=== PATIENT | female | born 1935 | race Caucasian/White ===

== ENCOUNTER 2021-03-25 08:27 | Outpatient (CLI) | payer MEDICARE, MEDICAID, SELFPAY | END 2021-03-25 08:28 | disposition home or self-care (01) | LOC: ANHAUDIO 08:30 | PROVIDERS: Visit Provider Otolaryngology | DX: H90.3 Sensorineural hearing loss, bilateral (principal) | CPT/HCPCS: 92557; 92567 ==

== ENCOUNTER 2021-05-21 12:00 | Outpatient (RCR) | payer MEDICARE, MEDICAID, SELFPAY | END 2021-05-21 23:59 | disposition home or self-care (01) | LOC: ANHAUDIO 12:00 | DX: Z46.1 Encounter for fitting and adjustment of hearing aid (principal) | CPT/HCPCS: 99199; V5160; V5261; V5264 ==

== ENCOUNTER 2024-05-05 14:12 | Inpatient (IN) | payer MEDICARE, MEDICAID, SELFPAY ==
[2024-05-05] VITALS (9 sets, daily range): BP systolic 103–146; BP diastolic 61–89; PULSE 77–121; RESP 15–24; TEMP 36.4–37.5; O2SAT 93–99; BMI 26.0
--- NOTE | ~2024-05-05 | CT_ITS ---
History: Interval development of facial droop. PROCEDURE: CT head without contrast. COMPARISON: 05/05/2024, less than 24 hours earlier. TECHNIQUE: Axial imaging of the head performed from the skull base to the vertex without IV contrast. Sagittal a nd coronal reformations obtained. DLP: 790 mGy-cm FINDINGS: The ventricles are enlarged. The dilatation of the ventricles is proportional to the degree of sulcal prominence, not uncommon in the senescent brain. Decreased attenuation is identified within the periventricular white matter, likely secondary to micr ovascular ischemic disease, in a patient of this age. There is no mass, mass effect or midline shift. There is no abnormal extra-axial fluid collection or intracranial hemorrhage. Visualized paranasal sinuses are clear. The mastoid air cells are well aerated. No acute displaced fractures within the overlying cranium. Impression: No acute intracranial hemorrhage or suspicious mass effect. Examination is unchanged from previous study performed less than 24 hours earlier, when the clinical presentation included altered mental status only. Reviewed, dictated and finalized at location A. Impression: No acute intracranial hemorrhage or suspicious mass effect. Examination is unchanged from previous study performed less than 24 hours [facility], when the clinical presentation included altered mental status only.
--- NOTE | ~2024-05-05 | US_ITS ---
EXAMINATION: US venous doppler [facility] DATE: 05/06/2024 11:39 INDICATION: Palpable cord on examination TECHNIQUE: Grayscale ultrasound images without and with compression and Doppler ultrasound images of the bilateral lower extremity veins were obtained. COMPARISON: None. FINDINGS: The visualized portions of right common femoral vein, profunda (deep) femoral vein, femoral vein, pop liteal vein, peroneal veins, posterior tibial veins, and greater saphenous vein outflow are patent. The visualized portions of left common femoral vein, profunda femoral vein, femoral vein, popliteal v ein and greater saphenous vein outflow are patent. Unable to visualize the peroneal and posterior tib ial veins, secondary to patient tolerance. IMPRESSION: 1. No deep venous thrombosis to the level of the posterior tibial vein on the right and to the level of the popliteal vein on the left. Reviewed, dictated and finalized at location A.
--- NOTE | ~2024-05-05 | XR_ITS ---
EXAMINATION: XR chest 1V portable Exam Date/Time: 05/06/2024 15:15 CDT HISTORY: secretions, AMS, Comparison: CT abdomen pelvis, 05/05/2024. RESULT: Lines, tubes, and devices: Vertebroplasty cement at T12. Lungs and pleura: Mild diffuse reticular opacities. No focal consolidation, pleural effusion, or pne umothorax. Cardiomediastinal silhouette: 3 cm mixed density ovoid right hilar mass. Hiatal hernia. Other: No acute osseous or upper abdominal finding. IMPRESSION: 3 cm ovoid, right hilar mass, may represent lymphadenopathy, a dilated pulmonary vessel en face, othe r mass, or artifact. Consider CT of the chest for further evaluation. Mild interstitial edema/senescent change. Reviewed, dictated and finalized at [facility]. IMPRESSION: 3 cm ovoid, right hilar mass, may represent lymphadenopathy, a dilated pulmonar y vessel en face, other mass, or artifact. Consider CT of the chest for further evaluation. Mild interstitial edema/senescent change.
--- NOTE | ~2024-05-05 | US_ITS ---
EXAMINATION: US renal BI DATE: 05/06/2024 11:40 INDICATION: Hydroureteronephrosis TECHNIQUE: Multiple grayscale and Doppler ultrasound images of the kidneys were obtained. COMPARISON: CT abdomen pelvis 05/05/2024. FINDINGS: The right kidney measures 9.3 x 4.5 x 4.5 cm. The left kidney measures 8.9 x 3.5 x 3.4 cm. The kidney s demonstrate increased parenchymal echogenicity, renal sinus lipomatosis, and bilateral cortical thi nning. There is mild right and trace left pelviectasis. Suggestion of mucosal thickening in the right renal pelvis. The bladder is decompressed by a Phan catheter. IMPRESSION: Bilateral cortical atrophy and evidence of medical renal disease. Bilateral pelviectasis, greater on the right, both are improved since the prior CT. Wall thickening o f the right renal pelvis may reflect infection/inflammation. Reviewed, dictated and finalized at [facility]. IMPRESSION: Bilateral cortical atrophy and evidence of medical renal disease. Bilateral pelviectasis, greater on the right, both are improved since the prior CT. Wall thickening of the right renal pelvis may reflect infection/inflammati on.
--- NOTE | ~2024-05-05 | CT_ITS ---
CT Scan of the Chest without Contrast: Clinical Indication: Right hilar mass Technique: Contiguous sections were acquired throughout the chest without intravenous contrast. Dose reduction technique was used on this scan by utilizing automated exposure control and iterative recon struction technique. The dose-length product (DLP) was 220.99 mGy-cm. Findings: There is no evidence of any significant mediastinal, hilar or axillary lymphadenopathy. There is card iomegaly with left atrial enlargement. Extensive coronary artery calcifications are present. There ar e extensive atherosclerotic calcifications of the aorta. No pericardial effusion. Small bilateral pleural effusions are present. The lungs are clear. No pulmonary nodules or infiltrates are noted. Images through the upper abdomen reveal moderate hiatal hernia. There is extensive degenerative arvizu e of the spine. There is T12 vertebroplasty. Impression: No abnormal mass lesion identified. Small bilateral pleural effusions. Cardiomegaly. Moderate hiatal hernia. Reviewed, dictated and finalized at [facility]. Impression: No abnormal mass lesion identified. Small bilateral pleural effusions. Cardiomegaly. Moderate hiatal hernia.
--- NOTE | ~2024-05-05 | XR_ITS ---
XR chest 1V portable 05/08/2024 07:32 Indication: Shortness of breath. Altered mental status. Procedure: AP portable chest Comparison: 05/06/2024 Findings: Cardiomegaly. Hiatal hernia. No focal air space disease, pulmonary edema, pleural effusion or suspected pneumothorax. There is dextroscoliosis. There is severe thoracic spondylosis with multip le compression fractures with vertebroplasty changes in the lower thoracic spine. Osteopenia. Impression: 1: No acute cardiopulmonary disease. 2: Cardiomegaly. 3: Hiatal hernia. Reviewed, dictated and finalized at location A. Impression: 1: No acute cardiopulmonary disease. 2: Cardiomegaly. 3: Hiatal hernia.
--- NOTE | ~2024-05-05 | CT_ITS ---
History: Altered mental status with urinary tract infection PROCEDURE: CT head without contrast. COMPARISON: None TECHNIQUE: Axial imaging of the head performed from the skull base to the vertex without IV contrast. Sagittal a nd coronal reformations obtained. DLP: 681 mGy-cm FINDINGS: The ventricles are enlarged. The dilatation of the ventricles is proportional to the degree of sulcal prominence, not uncommon in the senescent brain. Decreased attenuation is identified within the periventricular white matter, likely secondary to micr ovascular ischemic disease, in a patient of this age. There is no mass, mass effect or midline shift. There is no abnormal extra-axial fluid collection or intracranial hemorrhage. Visualized paranasal sinuses are clear. The mastoid air cells are well aerated. No acute displaced fractures within the overlying cranium. Impression: No acute intracranial hemorrhage or suspicious mass effect. Reviewed, dictated and finalized at location A. Impression: No acute intracranial hemorrhage or suspicious mass effect.
--- NOTE | ~2024-05-05 | US_ITS ---
EXAMINATION: US carotid duplex BI DATE: 05/07/2024 16:05 INDICATION: Right-sided cerebrovascular accident. Carotid bruit. TECHNIQUE: Grayscale, color Doppler, and pulsed Doppler images of the cervical carotid arteries were obtained. The degree of vessel stenosis is placed in one of the following categories: normal, <50%, 5 0-69%, >=70% but less than near-occlusion, near-occlusion, or total occlusion. Note that percent sten osis relative to normal distal artery lumen diameter is indirectly measured from velocity measurement s as described by Chaitanya, et al. Radiology 2003; [id number]. COMPARISON: None. FINDINGS: RIGHT: The right common carotid artery (CCA) peak systolic velocity (PSV) is 50 cm/s. The right internal car otid artery (ICA) PSV is 39 cm/s. The right ICA end-diastolic velocity (EDV) is 7 cm/s. The right ICA /CCA PSV ratio is 0.8. Grayscale and color Doppler images yield an estimate of <50% diameter reductio n from plaque in the ICA. There is antegrade flow in the right vertebral artery. LEFT: The left CCA PSV is 47 cm/s. The left ICA PSV is 58 cm/s. The left ICA EDV is 16 cm/s. The left ICA/C CA PSV ratio is 1.2. Grayscale and color Doppler images yield an estimate of <50% diameter reduction from plaque in the ICA. There is antegrade flow in the left vertebral artery. IMPRESSION: 1. <50% stenosis in the right internal carotid artery. 2. <50% stenosis in the left internal carotid artery. Reviewed, dictated and finalized at location A.
--- NOTE | ~2024-05-05 | CT_ITS ---
CLINICAL INDICATION: Urinary tract infection, acute kidney injury. COMPARISON: None. TECHNIQUE: Multiple contiguous axial images of the abdomen and pelvis were performed without the admi nistration of intravenous contrast The dose-length product (DLP) was 571.16 mGy-cm. Automated exposure control and iterative reconstruction technique were employed. FINDINGS/OBSERVATIONS: Visualized lower thorax: The bilateral lung bases are clear. A large hiatal hernia is demonstrated The heart is of normal size, without pericardial effusion. Small hiatal hernia is present. Liver: The liver demonstrates homogeneous attenuation and is not enlarged. Gallbladder and biliary system: The gallbladder is only minimally distended, and contains layering sludge. Pancreas: Limited evaluation of the pancreas secondary to the lack of intravenous contrast. Spleen: The spleen demonstrates homogeneous attenuation and is not enlarged. Kidneys: Bilateral hydroureteronephrosis extending to the level of the bladder which is distended with markedl y thickened taylor and surrounding inflammatory change. Adrenal glands: Unremarkable. Gastrointestinal tract: Colonic diverticulosis without surrounding inflammatory change. Fecal stasis within the colon. Vasculature: Densely calcified atherosclerotic disease. Lymph nodes: Limited evaluation without intravenous contrast. Pelvic structures: As above. Body wall and musculoskeletal: Significant degenerative disease within the lower thoracic and lumbosacral spines. IMPRESSION: Significant hydroureteronephrosis with bladder distention and surrounding inflammatory change. Reviewed, dictated and finalized at location A. IMPRESSION: Significant hydroureteronephrosis with bladder distention and surrounding infla mmatory change.
--- NOTE | 2024-05-05 14:23 | ECG_ITS ---
Test Date: 2024-05-05 14:28:37 Measurements Intervals [place] Rate: 71 P: 0 GA: 0 QRS: -40 QRSD: 102 T: 64 QT: 381 QTc: 416 Interpretive Statements ATRIAL FIBRILLATION WITH ABERRANT CONDUCTION OR VENTRICULAR PREMATURE COMPLEXES LEFT AXIS DEVIATION [QRS AXIS < -30] SEPTAL MYOCARDIAL INFARCTION , PROBABLY OLD [40+ ms Q WAVE IN V1/V2] ABNORMAL ECG No previous ECG available for comparison Electronically Signed On 05-05-2024 15:44:28 CDT by Yoshi Mccarty M.D.
--- OUTSIDE RECORDS SUMMARY | 2024-05-05 14:25 | XMS_ITS | Patient Health Record ---
Author Organization [facility] Address [address] [facility] [address] [place] [address] Care Team Providers Care Senior Unix Administrator Name Role Phone VillanuevaRenatoEmanuel Unavailable [phone] REASON FOR REFERRAL No Information PROBLEMS Problem Type ICD Code Onset Dates Problem Status W/U Status Risk SNOMED Code Notes Problem Secondary hyperparathyroid ism, not elsewhere classified (E21.1) Active confirmed Secondary hyperparathyroidism (64317412) Problem Morbid (severe) obesity due to excess calories (E66.01) Active confirmed Morbid obesity (disorder) (164984204) Problem Hyperuricemia without signs of inflammatory arthritis 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) Active confirmed Hyperuricemi a without signs of inflammatory arthritis and tophaceous disease (429722583) Problem Essential (primary) hypertension (I10) Active confirmed Essential hypertension (46559225) Problem Renal osteodystrophy (N25.0) Active confirmed Renal osteodyst rophy (19744327) Problem Chronic kidney disease, stage 3b (N18.32) Active confirmed Chronic kidney disease stage 3B (disorder) (475103136) Encounters Encounter Location Date Provider Diagnosis [place] [facility] [address] [address] 06/24/2023 Emanuel Villanueva Chronic kidney disea se, stage 3b N18.32 ; Essential (primary) hypertension I10 ; Morbid (severe) obesity due to excess calories E66.01 ; Renal osteodystrophy N25.0 ; Secondary hyperparathyroidism, not elsewhere classified E21.1 and Hyperuricemia without signs of inflammatory arthritis and tophaceous disease E79.0 [place] [facility] [address] [address] 08/24/2023 Emanuel Villanueva Chronic kidney disea se, stage 3b N18.32 ; Essential (primary) hypertension I10 ; Morbid (severe) obesity due to excess calories E66.01 ; Renal osteodystrophy N25.0 ; Secondary hyperparathyroidism, not elsewhere classified E21.1 and Hyperuricemia without signs of inflammatory arthritis and tophaceous disease E79.0 ASSESSMENTS Encounter Date Diagnosis Assessment Notes Treatment Notes Treatment Clinical Notes Section Notes 06/24/2023 Chronic kidney disease, stage 3b (ICD-10 - N18.32) 08/24/2023 Chronic kidney disease, stage 3b (ICD-10 - N18.32) 08/24/2023 Essential (primary) hypertension (ICD-10 - I10) 06/24/2023 Essential (primary) hypertension (ICD-10 - I10) 06/24/2023 Morbid (severe) obesity due to excess calories (ICD-10 - E66.01) 08/24/2023 Morbid (severe) obesity due to excess calories (ICD-10 - E66.01) 08/24/2023 Renal osteodystrophy (ICD-10 - N25.0) 06/24/2023 Renal osteodystrophy (ICD-10 - N25.0) 06/24/2023 Secondary hyperparathyroidism , not elsewhere classified (ICD-10 - E21.1) 08/24/2023 Secondary hyperparathyroidism , not elsewhere classified (ICD-10 - E21.1) 08/24/2023 Hyperuricemia without signs of inflammatory arthritis and tophaceous disease (ICD-10 - E79.0) 06/24/2023 Hyperuricemia without signs of inflammatory arthritis and tophaceous disease (ICD-10 - E79.0) PLAN OF TREATMENT No Information
--- OUTSIDE RECORDS SUMMARY | 2024-05-05 14:25 | XMS_ITS | Continuity of Care Document ---
Author [place] [facility] [place] [address] [place] [address] Dr Alvarez [address] [place] [phone] Phone Care Team Providers Care Annual Greenhouse Manager Name Role Phone Amilcar Terrazas Unavailable Unavailable Procedures Procedure Date Office/outpatient Visit, Est Dilated Macular Exam Performed 10 Counseling For Antioxidant Supplements A TF Plastic Sphcyl Clayton To +/-4d .12-2d Vision Svcs Frames Purchases Frames Deluxe Scratch Resistant Coating Post-op Follow-up Visit Refraction Post-op Follow-up Visit Remove Cataract, Insert Lens PreOp Assessment Performed Post-op Follow-up Visit Echo Exam Of Eye-Professional 0 Post-op Follow-up Visit Remove Cataract, Insert Lens PreOp Assessment Performed Eye Exam & Treatment Script Printed/Phoned Pt Requ Or Pharm N ot Availab Echo Exam Of Eye Eye Exam & Treatment No Script Refraction Eye Exam & Treatment Dilated Macular Exam Performed 08 Refraction TF Plastic Sphcyl [place] To +/-4d .12-2d Tax - Medical Eye Exam & Treatment Refraction Advance Directives Directive Yes / No Effective Date File Name No Information Encounters Encounter Description Practice Location Reason(s) For Visit Diagnoses Date Provider Providers Copied on Encounter Office/outpat ient Visit, Est [facility], [address] [place] [address] [address], [place], [place], [id number], [place] tel:[phone] [facility] [place] No Information Sep- 0-201 0 Nini Fitzgerald. [address] [facility] [facility] [place] , [address], [place], [place], [facility], [place]. tel:[phone] [facility], [address], [place], [place], [id number], [place] tel:[phone] SEC [facility] No Information 2 4-201 0 [facility] . [address] [facility], [address], [place], [place], [address], [place]. tel:[phone] Referring Provider: Amilcar Pérez, [address] [place], [place] [address]ate [address], [place], [place], [facility]. tel:[phone] [facility], [address] [place] [address] [address], [place], [place], [id number], [place] tel:[phone] [facility] No Information 9-201 0 Nini Fitzgerald. [facility] [address], [address], [place], [address], [place]. tel:[phone] [facility], [address], [place], [place], [id number], [place] tel:[phone] [facility] [place] No Information b-0 5-201 0 Nini Fitzgerald. [facility] [place] , [address], [place], [address], [place]. tel:[phone] [facility], [address], [place], [place], [address], [place] tel:[phone] [facility] No Information Feb-0 4-201 0 Nini Fitzgerald. [address] , [address], [place], [address], [place]. tel:[phone] [facility], [address], [place], [place], [address], [place] tel:[phone] [facility] No Information 0 Nini Fitzgerald. [address] , [address], [place], [address], [place]. tel:[phone] Referring Provider: Amilcar Pérez, [address] [facility] [address], [place], [address]. tel:[phone] [facility], [address] [place] [address] [address], [place], [place], [address], [place] tel:[phone] [facility] No Information 0 Nini Fitzgerald. [facility] , [address], [place], [place], [facility], [place]. tel:[phone] [facility], [address], [place], [place], [address], [place] tel:[phone] [facility] No Information 0 Nini Fitzgerald. [facility] , [address], [place], [address], [place]. tel:[phone] [facility], [address] [place] [address] [address], [place], [place], [address], [place] tel:[phone] [facility] No Information 0 Nini Fitzgerald. [facility] , [address], [place], [address], [place]. tel:[phone] Referring Provider: Amilcar Pérez, [address], [place], [place], [facility]. tel:[phone] [facility], [address] [place] [address] [address], [place], [place], [address], [place] tel:[phone] [facility] No Information 9 Nini Fitzgerald. [address] [place] [address] , [address], [place], [address], . tel:[phone] [facility], [address] [place] [address] [address], [place], [place], [address], [place] tel:[phone] [facility] [place] No Information 8 Nini Fitzgerald. [address] [place] [address] , [address], [place], [address], . tel:[phone] [facility], [address] [place] [address] [address], [place], [place], [address], [place] tel:[phone] [facility] No Information 7 [facility] . [address] [place] [address], [address], [place], [place], [id number], . tel:[phone] Referring Provider: Amilcar Pérez, [address] [place] [address] [address], [place], [place], [facility]. tel:[phone] sulting Provider: Joseph Chavez, [address] [place], [place] [address]ate [facility], [place], [address]. tel:[phone] [facility], [address] [place] [address] [address], [place], [place], [id number], [place] tel:[phone] [facility] No Information 7 Nini Fitzgerald. [address] [place] [address] , [address], [place], [address], . tel:[phone] Family History Family Member Type Diagnosis Age At Onset No Information Payers Payer name Insurance type Covered green party ID Authoriza tion(s) [place] [id number] [place] [id number] Social History Type Description Quantity Date Captured Comments Sex Female Smoking Status No Information Chief Complaint And Reason For Visit No Information Reason For Referral Reason For Referral No Information History Of Present Illness Encounter Date Complaint History Of Prese nt Illness No Information Functional Status Date Functional Assessmen t No Information Instructions Date Instruction Additional Infor mation No Information Assessments Type Assessment Date No Information Patient Care Teams Name Effective Dates (start - stop) Status Members No Information
--- OUTSIDE RECORDS SUMMARY | 2024-05-05 14:25 | XMS_ITS | Clinical Summary ---
Author Organization [facility] Address [address] [place] [address] Care Team Providers Care Assistant Basketball Coach Name Role Phone Deepali Brand MD Primary Care Provider [phone] Link Cook MD Unavailable [phone] Allergies Active Allergy Reactions Criticality Noted Date Comments Precious Loya 09/30/2017 Medications levothyroxine (SYNTHROID, LEVOTHROID) 125 mcg tablet Take 125 mcg by mouth speech therapist early intervention before breakfast. Active lisinopril (PRINIVIL,ZESTRI L) 10 mg tablet Take 10 mg by mouth daily. Active metoprolol XL (TOPROL-XL) 25 mg 24 hr tablet Take 25 mg by mouth 2 (two) times a day. Active ezetimibe (ZETIA) 10 mg tablet Take 10 mg by mouth daily. Active HYDROcodone-acet aminophen (NORCO) 10-325 mg per tablet Take 1 tablet by mouth daily as needed for pain. Patient takes half a tablet at night Active solifenacin (VESIcare) 5 mg tablet Take 5 mg by mouth daily. Active acetaminophen 500 mg capsule Take 500 mg by mouth 3 (three) times a day. Active docusate sodium (DOK) 100 mg capsule Take 100 mg by mouth daily. Active ergocalciferol (VITAMIN D) 50,000 unit capsule Take 50,000 Units by mouth once a week. tuesday Active vit A/vit C/vit E/zinc/copper (PRESERVISION AREDS ORAL) Take 1 tablet by mouth 2 (two) times a day. Active cyanocobalamin (Vitamin B-12) 1,000 mcg tablet Take 1,000 mcg by mouth daily. Active calcium carbonate (CALCIUM 600 ORAL) Take 2 tablets by mouth daily. Active glucosamine-behzad droitin 500-400 mg tablet Take 1 tablet by mouth 2 (two) times a day. Active cranberry fruit concentrate (AZO CRANBERRY ORAL) Take 1 tablet by mouth 2 (two) times a day. Active gabapentin (NEURONTIN) 100 mg capsule Take 1 capsule (100 mg total) by mouth 3 (three) times a day. 180 capsule 1 8 Active traMADol (ULTRAM) 50 mg tablet Take 1 tablet (50 mg total) by mouth every 8 (eight) hours as needed for pain. 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 Per Pt, hx of AntiVEGF therapy years ago so possible prior nvAMD component but unclear if it was ever exudative Currently no evidence of active CNVM. VA limited by atrophy. She has large foci of geographic atrophy involving almost the entire macula in both eyes. I do not recommend complement inhibitor therapy given the size of geographic atrophy as well as the risks. Recommend observation Senile ectropion of left lower eyelid 04/03/2024 Assessment & Plan (04/03/2024 10:11 AM SAFE DEPOSIT CLERK): Associated surface dryness Recommend lubrication with artificial tears 3-4x daily I discussed the ectropion with her. She is mildly symptomatic at best and as such we do not recommend surgery at this time. Crohn's disease without complication 05/18/2018 Assessment & Plan (05/18/2018 2:17 PM CDT): Patient has been in remission for many years on Pentasa 1000 mg twice daily. We will continue the same. Her last colonoscopy was more than 10 years ago and patient continued to refuse to have another colonoscopy for screening. We will check stool for occult blood. Follow up in my office in 6 months. Gastroesophageal reflux disease without esophagi tis 05/18/2018 Assessment & Plan (05/18/2018 2:17 PM CDT): She is on ranitidine 300 mg daily and that seems to control her symptoms. She has no specific complaints. Will continue the same. 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 Encounters Date Type Department Care Team Description 04/03/2024 9:30 AM SAFE DEPOSIT CLERK Office Visit [facility] [address] [facility] [address]th [place] [address] Ken Prasad MD PhD Advanced atrophic nonexudative age-related macular degeneration of both eyes with subfoveal involvement (Primary Dx); Bilateral nonexudative age-related macular degeneration, unspecified stage; Senile ectropion of left lower eyelid 02/09/2024 Telephone [facility] [address] [place] [address] Ken Prasad MD PhD Scheduling Appointments from Last 3 Months Surgical History Surgery Date Site/Laterality Comments MASTECTOMY left Medical History Medical History Date Comments Arthritis in neck and join ts Crohn disease (HCC) Atrial fibrillation (HCC) Hypertension Renal disorder Family History Medical History Relation Name Comments No Known Problems Father No Known Problems Mother No Known Problems Sister Relation Name Status Comments Father Mother Sister Social History Tobacco Use Types Packs/Day Years Used Date Smoking Tobacco: Never Smokeless Tobacco: Never Alcohol Use Standard Drinks/Week Comments No 0 (1 standard drink = 0.6 oz pur e alcohol) PHQ-2 Answer Date Recorded PHQ-2 Score 0 09/29/2018 Comments No Sex and Gender Information Value Date Recorded Sex Assigned at Not on file Legal Sex Female 3:18 AM SAFE DEPOSIT CLERK Gender Identity Not on file Sexual Orientation Not on file Obstetrics History Last Filed Vital Signs Vital Sign Reading Time Taken Comments Blood Pressure 124/64 05/18/2018 9:45 AM CDT Pulse 61 05/18/2018 9:45 AM CDT Temperature 36.6 C (97.8 F) 05/18/2018 9:45 AM CDT Respiratory Rate 16 05/18/2018 9:45 AM CDT Oxygen Saturation 95% 05/18/2018 9:45 AM CDT Inhaled Oxygen Concentration - - Weight 98 kg (216 lb) 05/18/2018 9:45 AM CDT Height 160 cm (5' 3 ) 05/18/2018 9:45 AM CDT Body Mass Index 38.26 05/18/2018 9:45 AM CDT Plan of Treatment Health Maintenance Due Date Last Done Comments DTaP/Tdap/Td Vaccine (1 - Tdap) 1945 Hepatitis B Screening 1952 Pneumococcal vaccine 65+ (1 of 1 - PCV) 1984 Zoster Vaccine (1 of 2) 1984 Well Visit 65+ 10/09/1999 Depression Screening 05/19/2019 05/18/2018, 05/19/19 19 Fall Risk Assessment 05/19/2019 05/18/2018 Covid-19 Vaccine ( season) 2023, 06/26/2020 Influenza Vaccine (#1) 2023 Procedures Procedure Name Priority Date/Time Associated Diagnosis Comments OCT, RETINA - OU - BOTH EYES Routine 04/03/2024 10:12 AM SAFE DEPOSIT CLERK Bilateral nonexudative age-related macular degeneration, unspecified stage from Last 3 Months Results * OCT, Retina - OU - Both Eyes (04/03/2024 10:12 AM SAFE DEPOSIT CLERK) Anatomical Region Laterality Modality Head Optical [facility]he[facility] e Tomography Narrative 04/03/2024 10:12 AM SAFE DEPOSIT CLERK Right Eye Quality was good. Scan locations included subfoveal. Progression has no prior data. Left Eye Quality was good. Scan locations included subfoveal. Progression has no prior data. Notes OD: ERM with lamellar hole, subretinal scarring with GA, no CME OS: diffuse GA, no obvious CME (slightly hazy view) Jerry Monson MD OPHTH TOMOGRAPHY Final Result from Last 3 Months Insurance [facility] MEDICARE [address] Advance Directives For more information, please contact: [phone] * Full Code (Latest Code Status on File) Date Activated Date Inactivated Comments 10/01/2017 4:59 PM 10/02/2017 7:21 PM Care Teams Assistant Basketball Coach Relationship Specialty Start Date End Date Deepali Brand MD [facility] [place] [address] PCP - General 09/30/17 Link Cook MD [facility] [place] [address] Consulting Physician Cardiology 10/02/17
--- OUTSIDE RECORDS SUMMARY | 2024-05-05 14:25 | XMS_ITS | Referral Summary ---
Author Organization [facility] Address [address] [place] [address] Care Team Providers Care Outreach Coordinator Name Role Phone Deepali Brand MD Primary Care Provider [phone] Link Cook MD Unavailable [phone] Encounters Date Type Department Care Team Description 04/03/2024 9:30 AM 4TH GRADE MATH TEACHER Office Visit [facility] [address] [facility] 6th [place] [address] Ken Prasad MD PhD Advanced atrophic nonexudative age-related macular degeneration of both eyes with subfoveal involvement (Primary Dx); Bilateral nonexudative age-related macular degeneration, unspecified stage; Senile ectropion of left lower eyelid 02/09/2024 Telephone [facility] [address] [place] [address] Ken Prasad MD PhD Scheduling Appointments from Last 3 Months Allergies Active Allergy Reactions Criticality Noted Date Comments Precious Mattson Medium 09/30/2017 Medications levothyroxine (SYNTHROID, LEVOTHROID) 125 mcg tablet Take 125 mcg by mouth flaring machine operator before breakfast. Active lisinopril (PRINIVIL,ZESTRI L) 10 [...] 04/03/2024 Assessment & Plan (04/03/2024 10:11 AM [facility]): Referred for AMD michelle Has extensive GA [...] 04/03/2024 Assessment & Plan (04/03/2024 10:11 AM 4TH GRADE MATH TEACHER): Associated surface dryness Recommend lubrication with artificial [...] all her life with her current weight. Social History Tobacco Use Types Packs/Day Years Used Date Smoking Tobacco: Never Smokeless Tobacco: Never Alcohol Use Standard Drinks/Week Comments No 0 (1 standard drink = 0.6 oz pur e alcohol) PHQ-2 Answer Date Recorded PHQ-2 Score 0 09/29/2018 Comments No Sex and Gender Information Value Date Recorded Sex Assigned at Not on file Legal Sex Female 3:18 AM 4TH GRADE MATH TEACHER Gender Identity Not on file Sexual Orientation Not on file Last Filed Vital Signs Vital Sign Reading [...] 05/18/2018 9:45 AM CDT Plan of Treatment Not on file Procedures Procedure Name Priority Date/Time Associated Diagnosis Comments OCT, RETINA - OU - BOTH EYES Routine 04/03/2024 10:12 AM 4TH GRADE MATH TEACHER Bilateral nonexudative age-related macular degeneration, unspecified stage from Last 3 Months Results * OCT, Retina - OU - Both Eyes (04/03/2024 10:12 AM 4TH GRADE MATH TEACHER) Anatomical Region Laterality Modality Head Optical Coherenc e Tomography Narrative 04/03/2024 10:12 AM 4TH GRADE MATH TEACHER Right Eye Quality was good. Scan locations included subfoveal. Progression has no prior data. Left Eye Quality was good. Scan locations included subfoveal. Progression has no prior data. Notes OD: ERM with lamellar hole, subretinal scarring with GA, no CME OS: diffuse GA, no obvious CME (slightly hazy view) Jerry Monson MD OPHTH TOMOGRAPHY Final Result from Last 3 Months Insurance [place] [address] [facility] MEDICARE RAILROAD [facility] Advance Directives For more information, please contact: [phone] * Full Code (Latest Code Status on File) Date Activated Date Inactivated Comments 10/01/2017 4:59 PM 10/02/2017 7:21 PM Care Teams Outreach Coordinator Relationship Specialty Start Date End Date Deepali Brand MD [address] [place] [address] [place] [address] PCP - General 09/30/17 Link Cook MD [address] [place] [address] [place] [address] Consulting Physician Cardiology 10/02/17
--- OUTSIDE RECORDS SUMMARY | 2024-05-05 14:25 | XMS_ITS ---
Author Organization [facility] Address [address] [place] [address] Care Team Providers Care Hat Cutter Name Role Phone Rich Emanuel Unavailable [phone] Encounters Encounter Location Date Provider Diagnosis [facility] [address] [facility] [address] [place] [address] 03/04/2023 Emanuel Villanueva Chronic kidney disea se, stage 3b N18.32 ; Essential (primary) hypertension I10 ; Morbid (severe) obesity due to excess calories E66.01 ; Renal osteodystrophy N25.0 ; Secondary hyperparathyroidism, not elsewhere classified E21.1 and Hyperuricemia without signs of inflammatory arthritis and tophaceous disease E79.0 ASSESSMENTS Encounter Date Diagnosis Assessment Notes Treatment Notes Treatment Clinical Notes Section Notes 03/04/2023 Chronic kidney disease, stage 3b (ICD-10 - N18.32) 03/04/2023 Essential (primary) hypertension (ICD-10 - I10) 03/04/2023 Morbid (severe) obesity due to excess calories (ICD-10 - E66.01) 03/04/2023 Renal osteodystrophy (ICD-10 - N25.0) 03/04/2023 Secondary hyperparathyroidism , not elsewhere classified (ICD-10 - E21.1) 03/04/2023 Hyperuricemia without signs of inflammatory arthritis and tophaceous disease (ICD-10 - E79.0) PLAN OF TREATMENT No Information Progress Notes * ARCELIA NOVOAADOB:1935 (88 yo M)Acc No.[id number]:03/04/2023 Progress Notes Patient: CORBY NOVOA Provider: MD GURDEEP, F.A.C.P, F.A.S.N. :1935 Age:87 Y Sex:Male Date:03/04/2023 Address:[facility] [place] [address] Subjective: * Chief Complaints: * * Medical History: Objective: Assessment: * Assessment: 1. Chronic kidney disease, stage 3b - N18.32 2. Essential (primary) hypertension - I10 3. Morbid (severe) obesity due to excess calories - E66.01 4. Renal osteodystrophy - N25.0 5. Secondary hyperparathyroidism, not elsewhere classified - E21.1 6. Hyperuricemia without signs of inflammatory arthritis and tophaceous disease - E79.0 Plan: * Treatment: * Billing Information: * Visit Code: [id number] Office Visit, Est Pt., Level 4. * Procedure Codes: * Sign off status: Pending * Provider: MD GURDEEP, F.Jere, F.A.S.N. Date: 03/04/2023
--- OUTSIDE RECORDS SUMMARY | 2024-05-05 14:26 | XMS_ITS | CONTINUITY OF CARE DOCUMENT ---
Author Name brad salinas Address Unknown Organization [facility] Address [address] [address] [facility] [address] [place] [address] Phone [phone] Care Team Providers Care Manager Front Name Role Phone Joyce DESOUZA, Link Unavailable CAMERON DESOUZA, MIGDALIA Unavailable CAMERON DESOUZA, MIGDALIA Unavailable PROBLEMS Condition Status Date Provider Notes AFIB; CHRON, NML TSH,, INR P ER [facility] active Link Cook MD HIATAL HERNIA; active Link Cook MD OBESITY; active Link Cook MD HTN; has 100% right renal 09 active Link Cook MD Hyperlipidemia, unspecified active Lalita Naranjo nDorejarad RENAL FAILURE CHRONIC; NEG U S, LABS PER PRIMARY, 100 renal stenos right active Link Cook MD DVT;NEG US completed - Link Cook MD HYPOKALEMIA,4.3 2010 LABS PE R PRIMARY active - Link Cook MD DIASTOLIC CHF active Link Cook MD LEG PAIN-04/15 TIMO DUP NEG LEFT, NO FLOW RIGHT active - Link Cook MD LEG PAIN- 04/15 HARJIT DOP NEG completed - Link Cook MD ISCHEMIA;ABNL 09 AND NML 12,NML 14, NEVER WANTED CATH completed - Link Cook MD RENAL ARTERY STENOSIS;100% RIGHT RENAL 04/15 active Link Cook MD AORTIC REGURGITATION MILD;NM L EF 2008 & 2009 completed - Likn Cook MD CROHN'S DISEASE and diverticulosis active Link Cook MD LOW HDL;LOW LDL 2009, INTOL TO NIASPAN completed - Link Cook MD ANEMIA; completed - Link Cook MD AORTIC REGURGITATION, MILD;1 3 WITH NML EF completed - Link Cook MD CAROTID ARTERY DISEASE;NEG 11 completed 11/14/07 - Link Cook MD OSTEOARTHRITIS active Link Cook MD VITAMIN D DEFICIENCY; active Link Cook MD HYPOTHYROIDISM;ON RX PER PRIMARY active Link Cook MD DEHYDRATION active Link Cook MD LEFT ATRIAL ENLARGEMENT completed - Link Cook MD MITRAL REGURGITATION, MILD completed 08/24 - Link Cook MD AORTIC VALVE SCLEROSIS completed - Link Cook MD TRICUSPID REGURGITATION, MIL D, PAP 29 2012 completed - Link Cook MD AORTIC ATHEROSCLEROSIS active Link Cook MD Valvular heart disease active Link Cook MD Sleep apnea active Link Cook MD Screening active Link Cook MD Chest pain-type to be determined completed - Link Cook MD Anemia, iron deficiency active Link case MD now of cd Fall risk completed - Link Cook MD Microalbuminuria active Link Cook MD ENCOUNTERS Date Type Provider Location Encounter Diag nosis - In-person encounter Office Visit Linda Villanueva MD [place] [facility] - In-person encounter Office Visit Link Cook MD [facility] OBESITY;HTN; has 100% right renal 09RENAL FAILURE CHRONIC; NEG US, LABS PER PRIMARY, 100 renal stenos rightValvular heart diseaseAnemia, iron deficiencyFall riskMicroalbuminuria - In-person encounter Office Visit Link Cook MD [place] [facility] Screening - In-person encounter Office Visit Link Cook MD [facility] DVT;NEG USISCHEMIA;ABNL 09 AND NML 12,NML 14, NEVER WANTED CATHLOW HDL;LOW LDL 2009, INTOL TO NIASPANCAROTID ARTERY DISEASE;NEG 11Chest pain-type to be determined - In-person encounter Office Visit Link Cook MD [facility] ANEMIA;Valvular heart diseaseAnemia, iron deficiency - In-person encounter Office Visit Link Cook MD [place] [facility] RENAL FAILURE CHRONIC; NEG US, LABS PER PRIMARY, 100 renal stenos rightVITAMIN D DEFICIENCY;Screening - In-person encounter Office Visit Link Cook MD [place] [facility] - In-person encounter Office Visit Link Cook MD [facility] Hyperlipidemia, unspecified - In-person encounter Office Visit Link Cook MD [facility] - In-person encounter Office Visit Link Cook MD [facility] - In-person encounter Office Visit Link Cook MD [facility] - In-person encounter Office Visit Link Cook MD [facility] DIASTOLIC CHFAORTIC REGURGITATION, MILD;13 WITH NML EFLEFT ATRIAL ENLARGEMENTAORTIC VALVE SCLEROSISTRICUSPID REGURGITATION, MILD, PAP 29 2013Valvular heart diseaseSleep apnea - In-person encounter Office Visit Link Cook MD [place] HIATAL HERNIA;Hyperlipidemia, unspecifiedRENAL FAILURE CHRONIC; NEG US, LABS PER PRIMARY, 100 renal stenos rightCROHN'S DISEASE and diverticulosisANEMIA; - In-person encounter Office Visit Link Cook MD [facility] - In-person encounter Office Visit Link Cook MD [facility] OBESITY;HTN; has 100% right renal 09RENAL FAILURE CHRONIC; NEG US, LABS PER PRIMARY, 100 renal stenos rightHYPOKALEMIA,4.3 2011 LABS PER PRIMARY - In-person encounter Office Visit Link Cook MD [facility] - In-person encounter Office Visit Link Cook MD [facility] OBESITY;HTN; has 100% right renal 09Hyperlipidemia, unspecifiedDIASTOLIC CHFANEMIA;MITRAL REGURGITATION, MILD - In-person encounter Office Visit Link Cook MD [facility] - In-person encounter Office Visit Link Cook MD [facility] AFIB; CHRON, NML TSH,, INR PER SLHVRENAL FAILURE CHRONIC; NEG US, LABS PER PRIMARY, 100 renal stenos rightANEMIA;AORTIC REGURGITATION, MILD;13 WITH NML EFVITAMIN D DEFICIENCY;TRICUSPID REGURGITATION, MILD, PAP 29 2013AORTIC ATHEROSCLEROSIS - In-person encounter Office Visit Link Cook MD [facility] AFIB; CHRON, NML TSH,, INR PER SLHVHyperlipidemia, unspecifiedRENAL FAILURE CHRONIC; NEG US, LABS PER PRIMARY, 100 renal stenos rightDIASTOLIC CHFISCHEMIA;ABNL 09 AND NML 12,NML 14, NEVER WANTED CATHAORTIC REGURGITATION MILD;NML EF 2009 & 2010AORTIC REGURGITATION, MILD;13 WITH NML EFHYPOTHYROIDISM;ON RX PER PRIMARYDEHYDRATION - In-person encounter Office Visit Link Cook MD [facility] - In-person encounter Office Visit Link Cook MD [facility] - In-person encounter Office Visit Link Cook MD [facility] - In-person encounter Office Visit Link Cook MD [facility] - In-person encounter Office Visit Link Cook MD [facility] - In-person encounter Office Visit Link Cook MD [facility] AFIB; CHRON, NML TSH,, INR PER SLHVRENAL FAILURE CHRONIC; NEG US, LABS PER PRIMARY, 100 renal stenos rightDIASTOLIC CHFANEMIA;VITAMIN D DEFICIENCY; - In-person encounter Office Visit Link Cook MD [facility] AFIB; CHRON, NML TSH,, INR PER SLHVHIATAL HERNIA;OBESITY;HTN; has 100% right renal 09ISCHEMIA;ABNL 09 AND NML 12,NML 14, NEVER WANTED CATHANEMIA;OSTEOARTHRITISVI TAMIN D DEFICIENCY; - In-person encounter Office Visit Link Cook MD [facility] Hyperlipidemia, unspecifiedRENAL FAILURE CHRONIC; NEG US, LABS PER PRIMARY, 100 renal stenos rightDVT;NEG USHYPOKALEMIA,4.3 2010 LABS PER PRIMARYDIASTOLIC CHFLEG PAIN- 04/15 HARJIT DOP NEGISCHEMIA;ABNL 09 AND NML 12,NML 14, NEVER WANTED CATHCROHN'S DISEASE and diverticulosisAORTIC REGURGITATION, MILD;13 WITH NML EFCAROTID ARTERY DISEASE;NEG 11 - In-person encounter Office Visit Link Cook MD [facility] HIATAL HERNIA;Hyperlipidemia, unspecifiedRENAL FAILURE CHRONIC; NEG US, LABS PER PRIMARY, 100 renal stenos rightISCHEMIA;ABNL 09 AND NML 12,NML 14, NEVER WANTED CATHCROHN'S DISEASE and diverticulosisANEMIA; - In-person encounter Office Visit Link Cook MD [facility] AFIB; CHRON, NML TSH,, INR PER SLHVRENAL FAILURE CHRONIC; NEG US, LABS PER PRIMARY, 100 renal stenos rightISCHEMIA;ABNL 09 AND NML 12,NML 14, NEVER WANTED CATH - In-person encounter Office Visit Link Cook MD [facility] AFIB; CHRON, NML TSH,, INR PER SLHVHTN; has 100% right renal 09DVT;NEG USLEG PAIN-3 TIMO DUP NEG LEFT, NO FLOW RIGHTISCHEMIA;ABNL 09 AND NML 12,NML 14, NEVER WANTED CATHRENAL ARTERY STENOSIS;100% RIGHT RENAL 04/15AORTIC REGURGITATION MILD;NML EF 2008 & 2009 - In-person encounter Office Visit Link Cook MD [facility] HYPOKALEMIA,4.3 2011 LABS PER PRIMARYDIASTOLIC CHF - In-person encounter Office Visit Link Cook MD [facility] AFIB; CHRON, NML TSH,, INR PER SLHVHIATAL HERNIA;OBESITY;HTN; has 100% right renal 09Hyperlipidemia, unspecifiedRENAL FAILURE CHRONIC; NEG US, LABS PER PRIMARY, 100 renal stenos rightDVT;NEG US VITAL SIGNS Date Observation Value Provider Body Mass Index (Ratio) 38.22 kg/m2 Je Cook MD blood pressure, cuff size regular Cy james Garces blood pressure, diastolic 70 mm[Hg] Cy james Garces blood pressure, systolic 132 mm[Hg] Staci carolinamanpreet Garces oxygen saturation, oximetry 92 % Rose Garces respiratory rate E&M 16 /min Rose Garces pulse rate 85 /min Rose Richard l height E&M 62 [in_i] Rose Ariebel l weight E&M 209 [lb_av] Rose Ariebel l Body Mass Index (Ratio) 38.95 kg/m2 Je Cook MD blood pressure, diastolic 70 mm[Hg] Ki prabhakar Cárdenas blood pressure, systolic 130 mm[Hg] Leydi manzanares [place] oxygen saturation, oximetry 98 % [place] respiratory rate E&M 16 /min [place] C[place]denas pulse rate 75 /min [place] C[place]den[place] weight E&M 213 [lb_av] [place] height E&M 62 [in_i] [place] Cárdenas Body Mass Index (Ratio) 41.33 kg/m2 Je Cook MD blood pressure, cuff size regular Ke rri Rhianna blood pressure, diastolic 74 mm[Hg] Hunter rri Rhianna blood pressure, systolic 147 mm[Hg] Sorin Moctezuma oxygen saturation, oximetry 94 % Julee Moctezuma respiratory rate E&M 20 /min Julee doradobelinda pulse rate 119 /min Julee Coleman [facility] weight E&M 226 [lb_av] Julee Coleman [facility] height E&M 62 [in_i] Julee Coleman [facility] Body Mass Index (Ratio) 41.66 kg/m2 Marianne ica N Dashawn blood pressure, cuff size regular Je ssica N [place]awn blood pressure, diastolic 60 mm[Hg] Je ssica N [place] blood pressure, systolic 120 mm[Hg] Teagan fauzia N [place] oxygen saturation, oximetry 99 % Pao N Dashawn respiratory rate E&M 18 /min Pao N Dashawn pulse rate 68 /min Pao N Wilso n weight E&M 227.8 [lb_av] Pao N [place] on Body Mass Index (Ratio) 41.51 kg/m2 Marianne ica N Dashawn blood pressure, cuff size regular Je ssica N Dashawn blood pressure, diastolic 60 mm[Hg] Je ssica N Dashawn blood pressure, systolic 120 mm[Hg] Teagan fauzia N [place] oxygen saturation, oximetry 98 % Pao N Dashawn respiratory rate E&M 18 /min Pao N Dashawn pulse rate 73 /min Pao N Wilso n weight E&M 227 [lb_av] Pao N Wilso n Body Mass Index (Ratio) 41.40 kg/m2 Je Cook MD blood pressure, resting Yes Yary Boone blood pressure, diastolic 76 mm[Hg] Kelly Boone blood pressure, systolic 128 mm[Hg] Trini Boone oxygen saturation, oximetry 93 % Navjot Boone respiratory rate E&M 18 /min Jordana Boone pulse rate 63 /min Navjot jacobo weight E&M 226.4 [lb_av] Navjot veloz height E&M 62 [in_i] Navjot Salinas nson Body Mass Index (Ratio) 41.33 kg/m2 Je Cook MD blood pressure, cuff size large Ke rri Rhianna blood pressure, diastolic 80 mm[Hg] Ke rri Rhianna blood pressure, systolic 142 mm[Hg] Sorin Moctezuma oxygen saturation, oximetry 98 % Julee Moctezuma respiratory rate E&M 18 /min Julee mike pulse rate 61 /min Julee Coleman lder weight E&M 226 [lb_av] Julee Virginia lder height E&M 62 [in_i] Julee Virginia lder Body Mass Index (Ratio) 39.87 kg/m2 Casimiro paola Altamirano SPEEDOMETER MECHANIC blood pressure, diastolic 74 mm[Hg] Sh erry [place] [employer]EDOMETER MECHANIC blood pressure, systolic 128 mm[Hg] She rry [place] [employer]EDOMETER MECHANIC weight E&M 218 [lb_av] Alida Altamirano SPEEDOMETER MECHANIC blood pressure, diastolic 90 mm[Hg] Ke rri Rhianna blood pressure, systolic 130 mm[Hg] Sorin Moctezuma pulse rate 68 /min Julee Virginia lder oxygen saturation, oximetry 97 % Julee Rhianna respiratory rate E&M 18 /min Julee Benavides rashid Body Mass Index (Ratio) 42.61 kg/m2 Kenny carmichael Rhianna weight E&M 233 [lb_av] Julee Castromaryse donovaner Body Mass Index (Ratio) 41.51 kg/m2 Casimiro [place]all SPEEDOMETER MECHANIC weight E&M 227 [lb_av] Alida [place] SPEEDOMETER MECHANIC Body Mass Index (Ratio) 40.60 kg/m2 Casimiro ry [place] SPEEDOMETER MECHANIC weight E&M 222 [lb_av] Alida [place] SPEEDOMETER MECHANIC Body Mass Index (Ratio) 41.15 kg/m2 Casimiro ry [place] SPEEDOMETER MECHANIC weight E&M 225 [lb_av] Alida [place] SPEEDOMETER MECHANIC Body Mass Index (Ratio) 40.60 kg/m2 Anea wili [facility] blood pressure, diastolic 60 mm[Hg] An eatris [facility] blood pressure, systolic 114 mm[Hg] Ane atris [facility] pulse rate 72 /min Aneatris [facility] oxygen saturation, oximetry 93 % Aneatris Brown respiratory rate E&M 17 /min Aneatri s [facility] weight E&M 222 [lb_av] Aneatris Brown Body Mass Index (Ratio) 40.97 kg/m2 Anea wili [facility] blood pressure, diastolic 70 mm[Hg] An eatris [facility] blood pressure, systolic 110 mm[Hg] Ane atris Brown pulse rate 74 /min Aneatris Brown oxygen saturation, oximetry 97 % Aneatris Brown respiratory rate E&M 18 /min Aneatri s Brown weight E&M 224 [lb_av] Aneatris Brown Body Mass Index (Ratio) 43.56 kg/m2 Casimiro Whiteheaddall SPEEDOMETER MECHANIC weight E&M 238.2 [lb_av] Alida Evelia SPEEDOMETER MECHANIC Body Mass Index (Ratio) 44.06 kg/m2 Shea blue Shannan blood pressure, diastolic 81 mm[Hg] Anusha hernandez [place] blood pressure, systolic 128 mm[Hg] Lela chang [place] pulse rate 82 /min Balbir Shannan oxygen saturation, oximetry 97 % Balbir Shannan respiratory rate E&M 16 /min Balbir Shannan weight E&M 240 [lb_av] Balbir Chandney blood pressure, diastolic 88 mm[Hg] Ashli [place] SPEEDOMETER MECHANIC blood pressure, systolic 136 mm[Hg] Blank [place] SPEEDOMETER MECHANIC Body Mass Index (Ratio) 45.19 kg/m2 Casimiro paola Altamirano NP weight E&M 246.2 [lb_av] Alidapaola Altamirano NP blood pressure, diastolic 98 mm[Hg] Ronnie Rizo RN blood pressure, systolic 150 mm[Hg] Rainer Darrius [place] pulse rate 84 /min Rainer Rizo RN oxygen saturation, oximetry 94 % Rainer Rizo RN respiratory rate E&M 18 /min Rainer fischer RN Body Mass Index (Ratio) 44.97 kg/m2 Rainer Rizo RN weight E&M 245 [lb_av] Rainer Rizo RN Body Mass Index (Ratio) 42.22 kg/m2 Casimiro paola Altamirano SPEEDOMETER MECHANIC weight E&M 230 [lb_av] Alida Evelia SPEEDOMETER MECHANIC weight E&M 236 [lb_av] Link Serotmanpreet Vargas respiratory rate E&M 16 /min Link Cook MD pulse rate 77 /min Link Serota Yesika Vargas blood pressure, diastolic 69 mm[Hg] Maninder Cook MD blood pressure, systolic 116 mm[Hg] Fidel Cook MD blood pressure, diastolic, supine 69 mm[H g] Link Cook MD blood pressure, systolic, supine E&M 116 mm[Hg] Link Cook MD blood pressure, diastolic 96 mm[Hg] Ronnie abraham Darrius RN blood pressure, systolic 142 mm[Hg] Rainer Lebrons RN pulse rate 66 /min Rainer Rizo RN oxygen saturation, oximetry 95 % Rainer Lebrons RN respiratory rate E&M 18 /min Rainer Chang amado RN weight E&M 235 [lb_av] Rainer Lebrons RN Body Mass Index (Ratio) 43.14 kg/m2 Lacr etia Pereira SPEEDOMETER MECHANIC weight E&M 235 [lb_av] Lacretia Jesus s SPEEDOMETER MECHANIC height E&M 62 [in_i] Lacretia Jesus s SPEEDOMETER MECHANIC Body Mass Index (Ratio) 43.14 kg/m2 Lacr etia Pereira SPEEDOMETER MECHANIC blood pressure, cuff size large La cretia Pereira SPEEDOMETER MECHANIC blood pressure, diastolic 62 mm[Hg] La cretia Pereira SPEEDOMETER MECHANIC blood pressure, systolic 100 mm[Hg] Lac retia Pereira SPEEDOMETER MECHANIC pulse rate 62 /min Lacretia Jesus s SPEEDOMETER MECHANIC weight E&M 235 [lb_av] Lacretia Jesus s SPEEDOMETER MECHANIC height E&M 62 [in_i] Lacretia Jesus s SPEEDOMETER MECHANIC Body Mass Index (Ratio) 43.14 kg/m2 Lacr etia Pereira SPEEDOMETER MECHANIC weight E&M 235 [lb_av] Lacretia Jesus s SPEEDOMETER MECHANIC height E&M 62 [in_i] Lacretia Jesus s SPEEDOMETER MECHANIC pulse rate 60 /min CRYSTAL ANUSHASENIC K SPEEDOMETER MECHANIC JNC systolic blood pressure goal 140 m m/[Hg] CRYSTAL JESENICK SPEEDOMETER MECHANIC blood pressure, diastolic 70 mm[Hg] CR YSTAL JESENICK SPEEDOMETER MECHANIC blood pressure, systolic 122 mm[Hg] CRY STAL JESENICK SPEEDOMETER MECHANIC pulse rate 60 /min CRYSTAL ANUSHASENIC K SPEEDOMETER MECHANIC respiratory rate E&M 20 /min CRYSTAL ANUSHASENICK SPEEDOMETER MECHANIC blood pressure, diastolic 78 mm[Hg] CR YSTAL ANUSHASENICK SPEEDOMETER MECHANIC blood pressure, systolic 118 mm[Hg] CRY STAJosé Antonio TAVARESSENICK SPEEDOMETER MECHANIC weight E&M 234 [lb_av] CRYSTAL ANUSHASENIC K SPEEDOMETER MECHANIC height E&M 62 [in_i] CRYSTAL JESENIC K SPEEDOMETER MECHANIC blood pressure, diastolic, left arm 74 mm [Hg] Rainer Rizo RN blood pressure, systolic, left arm 153 mm [Hg] Rainer Rizo RN blood pressure, diastolic, right arm 87 m m[Hg] Rainer Rizo RN blood pressure, systolic, right arm 144 m m[Hg] Rainer Rizo RN blood pressure, diastolic 74 mm[Hg] Ronnie Rizo RN blood pressure, systolic 153 mm[Hg] Rainer Rizo RN pulse rate 61 /min Rainer Rizo RN oxygen saturation, oximetry 99 % Rainer Rizo RN respiratory rate E&M 18 /min Rainer fischer RN weight E&M 242 [lb_av] Rainer Rizo RN blood pressure, diastolic, supine 78 mm[H g] Sudha Tamez blood pressure, systolic, supine E&M 122 mm[Hg] Sudha Tamez oxygen saturation, oximetry 100 % Sudha Tamez respiratory rate E&M 61 /min Sudha cheng weight E&M 229 [lb_av] Sudha Tamez blood pressure, diastolic, left arm 71 mm [Hg] Rainer Rizo RN blood pressure, systolic, left arm 138 mm [Hg] Rainer Rizo RN blood pressure, diastolic, right arm 72 m m[Hg] Rainer Rizo RN blood pressure, systolic, right arm 119 m m[Hg] Rainer Rizo RN blood pressure, diastolic 71 mm[Hg] Ronnie Rizo RN blood pressure, systolic 138 mm[Hg] Rainer Rizo RN pulse rate 56 /min Rainer Rizo RN oxygen saturation, oximetry 100 % Rainer Rizo RN respiratory rate E&M 18 /min Rainer fischer RN weight E&M 238 [lb_av] Rainer Lebrons RN blood pressure, diastolic 74 mm[Hg] Sudha caraballo [place] blood pressure, systolic 126 mm[Hg] Binh brambila [place] pulse rate 102 /min Kristofer [place] oxygen saturation, oximetry 94 % Kristofer [place] respiratory rate E&M 20 /min Kristofer [place] weight E&M 269 [lb_av] Kristofer [place] blood pressure, diastolic 68 mm[Hg] Ronnie Rizo RN blood pressure, systolic 144 mm[Hg] Rainer Rizo RN pulse rate 68 /min Rainer Rizo RN oxygen saturation, oximetry 96 % Rainer Rizo RN respiratory rate E&M 16 /min Rainer sosas RN weight E&M 275 [lb_av] Rainer Rizo RN blood pressure, diastolic 73 mm[Hg] Ronnie Rizo RN blood pressure, systolic 139 mm[Hg] Rainer Rizo RN pulse rate 58 /min Rainer Rizo RN oxygen saturation, oximetry 98 % Rainer Rizo RN respiratory rate E&M 16 /min Rainer sosas RN weight E&M 250 [lb_av] Rainer Rizo RN blood pressure, diastolic 80 mm[Hg] Ca gerardo Ball blood pressure, systolic 150 mm[Hg] Car siva Ball pulse rate 67 /min Samantha Ball oxygen saturation, oximetry 98 % Samantha Ball respiratory rate E&M 20 /min Samantha tadeo weight E&M 280 [lb_av] Samantha Ball blood pressure, diastolic 97 mm[Hg] Ch melani Lillian [place] blood pressure, systolic 187 mm[Hg] Chr mario alberto Lillian [place] pulse rate 78 /min Jannette Snyder RN oxygen saturation, oximetry 96 % Jannette Snyder RN respiratory rate E&M 18 /min Jannette Snyder RN weight E&M 289 [lb_av] Jannette Snyder RN ALLERGIES Allergy Name Onset Date Reaction Criticality Status BETA BLOCKERS andres Low Criticality active NIASPAN (NIACIN (ANTIHYPERLIPIDEMIC) TBCR) Low Criticality active RESULTS Date Observation Value Provider Reference Range Interpretation Location 10/12 coagulation managed by Rainer Rizo RN 10/12 international normalized ratio (INR) 2.6 Rose Garces Normal 10/12 prothrombin time (patient) 30.9 s Rose Garces 09/28 coagulation managed by Rainer Rizo RN 09/28 international normalized ratio (INR) 2.2 Rose Garces Normal 09/28 prothrombin time (patient) 26.3 s Rose Garces 09/14 coagulation managed by Pao Tamez WASTEWATER PROCESS ENGINEER Pao Tamez 09/14 international normalized ratio (INR) 2.2 [place] Cárdenas Normal 09/14 prothrombin time (patient) 26.0 s [place] Cárdenas 08/31 coagulation managed by Rainer Rizo RN 08/31 international normalized ratio (INR) 2.9 Rose Garces Normal 08/31 prothrombin time (patient) 34.5 s Rose Garces 08/17 coagulation managed by Rainer Rizo RN 08/17 international normalized ratio (INR) 2.6 Rose Garces Normal 08/17 prothrombin time (patient) 30.6 s Rose Garces 08/03 coagulation managed by Rainer Rizo RN 08/03 international normalized ratio (INR) 2.4 Rose Garces Normal 2019/0 6/27 prothrombin time (patient) 28.2 s Rose Garces 07/13 coagulation managed by Rainer Rizo RN 07/13 international normalized ratio (INR) 2.4 Rose Garces Normal 07/13 prothrombin time (patient) 28.7 s Rose Garces 07/05 coagulation managed by Rainer Rizo RN 07/05 international normalized ratio (INR) 1.7 Viviana Cárdenas Normal 07/05 prothrombin time (patient) 20.8 s Viviana Cárdenas 06/29 coagulation managed by Rainer Rizo RN 06/29 international normalized ratio (INR) 1.8 Rainer Rizo RN Normal 06/15 pro brain natriuretic peptide 3456 pg/mL [facility] 0-738 High 06/15 ferritin, serum 321 ng/mL [facility] 15-150 High 06/15 iron saturation percent, serum 17 % [facility] 15-55 06/15 iron, serum 35 ug/dL [facility] 27-139 06/15 iron binding capacity, unsaturated 175 ug/dL [facility] 362-588 0711/0 5/09 iron binding capacity, total 210 ug/dL [facility] 250-450 Low 06/15 lipoprotein, beta, serum, point, quantitative, calculated 91 mg/dL [facility] 0-99 06/15 very low density lipoproteins 20 mg/dL [facility] 5-40 06/15 HDL cholesterol, serum 40 mg/dL [facility] >39 06/15 triglyceride, serum, random 102 mg/dL [facility] 0-149 06/15 cholesterol, serum 151 mg/dL [facility] [phone]/0 5/09 calcium, serum 9.6 mg/dL [facility] 8.7-10.3 06/15 carbon dioxide, venous blood 23 mmol/L [facility] 20-29 06/15 chloride, serum 106 mmol/L [facility] 96-106 06/15 potassium, serum 4.6 mmol/L [facility] 3.5-5.2 06/15 sodium, serum 143 mmol/L [facility] [phone]/0 5/09 urea nitrogen/creatinin e ratio, serum 17 [facility] 12-28 06/15 eGFR if 31 mL/min/{1.73 _m2} [facility] >59 Low 06/15 eGFR if not 27 mL/min/{1.73 _m2} [facility] >59 Low 06/15 creatinine, serum 1.75 mg/dL [facility] 0.57-1.00 High 06/15 urea nitrogen, blood 30 mg/dL [facility] 8-27 High 06/15 blood glucose, random 99 mg/dL [facility] 65-99 06/15 basophil count, absolute 0.0 x10E3/uL [facility] 0.0-0.2 06/15 Eosinophil Absolute Count 0.2 X10E3/UL [facility] 0.0-0.4 06/15 monocyte count, blood, automated 0.4 X10E3/UL [facility] 0.1-0.9 06/15 lymphocyte count, blood, automated 1.1 X10E3/UL [facility] 0.7-3.1 06/15 Absolute Neutrophils 2.1 X10E3/UL [facility] 1.4-7.0 06/15 basophils as percent of blood leukocytes 1 % [facility] Not Estab. 06/15 eosinophils as percent of blood leukocytes 5 % [facility] Not Estab. 06/15 monocytes as percent of blood leukocytes 11 % [facility] Not Estab. 06/15 lymphocytes as percent of blood leukocytes 29 % [facility] Not Estab. 06/15 neutrophils as percent of blood leukocytes 54 % [facility] Not Estab. 06/15 platelet count 228 X10E3/UL [facility] 191-077 5145/0 5/09 red blood cell distribution width 15.2 % [facility] 12.3-15.4 06/15 mean corpuscular hemoglobin concentration, RBC 31.7 G/DL [facility] 31.5-35.7 06/15 mean corpuscular hemoglobin, RBC 29.3 pg [facility] 26.6-33.0 06/15 mean corpuscular volume, RBC 93 fL [facility] 79-97 06/15 hematocrit, blood 27.8 % [facility] 34.0-46.6 Low 06/15 hemoglobin, blood 8.8 g/dL [facility] 11.1-15.9 Low 06/15 erythrocyte (RBC) count 3.00 X10E6/UL [facility] 3.77-5.28 Low 06/15 leukocyte count, blood 3.9 X10E3/UL [facility] 3.4-10.8 06/14 coagulation managed by Rainer Rizo RN Rainer Lebrons RN 06/14 international normalized ratio (INR) 3.1 Rainer Lebrons RN Normal 05/30 coagulation managed by Rainer Rizo RN Rainer Lebrons RN 05/30 international normalized ratio (INR) 2.5 Rainer Lebrons RN Normal 05/30 prothrombin time (patient) 30.1 s Rainer Rizo RN 05/26 coagulation managed by Rainer Rizo RN Rainer Lebrons RN 05/26 international normalized ratio (INR) 1.7 Rainer Lebrons RN Normal 05/19 coagulation managed by Jennifer Huang 05/19 international normalized ratio (INR) 1.4 Darianaar Huang Normal 05/15 coagulation managed by Rainer Lebrons RN Rainer Lebrons RN 05/15 international normalized ratio (INR) 1.9 Rainer Lebronlaron [place] Normal 05/02 coagulation managed by Rainer Lebronlaron [place] Rainer Lebrons RN 05/02 international normalized ratio (INR) 2.3 Rosetwyla Garces Normal 05/02 prothrombin time (patient) 27.4 s Rose Garces 03/24 coagulation managed by Rainer Lebronlaron [place] Rainer Lebrons RN 03/24 international normalized ratio (INR) 2.1 Rose Garces Normal 03/24 prothrombin time (patient) 25.6 s Rose Garces 03/10 coagulation managed by Pao Tamez WASTEWATER PROCESS ENGINEER Pao Tamez 03/10 international normalized ratio (INR) 3.48 Pao Tamez Normal 02/20 coagulation managed by Rainer Rizo RN Rainer Darrius ZUÑIGA 02/20 international normalized ratio (INR) 3.4 Rose Garces Normal 02/20 prothrombin time (patient) 21.1 s Rose Garces 02/13 coagulation managed by Rainer Rizo RN 02/13 international normalized ratio (INR) 3.0 Marita Teresa Normal 02/13 prothrombin time (patient) 36.3 s Marita Teresa coagulation managed by Rainer Rizo RN international normalized ratio (INR) 4.1 Julee Gruenenfelder Normal prothrombin time (patient) 49.8 s Julee Gruenenfelder 10/27 coagulation managed by Magalys Kolb RN 10/27 international normalized ratio (INR) 2.4 Julee Gruenenfelder Normal 10/27 prothrombin time (patient) 28.7 s Julee Gruenenfelder 10/19 coagulation managed by Sherri Delgado 10/19 international normalized ratio (INR) 2.7 Marita Teresa Normal 10/19 prothrombin time (patient) 32.0 s Marita Teresa 10/14 coagulation managed by Rainer Rizo RN 10/14 international normalized ratio (INR) 4.0 Rose Garces Normal 10/14 prothrombin time (patient) 47.6 s Rose Garces 10/06 coagulation managed by Rainer Rizo RN 10/06 international normalized ratio (INR) 1.5 Rainer Rizo RN Normal 10/06 prothrombin time (patient) 18.1 s Rainer Rizo RN 10/03 coagulation managed by Pao Tamez LPN Pao Tamez 10/03 prothrombin time (patient) 45 s Pao Tamez 10/03 international normalized ratio (INR) 3.8 Pao Tamez Normal 09/02 coagulation managed by Rainer Rizo RN 09/02 international normalized ratio (INR) 1.9 Marita Teresa Normal 09/02 prothrombin time (patient) 22.8 s Marita Teresa 08/03 coagulation managed by Rainer Rizo RN 08/03 international normalized ratio (INR) 2.0 Marita Teresa Normal 08/03 prothrombin time (patient) 23.8 s Marita Teresa 07/06 coagulation managed by Sherri Delgado 07/06 international normalized ratio (INR) 2.1 Maria Teresa O'Oseas Normal 07/06 prothrombin time (patient) 25.7 s Maria Teresa O'Oseas 06/29 coagulation managed by Rainer Rizo RN 06/29 international normalized ratio (INR) 2.4 Navjot Boone Normal 06/29 prothrombin time (patient) 28.6 s Navjot Boone 06/01 coagulation managed by Rainer Rizo RN 06/01 international normalized ratio (INR) 1.9 Navjot Boone Normal 06/01 prothrombin time (patient) 22.6 s Navjot Boone 05/04 coagulation managed by Rainer Rizo RN 05/04 international normalized ratio (INR) 2.1 Navjot Boone Normal 05/04 prothrombin time (patient) 25.5 s Navjot Boone 04/06 coagulation managed by Rainer Rizo RN 04/06 international normalized ratio (INR) 2.0 Rainer Rizo RN Normal 04/06 prothrombin time (patient) 24.4 s Rainer Rizo RN 03/09 coagulation managed by Rainer Rizo RN 03/09 international normalized ratio (INR) 2.3 Julee Gruenenfelder Normal 03/09 prothrombin time (patient) 28.1 s Julee Gruenenfelder 02/22 international normalized ratio (INR) 2.9 Julee Gruenenfelder Normal 02/22 prothrombin time (patient) 34.9 s Julee Gruenenfelder 02/09 coagulation managed by Rainer Rizo RN 02/09 international normalized ratio (INR) 3.3 Rainer Rizo RN Normal 02/09 prothrombin time (patient) 40.1 s Rainer Rizo RN 03/22 coagulation managed by Rainer Rizo RN Rainer Lebrons RN 03/22 international normalized ratio (INR) 1.7 Rainer Rizo RN Normal 03/22 prothrombin time (patient) 20.4 s Rainer Rizo RN 02/21 international normalized ratio (INR) 2.0 Rainer Lebrons RN Normal 02/21 prothrombin time (patient) 23.5 s Rainer Lebrons RN 02/21 coagulation managed by Rainer Lebrons RN Rainer Lebrons RN 02/07 coagulation managed by Rainer Lebrons RN Rainer Lebrons RN 02/07 international normalized ratio (INR) 1.8 Rainer Lebrons YOGESH Normal 02/07 prothrombin time (patient) 22.2 s Rainer Lebrons RN coagulation managed by Rainer Lebrons RN Rainer Lebrons RN international normalized ratio (INR) 1.5 Julee Gatonedebbie Normal prothrombin time (patient) 18.0 s Julee Awildatitoer coagulation managed by Rainer Lebrons RN international normalized ratio (INR) 1.5 Julee Gabrieluenedebbie Normal prothrombin time (patient) 18.3 s Julee Vieraer 10/20 international normalized ratio (INR) 2.9 Link Cook MD Normal 10/20 prothrombin time (patient) 34.5 s Navjot Boone 10/06 coagulation managed by Rainer Lebrons RN 10/06 international normalized ratio (INR) 1.5 Rainer Rizo RN Normal 10/06 prothrombin time (patient) 15.2 s Rainer Rizo RN 09/30 folate, serum 7.9 NG/MLM [facility] 5.6 - 45.8 09/30 vitamin b12, serum 1452.0 pg/mL [facility] 211.0 - 946.0 High 09/30 free thyroxine index 11.1 ??g/dL [facility] 4.4 - 11.4 09/30 triiodothyronine uptake 0.9 TBI [facility] 0.8 - 1.3 09/30 thyroxine, serum, total 10.0 ??G/DL [facility] 4.5 - 11.7 09/30 thyroid stimulating hormone, serum 0.392 ??IU/ML [facility] 0.270 - 4.200 09/30 pro brain natriuretic peptide 2652.0 pg/mL [facility] 0.0 - 450.0 High 09/30 very low density lipoproteins 27.2 mg/dL [facility] 5.0 - 40.0 09/30 LDL/HDL (low-density lipoprotein/high-d ensity lipoprotein) ratio 2.3 RATIO [facility] - 09/30 lipoprotein, beta, serum, point, quantitative, calculated 101.8 (?) [facility] 0.0 - 100.0 High 09/30 HDL cholesterol, serum 45.0 mg/dL [facility] 45.0 - 65.0 09/30 cholesterol, serum 174.0 mg/dL [facility] 0.0 - 200.0 09/30 triglyceride, serum, fasting 136.0 mg/dL [facility] 0.0 - 150.0 09/30 ferritin, serum 102.9 ng/mL [facility] 13.0 - 150.0 09/30 anion gap, serum 11.8 [facility] - 09/30 albumin/globulin ratio, serum 1.5 g/dL [facility] 1.1 - 2.5 09/30 globulin, serum 2.8 [facility] 2.3 - 3.8 09/30 urea nitrogen/creatinin e ratio, serum 20.0 [facility] - 09/30 Estimated Glomerular Filtration Rate (calc) 30.7 (?) [facility] 59.0 - Low 09/30 chloride, serum 100.2 mmol/L [facility] 98.0 - 107.0 09/30 potassium, serum 4.2 mmol/L [facility] 3.5 - 5.1 09/30 sodium, serum 140.0 mmol/L [facility] 136.0 - 145.0 09/30 creatinine, [facility].7 [facility]0 High 09/30 carbon dioxide, venous blood 28.0 mmol/L [facility] 23.0 - 31.0 09/30 albumin, serum 4.2 g/dL [facility] 3.5 - 5.2 09/30 calcium, serum 10.0 mg/dL [facility] 8.6 - 10.2 09/30 aspartate aminotransferase (SGOT), serum 17.0 1/L [facility] 0.0 - 32.0 09/30 alkaline phosphatase, serum 76.0 1/L [facility] 40.0 - 130.0 09/30 alanine aminotransferase (SGPT), serum 8.0 1/L [facility] 0.0 - 33.0 09/30 protein, total, serum 7.0 g[facility] 6.[facility] - 8.7 09/30 bilirubin, serum, total 0.2 mg/[facility] 0[facility] - 1.2 09/30 urea nitrogen, blood 34.0 mg/dL [facility] 8.0 - 23.0 High 09/30 blood glucose, random 95.0 mg/dL [facility] 74.0 - 99.0 09/30 red blood cell distribution width, size density 58.3 fL [facility] 09/30 immature granulocytes, percentage of total cells, blood 0.2 % [facility] 09/30 nucleated red blood cells as percent of blood leukocytes 0.6 % [facility] 09/30 red blood cell (erythrocyte) count, per high power field 0.0 10*3/UL [facility] 09/30 eosinophils as percent of blood leukocytes 5.7 % [facility] 09/30 neutrophils as percent of blood leukocytes 58.8 % [facility] 09/30 Absolute Neutrophils 2.9 CELLS/UL [facility] 1.5 - 7.8 09/30 basophils as percent of blood leukocytes 0.6 % [facility] - 09/30 Absolute Basophils 0.0 CELLS/UL [facility] 0.0 - 0.2 09/30 monocytes as percent of blood leukocytes 10.7 % [facility] - 09/30 Absolute Monocytes 0.5 CELLS/UL [facility] 0.2 - 1.0 09/30 lymphocytes as percent of blood leukocytes 24.0 % [facility] - 09/30 Absolute Lymphocytes 1.2 CELLS/UL [facility] 0.9 - 3.9 09/30 mean platelet volume 11.9 (?) [facility] - 09/30 platelet count 295.0 THOUSAND/UL [facility] 100.0 - 400.0 09/30 mean corpuscular hemoglobin concentration, RBC 30.8 G/DL [facility] 31.0 - 38.0 Low 09/30 mean corpuscular hemoglobin, RBC 30.3 pg [facility] 25.0 - 35.0 09/30 mean corpuscular volume, RBC 98.3 fL [facility] 75.0 - 100.0 09/30 hematocrit, blood 34.4 % [facility] 35.0 - 55.0 Low 09/30 hemoglobin, blood 10.6 g/dL [facility] 11.5 - 16.5 Low 09/30 erythrocyte count, whole blood 3.5 MILLION/UL [facility] 3.5 - 5.5 09/30 iron, serum 44.0 ug/dL [facility] 25.0 - 156.0 09/30 iron saturation percent, serum 13.8 % [facility] 20.0 - 50.0 Low 09/30 iron binding capacity, total 317.8 ug/dL [facility] 250.0 - 450.0 09/30 activated partial thromboplastin time 30.7 SECONDS [facility] 23.0 - 33.0 09/30 prothrombin time (patient) 15.2 s [facility] 9.0 - 11.5 High 09/30 international normalized ratio (INR) 1.5 [facility] 0.9 - 1.1 High 09/30 hemoglobin A1C, blood, as % of total hemoglobin 5.5 % [facility] 4.0 - 5.6 09/06 coagulation managed by Rainer Rizo RN 09/06 international normalized ratio (INR) 2.2 Rainer Rizo RN Normal 09/06 prothrombin time (patient) 26.6 s Rainer Rizo RN 08/20 coagulation managed by Rainer Rizo RN 08/20 international normalized ratio (INR) 2.4 Marita Teresa Normal 08/20 prothrombin time (patient) 28.3 s Marita Teresa 08/13 coagulation managed by Rainer Rizo RN 08/13 international normalized ratio (INR) 3.8 Marita Teresa Normal 08/13 prothrombin time (patient) 45.4 s Marita Teresa 07/30 coagulation managed by Rainer Rizo RN 07/30 international normalized ratio (INR) 2.4 Marita Teresa Normal 07/30 prothrombin time (patient) 28.2 s Marita Teresa 07/23 coagulation managed by Rainer Rizo RN 07/23 international normalized ratio (INR) 1.8 Navjot Boone Normal 07/23 prothrombin time (patient) 21.5 s Navjot Boone 06/25 coagulation managed by Rainer Rizo RN 06/25 international normalized ratio (INR) 2.0 Navjot Boone Normal 06/25 prothrombin time (patient) 24.2 s Navjot Boone 05/28 coagulation managed by Rainer Rizo RN 05/28 international normalized ratio (INR) 2.3 Rainer Rizo RN Normal 05/28 prothrombin time (patient) 27.5 s Rainer Rizo RN 05/14 coagulation managed by Rainer Rizo RN 05/14 international normalized ratio (INR) 1.7 Marita Teresa Normal 05/14 prothrombin time (patient) 20.6 s Marita Teresa 04/07 coagulation managed by Rainer Rizo RN 04/07 international normalized ratio (INR) 2.2 Navjot Boone Normal 04/07 prothrombin time (patient) 25.8 s Navjot Boone 03/24 coagulation managed by Rainer Rizo RN 03/24 international normalized ratio (INR) 1.7 Rainer Rizo RN Normal 03/24 prothrombin time (patient) 19.9 s Rainer Lebrons RN 03/17 coagulation managed by Rainer Darruis ZUÑIGA Rainer Lebrons RN 03/17 international normalized ratio (INR) 1.9 Navjot Boone Normal 03/17 prothrombin time (patient) 22.6 s Navjot Suarezenson 03/03 coagulation managed by Rainer Rizo RN Rainer Lebrons RN 03/03 international normalized ratio (INR) 2.4 Rainer Rizo RN Normal 03/03 prothrombin time (patient) 28.7 s Rainer Rizo RN 02/26 coagulation managed by Rainer Rizo RN 02/26 international normalized ratio (INR) 5.3 Marita Teresa Normal 02/26 prothrombin time (patient) 63.9 s Marita Teresa 04/06 coagulation managed by Rainer Spear Rizo RN 04/06 international normalized ratio (INR) 2.8 Rainer Lebronlaron ZUÑIGA Normal 04/06 prothrombin time (patient) 34.1 s Rainer Rizo RN 03/23 coagulation managed by Rainer Rizo RN 03/23 international normalized ratio (INR) 3.4 Marita Teresa Normal 03/23 prothrombin time (patient) 40.3 s Marita Teresa 02/22 coagulation managed by Rainer Rizo RN 02/22 international normalized ratio (INR) 1.9 Marita Teresa Normal 02/22 prothrombin time (patient) 23.4 s Marita Teresa 02/22 triglyceride, target level 150 mg/dL Alida [place] SPEEDOMETER MECHANIC 02/22 HDL cholesterol, serum, target level 40 mg/dL Alida Evelia SPEEDOMETER MECHANIC 02/22 LDL target level 100 mg/dL Alida Evelia SPEEDOMETER MECHANIC 02/22 cholesterol, target level 200 mg/dL Alida [place] SPEEDOMETER MECHANIC 02/10 coagulation managed by Rainer Rizo RN 02/10 international normalized ratio (INR) 2.1 Julee Vieraer Normal 02/10 prothrombin time (patient) 25.1 s Julee Vieraer coagulation managed by Rainer Rizo RN international normalized ratio (INR) 1.8 Rainer Lebronlaron ZUÑIGA Normal prothrombin time (patient) 21.2 s Rainer Rizo RN coagulation managed by Rainer Rizo RN international normalized ratio (INR) 1.8 Rainer Rizo RN Normal prothrombin time (patient) 21.7 s Rainer Rizo RN 11/02 coagulation managed by Rainer Rizo RN 11/02 international normalized ratio (INR) 3.3 Rainer Lebrons YOGESH Normal 11/02 prothrombin time (patient) 39.4 s Rainer Rizo RN 10/07 coagulation managed by Rainer Rizo RN 10/07 international normalized ratio (INR) 3.1 Julee Vieraer Normal 10/07 prothrombin time (patient) 37.0 s Julee Vieraer 09/23 coagulation managed by Rainer Rizo RN 09/23 international normalized ratio (INR) 3.5 Liyah Mckeon Normal 09/23 prothrombin time (patient) 42.0 s Liyah Mckeon 08/26 coagulation managed by Rainer Rizo RN 08/26 international normalized ratio (INR) 2.3 NavjotJeimy Suarezenson Normal 08/26 prothrombin time (patient) 27.6 s Navjot Boone 08/12 coagulation managed by Rainer Rizo RN 08/12 international normalized ratio (INR) 2.5 Navjot Boone Normal 08/12 prothrombin time (patient) 29.8 s Navjot Boone 07/29 coagulation managed by Rainer Rizo RN 07/29 international normalized ratio (INR) 1.7 Rainer Rizo RN Normal 07/29 prothrombin time (patient) 20.4 s Rainer Rizo RN 07/22 coagulation managed by Jeaneth Shea RN 07/22 international normalized ratio (INR) 1.7 Jeaneth Shea RN Normal 07/22 prothrombin time (patient) 20.5 s Jeaneth Shea RN 07/01 coagulation managed by Rainer Rizo RN 07/01 international normalized ratio (INR) 2.0 Rainer Rizo RN Normal 07/01 prothrombin time (patient) 23.6 s Rainer Rizo RN 06/17 cholesterol/HDL ratio, serum 2.8 Alida Evelia SPEEDOMETER MECHANIC 06/17 triglyceride, serum, fasting 67 mg/dL Alida Evelia SPEEDOMETER MECHANIC 06/17 HDL cholesterol, serum 51 mg/dL Alida Evelia SPEEDOMETER MECHANIC 06/17 LDL cholesterol, serum 79 mg/dL Alida Evelia SPEEDOMETER MECHANIC 06/17 cholesterol, serum 143 mg/dL Alida [place] SPEEDOMETER MECHANIC 06/17 triglyceride, target level 150 mg/dL Alida [place] SPEEDOMETER MECHANIC 06/17 HDL cholesterol, serum, target level 40 mg/dL Alida [place] SPEEDOMETER MECHANIC 06/17 LDL target level 100 mg/dL Alida [place] SPEEDOMETER MECHANIC 06/17 cholesterol, target level 200 mg/dL Alida [place] SPEEDOMETER MECHANIC 06/17 coagulation managed by Rainer Rizo RN 06/17 international normalized ratio (INR) 1.8 Rainer Rizo RN Normal 06/17 prothrombin time (patient) 21.8 s Rainer Rizo RN 05/25 coagulation managed by Rainer Rizo RN 05/25 international normalized ratio (INR) 2.8 Julee Moctezuma Normal 05/25 prothrombin time (patient) 33.5 s Julee Moctezuma 05/12 coagulation managed by Rainer Rizo RN 05/12 international normalized ratio (INR) 2.6 Rainer Rizo RN Normal 05/12 prothrombin time (patient) 31.0 s Rainer Rizo RN 05/05 coagulation managed by Rainer Rizo RN 05/05 international normalized ratio (INR) 3.5 Rainer Rizo RN Normal 05/05 prothrombin time (patient) 42.2 s Rainer Rizo RN 04/21 coagulation managed by Rainer Rizo RN 04/21 international normalized ratio (INR) 1.6 Julee Gruenenfelder Normal 04/21 prothrombin time (patient) 19.8 s Julee Gruenenfelder 04/14 coagulation managed by Rainer Rizo RN 04/14 international normalized ratio (INR) 1.4 Julee Gruenenfelder Normal 04/14 prothrombin time (patient) 16.8 s Julee Gruenenfelder 04/08 coagulation managed by Rainer Rizo RN 04/08 international normalized ratio (INR) 1.2 Julee Gruenenfelder Normal 04/08 prothrombin time (patient) 14.8 s Julee Gruenenfelder 03/18 coagulation managed by Rainer Rizo RN 03/18 international normalized ratio (INR) 3.1 Julee Gruenenfelder Normal 03/18 prothrombin time (patient) 36.9 s Julee Gruenenfelder 03/10 coagulation managed by Rainer Rizo RN 03/10 international normalized ratio (INR) 3.1 Rainer Rizo RN Normal 03/10 prothrombin time (patient) 36.8 s Rainer Rizo RN 04/01 coagulation managed by Rainer Rizo RN 04/01 international normalized ratio (INR) 2.0 Rainer Rizo RN Normal 04/01 prothrombin time (patient) 24.2 s Rainer Rizo RN 03/18 coagulation managed by Rainer Rizo RN 03/18 international normalized ratio (INR) 2.2 Julee Gruenenfelder Normal 03/18 prothrombin time (patient) 26.4 s Julee Gruenenfelder 03/03 coagulation managed by Rainer Rizo RN 03/03 international normalized ratio (INR) 1.6 Navjot Boone Normal 03/03 prothrombin time (patient) 19.0 s Navjot Boone 02/17 cholesterol/HDL ratio, serum 4.5 Alida Evelia SPEEDOMETER MECHANIC 02/17 triglyceride, serum, fasting 108 mg/dL Alida Evelia SPEEDOMETER MECHANIC 02/17 HDL cholesterol, serum 32 mg/dL Alida [place] SPEEDOMETER MECHANIC 02/17 LDL cholesterol, serum 89 mg/dL Alida Evelia SPEEDOMETER MECHANIC 02/17 cholesterol, serum 142 mg/dL Alida Evelia SPEEDOMETER MECHANIC 02/17 triglyceride, target level 150 mg/dL Alida [place] SPEEDOMETER MECHANIC 02/17 HDL cholesterol, serum, target level 40 mg/dL Alida Evelia SPEEDOMETER MECHANIC 02/17 LDL target level 100 mg/dL Alida [place] SPEEDOMETER MECHANIC 02/17 cholesterol, target level 200 mg/dL Alida Evelia SPEEDOMETER MECHANIC coagulation managed by Rainer Rizo RN international normalized ratio (INR) 2.4 Rainer Rizo RN Normal prothrombin time (patient) 29.0 s Rainer Rizo RN coagulation managed by Rainer Rizo RN international normalized ratio (INR) 2.2 Julee Gruenenfelder Normal prothrombin time (patient) 26.5 s Julee Gruenenfelder coagulation managed by Rainer Rizo RN international normalized ratio (INR) 4.6 Julee Gruenenfelder Normal prothrombin time (patient) 55.0 s Julee Gruenenfelder coagulation managed by Rainer Rizo RN international normalized ratio (INR) 6.0 Julee Gruenenfelder Normal prothrombin time (patient) 72.5 s Julee Gruenenfelder 10/16 coagulation managed by Rainer Rizo RN 10/16 international normalized ratio (INR) 2.3 Rainer Rizo RN Normal 10/16 prothrombin time (patient) 27.7 s Rainer Rizo RN 09/18 coagulation managed by Rainer Rizo RN 09/18 international normalized ratio (INR) 1.8 Aneatris Brown Normal 09/18 prothrombin time (patient) 21.1 s Aneatris Brown 09/18 triglyceride, target level 150 mg/dL Alida Evelia SPEEDOMETER MECHANIC 09/18 HDL cholesterol, serum, target level 40 mg/dL Alida Evelia SPEEDOMETER MECHANIC 09/18 LDL target level 100 mg/dL Alida [place] [employer]EDOMETER MECHANIC 09/18 cholesterol, target level 200 mg/dL Alida Evelia SPEEDOMETER MECHANIC 09/18 triglyceride, serum, fasting 275 mg/dL Alida Evelia SPEEDOMETER MECHANIC 09/18 HDL cholesterol, serum 40 mg/dL Alida Evelia SPEEDOMETER MECHANIC 09/18 LDL cholesterol, serum 32 mg/dL Alida [place] SPEEDOMETER MECHANIC 09/18 cholesterol, serum 126 mg/dL Alida Evelia SPEEDOMETER MECHANIC 08/22 coagulation managed by Rainer Rizo RN 08/22 international normalized ratio (INR) 2.9 Rainer Rizo RN Normal 08/22 prothrombin time (patient) 34.8 s Rainer Darrius RN 08/22 international normalized ratio (INR) 2.9 Aneatris Brown Normal 08/22 prothrombin time (patient) 34.8 s Aneatris Brown 07/25 coagulation managed by Rainer Rizo RN 07/25 international normalized ratio (INR) 2.9 Rainer Rizo RN Normal 07/25 prothrombin time (patient) 34.9 s Rainer Rizo RN 07/25 international normalized ratio (INR) 2.9 Aneatris Brown Normal 07/25 prothrombin time (patient) 34.9 s Aneatris Brown 06/25 coagulation managed by Rainer Rizo RN 06/25 international normalized ratio (INR) 2.3 Rainer Rizo RN Normal 06/25 prothrombin time (patient) 27.9 s Rainer Rizo RN 05/28 coagulation managed by Rainer Rizo RN 05/28 international normalized ratio (INR) 2.5 Liyah Mckeon Normal 05/28 prothrombin time (patient) 30.0 s Liyah Mckeon 05/14 coagulation managed by Rainer Rizo RN 05/14 international normalized ratio (INR) 1.9 Rainer Rizo RN Normal 05/14 prothrombin time (patient) 19.0 s Rainer Rizo RN 05/01 coagulation managed by Rainer Rizo RN 05/01 international normalized ratio (INR) 1.5 Rainer Rizo RN Normal 04/17 coagulation managed by Rainer Rizo RN 04/17 international normalized ratio (INR) 1.5 Aneatris Brown Normal 03/20 coagulation managed by Rainer Rizo RN 03/20 international normalized ratio (INR) 2.2 Rainer Rizo RN Normal 03/06 triglyceride, target level 150 mg/dL Alida [place] SPEEDOMETER MECHANIC 03/06 HDL cholesterol, serum, target level 40 mg/dL Alida Evelia SPEEDOMETER MECHANIC 03/06 LDL target level 100 mg/dL Alida [place] SPEEDOMETER MECHANIC 03/06 cholesterol, target level 200 mg/dL Alida Evelia SPEEDOMETER MECHANIC 03/06 cholesterol/HDL ratio, serum 4.2 Alida [place] SPEEDOMETER MECHANIC 03/06 triglyceride, serum, fasting 82 mg/dL Alida Evelia SPEEDOMETER MECHANIC 03/06 HDL cholesterol, serum 91 mg/dL Alida [place] SPEEDOMETER MECHANIC 03/06 LDL cholesterol, serum 91 mg/dL Alida [place] SPEEDOMETER MECHANIC 03/06 cholesterol, serum 141 mg/dL Alida Evelia SPEEDOMETER MECHANIC 03/06 coagulation managed by Rainer Rizo RN 03/06 international normalized ratio (INR) 2.8 Rainer Rizo RN Normal 03/06 prothrombin time (patient) 33.7 s Rainer Rizo RN international normalized ratio (INR) 3.3 Liyah Mckeon Normal prothrombin time (patient) 39.1 s Liyah Mckeon 03/03 international normalized ratio (INR) 2.4 Rainer Rizo RN Normal 03/03 prothrombin time (patient) 25.6 s Rainer Rizo RN 02/19 coagulation managed by Rainer Rizo RN Rainer Rizo RN 02/19 international normalized ratio (INR) 2.6 Rainer Rizo RN Normal 02/19 prothrombin time (patient) 28.7 s Rainer Rizo RN coagulation managed by Rainer Rizo RN Rainer Rizo RN international normalized ratio (INR) 2.5 Rainer Rizo RN Normal prothrombin time (patient) 2.2 s Rainer Rizo RN 10/15 coagulation managed by Rainer Rizo RN Rainer Rizo RN 10/15 international normalized ratio (INR) 3.1 Rainer Rizo RN Normal 10/15 prothrombin time (patient) 30.5 s Rainer Rizo RN 09/17 coagulation managed by Rainer Rizo RN Rainer Rizo RN 09/17 international normalized ratio (INR) 1.7 Rainer Rizo RN Normal 09/17 prothrombin time (patient) 17.3 s Rainer Rizo RN 08/20 coagulation managed by Rainer Rizo RN Rainer Rizo RN 08/20 international normalized ratio (INR) 2.1 Rainer Rizo RN Normal 08/20 prothrombin time (patient) 21.4 s Rainer Rizo RN 08/06 coagulation managed by Rainer Rizo RN Rainer Rizo RN 08/06 international normalized ratio (INR) 3.4 Rainer Rizo RN Normal 08/06 prothrombin time (patient) 34.3 s Rainer Rizo RN 07/05 coagulation managed by Rainer Rizo RN Rainer Rizo RN 07/05 prothrombin time (patient) 18.3 s Rainer Rizo RN 07/05 international normalized ratio (INR) 1.8 Rainer Rizo RN Normal 06/21 coagulation managed by Rainer Rizo RN Rainer Rizo RN 06/21 prothrombin time (patient) 18.1 s Julee Moctezuma 06/21 international normalized ratio (INR) 1.8 Julee Moctezuma Normal 06/07 coagulation managed by Rainer Rizo RN Rainer Rizo RN 06/07 prothrombin time (patient) 21.2 s Rainer Lebrons RN 06/07 international normalized ratio (INR) 2.1 Rainer Lebrons RN Normal 05/24 coagulation managed by Rainer Lebrons RN Rainer Lebrons RN 05/24 prothrombin time (patient) 28.9 s Rainer Lebrons RN 05/24 international normalized ratio (INR) 2.9 Rainer Lebrons RN Normal 04/26 coagulation managed by Rainer Lebrons RN Rainre Lebrons RN 04/26 prothrombin time (patient) 26.7 s Rainer Lebrons RN 04/26 international normalized ratio (INR) 2.7 Rainer Lebrons RN Normal 03/22 coagulation managed by Rainer Lebrons YOGESH Rainer Lebrons RN 03/22 prothrombin time (patient) 30.1 s Rainer Lebrons RN 03/22 international normalized ratio (INR) 3.0 Rainer Lebrons RN Normal 03/22 triglyceride, serum, fasting 58 mg/dL Rainer Lebrons RN 03/22 HDL cholesterol, serum 54 mg/dL Rainer Lebrons RN 03/22 LDL cholesterol, serum 76 mg/dL Rainer Lebrons RN 03/22 cholesterol, serum 141 mg/dL Rainer Rizo RN 02/19 coagulation managed by Rainer Lebrons YOGESH Rainer Lebrons RN 02/19 prothrombin time (patient) 25.7 s Rainer Lebrons RN 02/19 international normalized ratio (INR) 2.6 Rainer Lebrons YOGESH Normal 03/20 coagulation managed by Rainer Lebrons YOGESH Spear Rizo RN 03/20 prothrombin time (patient) 19.9 s Tati Stueber 03/20 international normalized ratio (INR) 2.0 Tati Stueber Normal 02/21 coagulation managed by Rainer Lebrons YOGESH Rainer Lebrons RN 02/21 prothrombin time (patient) 26.4 s Sudha Tamez 02/21 international normalized ratio (INR) 2.6 Sudha Tamez Normal coagulation managed by Rainer Lebrons YOGESH Rizo RN prothrombin time (patient) 18.3 s Rainer Rizo RN international normalized ratio (INR) 1.8 Rainer Lebrons YOGESH Normal 10/27 coagulation managed by Rainer Rizo RN Rainer Lebrons RN 10/27 prothrombin time (patient) 19.3 s Rainer Lebrons RN 10/27 international normalized ratio (INR) 1.9 Rainer Lebrons RN Normal 10/13 coagulation managed by Rainer Rizo RN Rainer Lebrons RN 10/13 prothrombin time (patient) 13.3 s Sudha Dashawn 10/13 international normalized ratio (INR) 1.3 Sudha Tamez Low 09/29 coagulation managed by Rainer Lebrons RN Rainer Lebrons RN 09/29 prothrombin time (patient) 30.1 s Sudha Dashawn 09/29 international normalized ratio (INR) 3.0 Sudha Dashawn Normal 09/15 coagulation managed by Rainer Lebrons RN Rainer Rizo RN 09/15 prothrombin time (patient) 31.2 s Julee Rhianna 09/15 international normalized ratio (INR) 3.1 Julee Rhianna Normal 08/17 coagulation managed by Rainer Rizo RN Rainer Lebrons RN 08/17 prothrombin time (patient) 22.8 s Rainer Lebrons RN 08/17 international normalized ratio (INR) 2.3 Rainer Lebrons RN Normal 06/22 coagulation managed by Rainer Rizo RN Rainer Rizo RN 06/22 prothrombin time (patient) 22.3 s Rainer Rizo RN 06/22 international normalized ratio (INR) 2.2 Rainer Rizo RN Normal 05/26 coagulation managed by Rainer Rizo RN Rainer Lebrons RN 05/26 prothrombin time (patient) 21.5 s Rainer Rizo RN 05/26 international normalized ratio (INR) 2.2 Rainer Rizo RN Normal 04/28 coagulation managed by Rainer Rizo RN Rainer Rizo RN 04/28 prothrombin time (patient) 21.2 s Rainer Rizo RN 04/28 international normalized ratio (INR) 2.1 Rainer Rizo RN Normal 04/05 coagulation managed by Rainer Rizo RN Rainer Rizo RN 04/05 prothrombin time (patient) 28.7 s Rainer Rizo RN 04/05 international normalized ratio (INR) 2.9 Rainer Rizo RN Normal 03/22 coagulation managed by Rainer Rizo RN Rainer Darrius RN 03/22 prothrombin time (patient) 16.7 s Rainer Rizo RN 03/22 international normalized ratio (INR) 1.7 Rainer Rizo RN Normal 02/20 coagulation managed by Rainer Darrius ZUÑIGA Rainer Rizo RN 02/20 prothrombin time (patient) 18.7 s Rainer Rizo RN 02/20 international normalized ratio (INR) 1.9 Rainer Rizo RN Normal 03/26 coagulation managed by Rainer Rizo RN Rainer Rizo RN 03/26 prothrombin time (patient) 27.1 s Rainer Rizo RN 03/26 international normalized ratio (INR) 2.7 Rainer Rizo RN Normal 03/04 coagulation managed by Rainer Rizo RN 03/04 prothrombin time (patient) 21.3 s Rainer Lebronlaron ZUÑIGA 03/04 international normalized ratio (INR) 2.1 Rainer Rizo RN Normal prothrombin time (patient) 26.1 s Rainer Lebrons RN international normalized ratio (INR) 2.6 Rainer Rizo RN Normal 11/04 coagulation managed by Yary Stock RN 11/04 prothrombin time (patient) 21.1 s Sudha Tamez 11/04 international normalized ratio (INR) 2.1 Sudha Tamez Normal 10/06 coagulation managed by Rainer Rizo RN 10/06 international normalized ratio (INR) 1.9 Rainer Rizo RN 10/06 prothrombin time (patient) 18.8 s Rainer Rizo RN 09/01 platelet count 230 10*3/uL Reggie Ervin 09/01 hematocrit, blood 34.7 % Reggie Ervin 09/08 coagulation managed by Rainer Rizo RN 09/08 international normalized ratio (INR) 2.2 Rainer Rizo RN 09/08 prothrombin time (patient) 22.0 s Rainer Rizo RN 08/11 coagulation managed by Rainer Rizo RN 08/11 international normalized ratio (INR) 2.7 Rainer Rizo RN 08/11 prothrombin time (patient) 27.0 s Rainer Rizo RN 07/13 coagulation managed by Rainer Rizo RN 07/13 international normalized ratio (INR) 1.9 Rainer Rizo RN 07/13 prothrombin time (patient) 19.1 s Rainer Rizo RN 06/15 coagulation managed by Rainer Rizo RN 06/15 international normalized ratio (INR) 2.0 Rainer Rizo RN 06/15 prothrombin time (patient) 19.9 s Rainer Rizo RN 05/03 creatinine, serum 1.78 mg/dL [facility] 05/03 potassium, serum 4.0 mmol/L [facility] 05/03 sodium, serum 138 mmol/L [facility] 05/31 coagulation managed by Rainer Rizo RN 05/31 international normalized ratio (INR) 1.8 Kristofer Manacop 05/31 prothrombin time (patient) 18.0 s Kristofer Manacop 05/31 TOTAL NON-HDL-C (LDL VLDL) 77 Lacretia Pereira [employer] 05/31 alanine aminotransferase (SGPT), serum 14 1/L Lacretia Pereira [employer]CH[employer] 05/31 aspartate aminotransferase (SGOT), serum 18 1/L Lacretia Pereira [employer] MECH[employer]IC 05/31 cholesterol/HDL ratio, serum 2.9 Lacretia Pereira [employer] MECH[employer]IC 05/31 triglyceride, serum, fasting 69 mg/dL Lacretia Pereira [employer] MECH[employer]IC 05/31 HDL cholesterol, serum 41 mg/dL Lacretia Pereira [employer] MECH[employer]IC 05/31 LDL cholesterol, serum 63 mg/dL Lacretia Pereira [employer]OM[employer]ER MECH[employer]IC 05/31 cholesterol, serum 118 mg/dL Lacretia Pereira [employer]OM[employer] MECH[employer]IC 05/19 coagulation managed by Rainer Rizo RN 05/19 international normalized ratio (INR) 2.9 Rainer Rizo RN 05/19 prothrombin time (patient) 29.2 s Rainer Rizo RN 05/05 coagulation managed by Rainer Rizo RN 05/05 international normalized ratio (INR) 3.0 Rainer Rizo RN 05/05 prothrombin time (patient) 29.9 s Rainer Rizo RN 04/21 coagulation managed by Rainer Rizo RN Rainer Rizo RN 04/21 international normalized ratio (INR) 1.9 Rainer Rizo RN 04/21 prothrombin time (patient) 19.0 s Rainer Rizo RN 04/07 coagulation managed by Rainer Rizo RN Rainer Rizo RN 04/07 international normalized ratio (INR) 1.5 Rainer Rizo RN 04/07 prothrombin time (patient) 15.0 s Rainer Rizo RN 03/11 coagulation managed by Rainer Rizo RN Rainer Rizo RN 03/11 international normalized ratio (INR) 2.7 Rainer Rizo RN 03/11 prothrombin time (patient) 27.3 s Rainer Rizo RN 02/25 coagulation managed by Rainer Rizo RN Rainer Rizo RN 02/25 international normalized ratio (INR) 1.7 Rainer Rizo RN 02/25 prothrombin time (patient) 13.7 s Rainer Rizo RN 02/11 coagulation managed by Rainer Rizo RN Rainer Rizo RN 02/11 international normalized ratio (INR) 1.7 Rainer Rizo RN 02/11 prothrombin time (patient) 17.1 s Rainer Rizo RN coagulation managed by Rainer Rizo RN Rainer Rizo RN international normalized ratio (INR) 3.6 Rainer Rizo RN prothrombin time (patient) 36.0 s Rainer Rizo RN 03/31 coagulation managed by Rainer Rizo RN Rainer Rizo RN 03/31 international normalized ratio (INR) 3.3 Rainer Rizo RN 03/31 prothrombin time (patient) 32.8 s Rainer Rizo RN 03/17 coagulation managed by Rainer Rizo RN Rainer Rizo RN 03/17 international normalized ratio (INR) 1.5 Rainer Rizo RN 03/17 prothrombin time (patient) 15.2 s Rainer Rizo RN 02/16 coagulation managed by Rainer Rizo RN Rainer Rizo RN 02/16 international normalized ratio (INR) 1.9 Rainer Rizo RN 2011/1 1/10 prothrombin time (patient) 18.6 s Rainer Rizo RN coagulation managed by venkata Tamez international normalized ratio (INR) 1.7 Sudha Tamez prothrombin time (patient) 16.7 s Sudha Tamez 0 TOTAL NON-HDL-C (LDL VLDL) 100 Lacretia Randall [employer] MECH[employer]IC 0 alanine aminotransferase (SGPT), serum 14 1/L Lacretia Randall [employer]ER MECH[employer]IC aspartate aminotransferase (SGOT), serum 22 1/L Lacretia Randall [employer]OM[employer]ER MECH[employer]IC cholesterol/HDL ratio, serum 3.3 Lacretia Randall [employer] MECH[employer]IC triglyceride, serum, fasting 89 mg/dL Lacretia Randall [employer]OM[employer]ER MECH[employer]IC HDL cholesterol, serum 44 mg/dL Lacretia Randall [employer]ER MECH[employer]IC LDL cholesterol, serum 82 mg/dL Lacretia Randall [employer]ER MECH[employer]IC cholesterol, serum 145 mg/dL Lacretia Pereira [employer]OMETER MECHANIC triglyceride, target level 150 mg/dL Lacretia Pereira [employer]OMETER MECH[employer]IC HDL cholesterol, serum, target level 40 mg/dL Lacretia Pereira [employer]ER MECH[employer]IC LDL target level 100 mg/dL Lacretia Pereira [employer]OM[employer] MECH[employer]IC cholesterol, target level 200 mg/dL Lacretia Pereira [employer] MECH[employer]IC 11/03 coagulation managed by Rainer Rizo RN 11/03 international normalized ratio (INR) 2.2 Rainer Rizo RN 11/03 prothrombin time (patient) 22.2 s Rainer Rizo RN 10/06 coagulation managed by Rainer Rizo RN 10/06 international normalized ratio (INR) 2.1 Kristofer Anderson 10/06 prothrombin time (patient) 20.8 s Kristofer Shepherdacomilena 09/22 coagulation managed by Rainer Rizo RN 09/22 international normalized ratio (INR) 2.9 Rainer Rizo RN 09/22 prothrombin time (patient) 29.0 s Rainer Rizo RN 08/24 coagulation managed by Rainer Rizo RN 08/24 international normalized ratio (INR) 1.7 Rainer Rizo RN 08/24 prothrombin time (patient) 17.2 s Rainer Rizo RN 06/29 estimated glomerular filtration rate 27 mL/min [facility] 06/29 albumin/globulin ratio, serum 1.0 06/29 protein, total, serum 6.3 [facility] albumin, serum 3.2 g/dL [facility] 06/29 bilirubin, serum, total 0.42 mg/dL [facility] 06/29 alkaline phosphatase, serum 104 1/L [facility] 06/29 alanine aminotransferase (SGPT), serum 21 1/L 06/29 aspartate aminotransferase (SGOT), serum 15 1/L 06/29 calcium, serum 9.2 mg/dL [facility] 06/29 blood glucose, fasting 86 mg/dL [facility] 06/29 creatinine, serum 1.94 mg/dL [facility] 06/29 urea nitrogen, blood 34.1 mg/dL [facility] 06/29 carbon dioxide, serum, total 28 mmol/L [facility] 06/29 chloride, serum 101 mmol/L 06/29 potassium, serum 4.3 mmol/L 06/29 sodium, serum 136 mmol/L [facility] 06/29 ferritin, serum 162 ng/mL [facility] 06/29 iron saturation percent, serum 28 % [facility] 06/29 iron binding capacity, total 225 ug/dL [facility] 06/29 iron, serum 62 ug/dL [facility] 06/29 platelet count 222 10*3/uL [facility] 06/29 red blood cell distribution width 14.9 % [facility] 06/29 mean corpuscular hemoglobin concentration, RBC 32.9 g/dL [facility] 06/29 mean corpuscular hemoglobin, RBC 29.7 pg [facility] 06/29 mean corpuscular volume, RBC 90.2 fL Denetreb Arcadio 06/29 hematocrit, blood 33.1 % etrist Arcadio 06/29 hemoglobin, blood 10.9 g/dL etrist Arcadio 06/29 erythrocyte (RBC) count 3.67 10*6/mm3 [facility] Ar[facility]io 06/29 leukocyte count, blood 4.4 10*3/mm3 [facility] Arcadio 08/13 international normalized ratio (INR) 2.1 Angelito Guerrero 08/13 prothrombin time (patient) 21.2 s Angelito Germainsampson 07/27 coagulation managed by Rainer Lebrons RN 07/27 international normalized ratio (INR) 1.6 Rainer Lebrons YOGESH 07/27 prothrombin time (patient) 16.4 s Rainer Lebrons RN 07/13 coagulation managed by Rainer Lebrons YOGESH 07/13 international normalized ratio (INR) 1.8 Rainer Lebrons YOGESH 07/13 prothrombin time (patient) 17.7 s Rainer Lebrons RN 06/29 coagulation managed by Rainer Rizo YOGESH Lebrons RN 06/29 international normalized ratio (INR) 1.7 Rainer Lebrons YOGESH 06/29 prothrombin time (patient) 16.9 s Rainer Lebrons RN 05/28 coagulation managed by Rainer Rizo YOGESH Lebrons RN 05/28 international normalized ratio (INR) 2.4 Rainer Lebrons RN 05/28 prothrombin time (patient) 24.9 s Rainer Lebrons RN 04/30 coagulation managed by Rainer Rizo YOGESH Lebrons RN 04/30 international normalized ratio (INR) 2.4 Rainer Rizo RN 04/30 prothrombin time (patient) 24.3 s Rainer Lebrons RN 04/02 coagulation managed by Rainer Rizo YOGESH Lebrons YOGESH 04/02 international normalized ratio (INR) 2.5 Rainer Rizo RN 04/02 prothrombin time (patient) 25.4 s Rainer Lebrons YOGESH 03/05 coagulation managed by Rainer Rizo RN 03/05 international normalized ratio (INR) 2.6 Kalpesh Santillan 03/05 prothrombin time (patient) 26.1 s Sincerearias Santillan international normalized ratio (INR) 3.1 Sudha Dashawn prothrombin time (patient) 31.3 s Sudha Tamez 03/19 coagulation managed by Rainer Rizo RN 03/19 international normalized ratio (INR) 3.3 Rainer Rizo RN 03/19 prothrombin time (patient) 34.4 s Rainer Rizo RN 02/16 coagulation managed by Rainer Rizo RN 02/16 international normalized ratio (INR) 2.1 Rainer Rizo RN 02/16 prothrombin time (patient) 21.4 s Rainer Rizo RN coagulation managed by Rainer Rizo RN international normalized ratio (INR) 2.6 Rainer Rizo RN prothrombin time (patient) 25.5 s Rainer Rizo RN 10/07 vitamin D 25-hydroxy, serum 18.3 ng/mL Reggie Ervin 10/22 coagulation managed by Rainer Rizolaron Rizo RN 10/22 international normalized ratio (INR) 1.9 Rainer Rizo RN 10/22 prothrombin time (patient) 18.6 s Rainer Rizo RN 10/08 coagulation managed by Rainer Lebronlaron Rizo RN 10/08 international normalized ratio (INR) 2.7 Rainer Rizo RN 10/08 prothrombin time (patient) 27 s Rainer Rizo RN 09/24 coagulation managed by Rainer Rizo RN 09/24 international normalized ratio (INR) 1.7 Rainer Rizo RN 09/24 prothrombin time (patient) 16.7 s Rainer Rizo RN 09/10 international normalized ratio (INR) 1.7 Josefa Matute 09/10 prothrombin time (patient) 16.8 s Josefa Matute 08/14 coagulation managed by Rainer Rizo RN 08/14 international normalized ratio (INR) 1.9 Rainer Rizo RN 08/14 prothrombin time (patient) 19.2 s Rainer Rizo RN 07/24 coagulation managed by Rainer Rizo RN 07/24 international normalized ratio (INR) 2.8 Rainer Rizo RN 07/24 prothrombin time (patient) 27.6 s Rainer Rizo RN 07/10 coagulation managed by Rainer Rizo RN 07/10 international normalized ratio (INR) 2.7 Josefa Matute 07/10 prothrombin time (patient) 26.9 s Josefa Matute 06/26 international normalized ratio (INR) 1.3 Josefa Matute 06/26 prothrombin time (patient) 12.9 s Josefa Matute 06/12 international normalized ratio (INR) 2.7 Josefa Matute 06/12 prothrombin time (patient) 27.2 s Josefa Matute 06/05 coagulation managed by Yary Stock RN 06/05 international normalized ratio (INR) 2.3 Sudha Tamez 06/05 prothrombin time (patient) 22.5 s Sudha Tamez 05/29 coagulation managed by Yary Stock RN 05/29 international normalized ratio (INR) 3.9 Samantha Lizzy 05/29 prothrombin time (patient) 39.3 s Samantha Lizzy 05/26 coagulation managed by Rainer Rizo RN 05/26 international normalized ratio (INR) 6.6 Samantha Lizzy 05/26 prothrombin time (patient) 65.6 s Samantha Lizzy 05/09 international normalized ratio (INR) 2.4 Sudha Tamez 05/09 prothrombin time (patient) 23.8 s Sudha Tamez 04/25 coagulation managed by Rainer Rizo RN 04/25 international normalized ratio (INR) 3.2 Kristofer Manacop 04/25 prothrombin time (patient) 32.3 s Kristofer Manacop 03/28 coagulation managed by Rainer Rizo RN 03/28 international normalized ratio (INR) 2.1 Helena Bulmaro 03/28 prothrombin time (patient) 21.4 s Helena Bulmaro 02/26 coagulation managed by Rainer Rizo RN 02/26 international normalized ratio (INR) 2.0 Rainer Lebrons RN 02/26 prothrombin time (patient) 20.3 s Rainer Lebrons RN 03/30 coagulation managed by Rainer Lebrons RN Rainer Lebrons RN 03/30 international normalized ratio (INR) 2.5 Rainer Lebrons RN 03/30 prothrombin time (patient) 25.3 s Rainer Lebrons RN 03/01 coagulation managed by Rainer Lebrons RN Rainer Lebrons RN 03/01 international normalized ratio (INR) 2.6 Rainer Lebrons RN 03/01 prothrombin time (patient) 26.3 s Rainer Lebrons RN 02/15 coagulation managed by Rainer Lebrons YOGESH Lebrons RN 02/15 international normalized ratio (INR) 3.2 Rainer Rizo RN 02/15 prothrombin time (patient) 31.7 s Rainer Lebrons RN coagulation managed by Rainer Lebrons YOGESH Spear Rizo RN international normalized ratio (INR) 2.5 Rainer Lebrons RN prothrombin time (patient) 25.2 s Rainer Lberons RN 10/15 coagulation managed by Rainer Rizo YOGESH Rainer Lebrons RN 10/15 international normalized ratio (INR) 2.1 Kristofer Manacop 10/15 prothrombin time (patient) 21.0 s Kristofer Manacop 09/13 coagulation managed by Rainer Lebrons YOGESH Rainer Lebrons RN 09/13 international normalized ratio (INR) 2.6 Rainer Lebrons RN 09/13 prothrombin time (patient) 20.6 s Rainer Rizo RN 08/15 coagulation managed by Rainer Rizo YOGESH Rainer Lebrons RN 08/15 international normalized ratio (INR) 2.1 Rainer Rizo RN 08/15 prothrombin time (patient) 20.6 s Rainer Rizo RN 08/15 international normalized ratio (INR) 2.1 Kristofer Manacop 08/15 prothrombin time (patient) 20.6 s Kristofer Manacop 07/16 coagulation managed by Rainer Lebrons YOGESH Lebrons RN 07/16 international normalized ratio (INR) 2.3 Kristofer Manacop 07/16 [facility]thrombin [facility]) [facility] by Rainer Rizo RN 07/02 international normalized ratio (INR) 2.8 [facility]thrombin [facility] (patient) 28.0 s [facility] coagulation managed by Rainer Rizo RN 06/25 international normalized ratio (INR) 3.5 [facility]thrombin time (patient) 34.6 s [facility] 06/13 international normalized ratio (INR) 3.9 Sudha Dashawn 06/13 prothrombin time (patient) 38.5 s Sudha Tamez 05/30 coagulation managed by Rainer Rizo RN 05/30 international normalized ratio (INR) 1.4 Rainer Rizo RN 05/30 prothrombin time (patient) 13.5 s Rainer Rizo RN 05/16 alanine aminotransferase (SGPT), serum 9 1/L [facility] 6-40 Normal 05/16 aspartate aminotransferase (SGOT), serum 14 1/L [facility] 10-35 Normal 05/16 alkaline phosphatase, serum 88 1/L [facility] 33-130 Normal 05/16 bilirubin, serum, total 0.7 mg/dL [facility] 0.2-1.2 Normal 05/16 albumin/globulin ratio, serum 1.3 (calc) [facility] 1.0-2.1 Normal 05/16 globulins, serum, total 2.8 G/DL (CALC) [facility] 2.2-3.9 Normal 05/16 albumin, serum 3.5 g/dL [facility] 3.6-5.1 Low 05/16 protein, total, serum 6.3 g/dL [facility] 6.2-8.3 Normal 05/16 calcium, serum 9.2 mg/dL [facility] 8.6-10.2 Normal 05/16 carbon dioxide, venous blood 27 mmol/L [facility] 21-33 Normal 05/16 chloride, serum 103 mmol/L [facility] 98-110 Normal 05/16 potassium, serum 4.0 mmol/L [facility] 3.5-5.3 Normal 05/16 sodium, serum 138 mmol/L [facility] 135-146 Normal 05/16 urea nitrogen/creatinin e ratio, serum 20 (calc) [facility] 6-22 Normal 05/16 Estimated Glomerular Filtration Rate (calc) 48 mL/min/{1.73 _m2} [facility] > OR = 60 Low 05/16 creatinine, serum 1.32 mg/dL [facility] 0.63-1.22 High 05/16 urea nitrogen, blood 27 mg/dL [facility] 7-25 High 05/16 blood glucose, random 91 mg/dL [facility] 65-99 Normal 05/16 cholesterol/HDL ratio, serum, percent 3.2 (calc) [facility] < OR = 5.0 Normal 05/16 LDL cholesterol, serum 68 MG/DL (CALC) [facility] <130 Normal 05/16 HDL cholesterol, serum 39 mg/dL [facility] > OR = 46 Low 05/16 cholesterol, serum 123 mg/dL [facility] 125-200 Low 05/16 triglyceride, serum, fasting 78 mg/dL [facility] <150 Normal 05/06 coagulation managed by Rainer Rizo RN 05/06 international normalized ratio (INR) 1.4 Rainer Rizo RN 05/06 prothrombin time (patient) 13.7 s Rainer Rzio RN 04/18 coagulation managed by Rainer Rizo RN 04/18 international normalized ratio (INR) 3.4 Rainer Rizo RN 04/18 prothrombin time (patient) 33.6 s Rainer Lebrons YOGESH 04/10 coagulation managed by Rainer Rizo RN 04/10 international normalized ratio (INR) 3.9 [facility]thrombin time (patient) 39.2 s Kristofer Manaco 04/01 coagulation managed by Rainer Darrius Rizo RN 04/01 international normalized ratio (INR) 1.3 Rainer Rizo RN 04/01 prothrombin time (patient) 13.4 s Rainer Rizo RN alanine aminotransferase (SGPT), serum 24 1/L [facility] aspartate aminotransferase (SGOT), serum 16 1/L [facility] blood glucose, fasting 95 mg/dL [facility] creatinine, serum 1.50 mg/dL [facility] urea nitrogen, blood 24 mg/dL [facility] potassium, serum 3.9 mmol/L [facility] sodium, serum 137 mmol/L [facility] alanine aminotransferase (SGPT), serum 24 1/L [facility] aspartate aminotransferase (SGOT), serum 16 1/L [facility] blood glucose, fasting 95 mg/dL [facility] creatinine, serum 1.50 mg/dL [facility] urea nitrogen, blood 24 mg/dL [facility] potassium, serum 3.9 mmol/L [facility] sodium, serum 137 mmol/L [facility] triglyceride, serum, fasting 86 mg/dL [facility] HDL cholesterol, serum 43 mg/dL [facility] LDL cholesterol, serum 67 mg/dL [facility] cholesterol, serum 127 mg/dL [facility] HISTORY OF MEDICATION USE Medication Status Instructions Dates Provider Indications Com ments WARFARIN SODIUM 2 MG TABS active ONE TAB DAILY EXCEPT TUESDAY TAKE 1&1/2 TABS (3MG) Dariana Huang LIPITOR 40 MG ORAL TABLET active ONE TAB. DAILY Link Cook MD LASIX 40 MG ORAL TABLET completed one a day - Rose Garces LIPITOR 40 MG ORAL TABLET completed ONE TAB. DAILY instead of pravastin - Rose Garces VIT A/VIT C/VIT E/ZINC/COPPER (PRESERVISION AREDS ORAL) completed Take 1 tablet by mouth 2 (two) times a day. - Rose Garces Imported from [facility] (14-Jun-19 at 06:32:50 PM) TRAMADOL (ULTRAM) 50 MG TABLET completed Take 1 tablet (50 mg total) by mouth every 8 (eight) hours as needed for pain. - Rose Garces Imported from [facility] (14-Jun-19 at 06:32:50 PM) SOLIFENACIN (VESICARE) 5 MG TABLET completed Take 5 mg by mouth daily. - Rose Garces Imported from [facility] (14-Jun-19 at 06:32:50 PM) RANITIDINE (ZANTAC) 300 MG TABLET completed Take 1 tablet (300 mg total) by mouth daily - Rose Garces Imported from [facility] (14-Jun-19 at 06:32:50 PM) ranitidine (ZANTAC) 150 mg capsule completed Take 150 mg by mouth 2 (two) times a day. - Rose Garces Imported from [facility] (14-Jun-19 at 06:32:50 PM) METOPROLOL XL (TOPROL-XL) 25 MG 24 HR TABLET completed Take 25 mg by mouth 2 (two) times a day. - Rose Garces Imported from [facility] (14-Jun-19 at 06:32:50 PM) MESALAMINE (PENTASA) 500 MG CR CAPSULE completed Take two capsules by mouth twice daily - Rose Garces Imported from [facility] (14-Jun-19 at 06:32:50 PM) mesalamine (PENTASA) 500 mg CR capsule completed Take two capsules by mouth twice daily - Rose Garces Imported from [facility] (14-Jun-19 at 06:32:50 PM) mesalamine (PENTASA) 500 mg CR capsule completed Take 1,000 mg by mouth 2 (two) times a day. - Rose Garces Imported from [facility] (14-Jun-19 at 06:32:50 PM) LISINOPRIL (PRINIVIL,ZESTRIL ) 10 MG TABLET completed Take 10 mg by mouth daily. - Rose Garces Imported from [facility] (14-Jun-19 at 06:32:50 PM) LEVOTHYROXINE (SYNTHROID, LEVOTHROID) 125 MCG TABLET completed Take 125 mcg by mouth parts puller before breakfast. - Rose Garces Imported from [facility] (14-Jun-19 at 06:32:50 PM) HYDROcodone-aceta minophen (NORCO) 10-325 mg per tablet active Take 1 tablet by mouth daily as needed for pain. Patient takes half a tablet at night Rose Garces Imported from [facility] (14-Jun-19 at 06:32:50 PM) glucosamine-chond roitin 500-400 mg tablet active Take 1 tablet by mouth 2 (two) times a day. Rose Dez Imported from [facility] (14-Jun-19 at 06:32:50 PM) gabapentin (NEURONTIN) 100 mg capsule completed Take 1 capsule (100 mg total) by mouth 3 (three) times a day. - Rose Garces Imported from [facility] (14-Jun-19 at 06:32:50 PM) ezetimibe (ZETIA) 10 mg tablet active Take 10 mg by mouth daily. Rose Dez Imported from [facility] (14-Jun-19 at 06:32:50 PM) ergocalciferol (VITAMIN D) 50,000 unit capsule active Take 50,000 Units by mouth once a week. tuesday Rose Dez Imported from [facility] (14-Jun-19 at 06:32:50 PM) docusate sodium (DOK) 100 mg capsule active Take 100 mg by mouth daily. Rose Dez Imported from [facility] (14-Jun-19 at 06:32:50 PM) cyanocobalamin (Vitamin B-12) 1,000 mcg tablet active Take 1,000 mcg by mouth daily. oRse Garces Imported from [facility]: [facility] (14-Jun-19 at 06:32:50 PM) cranberry fruit concentrate (AZO CRANBERRY ORAL) active Take 1 tablet by mouth 2 (two) times a day. Rose Garces Imported from [facility]: [facility] (14-Jun-19 at 06:32:50 PM) calcium carbonate (CALCIUM 600 ORAL) active Take 2 tablets by mouth daily. Rose Garces Imported from [facility] (14-Jun-19 at 06:32:50 PM) acetaminophen 500 mg capsule active Take 500 mg by mouth 3 (three) times a day. Rose Garces Imported from [facility] (14-Jun-19 at 06:32:50 PM) COUMADIN 5 MG ORAL TABLET completed one tab daily EXCEPT on Sun take 1/2 tab - Rainer Rizo RN ZETIA 10 MG ORAL TABLET completed ONE TAB. DAILY - Rose Garces COUMADIN 2 MG ORAL TABLET active one tab daily except on Mon take 1 /2 tab Rainer Rizo RN COUMADIN 3 MG ORAL TABLET active hold Rainer Rizo RN COUMADIN 3 MG ORAL TABLET completed one tab on - and Sat ONLY - Link Cook MD FERROUS SULFATE 325 (65 FE) MG ORAL TABLET completed ONE PER DAY - Link Cook MD AZO CRANBERRY TABLET active take one pill twice a day Julee Moctezuma ACETAMINOPHEN 500 MG ORAL TABLET active take one pill three times a day Julee Moctezuma VESICARE 5 MG ORAL TABLET active take one pill a day Julee Moctezuma MACROBID 100 MG ORAL CAPSULE active one a day Link Cook MD GLUCOSAMINE CHONDR COMPLEX CAPSULE active take one pill a day Julee Moctezuma CALCIUM CITRATE +D TABLET completed take one pill twice a day - Julee Moctezuma CALCIUM CAPSULE active take one pill twice a day Julee Moctezuma [employer] STOOL SOFTENER CAPSULE active take one pill a day Julee Rhianna VITAMIN D (ERGOCALCIFEROL) 67200 UNIT ORAL CAPSULE completed take one pill a week - Rose Garces DDAVP 0.1 MG ORAL TABLET completed take one pill a day - Julee Riosalaina CALCITRIOL 0.25 MCG ORAL CAPSULE completed take one pill a day - Julee Rhianna TIZANIDINE HCL 4 MG ORAL CAPSULE completed take one pill three times a day - Julee Riosalaina B-12 1000 MCG ORAL CAPSULE active take one pill a day Julee Moctezuma COUMADIN 2 MG ORAL TABLET completed 1 1/2 tab daily - Pao Taemz COUMADIN 2.5 MG ORAL TABLET completed one tab on [id number] Sat ONLY - Rainer Rizo RN HYDROCODONE-ACETA MINOPHEN 10-325 MG ORAL TABLET completed take one pill a day - Rose Garces VESICARE 5 MG ORAL TABLET completed 1 tab daily - Julee Moctezuma COUMADIN 2 MG ORAL TABLET completed one tab Sat and Sun Only - Rainer Rzio RN COUMADIN 2 MG ORAL TABLET completed 1/2 tab M-W-F - Rainer Rizo RN COUMADIN 2.5 MG ORAL TABLET completed DAILY 2 tabs on Mon only - Rainer Rizo RN TRAMADOL HCL TABLET completed TAKE 50MG ONCE DAILY - Noe Sutherland METOPROLOL SUCCINATE ER 25 MG ORAL TABLET EXTENDED RELEASE 24 HOUR active daily Link Cook MD ACID CONTROL 150 MG ORAL TABLET active take one pill twice a day Julee Moctezuma LASIX 20 MG ORAL TABLET completed ONE A DAY - Je'nee Shannan LOMOTIL 2.5-0.025 MG ORAL TABLET completed as needed - Aneatris Koko LISINOPRIL 10 MG ORAL TABLET active ONE TAB. DAILY Julee Riossdleyda COUMADIN 5 MG ORAL TABLET completed 1/2 tab Mon through Thurs 1 tab Fri, Sat and Sun - Balbir Shannan CALCIUM-VITAMIN D3 TABS completed twice a day - Balbir Chandney VICODIN 5-500 MG TABS completed one tab am and pm - Anecitlaly Sutherland CALCIUM-VITAMIN D completed 2 times daily - Rainer Rizo RN GLUCOSAMINE-CHOND ROITIN TABLET completed 2 times daily - Rainer Rizo RN COUMADIN 4 MG ORAL TABLET completed one tab Mon through and 1/2 tab on Tue- Sat and Sun - Rainer Rizo RN COUMADIN 3 MG ORAL TABLET completed on Sat and Sun - Rainer Rizo RN COUMADIN 4 MG ORAL TABLET completed one tab daily - Rainer Rizo RN INDAPAMIDE 2.5 MG ORAL TABLET completed ONE TAB. DAILY - Malu Pereira NP COUMADIN 4 MG ORAL TABLET completed daily -[id number]- Tue-Tue - Rainer Rizo RN VOLTAREN GEL completed 1% 4 daily - Rainer Rizo RN PENTASA 500 MG CR-CAPS (MESALAMINE) active 6 tablets daily Aneatrricardo Sutherland IRON 325 (65 Fe) MG ORAL TABLET completed 2 daily - Rainer Rizo RN COUMADIN 5 MG ORAL TABLET completed one tab daily on Tuesday- Tuesday - Sudha JIMENEZ TABS (PROPOXYPHENE N-APAP TABS) completed 1 at bedtime - Link Cook MD COUMADIN 5 MG ORAL TABLET completed on and Sat ONLY - Rainer Rizo RN COUMADIN 3 MG ORAL TABLET completed Sun - Rainer Rizo RN COUMADIN 4 MG ORAL TABLET completed dilay - Rainer Rizo RN COUMADIN 4 MG ORAL TABLET completed ALTERNATE 3MG WITH 4MG TABLETS DAILY DIRECTED - Rainer Rizo RN CHOLESTYRAMINE PACKET completed once daily for 5 days - Sudha Tamez COUMADIN TABLET completed 3mg alt with 4mg daily - Kristofer Anderson ZESTRIL 5 MG ORAL TABLET completed Take 1 tablet by mouth once a day - Link Cook MD KLOR-CON M10 10 MEQ ORAL TABLET EXTENDED RELEASE completed one TAB. DAILY - Link Cook MD MIRAPEX 0.125 MG ORAL TABLET completed one a day - Rainer Rizo RN PRAVACHOL 40 MG ORAL TABLET completed one tablet daily - Link Cook MD CALCIUM CARBONATE TABLET completed one tab. daily - Anusha'bernardo Shannan GLUCOSAMINE SULFATE TABS completed 2-3 daily - Balbir Cintroney PRESERVISION AREDS ORAL CAPSULE active take 2 pills a day Julee Moctezuma COUMADIN TABLET completed 3mg tablets to alternate with 4mg daily as of 05/09 - Rainer Rizo RN PREVACID 30 MG ORAL CAPSULE DELAYED RELEASE completed ONE TAB. DAILY - Samantha Ball ULTRAM ER 100 MG ORAL TABLET EXTENDED RELEASE 24 HOUR completed 1 daily - Samantha Ball SYNTHROID 125 MCG ORAL TABLET completed 1 tab daily - Rose Garces per med list INDAPAMIDE 2.5 MG ORAL TABLET completed ONE TAB. DAILY - Sudha Tamez CELEBREX 200 MG ORAL CAPSULE completed 1 daily - Link Cook MD BYSTOLIC 2.5 MG ORAL TABLET completed one tab per day - Malu Pereira NP SOCIAL HISTORY Date Observation Value Provider social history reviewed E&M revi ewed - no changes required Varun Horner social history E&M Marital Statu s: L marylu with family/friends E thnicity: C hildren: 3 children Smoking History: P atbrie has never smoked. Link Cook MD social history reviewed E&M revi ewed - no changes required Link Cook MD physical exercise, f requency, days per week no Rose Garces alcohol use, average drinks per day none Rose Garces alcohol use no Rose Richard mobley caffeine use, averag e drinks per day no Rosemanpreet Garces drug use no Rose Richard mobley passive cigarette sm juan exposure no Rosemanpreet Garces smoking status Never smoker Rose Mallorie ham number of grandchildren Link Cook MD [facility] physical exercise, f requency, days per week no [facility], average drinks per day none [facility] alcohol use no [facility] caffeine use, averag e drinks per day no [facility] passive cigarette sm juan exposure no [facility] status Never smoker [facility] E&M Marital Statu s: L marylu with family/friends E thnicity: C michelldren: 3 children Smoking History: P atbrie has never smoked. Link Cook MD social history reviewed E&M revi ewed - no changes required Link Cook MD physical exercise, f requency, days per week no Juleelitzy Moctezuma alcohol use, average drinks per day none Julee Rhianna alcohol use no Julee Virginia chopra caffeine use, averag e drinks per day no Julee Rhianna drug use no Julee Virginia dnoovaner passive cigarette sm juan exposure no Julee Rhianna smoking status Never smoker Julee sykes social history E&M Marital Statu s: L marylu with family/friends E thnicity: C hildren: 3 children Smoking History: P paris has never smoked. Link Cook MD social history reviewed E&M revi ewed - no changes required Link Cook MD physical exercise, f requency, days per week no Navjot [place]one alcohol use, average drinks per day none Navjot [place] alcohol use no Navjot [place] michaelon caffeine use, averag e drinks per day no Navjot [place] drug use no Navjot [place] nson passive cigarette sm juan exposure no Navjot [place] smoking status Never smoker Navjot Alvarez riley social history E&M Marital Statu s: L marylu with family/friends E thnicity: C hildren: 3 children Smoking History: P paris has never smoked. Link Cook MD social history reviewed E&M revi ewed - no changes required Link Cook MD physical exercise, f requency, days per week no Julee Moctezuma alcohol use, average drinks per day none Julee Moctezuma alcohol use no Julee chopra caffeine use, averag e drinks per day no Julee Moctezuma drug use no Julee chopra passive cigarette sm juan exposure no Julee Moctezuma smoking status Never smoker Julee Elana sykes smoking status Never smoker Alida Tico mobley NP physical exercise, f requency, days per week no Link Cook MD alcohol use, average drinks per day none Link Cook MD caffeine use, averag e drinks per day no Link Cook MD drug use no Link Vargas passive cigarette sm juan exposure no Link Cook MD smoking status Never smoker Link Cook MD social history E&M Marital Statu s: L marylu with family/friends E thnicity: C rosaen: 3 children Smoking History: P paris has never smoked. Link Cook MD social history reviewed E&M revi ewed - no changes required Link Cook MD alcohol use no Julee Hoskinsgrace lder smoking status Never smoker Alida Tindal l SPEEDOMETER MECHANIC physical exercise, f requency, days per week no Alida [place] SPEEDOMETER MECHANIC alcohol use, average drinks per day none Alida Evelia SPEEDOMETER MECHANIC alcohol use no Alida [place] SPEEDOMETER MECHANIC caffeine use, averag e drinks per day no Alida Evelia SPEEDOMETER MECHANIC drug use no Alida Evelia SPEEDOMETER MECHANIC passive cigarette sm juan exposure no Alida Evelia SPEEDOMETER MECHANIC smoking status Never smoker Alida Tindal l SPEEDOMETER MECHANIC physical exercise, f requency, days per week no Alida Evelia SPEEDOMETER MECHANIC alcohol use, average drinks per day none Alida Evelia SPEEDOMETER MECHANIC caffeine use, averag e drinks per day no Alida Evelia SPEEDOMETER MECHANIC drug use no Alida [place] SPEEDOMETER MECHANIC passive cigarette sm juan exposure no Alida [place] SPEEDOMETER MECHANIC smoking status Never smoker Alida Tindal l SPEEDOMETER MECHANIC social history reviewed E&M revi ewed - no changes required Link Cook MD smoking status Never smoker Noe abraham social history reviewed E&M revi ewed - no changes required Link Cook MD smoking status Never smoker Noe abraham social history reviewed E&M reviewed Link Cook MD social history reviewed E&M reviewed Rainer Rizo RN drug use no Link Vargas passive cigarette sm juan exposure no iLnk Cook MD social history reviewed E&M reviewed Link Cook MD smoking status never smoker Link Cook MD social history reviewed E&M reviewed Rainer iRzo RN social history reviewed E&M reviewed Lacretia Pereira SPEEDOMETER MECHANIC social history reviewed E&M reviewed Lacretia Pereira SPEEDOMETER MECHANIC social history reviewed E&M reviewed Lacretia Pereira SPEEDOMETER MECHANIC social history reviewed E&M reviewed CRYSTAL JESENICK SPEEDOMETER MECHANIC smoking status never CRYSTAL JESEN ICK SPEEDOMETER MECHANIC social history reviewed E&M reviewed CRYSTAL JESENICK SPEEDOMETER MECHANIC social history reviewed E&M reviewed Rainer Rizo RN social history reviewed E&M reviewed Link Cook MD social history reviewed E&M reviewed Rainer Rizo RN social history reviewed E&M reviewed Rainer Rizo RN social history reviewed E&M reviewed Rainer Rizo RN social history reviewed E&M reviewed Rainer Rizo RN social history reviewed E&M reviewed Link Cook MD number of children 3 children Link miranda MD social history E&M Marital Statu s: L marylu with family/friends E thnicity: C hildren: 3 children Link Cook MD social history reviewed E&M reviewed Link Cook MD physical exercise, f requency, days per week no [employer] caffeine use, averag e drinks per day no [employer] alcohol use, average drinks per day none [employer] smoking status Non-smoker [facility] MENTAL STATUS Date Observation Value Provider assessment of judgme nt and insight E&M Alert and oriented to time, place and person. Mood and affect are normal. Link Cook MD assessment of judgme nt and insight E&M Alert and oriented to time, place and person. Mood and affect are normal. Alida Altamirano NP assessment of judgme nt and insight E&M Alert and oriented to time, place and person. Mood and affect are normal. Rainer Rizo RN assessment of judgme nt and insight E&M Alert and oriented to time, place and person. Mood and affect are normal. Link Cook MD assessment of judgme nt and insight E&M Alert and oriented to time, place and person. Mood and affect are normal. Rainer Rizo RN assessment of judgme nt and insight E&M Alert and oriented to time, place and person. Mood and affect are normal. Malu Pereira NP assessment of judgme nt and insight E&M Alert and oriented to time, place and person. Mood and affect are normal. EDI DIEZ NP assessment of judgme nt and insight E&M Alert and oriented to time, place and person. Mood and affect are normal. EDI DIEZ NP assessment of judgme nt and insight E&M Alert and oriented to time, place and person. Mood and affect are normal. Rainer Rizo RN assessment of judgme nt and insight E&M Alert and oriented to time, place and person. Mood and affect are normal. Link Cook MD assessment of judgme nt and insight E&M Alert and oriented to time, place and person. Mood and affect are normal. Rainer Rizo RN assessment of judgme nt and insight E&M Alert and oriented to time, place and person. Mood and affect are normal. Rainer Rizo RN assessment of judgme nt and insight E&M Alert and oriented to time, place and person. Mood and affect are normal. Rainer Rizo RN assessment of judgme nt and insight E&M Alert and oriented to time, place and person. Mood and affect are normal. Rainre Rizo RN assessment of judgme nt and insight E&M Alert and oriented to time, place and person. Mood and affect are normal. Link Cook MD assessment of judgme nt and insight E&M Alert and oriented to time, place and person. Mood and affect are normal. Link Cook MD FAMILY HISTORY Family Member Condition Daughter Family History Unkno wn INSURANCE PROVIDERS Payer name Policy type / Coverage type Soy red democrat [facility] Medicaid 3 [id number] [employer] MEDICARE Medicare [id number] ADVANCE DIRECTIVES Name Date DISCUSSED - NO DECISION MADE TREATMENT PLAN Date Name Performer Cardiology follow up :does not w ant diet pills Link Cook MD Cardiology follow up Link jackson MD Cardiology follow up Link jackson MD Cardiology follow up : T he following medications were removed from the medication list: Synthroid 125 Mcg Oral Tablet (Levothyroxine sodium) ..... 1 tab daily Levothyroxine (synthroid, Levothroid) 125 Mcg Tablet (Levothyroxine (synthroid, levothroid) 125 mcg tablet) ..... Take 125 mcg by mouth parts puller before breakfast. Link Cook MD Cardiology follow up Link jackson MD Cardiology follow up : h as dentures, does not want sleep study Link Cook MD Cardiology follow up Link jacksno MD Cardiology follow up Link jackson MD Cardiology follow up : g ot infusion, iorn corrected d ue to chronhsn? , b12 ok on rx ok and folate ok Link Cook MD Cardiology follow up :mild ai, m r and tr, nml pap Link Cook MD Cardiology follow up : T he following medications were removed from the medication list: Lipitor 40 Mg Oral Tablet (Atorvastatin calcium) ..... One tab. daily instead of pravastin Zetia 10 Mg Oral Tablet (Ezetimibe) ..... One tab. daily Her updated medication list for this problem includes: Lipitor 40 Mg Oral Tablet (Atorvastatin calcium) ..... One tab. daily Ezetimibe (zetia) 10 Mg Tablet (Ezetimibe (zetia) 10 mg tablet) ..... Take 10 mg by mouth daily. C HOL: 151 (06/15/2018) HDL: 40 (06/15/2018) CHOL (goal): 200 (12/24/2015) LDL (goal): 100 (12/24/2015) HDL (goal): 40 (12/24/2015) TG (goal): 150 (12/24/2015) Link Cook MD Cardiology follow up : g ot infusion, iorn corrected d ue to chronhsn? , b12 ok on rx ok and folate ok Link Cook MD Cardiology follow up :[id number] Doe Cook MD Cardiology follow up :ave 64, lo w 35, pk 96 Link Cook MD Cardiology-seen with MD and SPEEDOMETER MECHANIC :monitor safety while on coumadin. [facility] do echo and [facility] Cardiology-seen with MD and SPEEDOMETER MECHANIC :lifestyle modification [facility] Cardiology-seen with MD and SPEEDOMETER MECHANIC :cont present regimen H er updated medication list for this problem includes: Ezetimibe (zetia) 10 Mg Tablet (Ezetimibe (zetia) 10 mg tablet) ..... Take 10 mg by mouth daily. Zetia 10 Mg Oral Tablet (Ezetimibe) ..... One tab. daily Pravachol 40 Mg Oral Tablet (Pravastatin sodium) ..... One tablet daily Fang Senjconchita [facility] Cardiology-seen with MD and SPEEDOMETER MECHANIC :controlled. renal US has been ordered by her perinatal breastfeeding assistant [facility] Cardiology-seen with MD and SPEEDOMETER MECHANIC :Has trace edema. Will repeat echo to eval H er updated medication list for this problem includes: Metoprolol Xl (toprol-xl) 25 Mg 24 Hr Tablet (Metoprolol xl (toprol-xl) 25 mg 24 hr tablet) ..... Take 25 mg by mouth 2 (two) times a day. Lisinopril (prinivil,zestril) 10 Mg Tablet (Lisinopril (prinivil,zestril) 10 mg tablet) ..... Take 10 mg by mouth daily. Coumadin 2 Mg Oral Tablet (Warfarin sodium) ..... One tab daily Coumadin 3 Mg Oral Tablet (Warfarin sodium) ..... Hold Lisinopril 10 Mg Oral Tablet (Lisinopril) ..... One tab. daily Metoprolol Succinate Er 25 Mg Oral Tablet Extended Release 24 Hour (Metoprolol succinate) ..... Take one tab twice daily Fang Saldivar [facility] Cardiology-seen with MD and SPEEDOMETER MECHANIC :chronic. Will have OP tele given recent fall. cont AC with coumadin last INR at home 3.1 H er updated medication list for this problem includes: Metoprolol Xl (toprol-xl) 25 Mg 24 Hr Tablet (Metoprolol xl (toprol-xl) 25 mg 24 hr tablet) ..... Take 25 mg by mouth 2 (two) times a day. Coumadin 2 Mg Oral Tablet (Warfarin sodium) ..... One tab daily Coumadin 3 Mg Oral Tablet (Warfarin sodium) ..... Hold Metoprolol Succinate Er 25 Mg Oral Tablet Extended Release 24 Hour (Metoprolol succinate) ..... Take one tab twice daily Fang Yariel [facility] Cardiology Follow up :ne nuc 17, neg carotid and dvt vd p os dd with neg ct Link Cook MD Cardiology Follow up Link jackson MD Cardiology Follow up Link jackson MD Cardiology Follow up :got infusion, iorn corrected d ue to chronhsn? , b12 ok on rx ok and folate ok Link Cook MD Cardiology Follow up :CHOL: 174.0 (09/30/2016) HDL: 45.0 (09/30/2016) T.0 (09/30/2016) C HOL (goal): 200 (12/24/2015) LDL (goal): 100 (12/24/2015) HDL (goal): 40 (12/24/2015) TG (goal): 150 (12/24/2015) Her updated medication list for this problem includes: Zetia 10 Mg Oral Tablet (Ezetimibe) ..... One tab. daily Pravachol 40 Mg Oral Tablet (Pravastatin sodium) ..... One tablet daily w ill add zeita Link Cook MD Cardiologystress pen ding: norma riley nuc Link Coko MD Cardiologystress pending:since 2 010 Link Cook MD Cardiologystress pending:mild to mod with Link Cook MD Cardiologystress pen ding:due to chronhsn? no time for infusion, b12 on rx ok and folate ok Link Cook MD Cardiologystress pen ding: H er updated medication list for this problem includes: Pravachol 40 Mg Oral Tabs (Pravastatin sodium) ..... One tablet daily C HOL: 174.0 (09/30/2016) HDL: 45.0 (09/30/2016) T.0 (09/30/2016) C HOL (goal): 200 (12/24/2015) LDL (goal): 100 (12/24/2015) HDL (goal): 40 (12/24/2015) TG (goal): 150 (12/24/2015) Link Cook MD Cardiologystress pen ding: L abs Reviewed: T SH: 0.392 ??IU/ML (09/30/2016) Total T4: 10.0 ??G/DL (09/30/2016) H gBA1c: 5.5 (09/30/2016) C hol: 174.0 (09/30/2016) HDL: 45.0 (09/30/2016) T.0 (09/30/2016) Her updated medication list for this problem includes: Synthroid 125 Mcg Oral Tabs (Levothyroxine sodium) ..... 1 tab daily Link Cook MD Cardiologystress pending Link Cook MD Cardiologystress pending Link Cook MD [facility] Follow up Maninder Cook MD [facility] Follow up Maninder Cook MD [facility] Follow up Dickens abram Cook MD [facility] Follow up :p os dd with neg ct Link Cook MD [facility] Hospital Follow up :ef 55, mid to mod mr, and tr, mild ai Link Cook MD Cardiology-BP/Lipid: No medication changes are made. BP within acceptable range H er updated medication list for this problem includes: Lisinopril 5 Mg Tabs (Lisinopril) ..... One tab. daily Metoprolol Succinate Er 25 Mg [id number] (Metoprolol succinate) ..... Take one tab twice daily Alida Mattanickolas TEIXEIRA Cardiology-BP/Lipid: Lipids at goal. Repeat lipids in 6 months. Continue current meds. H er updated medication list for this problem includes: Pravachol 40 Mg Oral Tabs (Pravastatin sodium) ..... One tablet daily Alida Evelia TEIXEIRA Cardiology Follow u p;echo peing colleen Cook MD Cardiology Follow u p;echo peing colleen Cook MD Cardiology Follow u p;echo peinging: H er updated medication list for this problem includes: Coumadin 3 Mg Tabs (Warfarin sodium) ..... One tab daily Coumadin 2 Mg Tabs (Warfarin sodium) ..... 1/2 tab m-w-f Lisinopril 5 Mg Tabs (Lisinopril) ..... One tab. daily Metoprolol Succinate Er 25 Mg [id number] (Metoprolol succinate) ..... Take one tab twice daily Link Cook MD Cardiology Follow u p;echo peinging:better at home H er updated medication list for this problem includes: Lisinopril 5 Mg Tabs (Lisinopril) ..... One tab. daily Metoprolol Succinate Er 25 Mg [id number] (Metoprolol succinate) ..... Take one tab twice daily BP today: 130/90 P rior BP: 114/60 (08/22/2014) Prior 10 Yr Risk Heart Disease: 4 % (06/18/2015) Labs Reviewed: C reat: 1.78 (05/04/2011) C hol: 143 (06/18/2015) HDL: 51 (06/18/2015) LDL: 79 (06/18/2015) T (06/18/2015) Link Cook MD Cardiology Follow u p;echo peinging:has dentures, does not want sleep study Link Cook MD Cardiology Follow u p;echo peinging:does not want novel ac H er updated medication list for this problem includes: Coumadin 3 Mg Tabs (Warfarin sodium) ..... One tab daily Coumadin 2 Mg Tabs (Warfarin sodium) ..... 1/2 tab m-w-f Metoprolol Succinate Er 25 Mg [id number] (Metoprolol succinate) ..... Take one tab twice daily Link Cook MD Cardiology Follow u p;echo peinging:did not want liptior due to pts fear of diabetes H er updated medication list for this problem includes: Pravachol 40 Mg Oral Tabs (Pravastatin sodium) ..... One tablet daily C HOL: 143 (06/18/2015) LDL: 79 (06/18/2015) HDL: 51 (06/18/2015) T (06/18/2015) C HOL (goal): 200 (06/18/2015) LDL (goal): 100 (06/18/2015) HDL (goal): 40 (06/18/2015) TG (goal): 150 (06/18/2015) Link Cook MD Cardiology- lipid vi sit :Lipids at goal. No changes recommended. H er updated medication list for this problem includes: Pravachol 40 Mg Oral Tabs (Pravastatin sodium) ..... One tablet daily Alida Altamirano NP Cardiology - lipid m anagement:Lipids in acceptable range. No medication changes recommended. Recommend weight loss. Return to lipid clinic in 6 months. H er updated medication list for this problem includes: Pravachol 40 Mg Oral Tabs (Pravastatin sodium) ..... One tablet daily Alida Altamirano NP Cardiology-lipid cli sarahy:Patient has elevated triglycerides. She does not wish to add or increase medications at this time. She would like to try dietary management at this time. Discussed decreasing sweets, starches, carbs etc in her diet. She will return to lipid clinic in 3 months. H er updated medication list for this problem includes: Lipitor 20 Mg Tabs (Atorvastatin calcium) ..... One tab. daily Alida Altamirano NP follow up:chronic back pain on n arcocaotics Link Cook MD follow up Link Cook MD follow up Link Cook MD follow up:suggested titration st udy Link Cook MD follow up:bnp [id number] Link miranda MD follow up:nml ef, la e, shazia,mild mr, aortic valve scrloris, mild ai Link Cook MD Cholesterol manageme nt:Lipid values at goal. No changes recommended. H er updated medication list for this problem includes: Lipitor 20 Mg Tabs (Atorvastatin calcium) ..... One tab. daily Alida Altamirano NP FOLLOW UP Link Cook MD FOLLOW UP: H er updated medication list for this problem includes: Lipitor 20 Mg Tabs (Atorvastatin calcium) ..... One tab. daily Link Cook MD FOLLOW UP: H er updated medication list for this problem includes: Synthroid 100 Mcg Tabs (Levothyroxine sodium) ..... One tab. daily Link Cook MD FOLLOW UP: H er updated medication list for this problem includes: Lipitor 20 Mg Tabs (Atorvastatin calcium) ..... One tab. daily Link Cook MD FOLLOW UP: T he following medications were removed from the medication list: Lasix 20 Mg Tabs (Furosemide) ..... One a day Her updated medication list for this problem includes: Lisinopril 5 Mg Tabs (Lisinopril) ..... One tab. daily Metoprolol Succinate Er 25 Mg [id number] (Metoprolol succinate) ..... Take one tab twice daily Orders: H olter Monitor 24 Hr (CPT-23245) Link Cook MD FOLLOW UP: O rders: H olter Monitor 24 Hr (CPT-75126) Link Cook MD FOLLOW UP: T he following medications were removed from the medication list: Coumadin 5 Mg Tabs (Warfarin sodium) ..... 1/2 tab mon through th 1 tab fri, sat and sun Lasix 20 Mg Tabs (Furosemide) ..... One a day Her updated medication list for this problem includes: Coumadin 2.5 Mg Tabs (Warfarin sodium) ..... Daily Metoprolol Succinate Er 25 Mg [id number] (Metoprolol succinate) ..... Take one tab twice daily Orders: H olter Monitor 24 Hr (CPT-38461) Link Cook MD FOLLOW UP: T he following medications were removed from the medication list: Lasix 20 Mg Tabs (Furosemide) ..... One a day Her updated medication list for this problem includes: Lisinopril 5 Mg Tabs (Lisinopril) ..... One tab. daily Metoprolol Succinate Er 25 Mg [id number] (Metoprolol succinate) ..... Take one tab twice daily Link Cook MD FOLLOW UP Link Cook MD FOLLOW UP Link Cook MD FOLLOW UP Link Cook MD :Patient presents fo r HTN clinic. She states she has been doing well. Her BPs at home range in the 130's80's H er updated medication list for this problem includes: Lisinopril 5 Mg Tabs (Lisinopril) ..... One tab. daily Lasix 20 Mg Tabs (Furosemide) ..... One a day Alida Altamirano NP routine Link Serota routine Link Serota routine Link Serota routine Link Serota routine Link Serota routine Link Serota routine Link Serota routine Link Serota routine Link Serota routine Link Serota routine Link Serota routine Link Serota routine Link Serota routine Link Serota routine Link Serota routine Link Serota routine Link Serota routine Link Cook MD routine Link Cook MD routine: O rders: H olter Monitor 24 Hr (CPT-79249) Link Cook MD Cholesterol manageme nt: H er updated medication list for this problem includes: Simvastatin 40 Mg Tabs (Simvastatin) ..... One tablet daily Patient presents for lipiid clinic. She was unable to tolerate Atorvastatin and was switched to Simvastatin. Values are at goal. Patient is tolerating Simvastatin without difficulty thus far. Will continue same and return to lipic clinic in 3 months. Alida Altamirano NP : H er updated medication list for this problem includes: Zestril 5 Mg Tab (Lisinopril) ..... Take 1 tablet by mouth once a day Link Cook MD Link Cook MD : H er updated medication list for this problem includes: Lipitor 20 Mg Tabs (Atorvastatin calcium) ..... One tab. daily Link Cook MD : H er updated medication list for this problem includes: Zestril 5 Mg Tab (Lisinopril) ..... Take 1 tablet by mouth once a day Coumadin 4 Mg Tabs (Warfarin sodium) ..... One tab mon through and 1/2 tab on fri- sat and sun Orders: C omplete Echo (CPT-79689) H olter Monitor 24 Hr (CPT-36819) e Prescribe - Check this box if eRx is used (CPT-G8553) Link Cook MD : H er updated medication list for this problem includes: Zestril 5 Mg Tab (Lisinopril) ..... Take 1 tablet by mouth once a day Orders: C omplete Echo (CPT-53857) H olter Monitor 24 Hr (CPT-69668) e Prescribe - Check this box if eRx is used (CPT-G8553) Link Cook MD : H er updated medication list for this problem includes: Coumadin 4 Mg Tabs (Warfarin sodium) ..... One tab mon through thurs and 1/2 tab on fri- sat and sun Link Cook MD : H er updated medication list for this problem includes: Coumadin 4 Mg Tabs (Warfarin sodium) ..... One tab tue through and 1/2 tab on tue and tue Orders: C omplete Echo (CPT-39700) H olter Monitor 24 Hr (CPT-53261) e Prescribe - Check this box if eRx is used (CPT-G8553) Link Cook MD : O rders: C omplete Echo (CPT-25520) H olter Monitor 24 Hr (CPT-53027) e Prescribe - Check this box if eRx is used (CPT-G8553) Link Cook MD : H er updated medication list for this problem includes: Zestril 5 Mg Tab (Lisinopril) ..... Take 1 tablet by mouth once a day Orders: C omplete Echo (CPT-31143) H olter Monitor 24 Hr (CPT-18787) e Prescribe - Check this box if eRx is used (CPT-G8553) Link Cook MD : H er updated medication list for this problem includes: Zestril 5 Mg Tab (Lisinopril) ..... Take 1 tablet by mouth once a day Orders: C omplete Echo (CPT-75536) H olter Monitor 24 Hr (CPT-60943) Link Cook MD Link Cook MD Link Serotmanpreet DESOUZA routine Link Serota routine Link Serota routine Link Serota routine Link Serota routine Link Serota routine Link Serota routine Link Serota routine Link Serota routine Link Serota routine Link Serota routine Link Serota routine: O rders: C omplete Echo (CPT-54474) e Prescribe - Check this box if eRx is used (CPT-G8553) Link Cook MD routine: O rders: C omplete Echo (CPT-75966) e Prescribe - Check this box if eRx is used (CPT-G8553) Link Cook MD routine Link Cook MD routine Link Cook MD routine: O rders: C omplete Echo (CPT-51050) e Prescribe - Check this box if eRx is used (CPT-G8553) H olter Monitor 24 Hr (CPT-85132) Link Cook MD routine: O rders: C omplete Echo (CPT-64987) e Prescribe - Check this box if eRx is used (CPT-G8553) H olter Monitor 24 Hr (CPT-58516) Link Cook MD routine Link Cook MD routine Link Cook MD CHOL MGT: H er updated medication list for this problem includes: Lipitor 20 Mg Tabs (Atorvastatin calcium) ..... One tab. daily C holesterol is good today. HDL is <50. Encourged to increase activity. We can consider adding niaspan at next visit if her HDL does not improve. She will follow up in 6 months. Malu Pereira [employer] HTN Mgmt: H er updated medication list for this problem includes: Bystolic 2.5 Mg Tabs (Nebivolol hcl) ..... One tab per day Zestril 5 Mg Tab (Lisinopril) ..... Take 1 tablet by mouth once a day Indapamide 2.5 Mg Tabs (Indapamide) ..... One tab. daily B /P well controlled w/ current tx. Will continue with tx and have pt f/u in 6 months. EDI DIEZ [employer] Cont. Care Clinic: H er updated medication list for this problem includes: Bystolic 2.5 Mg Tabs (Nebivolol hcl) ..... One tab per day Zestril 5 Mg Tab (Lisinopril) ..... Take 1 tablet by mouth once a day Indapamide 2.5 Mg Tabs (Indapamide) ..... One tab. daily B /P much improved from last OV. Continue w/ current tx. EDI DIEZ NP Cont. Care Clinic: H er updated medication list for this problem includes: Coumadin 4 Mg Tabs (Warfarin sodium) ..... Take on tuesday, , tuesday and tuesday Coumadin 5 Mg Tabs (Warfarin sodium) ..... Take on tuesday, wednesdays, tuesday Bystolic 2.5 Mg Tabs (Nebivolol hcl) ..... One tab per day Zestril 5 Mg Tab (Lisinopril) ..... Take 1 tablet by mouth once a day Indapamide 2.5 Mg Tabs (Indapamide) ..... One tab. daily P t doing well on current tx. Has done well w/ addition of Inadapamide. Will continue w/ current tx and have pt f/u in 6 months. EDI DIEZ NP palpitations : H er updated medication list for this problem includes: Lipitor 20 Mg Tabs (Atorvastatin calcium) ..... One tab. daily BP today: / Prior BP: 122/78 (08/13/2010) C HOL: 127 (11/20/2008) LDL: 67 (11/20/2008) HDL: 43 (11/20/2008) T (11/20/2008) Link Cook MD palpitations Link Cook MD palpitations : H er updated medication list for this problem includes: Bystolic 2.5 Mg Tabs (Nebivolol hcl) ..... One tab per day Zestril 5 Mg Tab (Lisinopril) ..... Take 1 tablet by mouth once a day Indapamide 2.5 Mg Tabs (Indapamide) ..... One tab. daily Prior BP: 122/78 (08/13/2010) Labs Reviewed: C reat: 1.94 (06/29/2010) C hol: 127 (11/20/2008) HDL: 43 (11/20/2008) LDL: 67 (11/20/2008) T (11/20/2008) Link Cook MD palpitations : H er updated medication list for this problem includes: Lipitor 20 Mg Tabs (Atorvastatin calcium) ..... One tab. daily BP today: / Prior BP: 122/78 (08/13/2010) C HOL: 127 (11/20/2008) LDL: 67 (11/20/2008) HDL: 43 (11/20/2008) T (11/20/2008) Link Cook MD palpitations Link Cook MD palpitations : H er updated medication list for this problem includes: Coumadin 4 Mg Tabs (Warfarin sodium) ..... Take on tuesday, , tuesday and tuesday Coumadin 5 Mg Tabs (Warfarin sodium) ..... Take on tuesday, wednesdays, tuesday Bystolic 2.5 Mg Tabs (Nebivolol hcl) ..... One tab per day Zestril 5 Mg Tab (Lisinopril) ..... Take 1 tablet by mouth once a day Indapamide 2.5 Mg Tabs (Indapamide) ..... One tab. daily BP today: / Prior BP: 122/78 (08/13/2010) N uclear Stress Findings: 1. Adenosine mediated myocardial perfusion study 2 . Normal left ventricular systolic function with a calculated ejection fraction of 67%. 3 . Myocardial scintigraphy demonstrates shows a small partially reversible inferoapical wall defect consistent with ischemia. [facility] (04/10/2008) C arotid Doppler/Duplex: Mild intimal thickening of the internal carotid arteries bilaterally. V ertebral flow is antegrade bilaterally. GC (08/15/2008) CHOL: 127 (11/20/2008) LDL: 67 (11/20/2008) HDL: 43 (11/20/2008) T (11/20/2008) H gb: 10.9 (06/29/2010) HCT: 33.1 (06/29/2010) RBC: 3.67 (06/29/2010) WBC: 4.4 (06/29/2010) B UN: 34.1 (06/29/2010) Creat: 1.94 (06/29/2010) Glucose: 86 (06/29/2010) N a+: 136 (06/29/2010) K+: 4.3 (06/29/2010) Cl: 101 (06/29/2010) PT: 17.2 (08/24/2010) INR: 1.7 (08/24/2010) Link Cook MD palpitations : H er updated medication list for this problem includes: Bystolic 2.5 Mg Tabs (Nebivolol hcl) ..... One tab per day Zestril 5 Mg Tab (Lisinopril) ..... Take 1 tablet by mouth once a day Indapamide 2.5 Mg Tabs (Indapamide) ..... One tab. daily BP today: / Prior BP: 122/78 (08/13/2010) H gb: 10.9 (06/29/2010) HCT: 33.1 (06/29/2010) RBC: 3.67 (06/29/2010) WBC: 4.4 (06/29/2010) B UN: 34.1 (06/29/2010) Creat: 1.94 (06/29/2010) Glucose: 86 (06/29/2010) N a+: 136 (06/29/2010) K+: 4.3 (06/29/2010) Cl: 101 (06/29/2010) CHOL: 127 (11/20/2008) LDL: 67 (11/20/2008) HDL: 43 (11/20/2008) T (11/20/2008) E chocardiogram: Normal left ventricular systolic function. Normal left ventricular size. Normal left ventricular wall thickness. Normal E/E` 7.0. Left ventricular ejection fraction is estimated at 55%. Atrial Fibrillation. T here is trace physiologic mitral valve regurgitation. There is calcification of the mitral valve leaflets. Both MV leaflets are thickened (sclerotic). Mild aortic valve regurgitation. There is aortic valve sclerosis and thickening with mild calcification. GC (05/15/2009) N uclear Stress Findings: 1. Adenosine mediated myocardial perfusion study 2 . Normal left ventricular systolic function with a calculated ejection fraction of 67%. 3 . Myocardial scintigraphy demonstrates shows a small partially reversible inferoapical wall defect consistent with ischemia. [facility] (04/10/2008) Orders: H olter Monitor 24 Hr (CPT-36556) X -Ray, Chest, PA & Lateral (CPT-02634) Link Cook MD palpitations : O rders: H olter Monitor 24 Hr (CPT-07856) X -Ray, Chest, PA & Lateral (CPT-66416) e Prescribe - Check this box if eRx is used (CPT-G8553) Link Cook MD palpitations : O rders: X -Ray, Chest, PA & Lateral (CPT-41563) e Prescribe - Check this box if eRx is used (CPT-G8553) Link Cook MD palpitations : H er updated medication list for this problem includes: Bystolic 2.5 Mg Tabs (Nebivolol hcl) ..... One tab per day Zestril 5 Mg Tab (Lisinopril) ..... Take 1 tablet by mouth once a day Indapamide 2.5 Mg Tabs (Indapamide) ..... One tab. daily BP today: / Prior BP: 122/78 (08/13/2010) H gb: 10.9 (06/29/2010) HCT: 33.1 (06/29/2010) RBC: 3.67 (06/29/2010) WBC: 4.4 (06/29/2010) B UN: 34.1 (06/29/2010) Creat: 1.94 (06/29/2010) Glucose: 86 (06/29/2010) N a+: 136 (06/29/2010) K+: 4.3 (06/29/2010) Cl: 101 (06/29/2010) CHOL: 127 (11/20/2008) LDL: 67 (11/20/2008) HDL: 43 (11/20/2008) T (11/20/2008) E chocardiogram: Normal left ventricular systolic function. Normal left ventricular size. Normal left ventricular wall thickness. Normal E/E` 7.0. Left ventricular ejection fraction is estimated at 55%. Atrial Fibrillation. T here is trace physiologic mitral valve regurgitation. There is calcification of the mitral valve leaflets. Both MV leaflets are thickened (sclerotic). Mild aortic valve regurgitation. There is aortic valve sclerosis and thickening with mild calcification. GC (05/15/2009) N uclear Stress Findings: 1. Adenosine mediated myocardial perfusion study 2 . Normal left ventricular systolic function with a calculated ejection fraction of 67%. 3 . Myocardial scintigraphy demonstrates shows a small partially reversible inferoapical wall defect consistent with ischemia. [facility] (04/10/2008) Orders: E KG (CPT-89260) H olter Monitor 24 Hr (CPT-46057) X -Ray, Chest, PA & Lateral (CPT-57560) e Prescribe - Check this box if eRx is used (CPT-G8553) Link Cook MD palpitations : H er updated medication list for this problem includes: Coumadin 4 Mg Tabs (Warfarin sodium) ..... Take on tuesday, , tuesday and tuesday Coumadin 5 Mg Tabs (Warfarin sodium) ..... Take on tuesday, wednesdays, tuesday Carotid Duplex Scan: M ild intimal thickening of the internal carotid arteries bilaterally. V ertebral flow is antegrade bilaterally. (08/15/2008) Echocardiogram: N ormal left ventricular systolic function. Normal left ventricular size. Normal left ventricular wall thickness. Normal E/E` 7.0. Left ventricular ejection fraction is estimated at 55%. Atrial Fibrillation. T here is trace physiologic mitral valve regurgitation. There is calcification of the mitral valve leaflets. Both MV leaflets are thickened (sclerotic). Mild aortic valve regurgitation. There is aortic valve sclerosis and thickening with mild calcification. (05/15/2009) Orders: H olter Monitor 24 Hr (CPT-81441) X -Ray, Chest, PA & Lateral (CPT-58476) e Prescribe - Check this box if eRx is used (CPT-G8553) Link Cook MD palpitations : H er updated medication list for this problem includes: Coumadin 4 Mg Tabs (Warfarin sodium) ..... Take on tuesday, , tuesday and tuesday Coumadin 5 Mg Tabs (Warfarin sodium) ..... Take on tuesday, wednesdays, tuesday Bystolic 2.5 Mg Tabs (Nebivolol hcl) ..... One tab per day Indapamide 2.5 Mg Tabs (Indapamide) ..... One tab. daily Orders: H olter Monitor 24 Hr (CPT-44526) X -Ray, Chest, PA & Lateral (CPT-36260) e Prescribe - Check this box if eRx is used (CPT-G8553) Link Cook MD changed to pradaxa: T he following medications were removed from the medication list: Indapamide 2.5 Mg Tabs (Indapamide) ..... One tab. daily Coumadin 5 Mg Tabs (Warfarin sodium) ..... One tab daily on tuesday- tuesday Her updated medication list for this problem includes: Bystolic 10 Mg Tabs (Nebivolol hcl) ..... One tab. daily Zestril 5 Mg Tab (Lisinopril) ..... Take 1 tablet by mouth once a day Orders: S tress Test - Adenosine (97688) Link Cook MD changed to pradaxa: O rders: H olter Monitor 24 Hr (CPT-18295) S tress Test - Adenosine (05906) C arotid Duplex Bilateral (CPT-86205) The following medications were removed from the medication list: Indapamide 2.5 Mg Tabs (Indapamide) ..... One tab. daily Her updated medication list for this problem includes: Bystolic 10 Mg Tabs (Nebivolol hcl) ..... One tab. daily Zestril 5 Mg Tab (Lisinopril) ..... Take 1 tablet by mouth once a day Link Cook MD changed to pradaxa: O rders: H olter Monitor 24 Hr (CPT-56166) E KG (CPT-20692) C omplete Echo (CPT-13322) e Prescribe - Check this box if eRx is used (CPT-G8553) S tress Test - Adenosine (41079) C arotid Duplex Bilateral (CPT-55791) Link Cook MD changed to pradaxa: O rders: H olter Monitor 24 Hr (CPT-03262) E KG (CPT-72281) C omplete Echo (CPT-08805) e Prescribe - Check this box if eRx is used (CPT-G8553) S tress Test - Adenosine (56797) C arotid Duplex Bilateral (CPT-97866) Link Cook MD changed to pradaxa: O rders: H olter Monitor 24 Hr (CPT-04332) E KG (CPT-19012) C omplete Echo (CPT-55700) e Prescribe - Check this box if eRx is used (CPT-G8553) S tress Test - Adenosine (70543) C arotid Duplex Bilateral (CPT-93024) Link Cook MD changed to pradaxa: T he following medications were removed from the medication list: Indapamide 2.5 Mg Tabs (Indapamide) ..... One tab. daily Her updated medication list for this problem includes: Bystolic 10 Mg Tabs (Nebivolol hcl) ..... One tab. daily Zestril 5 Mg Tab (Lisinopril) ..... Take 1 tablet by mouth once a day Orders: H olter Monitor 24 Hr (CPT-43733) E KG (CPT-93862) C omplete Echo (CPT-27482) e Prescribe - Check this box if eRx is used (CPT-G8553) S tress Test - Adenosine (63195) C arotid Duplex Bilateral (CPT-46727) Link Cook MD changed to pradaxa: T he following medications were removed from the medication list: Coumadin 5 Mg Tabs (Warfarin sodium) ..... One tab daily on tuesday- tuesday Orders: H olter Monitor 24 Hr (CPT-34720) E KG (CPT-42169) C omplete Echo (CPT-52398) e Prescribe - Check this box if eRx is used (CPT-G8553) S tress Test - Adenosine (69176) C arotid Duplex Bilateral (CPT-38332) Link Cook MD changed to pradaxa: T he following medications were removed from the medication list: Indapamide 2.5 Mg Tabs (Indapamide) ..... One tab. daily Coumadin 5 Mg Tabs (Warfarin sodium) ..... One tab daily on tuesday- tuesday Her updated medication list for this problem includes: Bystolic 10 Mg Tabs (Nebivolol hcl) ..... One tab. daily Orders: H olter Monitor 24 Hr (CPT-76764) E KG (CPT-52322) C omplete Echo (CPT-58101) e Prescribe - Check this box if eRx is used (CPT-G8553) S tress Test - Adenosine (35426) C arotid Duplex Bilateral (CPT-96918) Link Cook MD changed to pradaxa: O rders: H olter Monitor 24 Hr (CPT-29107) E KG (CPT-31158) C omplete Echo (CPT-99460) e Prescribe - Check this box if eRx is used (CPT-G8553) S tress Test - Adenosine (14744) C arotid Duplex Bilateral (CPT-31563) Link Cook MD changed to pradaxa Link Cook MD changed to pradaxa Link Cook MD changed to pradaxa Link Cook MD f/u: H er updated medication list for this problem includes: Lipitor 20 Mg Tabs (Atorvastatin calcium) ..... One tab. daily Cholestyramine Pack (Cholestyramine pack) ..... Once daily for 5 days BP today: 138/71 Prior BP: 126/74 (08/15/2008) C HOL: 127 (11/20/2008) LDL: 67 (11/20/2008) HDL: 43 (11/20/2008) T (11/20/2008) Link Cook MD f/u: H er updated medication list for this problem includes: Bystolic 10 Mg Tabs (Nebivolol hcl) ..... One tab. daily Indapamide 2.5 Mg Tabs (Indapamide) ..... One tab. daily Zestril 5 Mg Tab (Lisinopril) ..... Take 1 tablet by mouth once a day BP today: 138/71 P rior BP: 126/74 (08/15/2008) Labs Reviewed: C reat: 1.32 (05/16/2008) C hol: 127 (11/20/2008) HDL: 43 (11/20/2008) LDL: 67 (11/20/2008) T (11/20/2008) Link Cook MD f/u: H er updated medication list for this problem includes: Lipitor 20 Mg Tabs (Atorvastatin calcium) ..... One tab. daily Cholestyramine Pack (Cholestyramine pack) ..... Once daily for 5 days BP today: 138/71 Prior BP: 126/74 (08/15/2008) C HOL: 127 (11/20/2008) LDL: 67 (11/20/2008) HDL: 43 (11/20/2008) T (11/20/2008) Link Cook MD f/u: L abs Reviewed: B UN: 27 (05/16/2008) Cr: 1.32 (05/16/2008) C a++: 9.2 (05/16/2008) T P: 6.3 (05/16/2008) Alb: 3.5 (05/16/2008) Link Cook MD f/u Link Cook MD f/u Link Cook MD f/u: H er updated medication list for this problem includes: Bystolic 10 Mg Tabs (Nebivolol hcl) ..... One tab. daily Indapamide 2.5 Mg Tabs (Indapamide) ..... One tab. daily Zestril 5 Mg Tab (Lisinopril) ..... Take 1 tablet by mouth once a day BP today: 138/71 Prior BP: 126/74 (08/15/2008) N uclear Stress Findings: 1. Adenosine mediated myocardial perfusion study 2. Normal left ventricular systolic function with a calculated ejection fraction of 67%. 3 . Myocardial scintigraphy demonstrates shows a small partially reversible inferoapical wall defect consistent with ischemia. [facility] (04/10/2008) C arotid Doppler/Duplex: Mild intimal thickening of the internal carotid arteries bilaterally. V ertebral flow is antegrade bilaterally. GC (08/15/2008) C HOL: 127 (11/20/2008) LDL: 67 (11/20/2008) HDL: 43 (11/20/2008) T (11/20/2008) B UN: 27 (05/16/2008) Creat: 1.32 (05/16/2008) Glucose: 91 (05/16/2008) N a+: 138 (05/16/2008) K+: 4.0 (05/16/2008) Cl: 103 (05/16/2008) PT: 27.6 (07/24/2009) INR: 2.8 (07/24/2009) Link Cook MD f/u: H er updated medication list for this problem includes: Bystolic 10 Mg Tabs (Nebivolol hcl) ..... One tab. daily Indapamide 2.5 Mg Tabs (Indapamide) ..... One tab. daily Zestril 5 Mg Tab (Lisinopril) ..... Take 1 tablet by mouth once a day Coumadin 3 Mg Tabs (Warfarin sodium) ..... Mon thru fri Coumadin 4 Mg Tabs (Warfarin sodium) ..... Sat and sun Link Cook MD f/u: H er updated medication list for this problem includes: Bystolic 10 Mg Tabs (Nebivolol hcl) ..... One tab. daily Indapamide 2.5 Mg Tabs (Indapamide) ..... One tab. daily Zestril 5 Mg Tab (Lisinopril) ..... Take 1 tablet by mouth once a day BP today: 138/71 Prior BP: 126/74 (08/15/2008) B UN: 27 (05/16/2008) Creat: 1.32 (05/16/2008) Glucose: 91 (05/16/2008) N a+: 138 (05/16/2008) K+: 4.0 (05/16/2008) Cl: 103 (05/16/2008) CHOL: 127 (11/20/2008) LDL: 67 (11/20/2008) HDL: 43 (11/20/2008) T (11/20/2008) E chocardiogram: Normal left ventricular systolic function. Normal left ventricular size. Normal left ventricular wall thickness. Normal E/E` 7.0. Left ventricular ejection fraction is estimated at 55%. Atrial Fibrillation. T here is trace physiologic mitral valve regurgitation. There is calcification of the mitral valve leaflets. Both MV leaflets are thickened (sclerotic). Mild aortic valve regurgitation. There is aortic valve sclerosis and thickening with mild calcification. GC (05/15/2009) N uclear Stress Findings: 1. Adenosine mediated myocardial perfusion study 2 . Normal left ventricular systolic function with a calculated ejection fraction of 67%. 3 . Myocardial scintigraphy demonstrates shows a small partially reversible inferoapical wall defect consistent with ischemia. SL (04/10/2008) Link Cook MD f/u: H er updated medication list for this problem includes: Bystolic 10 Mg Tabs (Nebivolol hcl) ..... One tab. daily Indapamide 2.5 Mg Tabs (Indapamide) ..... One tab. daily Coumadin 3 Mg Tabs (Warfarin sodium) ..... Mon thru fri Coumadin 4 Mg Tabs (Warfarin sodium) ..... Sat and sun Link Cook MD f/u Link Cook MD f/u Link Cook MD afib and cad, clear for cataract s surg Link Cook MD afib and cad, clear for cataracts surg: H er updated medication list for this problem includes: Bystolic 10 Mg Tabs (Nebivolol hcl) ..... One tab. daily Indapamide 2.5 Mg Tabs (Indapamide) ..... One tab. daily Zestril 5 Mg Tab (Lisinopril) ..... Take 1 tablet by mouth once a day (new) BP today: 126/74 P rior BP: 144/68 (05/16/2008) Labs Reviewed: C reat: 1.32 (05/16/2008) C hol: 127 (11/20/2008) HDL: 43 (11/20/2008) LDL: 67 (11/20/2008) T (11/20/2008) Link Cook MD afib and cad, clear for cataracts surg: H er updated medication list for this problem includes: Lipitor 20 Mg Tabs (Atorvastatin calcium) ..... One tab. daily Cholestyramine Pack (Cholestyramine pack) ..... Once daily for 5 days BP today: 126/74 Prior BP: 144/68 (05/16/2008) C HOL: 127 (11/20/2008) LDL: 67 (11/20/2008) HDL: 43 (11/20/2008) T (11/20/2008) Link Cook MD afib and cad, clear for cataracts surg: L abs Reviewed: B UN: 27 (05/16/2008) Cr: 1.32 (05/16/2008) C a++: 9.2 (05/16/2008) T P: 6.3 (05/16/2008) Alb: 3.5 (05/16/2008) Link Cook MD afib and cad, clear for cataract s surg Link Cook MD afib and cad, clear for cataracts surg: T he following medications were removed from the medication list: Coumadin Tabs (Warfarin sodium tabs) ..... 3mg alt with 4mg daily Her updated medication list for this problem includes: Bystolic 10 Mg Tabs (Nebivolol hcl) ..... One tab. daily Indapamide 2.5 Mg Tabs (Indapamide) ..... One tab. daily Coumadin Tabs (Warfarin sodium tabs) ..... 3mg tablets to alternate with 4mg daily Zestril 5 Mg Tab (Lisinopril) ..... Take 1 tablet by mouth once a day (new) BP today: 126/74 Prior BP: 144/68 (05/16/2008) N uclear Stress Findings: 1. Adenosine mediated myocardial perfusion study 2 . Normal left ventricular systolic function with a calculated ejection fraction of 67%. 3 . Myocardial scintigraphy demonstrates shows a small partially reversible inferoapical wall defect consistent with ischemia. [facility] (04/10/2008) C HOL: 127 (11/20/2008) LDL: 67 (11/20/2008) HDL: 43 (11/20/2008) T (11/20/2008) B UN: 27 (05/16/2008) Creat: 1.32 (05/16/2008) Glucose: 91 (05/16/2008) N a+: 138 (05/16/2008) K+: 4.0 (05/16/2008) Cl: 103 (05/16/2008) PT: 20.6 (08/15/2008) INR: 2.1 (08/15/2008) Link Cook MD afib and cad, clear for cataract s surg Link Cook MD afib and cad, clear for cataracts surg: O rders: C arotid Duplex Bilateral (CPT-12292) Link Cook MD afib and cad, clear for cataracts surg: H er updated medication list for this problem includes: Bystolic 10 Mg Tabs (Nebivolol hcl) ..... One tab. daily Indapamide 2.5 Mg Tabs (Indapamide) ..... One tab. daily Zestril 5 Mg Tab (Lisinopril) ..... Take 1 tablet by mouth once a day (new) BP today: 126/74 Prior BP: 144/68 (05/16/2008) B UN: 27 (05/16/2008) Creat: 1.32 (05/16/2008) Glucose: 91 (05/16/2008) N a+: 138 (05/16/2008) K+: 4.0 (05/16/2008) Cl: 103 (05/16/2008) CHOL: 127 (11/20/2008) LDL: 67 (11/20/2008) HDL: 43 (11/20/2008) T (11/20/2008) E chocardiogram: Normal left ventricular wall thickness. The left ventricle is mildly enlarged. Normal left ventricular function. LV EF is estimated at 55%. Mild LAE.The MVL appear (sclerotic) thickened. The AV appears mildly thickened (sclerotic). Right heart pressure could not be adequatelyevaluated. Minimal MR. (1+) Mild AR. Minimal TR. [facility] (04/10/2008) N uclear Stress Findings: 1. Adenosine mediated myocardial perfusion study 2 . Normal left ventricular systolic function with a calculated ejection fraction of 67%. 3 . Myocardial scintigraphy demonstrates shows a small partially reversible inferoapical wall defect consistent with ischemia. [facility] (04/10/2008) Orders: C omplete Echo (CPT-77467) Link Cook MD afib and cad, clear for cataracts surg: T he following medications were removed from the medication list: Coumadin Tabs (Warfarin sodium tabs) ..... 3mg alt with 4mg daily Her updated medication list for this problem includes: Bystolic 10 Mg Tabs (Nebivolol hcl) ..... One tab. daily Indapamide 2.5 Mg Tabs (Indapamide) ..... One tab. daily Coumadin Tabs (Warfarin sodium tabs) ..... 3mg tablets to alternate with 4mg daily Link Cook MD WILL DO CATH POST GI W/U Link Cook MD WILL DO CATH POST GI W/U: H er updated medication list for this problem includes: Bystolic 10 Mg Tabs (Nebivolol hcl) ..... One tab. daily Indapamide 2.5 Mg Tabs (Indapamide) ..... One tab. daily Zestril 5 Mg Tab (Lisinopril) ..... Take 1 tablet by mouth once a day (new) BP today: 144/68 P rior BP: 139/73 (04/18/2008) Labs Reviewed: C reat: 1.50 (11/21/2007) C hol: 127 (11/20/2008) HDL: 43 (11/20/2008) LDL: 67 (11/20/2008) T (11/20/2008) Link Cook MD WILL DO CATH POST GI W/U: H er updated medication list for this problem includes: Lipitor 20 Mg Tabs (Atorvastatin calcium) ..... One tab. daily BP today: 144/68 Prior BP: 139/73 (04/18/2008) C HOL: 127 (11/20/2008) LDL: 67 (11/20/2008) HDL: 43 (11/20/2008) T (11/20/2008) Link Cook MD WILL DO CATH POST GI W/U Link Cook MD WILL DO CATH POST GI W/U: H er updated medication list for this problem includes: Bystolic 10 Mg Tabs (Nebivolol hcl) ..... One tab. daily Indapamide 2.5 Mg Tabs (Indapamide) ..... One tab. daily Coumadin Tabs (Warfarin sodium tabs) ..... 3mg daily Zestril 5 Mg Tab (Lisinopril) ..... Take 1 tablet by mouth once a day (new) BP today: 144/68 Prior BP: 139/73 (04/18/2008) N uclear Stress Findings: 1. Adenosine mediated myocardial perfusion study 2 . Normal left ventricular systolic function with a calculated ejection fraction of 67%. 3 . Myocardial scintigraphy demonstrates shows a small partially reversible inferoapical wall defect consistent with ischemia. [facility] (04/10/2008) C HOL: 127 (11/20/2008) LDL: 67 (11/20/2008) HDL: 43 (11/20/2008) T (11/20/2008) B UN: 24 (11/21/2007) Creat: 1.50 (11/21/2007) Glucose: 95 (11/21/2007) N a+: 137 (11/21/2007) K+: 3.9 (11/21/2007) PT: 13.7 (05/06/2008) INR: 1.4 (05/06/2008) Link Cook MD WILL DO CATH POST GI W/U Link Cook MD WILL DO CATH POST GI W/U Link Cook MD WILL DO CATH POST GI W/U: H er updated medication list for this problem includes: Bystolic 10 Mg Tabs (Nebivolol hcl) ..... One tab. daily Indapamide 2.5 Mg Tabs (Indapamide) ..... One tab. daily Zestril 5 Mg Tab (Lisinopril) ..... Take 1 tablet by mouth once a day (new) BP today: 144/68 Prior BP: 139/73 (04/18/2008) B UN: 24 (11/21/2007) Creat: 1.50 (11/21/2007) Glucose: 95 (11/21/2007) N a+: 137 (11/21/2007) K+: 3.9 (11/21/2007) CHOL: 127 (11/20/2008) LDL: 67 (11/20/2008) HDL: 43 (11/20/2008) T (11/20/2008) E chocardiogram: Normal left ventricular wall thickness. The left ventricle is mildly enlarged. Normal left ventricular function. LV EF is estimated at 55%. Mild LAE.The MVL appear (sclerotic) thickened. The AV appears mildly thickened (sclerotic). Right heart pressure could not be adequatelyevaluated. Minimal MR. (1+) Mild AR. Minimal TR. [facility] (04/10/2008) N uclear Stress Findings: 1. Adenosine mediated myocardial perfusion study 2 . Normal left ventricular systolic function with a calculated ejection fraction of 67%. 3 . Myocardial scintigraphy demonstrates shows a small partially reversible inferoapical wall defect consistent with ischemia. [facility] (04/10/2008) Link Cook MD WILL DO CATH POST GI W/U: H er updated medication list for this problem includes: Bystolic 10 Mg Tabs (Nebivolol hcl) ..... One tab. daily Indapamide 2.5 Mg Tabs (Indapamide) ..... One tab. daily Coumadin Tabs (Warfarin sodium tabs) ..... 3mg daily Link Cook MD abnorm nuc, needs ca th. please find renal us: H er updated medication list for this problem includes: Bystolic 10 Mg Tabs (Nebivolol hcl) ..... One tab. daily Indapamide 2.5 Mg Tabs (Indapamide) ..... One tab. daily Coumadin Tabs (Warfarin sodium tabs) ..... 3mg daily Link Cook MD abnorm nuc, needs ca th. please find renal us: H er updated medication list for this problem includes: Prevacid 30 Mg Cpdr (Lansoprazole) ..... One tab. daily BP today: 139/73 Prior BP: 150/80 (04/05/2008) D iscussed lifestyle modifications, diet, antacids/medications, and preventive measures. Handout provided. Link Cook MD abnorm nuc, needs ca th. please find renal us: H er updated medication list for this problem includes: Bystolic 10 Mg Tabs (Nebivolol hcl) ..... One tab. daily Indapamide 2.5 Mg Tabs (Indapamide) ..... One tab. daily Zestril 5 Mg Tab (Lisinopril) ..... Take 1 tablet by mouth once a day (new) BP today: 139/73 P rior BP: 150/80 (04/05/2008) Labs Reviewed: C reat: 1.50 (11/21/2007) C hol: 127 (11/20/2008) HDL: 43 (11/20/2008) LDL: 67 (11/20/2008) T (11/20/2008) Link Cook MD abnorm nuc, needs ca th. please find renal us: H er updated medication list for this problem includes: Lipitor 20 Mg Tabs (Atorvastatin calcium) ..... One tab. daily BP today: 139/73 Prior BP: 150/80 (04/05/2008) C HOL: 127 (11/20/2008) LDL: 67 (11/20/2008) HDL: 43 (11/20/2008) T (11/20/2008) Link Cook MD abnorm nuc, needs ca th. please find renal us: L abs Reviewed: B UN: 24 (11/21/2007) Cr: 1.50 (11/21/2007) Link Cook MD abnorm nuc, needs ca th. please find renal us: H er updated medication list for this problem includes: Bystolic 10 Mg Tabs (Nebivolol hcl) ..... One tab. daily Indapamide 2.5 Mg Tabs (Indapamide) ..... One tab. daily Coumadin Tabs (Warfarin sodium tabs) ..... 3mg daily Zestril 5 Mg Tab (Lisinopril) ..... Take 1 tablet by mouth once a day (new) BP today: 139/73 Prior BP: 150/80 (04/05/2008) N uclear Stress Findings: 1. Adenosine mediated myocardial perfusion study 2 . Normal left ventricular systolic function with a calculated ejection fraction of 67%. 3 . Myocardial scintigraphy demonstrates shows a small partially reversible inferoapical wall defect consistent with ischemia. [facility] (04/10/2008) C HOL: 127 (11/20/2008) LDL: 67 (11/20/2008) HDL: 43 (11/20/2008) T (11/20/2008) B UN: 24 (11/21/2007) Creat: 1.50 (11/21/2007) Glucose: 95 (11/21/2007) N a+: 137 (11/21/2007) K+: 3.9 (11/21/2007) PT: 39.2 (04/10/2008) INR: 3.9 (04/10/2008) Link Cook MD abnorm nuc, needs cath. please f ind renal us Link Cook MD abnorm nuc, needs cath. please f ind renal us Link Cook MD abnorm nuc, needs cath. please f ind renal us Link Cook MD elevated bnp, will a dd vasotiec, finish w/u: H er updated medication list for this problem includes: Bystolic 10 Mg Tabs (Nebivolol hcl) ..... One tab. daily Indapamide 2.5 Mg Tabs (Indapamide) ..... One tab. daily Coumadin 5 Mg Tabs (Warfarin sodium) Link Cook MD elevated bnp, will a dd vasotiec, finish w/u: H er updated medication list for this problem includes: Prevacid 30 Mg Cpdr (Lansoprazole) ..... One tab. daily BP today: 150/80 Prior BP: 187/97 (03/26/2008) D iscussed lifestyle modifications, diet, antacids/medications, and preventive measures. Handout provided. Link Cook MD elevated bnp, will a dd vasotiec, finish w/u: H er updated medication list for this problem includes: Bystolic 10 Mg Tabs (Nebivolol hcl) ..... One tab. daily Indapamide 2.5 Mg Tabs (Indapamide) ..... One tab. daily Zestril 5 Mg Tab (Lisinopril) ..... Take 1 tablet by mouth once a day (new) BP today: 150/80 P rior BP: 187/97 (03/26/2008) Labs Reviewed: C reat: 1.50 (11/21/2007) C hol: 127 (11/20/2008) HDL: 43 (11/20/2008) LDL: 67 (11/20/2008) T (11/20/2008) Link Cook MD elevated bnp, will a dd vasotiec, finish w/u: H er updated medication list for this problem includes: Lipitor 20 Mg Tabs (Atorvastatin calcium) ..... One tab. daily BP today: 150/80 Prior BP: 187/97 (03/26/2008) C HOL: 127 (11/20/2008) LDL: 67 (11/20/2008) HDL: 43 (11/20/2008) T (11/20/2008) Link Cook MD elevated bnp, will a dd vasotiec, finish w/u: L abs Reviewed: B UN: 24 (11/21/2007) Cr: 1.50 (11/21/2007) Link Cook MD elevated bnp, will add vasotiec, finish w/u Link Cook MD elevated bnp, will a dd vasotiec, finish w/u: H er updated medication list for this problem includes: Bystolic 10 Mg Tabs (Nebivolol hcl) ..... One tab. daily Indapamide 2.5 Mg Tabs (Indapamide) ..... One tab. daily Coumadin 5 Mg Tabs (Warfarin sodium) Zestril 5 Mg Tab (Lisinopril) ..... Take 1 tablet by mouth once a day (new) BP today: 150/80 Prior BP: 187/97 (03/26/2008) C HOL: 127 (11/20/2008) LDL: 67 (11/20/2008) HDL: 43 (11/20/2008) T (11/20/2008) B UN: 24 (11/21/2007) Creat: 1.50 (11/21/2007) Glucose: 95 (11/21/2007) N a+: 137 (11/21/2007) K+: 3.9 (11/21/2007) PT: 13.4 (04/01/2008) INR: 1.3 (04/01/2008) Link Cook MD elevated bnp, will add vasotiec, finish w/u Link Cook MD Follow-up for cleara nce for endoscopy: O rders: C omplete Echo (CPT-00276) S tress Test - Adenosine (42920) R enal Artery Duplex (CPT-31465) K idney Ultrasound (CPT-10253) V enous Doppler Bilateral LE (73997) B TYPE NATRIURETIC PEPTIDE (BNP) (73755) H olter Monitor 24 Hr (CPT-33399) Link Cook MD Follow-up for cleara nce for endoscopy: O rders: C omplete Echo (CPT-55780) S tress Test - Adenosine (78452) R enal Artery Duplex (CPT-26128) K idney Ultrasound (CPT-93985) V enous Doppler Bilateral LE (29271) B TYPE NATRIURETIC PEPTIDE (BNP) (73451) H olter Monitor 24 Hr (CPT-18687) Link Cook MD Follow-up for cleara nce for endoscopy: H er updated medication list for this problem includes: Lipitor 20 Mg Tabs (Atorvastatin calcium) ..... One tab. daily Orders: C omplete Echo (CPT-06658) S tress Test - Adenosine (05113) R enal Artery Duplex (CPT-53895) K idney Ultrasound (CPT-24739) V enous Doppler Bilateral LE (44405) B TYPE NATRIURETIC PEPTIDE (BNP) (34605) H olter Monitor 24 Hr (CPT-98471) BP today: 187/97 Prior BP: / () Link Cook MD Follow-up for cleara nce for endoscopy: O rders: C omplete Echo (CPT-44842) S tress Test - Adenosine (63650) R enal Artery Duplex (CPT-06330) K idney Ultrasound (CPT-91351) V enous Doppler Bilateral LE (40790) B TYPE NATRIURETIC PEPTIDE (BNP) (36721) H olter Monitor 24 Hr (CPT-98262) Link Cook MD Follow-up for cleara nce for endoscopy: H er updated medication list for this problem includes: Prevacid 30 Mg Cpdr (Lansoprazole) ..... One tab. daily Orders: C omplete Echo (CPT-45289) S tress Test - Adenosine (53826) R enal Artery Duplex (CPT-06262) K idney Ultrasound (CPT-84230) V enous Doppler Bilateral LE (77882) B TYPE NATRIURETIC PEPTIDE (BNP) (15376) Holter Monitor 24 Hr (CPT-99868) BP today: 187/97 Prior BP: / () D iscussed lifestyle modifications, diet, antacids/medications, and preventive measures. Handout provided. Link Cook MD Follow-up for cleara nce for endoscopy: H er updated medication list for this problem includes: Bystolic 10 Mg Tabs (Nebivolol hcl) ..... One tab. daily Indapamide 2.5 Mg Tabs (Indapamide) ..... One tab. daily Coumadin 4 Mg Tabs (Warfarin sodium) ..... One tab a day instead of asa Orders: C omplete Echo (CPT-74066) S tress Test - Adenosine (60674) R enal Artery Duplex (CPT-41758) K idney Ultrasound (CPT-09300) V enous Doppler Bilateral LE (12630) B TYPE NATRIURETIC PEPTIDE (BNP) (04049) H olter Monitor 24 Hr (CPT-17045) BP today: 187/97 Prior BP: / () Link Cook MD Date Name URINALYSIS, COMPLETE W/REFLEX TO CULTURE Vitamin D, 25-Hydrox y URINALYSIS, COMPLETE W/REFLEX TO CULTURE Vitamin D, 25-Hydrox y CT, Coronary Calcium Score Renal Artery Duplex Complete Echo Holter Monitor 24 Hr PROBNP, N TERMINAL BASIC METABOLIC PANE L W/EGFR CT, Coronary Calcium Score Complete Echo IRON AND TOTAL IRON BINDING CAPACITY FERRITIN CBC (INCLUDES DIFF/P LT) LIPID PANEL Mobile Cardiac Tele INR Strip INR Strip INR Strip CT, Coronary Calcium Score Complete Echo Holter Monitor 24 Hr Holter Monitor 24 Hr INR Strip Partial Thromboplast in Time, Activated PROTHROMBIN TIME WIT H INR FOLATE, SERUM Complete Echo CT, Coronary Calcium Score STR - Adenosine LIPID PANEL COMPREHENSIVE METABO LIC PANEL, W/EGFR CBC (INCLUDES DIFF/P LT) FERRITIN IRON AND TOTAL IRON BINDING CAPACITY VITAMIN B12 PROBNP, N TERMINAL THYROID PANEL WITH T SH, 3RD GENERATION HEMOGLOBIN A1c VITAMIN D, 25-HYDROX Y, LC/MS/MS Holter Monitor 24 Hr HEMOGLOBIN A1c VITAMIN D, 25-HYDROX Y, LC/MS/MS THYROID PANEL WITH T SH, 3RD GENERATION COMPREHENSIVE METABO LIC PANEL W/EGFR PROBNP, N TERMINAL VITAMIN B12 RETICULOCYTE COUNT IRON AND TOTAL IRON BINDING CAPACITY FOLATE, SERUM FERRITIN CBC (INCLUDES DIFF/P LT) Holter Monitor 24 Hr Complete Echo Sleep Study Titratio n Sleep Study Home PROBNP, N TERMINAL Complete Echo Holter Monitor 24 Hr Holter Monitor 24 Hr Holter Monitor 24 Hr Holter Monitor 24 Hr Complete Echo Holter Monitor 24 Hr Complete Echo X-Ray, Chest, PA & L ateral Holter Monitor 24 Hr Carotid Duplex Bilat eral Stress Test - Adenos ine Complete Echo Holter Monitor 24 Hr Carotid Duplex Bilat eral Complete Echo LIPID PANEL COMPREHENSIVE METABO LIC PANEL W/EGFR PROTHROMBIN TIME WIT H INR CBC (INCLUDES DIFF/P LT) COMPREHENSIVE METABO LIC PANEL W/EGFR LIPID PANEL Cardiac Cath - PCL Holter Monitor 24 Hr B TYPE NATRIURETIC P EPTIDE (BNP) Venous Doppler Bilat eral LE Kidney Ultrasound Renal Artery Duplex Stress Test - [place]enos [place]e Complete Echo 42307 Brief Protime HISTORY OF PROCEDURES Procedure Date Procedure Name Provider Procedure Notes S tatus Jerrod Cook MD complete d Jerrod Mars MD complet ed Jerrod Cook MD complete d Jerrod Mars MD complet ed Jerrod Mars MD complet ed Jerrod Mars MD complet ed Jerrod Cook MD complete d Jerrod Mars MD complet ed EKG Link Cook MD complete d Jerrod Bowers MD complete d Jerrod Villanueva MD completed Protime Eb larry MD completed Protime Linda Villanueva MD completed Protime Cyrus Lemus MD completed Protime Cyrus Lemus MD completed Protime Link Cook MD complete d Protrad Cook MD complete d Protime Eb larry MD completed Protime Link Cook MD complete d Protime Eb larry MD completed Protime Link Cook MD complete d Protime Link Cook MD complete d Protime Link Cook MD complete d Protrad Cook MD complete d Protrad Cook MD complete d SNOMED-CT: 973891717053531 Current Medications Documented Link Cook MD completed Protrad Cook MD complete d Protrad Cook MD complete d Injectafer 750mg Link Cook MD co mpleted Therapeutic IV Infus ion up to 1 hour Link Cook MD completed Protrad Cook MD complete d Injectafer 750mg Link Cook MD co mpleted Therapeutic IV Infus ion up to 1 hour Link Cook MD completed Jerrod Cook MD complete d Jerrod Cook MD complete d Jerrod Cook MD complete d Stress EKG Cyrus Lemus MD completed Regadenoson, 4 units Link Cook MD completed Cardiolite, 2 units Link Cook MD completed SPECT Images Deon Mars MD compl eted JING Cook MD complete d SNOMED-CT: 586822721112187 Current Medications Documented Link Cook MD completed SNOMED-CT: 601657324303112 Current Medications Documented Link Cook MD completed Jerrod Cook MD complete d Protime Link Serota complete d Protime Link Serota complete d INR Strip Link Serota complete d INR Strip Link Serota complete d Protrad Maza Serota complete d Protime Link Serota complete d INR Strip Link Serota complete d Protime Link Serota complete d INR Strip Link Serota complete d Protime Link Serota complete d Protime Link Serota complete d Protime Link Serota complete d Protime Link Serota complete d Lipid Strip Alida Altamirano SPEEDOMETER MECHANIC comple дмитрий Gabrielle, 24 or 48 Link Serota co mpleted INR Strip Link Serota complete d Jerrod Maza Serota complete d Aldenime Link Serota complete d Protime Link Serota complete d Jerrod Maza Serotmanpreet DESOUZA complete d Jerrod Maza Serotmanpreet DESOUZA complete d Jerrod Maza Serotmanpreet DESOUZA complete d JING Maza [place] complete d SNOMED-CT: 133639178201125 Current Medications Documented Link Serota completed Protime Link Serota complete d Protime Link Serota complete d Protime Link Serota complete d INR Strip Link Serota complete d Protrad Maza [place] complete d Lipid Strip Alida Altamirano SPEEDOMETER MECHANIC comple дмитрий Jerrod Maza Ser[place] complete d Protime Link Serota complete d Jerrod M[place] complete d Aldenime Link Serota complete d Protime Link Serotmanpreet DESOUZA complete d Protime Link Serota complete d Protime Link Serotmanpreet DESOUZA complete d Protime Link Serotmanpreet DESOUZA complete d Protime Link Cook MD complete d Protime Link Serota complete d Protime Link Serota complete d Protime Navjot Boone compl eted Protime Link Serota complete d Holter, 24 or 48 Link Serota co mpleted Protime JAMES VALLE MD completed Protime Link Cook MD complete d EKKennedy Cook MD complete d EKKennedy Cook MD complete d EKG Link Cook MD complete d ePrescribe - Check t his box if eRx is used Link Cook MD completed ePrescribe - Check t his box if eRx is used Link Cook MD completed EKG Link Cook MD complete d ePrescribe - Check t his box if eRx is used Malu Pereira NP completed ePrescribe - Check t his box if eRx is used Link Cook MD completed EKG Link Cook MD complete d ePrescribe - Check t his box if eRx is used Link Cook MD completed EKG Link Cook MD complete d
--- OUTSIDE RECORDS SUMMARY | 2024-05-05 14:26 | XMS_ITS ---
Author Organization [facility] Address [address] [place] [address] Care Team Providers Care Supply Chain Logistics Manager Name Role Phone Rich Emanuel Unavailable [phone] Encounters Encounter Location Date Provider Diagnosis [facility] [address] [facility] [address] [place] [address] 08/24/2023 Emanuel Villanueva Chronic kidney disea se, stage 3b N18.32 ; Essential (primary) hypertension I10 ; Morbid (severe) obesity due to excess calories E66.01 ; Renal osteodystrophy N25.0 ; Secondary hyperparathyroidism, not elsewhere classified E21.1 and Hyperuricemia without signs of inflammatory arthritis and tophaceous disease E79.0 ASSESSMENTS Encounter Date Diagnosis Assessment Notes Treatment Notes Treatment Clinical Notes Section Notes 08/24/2023 Chronic kidney disease, stage 3b (ICD-10 - N18.32) 08/24/2023 Essential (primary) hypertension (ICD-10 - I10) 08/24/2023 Morbid (severe) obesity due to excess calories (ICD-10 - E66.01) 08/24/2023 Renal osteodystrophy (ICD-10 - N25.0) 08/24/2023 Secondary hyperparathyroidism , not elsewhere classified (ICD-10 - E21.1) 08/24/2023 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 :1935 Age:87 Y Sex:Male Date:08/24/2023 Address:[facility] [place] [address] Subjective: * Chief Complaints: * * Medical History: Objective: Assessment: * Assessment: 1. Chronic kidney disease, stage 3b - N18.32 (Primary) 2. Essential (primary) hypertension - I10 3. Morbid (severe) obesity due to excess calories - E66.01 4. Renal osteodystrophy - N25.0 5. Secondary hyperparathyroidism, not elsewhere classified - E21.1 6. Hyperuricemia without signs of inflammatory arthritis and tophaceous disease - E79.0 Plan: * Treatment: * Billing Information: * Visit Code: [id number] Office Visit, Est Pt., Level 5. * Procedure Codes: * Sign off status: Pending * Provider: MD GURDEEP, F.Jere, F.A.S.N. Date: 08/24/2023
--- OUTSIDE RECORDS SUMMARY | 2024-05-05 14:26 | XMS_ITS ---
Author Organization [facility] Address [address] [place] [address] Care Team Providers Care Senior Research Scientist Name Role Phone Rich Emanuel Unavailable [phone] Encounters Encounter Location Date Provider Diagnosis [place] [facility] [address] [facility] [address] [place] [address] 06/24/2023 Emanuel Villanueva Chronic kidney disea se, [...] kidney disease, stage 3b (ICD-10 - N18.32) 06/24/2023 Essential (primary) hypertension (ICD-10 - I10) 06/24/2023 Morbid (severe) obesity due to excess calories (ICD-10 - E66.01) 06/24/2023 Renal osteodystrophy (ICD-10 - N25.0) 06/24/2023 Secondary hyperparathyroidism , not elsewhere classified (ICD-10 - E21.1) 06/24/2023 Hyperuricemia without signs of inflammatory arthritis and tophaceous disease (ICD-10 - E79.0) PLAN OF TREATMENT No Information Progress Notes * ARCELIA NOVOAADOB:1935 (88 yo M)Acc No.[id number]:06/24/2023 Progress Notes Patient: CORBY NOVOA Provider: MD GURDEEP, F.A.C.P, F.A.S.N. :1935 Age:87 Y Sex:Male Date:06/24/2023 Address:[facility] [place] [address] Subjective: * Chief Complaints: * * Medical [...] Treatment: * Billing Information: * Visit Code: [id number] Office Visit, Est Pt., Level 4. * Procedure Codes: * Sign off status: Pending * Provider: MD GURDEEP, F.Jere, F.A.S.N. Date: 06/24/2023
--- OUTSIDE RECORDS SUMMARY | 2024-05-05 14:26 | XMS_ITS | Data Portability ---
Author Organization [facility] [employer] [facility], Main Office Address [address] [place] [address] Care Team Providers Care Environmental Health Officer Name Role Phone MIGDALIA SUMMERS Primary Care Provider MIGDALIA SUMMERS Referring Provider Assessment Encounter Date Assessment Date Assessment LastModified by Organization Details LastModified Time 08/25/2023 08/25/2023 This note is dictated and transcribed by [employer]. Audiology Technician variances may occur. Despite proofreading, typographical errors may occur. Occasional wrong-word or '[id number]-o-[id number]' substitutions may have occurred due to the inherent limitations of voice recording. Read the chart carefully and recognize, using context, where substitutions have occurred. Not available 08/25/2023 14:23:47 11/24/2023 11/24/2023 This note is dictated and transcribed by [employer]. Audiology Technician variances may occur. Despite proofreading, typographical errors may occur. Occasional wrong-word or '[id number]-[id number]' substitutions may have occurred due to the inherent limitations of voice recording. Read the chart carefully and recognize, using context, where substitutions have occurred. Not available 11/24/2023 15:09:23 02/23/2024 02/23/2024 This note is dictated and transcribed by [employer]. Audiology Technician variances may occur. Despite proofreading, typographical errors may occur. Occasional wrong-word or '[id number]-[id number]' substitutions may have occurred due to the inherent limitations of voice recording. Read the chart carefully and recognize, using context, where substitutions have occurred. Not available 02/23/2024 15:20:52 Plan of Treatment Reminders Order Date Submit Date Provider Last Modified By Organization Details Last Modified Time Details Appointments Establish ed Patient 15 2024 02:00P Yesika Charles DPM Not available Not available Not available Lab None recorded. Referral None recorded. Procedures None recorded. Surgeries None recorded. Imaging None recorded. Medication Orders None recorded. Patient TargetsNo targets recorded. Patient InstructionsNo instructions recorded. Reason for Referral None Reported. Results Created Date Observation Date Name Description Value Unit Range Abnormal Flag Note LastModifiedBy Organization Detail LastModifiedTime 10/29/19 23 10/28/2022 CT, head, w/o contr ast No observ ation record ed. [email or web address] [facility] [address] [place], [address], 10/29/2022 09:49:25 Result Notes None recorded. Problems Name Problem SNOMED Code Status Onset Date Resolution Date Notes Provider Name and Address Organization Details Recorded Time Fracture of thoracic spine 250449390 Active Not Available [facility] 3 08:09:22 Postprocedura l state finding 009788746 Active Not Available [facility] 3 08:09:22 Chronic back pain 335862717 Active Not Available [facility] 3 08:09:22 Nocturia 500363052 Active Not Available [facility] 3 08:09:22 Dizziness present 655560904 Active Not Available [facility] 3 08:09:22 Urinary incontinence 161290446 Active Not Available [facility] 3 08:09:22 Postoperative pain 662481632 Active Not Available [facility] 3 08:09:22 Sciatica 53280083 Active Not Available [facility] 3 08:09:22 Gastroesophag eal reflux disease 368370508 Active Not Available [facility] 3 08:09:22 Osteoarthriti s of knee 344150242 Active Not Available [facility] 3 08:09:22 Urinary symptoms 248199304 Active Not Available [facility] 3 08:09:22 Malignant tumor of breast 040141771 Active Not Available [facility] 3 08:09:22 Muscle weakness 58936298 Active Not Available [facility] 3 08:09:22 Transient cerebral ischemia 212049792 Active Not Available [facility] 3 08:09:23 Anemia 190872839 Active Not Available [facility] 3 08:09:23 Low back pain 145496244 Active Not Available [facility] 3 08:09:23 Pain in pelvis 30071196 Active Not Available [facility] 3 08:09:23 Knee pain Active Not Available [facility] 3 08:09:23 Dizzy spells 372350745 Active Not Available [facility] 3 08:09:23 Crohn's disease 48308116 Active Not Available [facility] 3 08:09:23 Arthritis 1962849 Active Not Available [facility] 3 08:09:23 Hypertensive disorder 80476108 Active Not Available [facility] 3 08:09:23 Memory impairment 346701664 Active Not Available [facility] 3 08:09:23 Osteoarthriti s 635394987 Active Not Available [facility] 3 08:09:23 Tinea cruris 905846575 Active Not Available [facility] 3 08:09:23 Lymphedema of lower extremity 517391277 Active 2018 Not Available [facility] 3 08:09:23 Hypothyroidis m 96423622 Active Not Available [facility] 3 08:09:23 Renal failure syndrome 37860151 Active Not Available [facility] 3 08:09:24 Disorder of urinary bladder 84307059 Active 2016 Not Available [facility] 3 08:09:24 Chronic atrial fibrillation 272289712 Active Not Available [facility] 3 08:09:24 Viral syndrome 530785697 Active Not Available [facility] 3 08:09:24 Shoulder pain 58145402 Active Not Available [facility] 3 08:09:24 Atrial fibrillation 68330842 Active Not Available [facility] 3 08:09:24 Carpal tunnel syndrome 62231797 Active Not Available [facility] 3 08:09:24 Allergic rhinitis 77531213 Active Not Available [facility] 3 08:09:24 Osteoporosis 45385029 Active Not Available [facility] 3 08:09:24 Urinary tract infectious disease 18968046 Active Not Available [facility] 3 08:09:24 Dystrophia unguium 55666972 Active 2017 Not Available [facility] 3 08:09:24 Chronic renal failure 12170570 Active Not Available [facility] 3 08:09:25 Kidney disease 28689207 Active 2016 Not Available [facility] 3 08:09:25 Chronic diarrhea 209618214 Active 2023 Sintia denny [facility] 4 12:30:10 Overactive urinary bladder 684888630 Active 2023 Sintia denny, [facility] 4 12:30:28 Vitamin D deficiency 89327442 Active 2023 Sintia denny, [facility] 4 12:30:36 Gout 07084276 Active 2023 Sintia denny, [facility] 4 12:30:45 Insomnia 574172821 Active 2023 Sintia denny, [facility] 4 12:30:54 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 2023 Sintia denny [facility] 4 12:31:02 History of recurrent urinary tract infection 849357837 Active 2023 Sintia denny, [facility] 4 12:31:31 Moderate cognitive impairment 999649794 Active 2023 Sintia denny, [facility] 4 12:31:40 Constipation 35451184 Active 2023 Sintia denny [facility] 4 12:31:50 Essential hypertension 18770449 Active 2023 Sintia Bhumi denny, [facility] [employer] 12:31:58 Notes:Some problems listed i n Document: #[id number] could not be added to this patient's chart. Please review this document and add these problems to the patient's chart manually as needed. Problem Notes None recorded. Procedures Surgical History Date Name Laterality Status Provider Name and Address Organization Details Recorded Time 02/22/19 25 Nail Debridement completed Laith Charles DPM [address], [place], [address], [employer] 02/23/2024 15:20:36 11/24/19 24 Nail Debridement completed Laith Charles DPM [address] [facility] [address], [place], [address], [employer] 11/24/2023 15:04:47 08/25/19 24 Nail Debridement completed Laith Charles DPM [address] [facility] [address], [place], [address], [employer] 08/25/2023 14:22:12 Masectomy completed Not Available [facility] 0 04/07/2022 08:06:25 abdominal wall hernia procedure completed Not Available [facility] 04/07/2022 08:06:25 Imaging Results Imaging Date Name Status LastModified by Organiz ation Details LastModified Time 10/28/2022 CT, head, w/o contrast completed [address], [place], [address], 10/29/2022 09:49:25 Procedure Notes None recorded. Medical Equipment None Reported. Allergies Allergen ID Allergen Name Allergen Category Reaction Reaction Severity Criticality Documentation Date Start Date Code Code System Note Provider Name and Address Organization Details Recorded Time niacin medicatio n Not available Not available Not available 04/07/2022 7393 RxNorm Not Available [facility] 08:13:21 Medications Name Sig Start Date Stop Date Status Note LastModified by Organization Details LastModified Time cyclobenzap rine 10 mg tablet 1 po tid prn active Not Available Not Available No t Available amoxicillin 500 mg capsule active Not Available Not Available Not Available furosemide 40 mg tablet 10/30 completed Not Available Not Available Not Available atorvastati n 40 mg tablet 08/24 completed Not Available Not Available Not Available methocarbam ol 500 mg tablet Take 1 tablet 3 times a day by oral route. 06/27 completed Not Available Not Available Not Available metformin 500 mg tablet 08/24 completed Not Available Not Available Not Available lidocaine HCl 10 mg/mL (1 %) injection solution 08/24 completed Not Available Not Available Not Available prednisone 10 mg tablet active Not Available Not Available Not Available nitrofurant oin macrocrysta l 50 mg capsule active Not Available Not Available Not Available cefuroxime axetil 250 mg tablet 10/30 completed Not Available Not Available Not Available atorvastati n 20 mg tablet active Not Available Not Available Not Available donepezil 5 mg tablet active Not Available Not Available No t Available ketoconazol e 2 % shampoo active Not Available Not Available Not Available Stool Softener 100 mg capsule Take 1 capsule every day by oral route. 02/10 completed Not Available Not Available Not Available azithromyci n 250 mg tablet Take 2 TABLET EVERY DAY by oral route for 1 day. Than 1 tablet for 4 days 08/27 completed Not Available Not Available Not Available pravastatin 40 mg tablet 03/21 completed Not Available Not Available Not Available tizanidine 4 mg tablet TAKE ONE TABLET BY MOUTH FOUR TIMES DAILY NEEDED 08/24 completed Not Available Not Available Not Available fluconazole 150 mg tablet Take 1 tablet every day by oral route. active Not Available Not Available No t Available ampicillin 500 mg capsule TAKE ONE CAPSULE BY MOUTH THREE TIMES DAILY FOR 7 DAYS FOR UTI. 10/05 completed Not Available Not Available Not Available citalopram 10 mg tablet 08/24 completed Not Available Not Available Not Available ranitidine 300 mg tablet TK 1 T PO QD 10/05 completed Not Available Not Available Not Available cephalexin 250 mg capsule 08/24 completed Not Available Not Available Not Available hydrocodone 5 mg-acetamin ophen 325 mg tablet 1-2 tabs po Q4-6 hours as needed 08/27 completed Not Available Not Available Not Available Claritin 10 mg tablet Take 1 tablet every day by oral route. active Not Available Not Available No t Available Remeron 15 mg tablet Take 0.5 tablets every day by oral route. active Not Available Not Available No t Available desmopressi n 0.2 mg tablet Take 0.5 tablets every day by oral route. 2015 active Not Available Not Available Not Avai lable warfarin 2.5 mg tablet M-W-F-Sat and Tuesday active Not Available Not Available No t Available Nexium 40 mg capsule,del ayed release active Not Available Not Available Not Available ciprofloxac in 250 mg tablet Take 1 tablet every 12 hours by oral route. 08/24 completed Not Available Not Available Not Available trimethopri m 100 mg tablet Take 1 tablet every day by oral route. active Not Available Not Available No t Available allopurinol 100 mg tablet active Not Available Not Available Not Available ciprofloxac in 500 mg tablet Take 1 tablet every 12 hours by oral route for 7 days. 08/27 completed Not Available Not Available Not Available sulfamethox azole 800 mg-trimetho prim 160 mg tablet Take 1 tablet every 12 hours by oral route for 7 days. 10/05 completed Not Available Not Available Not Available hydrocodone 10 mg-acetamin ophen 325 mg tablet Take 1-2 tablet(s) EVERY 4 HOURS by oral route prn 03/21 completed Not Available Not Available Not Available tramadol 50 mg tablet Take 1-2 TABLET EVERY 6 HOURS by oral route as needed 08/24 completed Not Available Not Available Not Available simvastatin 40 mg tablet active Not Available Not Available Not Available levothyroxi ne 25 mcg tablet 1 po daily active Not Available Not Available No t Available warfarin 4 mg tablet active Not Available Not Available No t Available warfarin 3 mg tablet 4 days a week and 4mg other days active Not Available Not Available No t Available levothyroxi ne 100 mcg tablet 1 po daily active Not Available Not Available No t Available oxycodone-a cetaminophe n 5 mg-325 mg tablet Take 1 tablet every 6 hours by oral route. active Not Available Not Available No t Available propranolol 10 mg tablet Take 1 tablet every day by oral route. 08/24 completed Not Available Not Available Not Available ceftriaxone 1 gram solution for injection 08/24 completed Not Available Not Available Not Available hydrocodone 10 mg-acetamin ophen 500 mg tablet active Not Available Not Available No t Available amoxicillin 875 mg tablet 08/24 completed Not Available Not Available Not Available famotidine 20 mg tablet active Not Available Not Available Not Available meclizine 25 mg tablet active Not Available Not Available Not Available cephalexin 500 mg capsule 05/15 completed Not Available Not Available Not Available levothyroxi ne 125 mcg tablet TK 1 T PO QD active Not Available Not Available No t Available triamcinolo ne acetonide 0.1 % topical ointment 08/24 completed Not Available Not Available Not Available ranitidine 150 mg tablet 1 po BID 10/30 completed Not Available Not Available Not Available clotrimazol e-betametha sone 1 %-0.05 % topical cream APPLY TO THE AFFECTED AND SURROUNDI NG AREAS OF SKIN BY TOPICAL ROUTE 2 TIMES PER DAY IN THE MORNING AND EVENING FOR 2 WEEKS active Not Available Not Available No t Available lisinopril 10 mg tablet TK 1 T PO QD active Not Available Not Available No t Available warfarin 2 mg tablet active Not Available Not Available No t Available warfarin 5 mg tablet tuesdays and active Not Available Not Available No t Available hydrocortis one 2.5 % topical cream 08/24 completed Not Available Not Available Not Available montelukast 10 mg tablet 1 po daily active Not Available Not Available No t Available hydrocodone 5 mg-acetamin ophen 500 mg tablet TAKE ONE TABLET BY MOUTH THREE TIMES DAILY NEEDED active Not Available Not Available No t Available lisinopril 5 mg tablet 04/27 completed Not Available Not Available Not Available furosemide 20 mg tablet active Not Available Not Available Not Available gabapentin 100 mg capsule Take 1 capsule 4 times a day by oral route. 08/24 completed Not Available Not Available Not Available metoprolol succinate ER 25 mg tablet,exte nded release 24 hr TK 1 T PO QD active Not Available Not Available No t Available ergocalcife rol (vitamin D2) 1,250 mcg (50,000 unit) capsule Take 1 capsule every week by oral route. active Not Available Not Available No t Available warfarin 1 mg tablet Take 1 tablet every day by oral route. 2015 active Not Available Not Available Not Avai lable cefuroxime axetil 500 mg tablet 10/30 completed Not Available Not Available Not Available levofloxaci n 750 mg tablet active Not Available Not Available Not Available methylpredn isolone 4 mg tablets in a dose pack Take by oral routeas directed 06/27 completed Not Available Not Available Not Available Lomotil 2.5 mg-0.025 mg tablet Take 2 tablets 4 times a day by oral route. 2013 active Not Available Not Available Not Avai lable cefdinir 300 mg capsule Take 1 capsule every 12 hours by oral route for 10 days. active Not Available Not Available No t Available fluticasone propionate 50 mcg/actuati on nasal spray,suspe nsion [place] 2 sprays every day by intranasa l route. active Not Available Not Available No t Available Augmentin 500 mg-125 mg tablet Take 1 tablet every 24 hours by oral route in the morning. 07/28 completed Not Available Not Available Not Available calcitriol 0.25 mcg capsule active Not Available Not Available Not Available naproxen 500 mg tablet active Not Available Not Available Not Available amoxicillin 875 mg-potassiu m clavulanate 125 mg tablet 07/28 completed Not Available Not Available Not Available Estrace 0.01% (0.1 mg/gram) vaginal cream active Not Available Not Available Not Available ezetimibe 10 mg tablet 08/27 completed Not Available Not Available Not Available cyclobenzap rine 5 mg tablet 1 po tid prn active Not Available Not Available No t Available moxifloxaci n 0.5 % eye drops active Not Available Not Available Not Available metoprolol tartrate 25 mg tablet active Not Available Not Available No t Available mirtazapine 7.5 mg tablet active Not Available Not Available Not Available nitrofurant oin monohydrate /macrocryst als 100 mg capsule take one po BID x 10 days. 10/30 completed Not Available Not Available Not Available Pentasa 500 mg capsule,con trolled release TK 2 CS PO BID active Not Available Not Available No t Available solifenacin 5 mg tablet Take 1 tablet every day by oral route. active Not Available Not Available No t Available tizanidine 4 mg capsule 1 po TID 02/10 completed Not Available Not Available Not Available Nyamyc 100,000 unit/gram topical powder APPLY TO THE AFFECTED AREA(S) BY TOPICAL ROUTE 2 TIMES PER DAY 06/27 completed Not Available Not Available Not Available fentanyl 12 mcg/hr transdermal patch Apply 1 patch every 72 hours by transderm al route. active Not Available Not Available No t Available acetaminoph en 500mg 2017 active Not Available Not Available Not Avai lable Lipitor 2013 active Not Available Not Available Not Avai lable calcitriol 02/10 completed Not Available Not Available Not Available Ocuvite 06/27 completed Not Available Not Available Not Available Aricept 5MG PO Q D active Not Available Not Available No t Available Ferrex 150 03/21 completed Not Available Not Available Not Available Calcium 500 08/24 completed Not Available Not Available Not Available Glucosamine 1500 Complex 2013 active Not Available Not Available Not Avai lable PreserVisio n AREDS active Not Available Not Available Not Available Nexium Packet 40 mg granules delayed release for susp active Not Available Not Available Not Available cholecalcif david (vitamin D3) 1,250 mcg (50,000 unit) capsule active Not Available Not Available Not Available insulin glargine (U-100) 100 unit/mL (3 mL) subcutaneou s pen 08/24 completed Not Available Not Available Not Available diclofenac 1 % topical gel 08/24 completed Not Available Not Available Not Available melatonin 5 mg tablet Take 2 tablets by oral route at bedtime. active Not Available Not Available No t Available Toviaz 4 mg tablet,exte nded release Take 1 tablet every day by oral route. active Not Available Not Available No t Available Zyrtec 10 mg capsule Take by oral route. 02/10 completed Not Available Not Available Not Available Nucynta ER 100 mg tablet,exte nded release Take 1 tablet every 12 hours by oral route. active Not Available Not Available No t Available lactulose 10 gram/15 mL (15 mL) oral solution Take 15 mL every day by oral route. 10/30 completed Not Available Not Available Not Available Myrbetriq 25 mg tablet,exte nded release active Not Available Not Available Not Available Myrbetriq 50 mg tablet,exte nded release TK 1 T PO QHS active Not Available Not Available No t Available nitrofurant oin 100 mg tablet Take by oral route. 02/10 completed Not Available Not Available Not Available Hysingla ER 40 mg tablet, crush resistant, extended release Take 1 tablet every 24 hours by oral route. active Not Available Not Available No t Available Azo Cranberry 2017 active Not Available Not Available Not Avai lable vitamin B12 1,000 mcg-folic acid [address] by sublingua l route. 08/24 completed Not Available Not Available Not Available Easy Touch Safety Pen Needle 30 gauge x 06/22 completed Not Available Not Available Not Available Vitals Date Recorded Body height Oxygen saturation Oxygen saturation in Arterial blood by Pulse oximetry Heart rate Body temperature Systolic blood pressure Diastolic blood pressure Provider Name and Address Organization Details Last Updated DateTime 2 157.48 cm 98 % 98 % 73 /min 97.6 [degF] 144 mm[Hg] 68 mm[Hg] Not Available [facility] 3 08:08:46 Date Recorded Body height Oxygen saturation Oxygen saturation in Arterial blood by Pulse oximetry Heart rate Body temperature Systolic blood pressure Diastolic blood pressure Provider Name and Address Organization Details Last Updated DateTime 2 157.48 cm 97 % 97 % 63 /min 97.7 [degF] 138 mm[Hg] 82 mm[Hg] Not Available [facility] 3 08:08:46 Date Recorded Body height Body mass index (BMI) Body weight Heart rate Respiratory rate Body temperature Provider Name and Address Organization Details Last Updated DateTime 4 157.48 cm 30 kg/m2 78071.1 5 g 66 /min 16 /min 98.6 [degF] Nani Shirley MA [facility] [employer] 4 12:36:03 Date Recorded Body height Body mass index (BMI) Body weight Heart rate Respiratory rate Oxygen saturation Oxygen saturation in Arterial blood by Pulse oximetry Systolic blood pressure Diastolic blood pressure Provider Name and Address Organization Details Last Updated DateTime 4 157.48 cm 30 kg/m2 70457.1 5 g 57 /min 14 /min 97 % 97 % 108 mm[Hg] 71 mm[Hg] Tata Zamorano [place] [employer] [facility] [employer] 4 14:29:55 Date Recorded Body height Body mass index (BMI) Body weight Heart rate Respiratory rate Oxygen saturation Oxygen saturation in Arterial blood by Pulse oximetry Provider Name and Address Organization Details Last Updated DateTime 5 157.48 cm 30 kg/m2 50524.1 5 g 62 /min 14 /min 97 % 97 % Tata TAM [facility] [employer] [facility] 14:57:40 Social History Question Answer Notes LastModified by Organizat ion Details LastModified Time Tobacco Smoking Status Never Smoker Not Available [facility] 04/07/2022 08:06:21 What Is Your Level Of Alcohol Consumption? None [id number] Information not available 04/07/2022 What Is Your Level Of Caffeine Consumption? None [employer] Information not available 08/25/2023 In The 14 Days Before Symptom Onset, Have You Had Close Contact With A Laboratory-confirm ed COVID-19 While That Case Was Ill? No [id number] Information not available 04/07/2022 In The 14 Days Before Symptom Onset, Have You Had Close Contact With A Person Who Is Under Investigation For COVID-19 While That Person Was Ill? No [id number] Information not available 04/07/2022 Are You Currently Employed? No [employer] Information not available 08/25/2023 Sex: Unknown Functional Status None recorded. Mental Status None recorded. Family History Relationship Description Onset Age of this Age Resolved Age Notes LastModified by Organization Details LastModified Time Father Family history of stroke [id number] Not available 04/07/2022 08:06:26 Father Heart disease [id number] Not available 04/07/2022 08:06:27 Mother Family history of stroke [id number] Not available 04/07/2022 08:06:27 Medical History No medical history recorded. Gynecological HistoryNo gynecological history recorded. Obstetrics History GPAL:G 0 P 0 0 0 0 Past Encounters Encounter ID Performer Location Encounter Start Date Encounter Closed Date Diagnosis/Indication Diagnosis SNOMED-CT Code Diagnosis ICD10 Code Diagnosis Note [id number] [facility] [place] [address] 08/27/2020 00:00:00 08/28/2020 06:01:58 [id number] [facility] [place] [address] 11/27/2020 00:00:00 11/28/2020 06:05:35 [id number] [facility] Edwardsvi llangela [address] [place] [address] [place] [address] 04/06/2021 00:00:00 04/06/2021 18:58:13 [id number] [facility] Pramodvi llangela [address] [facility] [place] [address] 10/05/2021 00:00:00 10/05/2021 20:56:50 [id number] Laith Charles DPM [address] [address] 08/25/2023 12:24:15 08/25/2023 14:57:27 Dystrophia unguium 43102317 L60.3 Nails 1 through 10 were debrided with sharp mechanical debridemen t without incident. Nails were debrided and greater than 50% length and thickness where needed. Unable to cut own toenails [id number] Z74.1 [id number] Laith Charles DPM [address] [address] 11/24/2023 14:26:04 11/25/2023 11:55:41 Dystrophia unguium [id number] L60.3 Nails 1 through 10 were debrided with sharp mechanical debridemen t without incident. Nails were debrided and greater than 50% length and thickness where needed. Unable to cut own toenails [id number] Z74.1 [id number] Laith Charles DPM [address] [address] 02/23/2024 14:53:47 03/05/2024 11:30:25 Dystrophia unguium [id number] L60.3 Nails 1 through 10 were debrided with sharp mechanical debridemen t without incident. Nails were debrided and greater than 50% length and thickness where needed. Unable to cut own toenails [id number] Z74.1 Health Concerns Section Related Observation LastModified by Organization Detai ls LastModified Time None Recorded Concern Status LastModified by Organization Details LastModified Time None Recorded Advance Directives Directive None Recorded Payers Encounter Date Sequence Insurance Name Policy Number Policy Oconnell Covered Member ID Oconnell Member ID Guarantor Name 08/25/2023 1 [facility] Deanna M Darío [id number] Deanna M Darío 08/25/2023 2 [facility] (MEDICAID HMO) [id number] Deanna M Darío [id number] Deanna M Darío 11/24/2023 1 [facility] Deanna M Darío [id number] Deanna M Darío 11/24/2023 2 [facility] (MEDICAID HMO) [id number] Deanna M Darío [id number] Deanna M Darío 02/23/2024 1 [facility] B[facility] [place] [facility] Deanna M Darío [id number] Deanna M Darío 02/23/2024 2 [facility] (MEDICAID HMO) [id number] 0003 Deanna M Darío [id number] Deanna M Darío Notes Date Note Type Note Provider Name and Address Organization Details Recorded Time 08/25/2023 text/html . Patient is a 87-year-old female who presents the office from a longterm facility routine foot care. Patient denies any new pedal complaints. Patient states that she is doing well and her nails are long and she needs have them cut. Patient denies any other complaints. Laith Charles DPM [address] [place] [address], [facility] [address], [place], [address], [facility] 08/25/2023 14:27:26 11/24/2023 text/html . Patient is a 88-year-old female who returns for foot care she states overall she is doing well denies any changes denies any intermittent claudication, wounds, foot pain with walking. Presents from longterm and in wheel chair. Laith Charles DPM [address], [place], [address], [employer] [facility] 11/24/2023 15:09:38 02/23/2024 text/html . Patient is a 88-year-old female she returns the office for routine foot care. patient presents in wheelchair she has difficulty walking. Patient denies any recent injuries. Patient denies any other complaints and would like her nails cut as she is unable to cut them. Laith Charles DPM [address], [facility] [address], [place], [address], [employer] 02/23/2024 15:21:12 OBGyn Episode No OBEpisode recorded.
[2024-05-05 14:38] LABS: Basophils Percent Auto 0.3 % (0.2-1.2); Eosinophils Percent Auto 0.1 % (0-4.4); Hematocrit 25.6 % (37.0-47.0); Hemoglobin 7.9 g/dL (12.0-15.0); Immature Granulocyte Absolute 0.03 K/mm3 (0.00-0.031); Immature Granulocyte Percent A 0.4 % (0-0.5); Lymphocytes Absolute Auto 0.83 K/mm3 (0.9-3.2); Lymphocytes Percent Auto 11.2 % (18.3-44.2); Mean Corpuscular HGB Conc 30.9 g/dl (32-36); Mean Corpuscular Hemoglobin 30.3 pg (26-34); Mean Corpuscular Volume 98.1 fl (80-100); Mean Platelet Volume 10.1 fl (7.4-10.4); Monocytes Absolute Auto 0.5 K/mm3 (0.1-0.6); Monocytes Percent Auto 7.2 % (2.6-8.5); Neutrophils Percent Auto 80.8 % (45.5-73.1); Platelet Count Result 285 k/mm3 (150-375); Red Blood Count 2.61 M/mm3 (4.2-5.4); Red Cell Distribution Width 16.3 % (11.5-14.5); White Blood Count 7.4 K/mm3 (4.5-10.0)
[2024-05-05 14:49] LABS: Alanine Aminotransferase 11 U/L (6-35); Albumin Level 3.3 g/dL (3.5-5.1); Alkaline Phosphatase 101 U/L (38-126); Anion Gap 9 mmol/L (4-12); Aspartate Amino Transferase 24 U/L (14-36); Bilirubin,Total 0.3 mg/dL (0.2-1.3); Blood Urea Nitrogen 44 mg/dL (7-17); Calcium 10.5 mg/dL (8.4-10.2); Carbon Dioxide 19 mmol/L (22-30); Chloride 113 mmol/L (98-107); Estimated CRCL calculation 14 ml/min; Estimated Glomerular Filt Rate 19; Glucose 121 mg/dL (65-110); Potassium 4.3 mmol/L (3.4-5.0); Sodium 141 mmol/L (137-145)
[2024-05-05 14:50] LABS: Add Urine Microscopic? YES; Appearance Urine Turbid (Clear); Bacteria Urine None Seen /hpf; Bilirubin Urine Negative (Negative); Blood Urine 2+ (Negative); Color Urine Yellow (Yellow); Glucose Urine UA Negative (Negative); Ketones Urine Negative (Negative); Leukocyte Esterase Ur 3+ LEU/UL (Negative); Nitrate Urine Negative (Negative); Non Pathogenic Casts 0-2; Protein Urine 2+ mg/dL (Negative); Specific Grav Ur 1.011 (1.001-1.035); Squamous Epithelial Cell Urine Few /hpf (Few); Urobilinogen Urine 0.2 mg/dL (<2.0); WBC Urine >100 /hpf (0-3); pH Urine 5.5 (5.0-9.0)
[2024-05-05 14:54] LABS: INR 1.2; Prothrombin Time 15.3 Seconds (11.1-14.7)
[2024-05-05 14:55] LABS: Partial Thromboplastin Time 28.5 Seconds (22.3-36.8)
--- NOTE | 2024-05-05 15:01 | ED.AMS ---
HPI - Altered Mental Status General Chief Complaint: Altered Mental Status <Bessie Huizar PA-C - Last Filed: 05/05/24 17:43> Stated Complaint: not getting better from UTI <CALLIE Walters Last Filed: 05/05/24 17:43> Time Seen by Provider: 05/05/24 14:16 <CALLIE Walters Last Filed: 05/05/24 17:43> Source: family, EMS and old records reviewed <Bessie Huizar PA-C - Last Filed: 05/05/24 17:43> Mode of arrival: EMS <CALLIE Walters Last Filed: 05/05/24 17:43> Limitations: dementia <CALLIE Walters Last Filed: 05/05/24 17:43> History of Present Illness HPI narrative: Patient is an 88 y/o female, with PMH of CKD, HTN, dementia, hypothyroidism, afib on Metoprolol, who presents to the ED via EMS with report of AMS. Patient is a resident of [facility]. Per EMS report, patient was taken to [facility] this morning and diagnosed with a urinary tract infection. Discharge home on Macrobid. Family visited patient today and felt she was altered, decreased responsiveness/talkativeness. Sent here for further evaluation. Patient unable to provide any information. <Bessie Huizar PA-C - Last Filed: 05/05/24 17:43> Related Data Home Medications: Home Medications ?Medication ?Instructions ?Recorded ?Confirmed ?Last Taken ?Type diclofenac sodium 1 % topical gel 2 g topical QID 01/28/21 Unknown History (Arthritis Pain (diclofenac)) diphenhydramine HCl 25 mg capsule 25 mg PO Q6H PRN 01/28/21 Unknown History (Allergy (diphenhydramine)) famotidine 20 mg tablet (Pepcid) 20 mg PO DAILY 01/28/21 Unknown History levothyroxine 125 mcg tablet 125 mcg PO DAILY 01/28/21 Unknown History (Synthroid) lisinopril 10 mg tablet 10 mg PO DAILY 01/28/21 Unknown History loperamide 2 mg capsule 2 mg PO Q6H PRN 01/28/21 Unknown History (Anti-Diarrheal (loperamide)) melatonin 5 mg capsule mg PO DAILY 01/28/21 Unknown History mesalamine 500 mg capsule,extended 500 mg PO BID 01/28/21 Unknown History release (Pentasa) metoprolol succinate 25 mg 25 mg PO DAILY 01/28/21 Unknown History tablet,extended release 24 hr mirabegron 50 mg tablet,extended 50 mg PO DAILY 01/28/21 Unknown History release 24 hr (Myrbetriq) mirtazapine 15 mg tablet (Remeron) 15 mg PO DAILY 01/28/21 Unknown History solifenacin 5 mg tablet (Vesicare) 5 mg PO DAILY 01/28/21 Unknown History <Bessie Huizar PA-C - Last Filed: 05/05/24 17:43> Allergies/Adverse Reactions: Allergies Allergy/AdvReac Type Severity Reaction Status Date / Time niacin Allergy Unknown RASH Verified 05/05/24 14:41 SWELLING <Bessie Huizar PA-C - Last Filed: 05/05/24 17:43> Review of Systems Review of Systems: ROS unobtainable: Yes unobtainable due to mental status <Bessie Huizar PA-C - Last Filed: 05/05/24 17:43> [facility] Social History Social History: Social History Smoking status: Never smoker Alcohol intake: never Substance use: never <Bessie Huizar PA-C - Last Filed: 05/05/24 17:43> Exam Narrative: GENERAL: Elderly, chronically ill-appearing, non-toxic, in no acute distress. HEAD: Normocephalic, atraumatic. ENT: MMs and tongue very dry. RESPIRATORY: Airway patent, respirations nonlabored. Clear to auscultation bilaterally, no rales, rhonchi, wheezing. No focal lung sounds. CARDIOVASCULAR: Regular rate and rhythm without murmurs, rubs, or gallops. ABDOMINAL: Soft, nondistended. No appreciable tenderness. Normoactive BS. MUSCULOSKELETAL: No gross deformities. SKIN: Warm, dry, normal color. NEURO: Alert, attempts to answer questions but speech is somewhat unintelligible. No ataxic movements. Responds to pain. Able to move all extremities but difficulty following some commands. PSYCHIATRIC: Appropriate mood and affect. Normal interaction. <Bessie Huizar PA-C - Last Filed: 05/05/24 17:43> Course [employer]/PA Physician Supervision This visit was performed by both a physician and an APC. I performed all aspects of the MDM as documented. <Ousmane Fountain MD - Last Filed: 05/05/24 17:56> Vital Signs Vital signs: Vital Signs Temperature 98.5 F 05/05/24 14:12 Pulse Rate 79 05/05/24 14:12 Respiratory Rate 20 05/05/24 14:12 Blood Pressure 114/75 05/05/24 14:12 Pulse Oximetry 97 05/05/24 14:12 Oxygen Delivery Room Air 05/05/24 14:12 Temperature 98.3 F 05/05/24 15:15 Pulse Rate 77 05/05/24 16:58 Respiratory Rate 15 05/05/24 16:58 Blood Pressure 113/61 05/05/24 16:58 Pulse Oximetry 99 05/05/24 16:58 Oxygen Delivery Room Air 05/05/24 14:24 <Bessie Huizar PA-C - Last Filed: 05/05/24 17:43> Vital Signs Temperature 98.5 F 05/05/24 14:12 Pulse Rate 79 05/05/24 14:12 Respiratory Rate 20 05/05/24 14:12 Blood Pressure 114/75 05/05/24 14:12 Pulse Oximetry 97 05/05/24 14:12 Oxygen Delivery Room Air 05/05/24 14:12 Temperature 98.3 F 05/05/24 15:15 Pulse Rate 77 05/05/24 16:58 Respiratory Rate 15 05/05/24 16:58 Blood Pressure 113/61 05/05/24 16:58 Pulse Oximetry 99 05/05/24 16:58 Oxygen Delivery Room Air 05/05/24 14:24 <Ousmane Fountain MD - Last Filed: 05/05/24 17:56> MDM - Altered Mental Status MDM Narrative Medical decision making narrative: Patient presented [facility] ED from local [facility] facility with report of altered mental status, UTI. Patient was reportedly seen at outside hospital today and diagnosed with a urinary tract infection. Started on Macrobid. Staff reported that patient has had decreased responsiveness today. Patient does have history of dementia. She is alert, attempting to talk, follows some commands, but unable to provide any useful information. Mucous members appear very dry. Fluids were initiated. Cbc without leukocytosis. Hemoglobin is low at 7.9. No records to compare to. Normocytic. No report of recent bleeding from correction. CMP with bicarb of 19. Creatinine is elevated to 2.42. Again no records to compare to. Fluids are ongoing. Lactic acid within normal range at 1.1. Normal LFTs. UA is consistent with infection. Sent for culture. Blood cultures obtained. Rocephin started in the ED. EKG without ischemic changes. CT brain was without acute changes as well. CT of the abdomen/pelvis was obtained to rule out obstructive process given UTI with likely TAYLOR. CT showing bladder distension with significant bilateral hydroureteronephrosis. Patient was bladder scanned and found to have around 200 mL of urine in bladder. Phan catheter was placed. Patient will be admitted for further evaluation. Discussed case with [facility] hospitalist, accepted patient for admission. <Bessie Huizar PA-C - Last Filed: 05/05/24 17:43> Medical Records Attestation: I reviewed the patient's medical records. <Bessie Huizar PA-C - Last Filed: 05/05/24 17:43> Lab Data Attestation: I reviewed the patient's lab results. <Bessie Huizar PA-C - Last Filed: 05/05/24 17:43> Result diagrams: 05/05/24 14:34 05/05/24 14:34 <Bessie Huizar PA-C - Last Filed: 05/05/24 17:43> Labs: Lab Results 05/05/24 05/05/24 05/05/24 Range/Units 14:34 14:39 14:58 WBC 7.4 (4.5-10.0) K/mm3 RBC 2.61 L (4.2-5.4) M/mm3 Hgb 7.9 L (12.0-15.0) g/dL Hct 25.6 L (37.0-47.0) % MCV 98.1 (80-100) fl MCH 30.3 (26-34) pg MCHC 30.9 L (32-36) g/dl RDW 16.3 H (11.5-14.5) % Plt Count 285 (150-375) k/mm3 MPV 10.1 (7.4-10.4) fl Immature Gran % (Auto) 0.4 (0-0.5) % Neut % (Auto) 80.8 H (45.5-73.1) % Lymph % (Auto) 11.2 L (18.3-44.2) % Ford % (Auto) 7.2 (2.6-8.5) % Eos % (Auto) 0.1 (0-4.4) % Baso % (Auto) 0.3 (0.2-1.2) % Lymph # (Auto) 0.83 L (0.9-3.2) K/mm3 Ford # (Auto) 0.5 (0.1-0.6) K/mm3 Eos # (Auto) 0.0 (0-0.3) K/mm3 Baso # (Auto) 0.0 (0.0-0.1) K/mm3 Abs Immat Gran (auto) 0.03 (0.00-0.031) K/mm3 Absolute Neuts (auto) 6.0 (1.3-6.7) K/mm3 Absolute Nucleated RBC 0.000 (0.0-0.012) K/mm3 Nucleated RBC % 0.0 (0.0-0.2) % PT 15.3 H (11.1-14.7) Seconds INR 1.2 APTT 28.5 (22.3-36.8) Seconds Sodium 141 (137-145) mmol/L Potassium 4.3 (3.4-5.0) mmol/L Chloride 113 H (98-107) mmol/L Carbon Dioxide 19 L (22-30) mmol/L Anion Gap 9 (4-12) mmol/L BUN 44 H (7-17) mg/dL Creatinine 2.42 H (0.7-1.0) mg/dL Estim Creat Clear Calc 14 ml/min Estimated GFR 19 L (59 - ) Glucose 121 H (65-110) mg/dL Lactic Acid 1.1 (0.7-2.0) mmol/L Calcium 10.5 H (8.4-10.2) mg/dL Total Bilirubin 0.3 (0.2-1.3) mg/dL AST 24 (14-36) U/L ALT 11 (6-35) U/L Alkaline Phosphatase 101 (38-126) U/L Total Protein 7.0 (6.3-8.2) g/dL Albumin 3.3 L (3.5-5.1) g/dL Urine Color Yellow (Yellow) Urine Appearance Turbid H (Clear) Urine pH 5.5 (5.0-9.0) Ur Specific Stanley 1.011 (1.001-1.035) Urine Protein 2+ H (Negative) mg/dL Urine Glucose (UA) Negative (Negative) mg/dL Urine Ketones Negative (Negative) mg/dL Ur Blood (Man) 2+ H (Negative) Urine Nitrate Negative (Negative) Urine Bilirubin Negative (Negative) Urine Urobilinogen 0.2 (<2.0) mg/dL Leukocyte Esterase Rfl 3+ H (Negative) UMBERTO/UL Urine RBC 6-10 H (0-2) /hpf Urine WBC >100 H (0-3) /hpf Ur Squamous Epith Cells Few (Few) /hpf Urine Bacteria None seen /hpf Urine Casts 0-2 <Bessie Huizar PA-C - Last Filed: 05/05/24 17:43> Lab Results 05/05/24 05/05/24 05/05/24 Range/Units 14:34 14:39 14:58 WBC 7.4 (4.5-10.0) K/mm3 RBC 2.61 L (4.2-5.4) M/mm3 Hgb 7.9 L (12.0-15.0) g/dL Hct 25.6 L (37.0-47.0) % MCV 98.1 (80-100) fl MCH 30.3 (26-34) pg MCHC 30.9 L (32-36) g/dl RDW 16.3 H (11.5-14.5) % Plt Count 285 (150-375) k/mm3 MPV 10.1 (7.4-10.4) fl Immature Gran % (Auto) 0.4 (0-0.5) % Neut % (Auto) 80.8 H (45.5-73.1) % Lymph % (Auto) 11.2 L (18.3-44.2) % Ford % (Auto) 7.2 (2.6-8.5) % Eos % (Auto) 0.1 (0-4.4) % Baso % (Auto) 0.3 (0.2-1.2) % Lymph # (Auto) 0.83 L (0.9-3.2) K/mm3 Ford # (Auto) 0.5 (0.1-0.6) K/mm3 Eos # (Auto) 0.0 (0-0.3) K/mm3 Baso # (Auto) 0.0 (0.0-0.1) K/mm3 Abs Immat Gran (auto) 0.03 (0.00-0.031) K/mm3 Absolute Neuts (auto) 6.0 (1.3-6.7) K/mm3 Absolute Nucleated RBC 0.000 (0.0-0.012) K/mm3 Nucleated RBC % 0.0 (0.0-0.2) % PT 15.3 H (11.1-14.7) Seconds INR 1.2 APTT 28.5 (22.3-36.8) Seconds Sodium 141 (137-145) mmol/L Potassium 4.3 (3.4-5.0) mmol/L Chloride 113 H (98-107) mmol/L Carbon Dioxide 19 L (22-30) mmol/L Anion Gap 9 (4-12) mmol/L BUN 44 H (7-17) mg/dL Creatinine 2.42 H (0.7-1.0) mg/dL Estim Creat Clear Calc 14 ml/min Estimated GFR 19 L (59 - ) Glucose 121 H (65-110) mg/dL Lactic Acid 1.1 (0.7-2.0) mmol/L Calcium 10.5 H (8.4-10.2) mg/dL Total Bilirubin 0.3 (0.2-1.3) mg/dL AST 24 (14-36) U/L ALT 11 (6-35) U/L Alkaline Phosphatase 101 (38-126) U/L Total Protein 7.0 (6.3-8.2) g/dL Albumin 3.3 L (3.5-5.1) g/dL Urine Color Yellow (Yellow) Urine Appearance Turbid H (Clear) Urine pH 5.5 (5.0-9.0) Ur Specific Stanley 1.011 (1.001-1.035) Urine Protein 2+ H (Negative) mg/dL Urine Glucose (UA) Negative (Negative) mg/dL Urine Ketones Negative (Negative) mg/dL Ur Blood (Man) 2+ H (Negative) Urine Nitrate Negative (Negative) Urine Bilirubin Negative (Negative) Urine Urobilinogen 0.2 (<2.0) mg/dL Leukocyte Esterase Rfl 3+ H (Negative) UMBERTO/UL Urine RBC 6-10 H (0-2) /hpf Urine WBC >100 H (0-3) /hpf Ur Squamous Epith Cells Few (Few) /hpf Urine Bacteria None seen /hpf Urine Casts 0-2 <Ousmane Fountain MD - Last Filed: 05/05/24 17:56> Imaging Data Attestation: I personally reviewed and interpreted this imaging study as follows: <Bessie Huizar PA-C - Last Filed: 05/05/24 17:43> Radiologist's impression: ITS Impressions Head CT 05/05/24 15:31 Impression: No acute intracranial hemorrhage or suspicious mass effect. Abdomen/Pelvis CT 05/05/24 16:46 IMPRESSION: Significant hydroureteronephrosis with bladder distention and surrounding inflammatory change. <Bessie Huizar PA-C - Last Filed: 05/05/24 17:43> ECG Data EKG #1: Attestation: I personally reviewed and interpreted this ECG as follows: <Bessie Huizar PA-C - Last Filed: 05/05/24 17:43> ECG completion date: 05/05/24 <CALLIE Walters Last Filed: 05/05/24 17:43> ECG completion time: 14:28 <Bessie Huizar PA-C - Last Filed: 05/05/24 17:43> EKG Interpretation: normal rate (71), sinus rhythm, PVCs and non-specific ST changes <Bessie Huizar PA-C - Last Filed: 05/05/24 17:43> Discharge Plan Discharge Clinical Impression: TAYLOR (acute kidney injury), Hydroureteronephrosis, Urinary retention UTI (urinary tract infection) Qualifiers: Urinary tract infection type: acute cystitis Hematuria presence: with hematuria Qualified Code(s): N30.01 - Acute cystitis with hematuria AMS (altered mental status) Qualifiers: Altered mental status type: unspecified Qualified Code(s): R41.82 - Altered mental status, unspecified <Bessie Huizar PA-C - Last Filed: 05/05/24 17:43> Patient Disposition: Still a Patient <Bessie Huizar PA-C - Last Filed: 05/05/24 17:43> Condition: Stable <Bessie Huizar PA-C - Last Filed: 05/05/24 17:43> Patient Language: Uzbek <Bessie Huizar PA-C - Last Filed: 05/05/24 17:43> Prescriptions: No Action lisinopril 10 mg tablet 10 mg PO DAILY famotidine [Pepcid] 20 mg tablet 20 mg PO DAILY metoprolol succinate 25 mg tablet extended release 24 hr 25 mg PO DAILY melatonin 5 mg capsule PO DAILY Myrbetriq 50 mg tablet extended release 24 hr 50 mg PO DAILY solifenacin [Vesicare] 5 mg tablet 5 mg PO DAILY mirtazapine [Remeron] 15 mg tablet 15 mg PO DAILY Pentasa 500 mg capsule, extended release 500 mg PO BID levothyroxine [Synthroid] 125 mcg tablet 125 mcg PO DAILY diphenhydramine HCl [Allergy (diphenhydramine)] 25 mg capsule 25 mg PO Q6H PRN loperamide [Anti-Diarrheal (loperamide)] 2 mg capsule 2 mg PO Q6H PRN diclofenac sodium [Arthritis Pain (diclofenac)] 1 % gel 2 g topical QID Rx Instructions: apply to single elbow, wrist or hand; for hand includes palm/fingers/back of hand <Bessie Huizar PA-C - Last Filed: 05/05/24 17:43> Follow-up/Referrals: Miladys,MD Benny [Primary Care Provider] - <CALLIE Walters Last Filed: 05/05/24 17:43>
[2024-05-05] MEDS: SODIUM CHLORIDE 0.9% IV 1,000 ML 999 ML IV CONT ×2 (15:09→18:24)
[2024-05-05 15:14] LABS: Lactic Acid Reflex 1.1 mmol/L (0.7-2.0)
--- NOTE | 2024-05-05 18:00 | P.HP_ITS ---
H&P: HPI History of Present Illness Date/Time: 05/05/24 18:00 Chief Complaint: Altered mental status. Narrative: This is an 88-year-old female with history of dementia, atrial fibrillation, hypertension, hyperlipidemia, gastroesophageal reflux disease, Crohn's disease, chronic kidney disease, overactive bladder, gout, hypothyroidism, macular degeneration, and depression who presented to the emergency department via EMS from [facility] for evaluation of altered mental status. She is not able to provide any meaningful history and has never been seen at this facility before. As such majority the following is obtained via a review of her electronic medical records. According to triage notes, the patient was sent to the ED at [facility] earlier this morning for evaluation of altered mental status. She was diagnosed with urinary tract infection and was discharged back to her nursing facility with a prescription for nitrofurantoin. The facility in turn sent her to [facility] as she was still altered; at baseline she is reportedly alert and talking and was neither on presentation. No other information was provided by the transferring facility. At the time my evaluation the patient is alert and is able to say her name. She does not follow many commands and only mumbles a few words here and there. She did not voice any acute concerns but did tell me that she did not want any of the water I offered to her. In the ED: Vital signs on arrival include a temperature of 90.3?, blood pressure 103/75, pulse 94, respiratory 24, SpO2 97% on room air. Labs are significant for WBC count of 7.4, hemoglobin 7.9, BUN 44, creatinine 2.42, lactic acid 1.1, calcium 10.5. Urinalysis was positive for 2+ protein, 2+ blood, 3+ leukocyte esterase, 6 to 10 RBC, and greater than 100 WBC. No acute findings noted on head CT. CT of the abdomen and pelvis showed significant hydroureteronephrosis with bladder distention and surrounding inflammatory change. Phan catheter was inserted as she was reportedly retaining urine however the amount of urine output upon insertion has not yet been recorded. She received 2 L normal saline bolus and was started on ceftriaxone. She is being admitted in this setting for further treatment of urinary tract infection and workup of altered mental status. Review of Systems Review of Systems: Unable to obtain accurately given confusion as detailed above. [facility] Past Medical History Medical History (Updated 03/29/25 @ 22:37 by Ana Maria España PA-C) Depression Macular degeneration Hypothyroidism Vitamin D deficiency Gout Arthritis Overactive bladder Chronic kidney disease Gastroesophageal reflux disease Crohn's disease Hyperlipidemia Hypertension Atrial fibrillation Dementia Surgical History Surgical History (Updated 05/05/24 @ 22:29 by Ana Maria España PA-C) History of knee replacement Family History Family History (Updated 05/05/24 @ 22:30 by Ana Maria España PA-C) Other Family history unknown Social History Social History (Updated 05/05/24 @ 22:31 by Ana Maria España PA-C) Social History: Surrogate medical decision maker: Dao Chanel, dave ([phone]). Code status: Full code. Smoking status: Unknown if ever smoked Alcohol intake: unknown Substance use: unknown Additional living arrangements comments: [facility]. Spiritual care concerns: No Meds Home Medications and Allergies Home Medications ?Medication ?Instructions ?Recorded ?Confirmed ?Type diclofenac sodium 1 % topical gel 2 g topical QID 01/28/21 05/05/24 History (Arthritis Pain (diclofenac)) levothyroxine 125 mcg tablet 125 mcg PO DAILY 01/28/21 05/05/24 History (Synthroid) lisinopril 10 mg tablet 10 mg PO DAILY 01/28/21 05/05/24 History loperamide 2 mg capsule 2 mg PO Q6H PRN loose stool 01/28/21 05/05/24 History (Anti-Diarrheal (loperamide)) melatonin 5 mg capsule 10 mg PO HS 01/28/21 05/05/24 History mesalamine 500 mg capsule,extended 1,000 mg PO BID 01/28/21 05/05/24 History release (Pentasa) metoprolol succinate 25 mg 25 mg PO DAILY 01/28/21 05/05/24 History tablet,extended release 24 hr mirtazapine 15 mg tablet (Remeron) 15 mg PO HS 01/28/21 05/05/24 History solifenacin 5 mg tablet (Vesicare) 5 mg PO HS 01/28/21 05/05/24 History allopurinol 100 mg tablet 200 mg PO DAILY 05/05/24 05/05/24 History atorvastatin 20 mg tablet 20 mg PO DAILY 05/05/24 05/05/24 History calcitriol 0.25 mcg capsule 0.25 mcg PO DAILY 05/05/24 05/05/24 History carboxymethylcellulose sodium 0.5 2 drp EACH EYE TID 05/05/24 05/05/24 History % eye drops in a dropperette (Refresh Plus) donepezil 5 mg tablet 5 mg PO HS 05/05/24 05/05/24 History loratadine 10 mg tablet (Claritin) 10 mg PO DAILY 05/05/24 05/05/24 History nitrofurantoin 100 mg PO Q12H 05/05/24 05/05/24 History monohydrate/macrocrystals 100 mg capsule (Macrobid) vitamins A,C,D-hdsw-fqscel 2,148 1 tablet PO ONCE 05/05/24 05/05/24 History mcg-113 mg-45 mg-17.4 mg tablet (PreserVision AREDS) Allergies Allergy/AdvReac Type Severity Reaction Status Date / Time niacin Allergy Unknown RASH Verified 05/05/24 14:41 SWELLING Vital Signs Vital Signs - 24 hr 05/05/24 14:12 05/05/24 14:24 05/05/24 14:42 Temperature 98.5 F Pulse Rate 79 94 Respiratory Rate 20 24 H Blood Pressure 114/75 103/75 Pulse Oximetry 97 93 97 Oxygen Delivery Room Air Room Air 05/05/24 15:15 05/05/24 16:58 Temperature 98.3 F Pulse Rate 77 Respiratory Rate 15 Blood Pressure 113/61 Pulse Oximetry 99 Oxygen Delivery Exam Narrative: General: Ill-appearing elderly female in the semi-Falcon position in bed. She is in no acute distress. Weight: 66.7 kg. BMI: 26.0. HEENT: Normocephalic, atraumatic. PERRL, EOMI. Sclera anicteric. Tacky mucous membranes. Neck: Supple. No midline vertebral tenderness. No obvious carotid bruits or thyromegaly. Respiratory: Respirations are nonlabored and lungs sounds are clear to auscultation although diminished due to poor effort. Cardiovascular: Irregularly irregular rate and rhythm. Systolic murmurs heard at the apex and right upper sternal border. Gastrointestinal: Abdomen is soft, nontender, and nondistended with positive bowel sounds. Genitourinary: Pahn catheter draining cloudy, dark yellow and slightly kiran colored urine. Skin: Warm and dry. Extremities: No cyanosis, clubbing, or significant edema. Peripheral pulses palpable. Cords palpable in the right lower extremity. Neurological: Alert and able to tell me her name. She does not answer any other orientation questions. Cranial nerves 2-12 are grossly intact. No obvious facial asymmetry though she is edentulous making exam a bit difficult. Hand geothermal system installer were weak due to poor effort bilaterally but were equal. She did not participate further in the neurologic examination. She was noted to move upper extremities without obvious limitation. Psychiatric: Confused, mostly cooperative. H&P: Results Labs Labs: Short CBC 05/05/24 Range/Units 14:34 WBC 7.4 (4.5-10.0) K/mm3 Hgb 7.9 L (12.0-15.0) g/dL Hct 25.6 L (37.0-47.0) % Plt Count 285 (150-375) k/mm3 BMP 05/05/24 14:34 Sodium 141 Potassium 4.3 Chloride 113 H Carbon Dioxide 19 L BUN 44 H Creatinine 2.42 H Glucose 121 H Calcium 10.5 H Liver Function 05/05/24 Range/Units 14:34 Total Bilirubin 0.3 (0.2-1.3) mg/dL AST 24 (14-36) U/L ALT 11 (6-35) U/L Alkaline Phosphatase 101 (38-126) U/L Albumin 3.3 L (3.5-5.1) g/dL Urine 05/05/24 Range/Units 14:39 Urine Color Yellow (Yellow) Urine Appearance Turbid H (Clear) Urine pH 5.5 (5.0-9.0) Ur Specific [place] 1.011 (1.001-1.035) Urine Protein 2+ H (Negative) mg/dL Urine Glucose (UA) Negative (Negative) mg/dL Imaging Head CT 05/05/24 15:31 Impression: No acute intracranial hemorrhage or suspicious mass effect. Abdomen/Pelvis CT 05/05/24 16:46 IMPRESSION: Significant hydroureteronephrosis with bladder distention and surrounding inflammatory change. Assessment and Plan Assessment and plan (1) Acute on chronic kidney failure: Code(s): N17.9 - Acute kidney failure, unspecified; N18.9 - Chronic kidney disease, unspecified Status: Acute (2) Hydroureteronephrosis: Code(s): N13.30 - Unspecified hydronephrosis Status: Acute (3) Urinary retention: Code(s): R33.9 - Retention of urine, unspecified Status: Acute (4) Urinary tract infection: Code(s): N39.0 - Urinary tract infection, site not specified Status: Acute (5) Metabolic encephalopathy: Code(s): G93.41 - Metabolic encephalopathy Status: Acute (6) Normocytic anemia: Code(s): D64.9 - Anemia, unspecified Status: Acute (7) Atrial fibrillation: Code(s): I48.91 - Unspecified atrial fibrillation Status: Acute (8) Hypertension: Code(s): I10 - Essential (primary) hypertension Status: Acute (9) Hypothyroidism: Code(s): E03.9 - Hypothyroidism, unspecified Status: Acute (10) Crohn's disease: Code(s): K50.90 - Crohn's disease, unspecified, without complications Status: Acute (11) Dementia: Code(s): F03.90 - Unspecified dementia, unspecified severity, without behavioral disturbance, psychotic disturbance, mood disturbance, and anxiety Status: Acute Plan The patient presented to the emergency department for evaluation of altered mental status as detailed in HPI. Labs, imaging, EKG, and all reports were personally reviewed. She presumably has an acute on chronic kidney injury which may very well be related to urinary retention and severe hydroureteronephrosis. Phan catheter has been inserted for bladder decompression and hopefully her numbers will improve by tomorrow. Records have been requested to help establish her baseline. Renal ultrasound ordered for a.m. to ensure resolution of the hydroureteronephrosis. In the interim we will avoid nephrotoxic agents and renally dose all medications. She does look a bit dry on exam and will be hydrated overnight. Continue empiric ceftriaxone for possible urinary tract infection, pending culture. Most likely she has metabolic encephalopathy related to her worsening kidney function in addition to urinary retention and possible UTI as well. Brain CT did not show any acute findings and she does not appear to have any focal deficits on examination. If no improvement in the next day or so, a brain MRI may be appropriate. Check iron studies as well as B12 and folate for evaluation of normocytic anemia. She is in atrial fibrillation and is rate controlled. I do not see that she is on anticoagulation which may be due to her age and/or fall risk. Continue levothyroxine and check TSH. No active Crohn's disease noted on CT today. Lower extremity venous Doppler ultrasounds ordered as she has palpable cords on examination. Her medications will be reviewed and resumed as appropriate. The patient's medical management will be taken over by the hospitalist team in a.m. Quality VTE Prophylaxis VTE prophylaxis: mechanical ordered and pharmacologic ordered The patient has been admitted under observation status. Hospitalist MIPS Advance Care Plan I have confirmed that the patient's Advanced Care Plan is present, code status is documented, or surrogate decision maker is listed in patient medical record.: Yes Medication Reconciliation I have utilized all available resources to obtain, update and review the patients current medications (includes all prescriptions, OTC, herbals, cannabis, and nutritional supplements).: Yes
[2024-05-05] MEDS: SODIUM CHLORIDE 0.9% IV 1,000 ML 75 ML IV CONT (18:57)
--- NOTE | 2024-05-05 19:56 | ADMGEN ---
This patient, Deanna Chanel, was admitted to 2 Medical Room 256-. Patient/family oriented to hospital policies and general routines including ID bracelet, bed and alarms, visiting hours, pain management, procedures, bathroom and other care routines, personal items, smoking policy, room service/diet, and visiting hours. Information on how to activate the Rapid Response Team has been discussed. Patient/Family are encouraged to report perceived risks to care and to ask questions if they do not understand what they are told or what they should do.
[2024-05-06 04:20] VITALS: BP 115/52; PULSE 79; RESP 18; TEMP 36.8; O2SAT 98
[2024-05-06 05:57] LABS: Hemoglobin 7.8 g/dL (12.0-15.0); Mean Platelet Volume 10.3 fl (7.4-10.4); Platelet Count Result 288 k/mm3 (150-375); Red Cell Distribution Width 16.5 % (11.5-14.5); White Blood Count 9.3 K/mm3 (4.5-10.0)
[2024-05-06 06:03] LABS: Iron 27 ug/dL (37-170)
[2024-05-06 06:04] LABS: Anion Gap 12 mmol/L (4-12); Blood Urea Nitrogen 38 mg/dL (7-17); Calcium 9.8 mg/dL (8.4-10.2); Carbon Dioxide 13 mmol/L (22-30); Chloride 118 mmol/L (98-107); Estimated CRCL calculation 15 ml/min; Estimated Glomerular Filt Rate 26; Glucose 115 mg/dL (65-110); Magnesium 1.6 mg/dL (1.6-2.3); Potassium 3.8 mmol/L (3.4-5.0); Sodium 143 mmol/L (137-145)
[2024-05-06 06:14] LABS: Percent Iron Saturation 13 % (20-50)
[2024-05-06 06:42] LABS: Thyroid Stimulating Hormone Reflex 0.236 uIU/mL (0.465-4.68)
[2024-05-06 07:13] LABS: Folic Acid > 20.0 ng/mL (2.76->20)
[2024-05-06 07:40] LABS: Free T4 Free Thyroxine Reflex 1.84 ng/dL (0.78-2.19)
[2024-05-06] MEDS: SODIUM CHLORIDE 0.9% IV 1,000 ML 75 ML IV CONT (08:25)
[2024-05-06 08:30] VITALS: O2SAT 100
--- NOTE | 2024-05-06 08:30 | PC.NURSE ---
primary nurse called telegraphic typewriter operator to room to assist with assessment. patient oriented X0, unable to follow commands well. patient potentially has left side facial droop but could also be from loose skin and positioning. Jessica Robbins (hospitalist) called to bedside. orders given for stat head CT. attempted to call both contacts listed in patient's chart to complete MRI screen, as hospitalist would like to obtain if possible. left name and call back number
[2024-05-06 08:41] VITALS: BP 98/54; PULSE 71; RESP 16; TEMP 37; O2SAT 100
[2024-05-06 09:16] LABS: Total Triiodothyronine (T3) 0.56 NG/ML (0.97-1.69)
--- NOTE | 2024-05-06 09:16 | PM.IMPN ---
Progress Note: A&P Assessment and Plan (1) Acute on chronic kidney failure: Code(s): N17.9 - Acute kidney failure, unspecified; N18.9 - Chronic kidney disease, unspecified Status: Acute Assessment and Plan: Creatinine improving from 2.42>1.85. NS @ 75 ml/hr. Monitor labs. (2) AMS (altered mental status): Qualifiers: Altered mental status type: unspecified Qualified Code(s): R41.82 - Altered mental status, unspecified Code(s): R41.82 - Altered mental status, unspecified Status: Acute Assessment and Plan: Head CT negative x 2. MRI brain ordered, trying to reach family to complete questionnaire. Chest X-ray showed: IMPRESSION: 3 cm ovoid, right hilar mass, may represent lymphadenopathy, a dilated pulmonary vessel en face, other mass, or artifact. Consider CT of the chest for further evaluation. Mild interstitial edema/senescent change. CT chest ordered. Pulmononogy consult placed. (3) Hydroureteronephrosis: Code(s): N13.30 - Unspecified hydronephrosis Status: Acute Assessment and Plan: Phan catheter has been inserted for bladder decompression. CT Abdomen/Pelvis: IMPRESSION: Significant hydroureteronephrosis with bladder distention and surrounding inflammatory change. Renal ultrasound: FINDINGS: The right kidney measures 9.3 x 4.5 x 4.5 cm. The left kidney measures 8.9 x 3.5 x 3.4 cm. The kidneys demonstrate increased parenchymal echogenicity, renal sinus lipomatosis, and bilateral cortical thinning. There is mild right and trace left pelviectasis. Suggestion of mucosal thickening in the right renal pelvis. The bladder is decompressed by a Phan catheter. IMPRESSION: Bilateral cortical atrophy and evidence of medical renal disease. Bilateral pelviectasis, greater on the right, both are improved since the prior CT. Wall thickening of the right renal pelvis may reflect infection/inflammation. (4) Urinary retention: Code(s): R33.9 - Retention of urine, unspecified Status: Acute Assessment and Plan: Phan catheter has been inserted for bladder decompression Phan catheter in place. Urine culture pending. (5) Urinary tract infection: Code(s): N39.0 - Urinary tract infection, site not specified Status: Acute Assessment and Plan: Urinalysis was positive for 2+ protein, 2+ blood, 3+ leukocyte esterase, 6 to 10 RBC, and greater than 100 WBC. Urine culture pending. Ceftriaxone 1 gram IVPB daily. (6) Metabolic encephalopathy: Code(s): G93.41 - Metabolic encephalopathy Status: Acute Assessment and Plan: Most likely she has metabolic encephalopathy related to her worsening kidney function in addition to urinary retention and possible UTI as well. Brain CT did not show any acute findings and she does not appear to have any focal deficits on examination. (7) Normocytic anemia: Code(s): D64.9 - Anemia, unspecified Status: Acute Assessment and Plan: H&H 7.8/26.0, Iron 27, TIBC 213, % saturation 13, B12 742, Folate >20.0 (8) Atrial fibrillation: Code(s): I48.91 - Unspecified atrial fibrillation Status: Acute Assessment and Plan: stable (9) Hypertension: Code(s): I10 - Essential (primary) hypertension Status: Acute Assessment and Plan: Blood pressure ranging from 98/54-149/77. (10) Hypothyroidism: Code(s): E03.9 - Hypothyroidism, unspecified Status: Acute Assessment and Plan: TSH 0.236, Free T4 1.84, Total T3 0.56. (11) Crohn's disease: Code(s): K50.90 - Crohn's disease, unspecified, without complications Status: Acute Assessment and Plan: No active Crohn's disease noted on CT today. (12) Dementia: Code(s): F03.90 - Unspecified dementia, unspecified severity, without behavioral disturbance, psychotic disturbance, mood disturbance, and anxiety Status: Acute Plan Subjective Date/time seen: 05/06/24 09:16 Interval history: Patient opens eyes and occasionally moans when touched. Nurse called concerned about facial droop. Patient with slight left facial droop and left arm flaccid. Head CT repeated was negative. Patient unable to participate in a swallow study. Unable to reach family. Review of Systems Review of Systems: All systems reviewed & are unremarkable except as noted in HPI and below Exam Const: Other: Ill-appearing elderly female in the semi-Falcon position in bed. HENMT: Other: Left side of mouth with slight droop. White secretions in mouth, patient needing suctioned. Eyes: Sclera: sclerae normal Other: Patient has macular degeneration Resp: Effort & Inspection: normal respiratory effort Auscultation: diminished lung sounds Cardio: Rhythm: abnormal rhythm irregularly irregular GI: GI Palp: Yes Soft to palpation Auscultation: normal bowel sounds Urinary Catheter: Urinary Catheter: patent and draining (Turbid darker yellow urine) Extrem: General: no pedal edema Other: Left arm flaccid. Psych: Other: Garbled speech occasionally. Objective Data Vital Signs Vital Signs: Vital Signs - 24 hr 05/05/24 14:12 05/05/24 14:24 05/05/24 14:42 Temperature 98.5 F Pulse Rate 79 94 Respiratory Rate 20 24 H Blood Pressure 114/75 103/75 Pulse Oximetry 97 93 97 Oxygen Delivery Room Air Room Air 05/05/24 15:15 05/05/24 16:58 05/05/24 18:25 Temperature 98.3 F 99.5 F Pulse Rate 77 100 Respiratory Rate 15 20 Blood Pressure 113/61 146/89 H Pulse Oximetry 99 95 Oxygen Delivery 05/05/24 18:27 05/05/24 18:55 05/05/24 20:00 Temperature Pulse Rate 107 H 78 Respiratory Rate 20 Blood Pressure 109/86 Pulse Oximetry 97 Oxygen Delivery Room Air 05/05/24 21:28 05/06/24 04:20 05/06/24 08:41 Temperature 97.6 F 98.2 F 98.6 F Pulse Rate 121 H 79 71 Respiratory Rate 18 18 16 Blood Pressure 134/82 115/52 L 98/54 L Pulse Oximetry 95 98 100 Oxygen Delivery Intake/Output Intake/Output: Intake & Output 05/03/24 05/04/24 05/05/24 05/06/24 23:59 23:59 23:59 23:59 Intake Total 2049 Output Total 75 50 Balance 1974 - Meds/Results Medications: Active Medications Generic Name Dose Route Start Last Admin Trade Name Freq PRN Reason Stop Dose Admin Acetaminophen 650 mg 05/05/24 17:38 Acetaminophen 325 Mg Tablet PO Q4H PRN Mild Pain (1-3) or Fever Allopurinol 200 mg 05/06/24 09:00 Allopurinol 100 Mg Tablet PO DAILY [facility] Artificial Tears 2 drop 05/06/24 09:00 Artificial Tears Ophth Soln 15 Ml Bottle EACH EYE TID [facility] Atorvastatin Calcium 20 mg 05/06/24 09:00 Atorvastatin 20 Mg Tablet PO DAILY [facility] Calcitriol 0.25 mcg 05/06/24 09:00 Calcitriol 0.25 Mcg Capsule PO DAILY [facility] Dextrose 12.5 gm 05/05/24 17:38 Dextrose 50% 25 Gm/50 Ml Syringe IV PUSH PRN PRN Hypoglycemia Protocol Diclofenac Sodium 1 applic 05/06/24 09:00 Diclofenac Sodium 1% 100 Gm Gel (*Bkc) TOPICAL QID [facility] Donepezil HCl 5 mg 05/06/24 21:00 Donepezil Hcl 5 Mg Tablet PO HS [facility] Glucagon 1 mg 05/05/24 17:38 Glucagon For Inj 1 Mg Vial IM PRN PRN Hypoglycemia Protocol Glucose 15 gm 05/05/24 17:38 Glucose Oral Gel 15 Gm Of Glucse In 37.5 Gm Tube PO PRN PRN Hypoglycemia Protocol Heparin Sodium (Porcine) 5,000 units 05/06/24 09:00 Heparin Sodium 5,000 Units/Ml Vial SUB-Q Q12HR ED Dextrose 1,000 mls @ 100 mls/hr 05/05/24 17:38 Dextrose 5% 1,000 Ml IVPB PRN PRN Hypoglycemia Protocol Ceftriaxone Sodium 1 gm in 50 mls @ 100 mls/hr 05/06/24 15:00 Rocephin 1 Gm/Ns 50 Ml IVPB Q24H ED Sodium Chloride 1,000 mls @ 75 mls/hr 05/05/24 22:45 05/06/24 08:25 Normal Saline Iv IV CONT 05/06/24 12:03 75 mls/hr .[id number] ONE Administration Magnesium Sulfate 2 gm in 50 mls @ 25 mls/hr 05/06/24 09:14 Magnesium Sulf 2 Gm/Water 50ml IVPB 05/06/24 11:13 ONCE ONE Levothyroxine Sodium 125 mcg 05/06/24 06:30 05/06/24 06:18 Levothyroxine Sodium 125 Mcg Tablet PO Not Given DAILY@0630 [facility] Loratadine 10 mg 05/06/24 09:00 Loratadine 10 Mg Tablet PO DAILY [facility] Melatonin 10 mg 05/06/24 21:00 Melatonin 5 Mg Tablet PO HS [facility] Mesalamine 1,000 mg 05/06/24 09:00 Mesalamine 250 Mg Cap Cr PO Q12HR [facility] Metoprolol Succinate 25 mg 05/06/24 09:00 Metoprolol Succinate Ext Rel 25 Mg Tabcr PO DAILY [facility] Mirtazapine 15 mg 05/06/24 21:00 Mirtazapine 15 Mg Tablet PO HS [facility] Multivitamins/Minerals 1 tablet 05/06/24 12:00 Opti-Gen Tab PO DAILY@1200 [facility] Ondansetron HCl 4 mg 05/05/24 17:38 Ondansetron Inj 4 Mg/2 Ml Vial IV PUSH Q4H PRN Nausea Solifenacin 5 mg 05/06/24 21:00 Solifenacin 5 Mg Tablet PO [facility] Radiology Results: ITS Impressions Head CT 05/05/24 15:31 Impression: No acute intracranial hemorrhage or suspicious mass effect. Abdomen/Pelvis CT 05/05/24 16:46 IMPRESSION: Significant hydroureteronephrosis with bladder distention and surrounding inflammatory change. Labs Labs: Laboratory Results - last 24 hr 05/05/24 05/05/24 05/05/24 14:34 14:39 14:58 WBC 7.4 RBC 2.61 L Hgb 7.9 L Hct 25.6 L MCV 98.1 MCH 30.3 MCHC 30.9 L RDW 16.3 H Plt Count 285 MPV 10.1 Immature Gran % (Auto) 0.4 Neut % (Auto) 80.8 H Lymph % (Auto) 11.2 L [place] % (Auto) 7.2 Eos % (Auto) 0.1 Baso % (Auto) 0.3 Lymph # (Auto) 0.83 L [place] # (Auto) 0.5 Eos # (Auto) 0.0 Baso # (Auto) 0.0 Abs Immat Gran (auto) 0.03 Absolute Neuts (auto) 6.0 Absolute Nucleated RBC 0.000 Nucleated RBC % 0.0 PT 15.3 H INR 1.2 APTT 28.5 Sodium 141 Potassium 4.3 Chloride 113 H Carbon Dioxide 19 L Anion Gap 9 BUN 44 H Creatinine 2.42 H Estim Creat Clear Calc 14 Estimated GFR 19 L Glucose 121 H Lactic Acid 1.1 Calcium 10.5 H Magnesium Iron TIBC % Saturation Ferritin Total Bilirubin 0.3 AST 24 ALT 11 Alkaline Phosphatase 101 Total Protein 7.0 Albumin 3.3 L Vitamin B12 Folate TSH (Reflex) Free T4 Total T3 Urine Color Yellow Urine Appearance Turbid H Urine pH 5.5 Ur Specific Scott 1.011 Urine Protein 2+ H Urine Glucose (UA) Negative Urine Ketones Negative Ur Blood (Man) 2+ H Urine Nitrate Negative Urine Bilirubin Negative Urine Urobilinogen 0.2 Leukocyte Esterase Rfl 3+ H Urine RBC 6-10 H Urine WBC >100 H Ur Squamous Epith Cells Few Urine Bacteria None seen Urine Casts 0-2 05/06/24 05:47 WBC 9.3 RBC 2.60 L Hgb 7.8 L Hct 26.0 L MCV 100.0 MCH 30.0 MCHC 30.0 L RDW 16.5 H Plt Count 288 MPV 10.3 Immature Gran % (Auto) Neut % (Auto) Lymph % (Auto) [place] % (Auto) Eos % (Auto) Baso % (Auto) Lymph # (Auto) [place] # (Auto) Eos # (Auto) Baso # (Auto) Abs Immat Gran (auto) Absolute Neuts (auto) Absolute Nucleated RBC Nucleated RBC % PT INR APTT Sodium 143 Potassium 3.8 Chloride 118 H Carbon Dioxide 13 L Anion Gap 12 BUN 38 H Creatinine 1.85 H Estim Creat Clear Calc 15 Estimated GFR 26 L Glucose 115 H Lactic Acid Calcium 9.8 Magnesium 1.6 Iron 27 L TIBC 213 L % Saturation 13 L Ferritin 152.00 Total Bilirubin AST ALT Alkaline Phosphatase Total Protein Albumin Vitamin B12 742.0 Folate > 20.0 H TSH (Reflex) 0.236 L Free T4 1.84 Total T3 0.56 L Urine Color Urine Appearance Urine pH Ur Specific Scott Urine Protein Urine Glucose (UA) Urine Ketones Ur Blood (Man) Urine Nitrate Urine Bilirubin Urine Urobilinogen Leukocyte Esterase Rfl Urine RBC Urine WBC Ur Squamous Epith Cells Urine Bacteria Urine Casts Quality VTE Prophylaxis VTE prophylaxis: mechanical ordered and pharmacologic ordered
[2024-05-06] MEDS: MAGNESIUM SULF 2 GM/WATER 50ML 2 GM/50 ML BAG IVPB (11:18)
[2024-05-06] MEDS: HEPARIN SODIUM 5,000 UNITS/ML VIAL 5000 UNITS SUB-Q ×2 (11:21→21:30)
[2024-05-06] MEDS: ARTIFICIAL TEARS OPHTH SOLN 15 ML BOTTLE 2 DROP EACH EYE ×3 (11:24→16:05)
[2024-05-06] MEDS: DICLOFENAC SODIUM 1% 100 GM GEL (*BKC) 1 APPLIC TOPICAL ×4 (11:24→21:30)
--- NOTE | 2024-05-06 11:35 | PCSTNOTE ---
BSE attempted on this date but patient was not alert enough to participate safely, as evidenced by inability to answer questions, limited movement when ice chips brought to lips/tongue w/ open-mouth posture.
[2024-05-06 14:00] VITALS: BP 149/77; PULSE 85; RESP 18; TEMP 37; O2SAT 98
[2024-05-06 20:57] VITALS: BP 130/66; PULSE 85; RESP 12; TEMP 36.6; O2SAT 100
[2024-05-07] MEDS: SODIUM CHLORIDE 0.9% IV 1,000 ML 75 ML IV CONT (02:15)
[2024-05-07 05:28] VITALS: BP 148/76; PULSE 82; RESP 12; TEMP 36.4; O2SAT 99
[2024-05-07 05:38] LABS: Basophils Percent Auto 0.2 % (0.2-1.2); Eosinophils Percent Auto 0.1 % (0-4.4); Hematocrit 26.1 % (37.0-47.0); Hemoglobin 8.2 g/dL (12.0-15.0); Immature Granulocyte Absolute 0.08 K/mm3 (0.00-0.031); Immature Granulocyte Percent A 0.6 % (0-0.5); Lymphocytes Absolute Auto 0.82 K/mm3 (0.9-3.2); Lymphocytes Percent Auto 6.6 % (18.3-44.2); Mean Corpuscular HGB Conc 31.4 g/dl (32-36); Mean Corpuscular Hemoglobin 30.9 pg (26-34); Mean Corpuscular Volume 98.5 fl (80-100); Mean Platelet Volume 10.6 fl (7.4-10.4); Monocytes Absolute Auto 0.9 K/mm3 (0.1-0.6); Monocytes Percent Auto 7.2 % (2.6-8.5); Neutrophils Absolute Auto 10.5 K/mm3 (1.3-6.7); Neutrophils Percent Auto 85.3 % (45.5-73.1); Platelet Count Result 266 k/mm3 (150-375); Red Blood Count 2.65 M/mm3 (4.2-5.4); Red Cell Distribution Width 16.7 % (11.5-14.5); White Blood Count 12.4 K/mm3 (4.5-10.0)
[2024-05-07 05:59] LABS: Alanine Aminotransferase 12 U/L (6-35); Albumin Level 3.1 g/dL (3.5-5.1); Alkaline Phosphatase 102 U/L (38-126); Anion Gap 11 mmol/L (4-12); Aspartate Amino Transferase 28 U/L (14-36); Bilirubin,Total 0.3 mg/dL (0.2-1.3); Blood Urea Nitrogen 36 mg/dL (7-17); Calcium 9.8 mg/dL (8.4-10.2); Carbon Dioxide 16 mmol/L (22-30); Chloride 120 mmol/L (98-107); Estimated CRCL calculation 16 ml/min; Estimated Glomerular Filt Rate 27; Glucose 104 mg/dL (65-110); Magnesium 2.2 mg/dL (1.6-2.3); Potassium 3.8 mmol/L (3.4-5.0); Sodium 147 mmol/L (137-145)
[2024-05-07] MEDS: LACTATED RINGERS 1,000 ML 75 ML IV CONT ×2 (07:55→21:06)
[2024-05-07 08:58] VITALS: BP 124/59; PULSE 89; RESP 18; TEMP 37.1; O2SAT 100
[2024-05-07] MEDS: ARTIFICIAL TEARS OPHTH SOLN 15 ML BOTTLE 2 DROP EACH EYE ×3 (09:02→16:29)
[2024-05-07] MEDS: HEPARIN SODIUM 5,000 UNITS/ML VIAL 5000 UNITS SUB-Q ×2 (09:03→21:03)
[2024-05-07 09:07] VITALS: PULSE 89; O2SAT 100
[2024-05-07] MEDS: DICLOFENAC SODIUM 1% 100 GM GEL (*BKC) 1 APPLIC TOPICAL ×4 (09:07→21:03)
--- NOTE | 2024-05-07 09:54 | PM.IMHP ---
H&P: HPI History of Present Illness Date/Time: 05/07/24 09:54 Review of Systems Review of Systems: All systems reviewed & are unremarkable except as noted in HPI and below [facility] Past Medical History Medical History (Updated 05/05/24 @ 22:37 by Ana Maria España PA-C) Depression Macular degeneration Hypothyroidism Vitamin D deficiency Gout Arthritis Overactive bladder Chronic kidney disease Gastroesophageal reflux disease Crohn's disease Hyperlipidemia Hypertension Atrial fibrillation Dementia Surgical History Surgical History (Updated 05/05/24 @ 22:29 by Ana Maria España PA-C) History of knee replacement Family History Family History (Updated 05/05/24 @ 22:30 by Ana Maria España PA-C) Other Family history unknown Social History Social History (Updated 05/05/24 @ 22:31 by Ana Maria España PA-C) Social History: Surrogate medical decision maker: Dao Chanel, dave ([phone]). Code status: Full code. Smoking status: Unknown if ever smoked Alcohol intake: unknown Substance use: unknown Additional living arrangements comments: [facility]. Spiritual care concerns: No Meds Home Medications and Allergies Home Medications ?Medication ?Instructions ?Recorded ?Confirmed ?Type diclofenac sodium 1 % topical gel 2 g topical QID 01/28/21 05/05/24 History (Arthritis Pain (diclofenac)) levothyroxine 125 mcg tablet 125 mcg PO DAILY 01/28/21 05/05/24 History (Synthroid) lisinopril 10 mg tablet 10 mg PO DAILY 01/28/21 05/05/24 History loperamide 2 mg capsule 2 mg PO Q6H PRN loose stool 01/28/21 05/05/24 History (Anti-Diarrheal (loperamide)) melatonin 5 mg capsule 10 mg PO HS 01/28/21 05/05/24 History mesalamine 500 mg capsule,extended 1,000 mg PO BID 01/28/21 05/05/24 History release (Pentasa) metoprolol succinate 25 mg 25 mg PO DAILY 01/28/21 05/05/24 History tablet,extended release 24 hr mirtazapine 15 mg tablet (Remeron) 15 mg PO HS 01/28/21 05/05/24 History solifenacin 5 mg tablet (Vesicare) 5 mg PO HS 01/28/21 05/05/24 History allopurinol 100 mg tablet 200 mg PO DAILY 05/05/24 05/05/24 History atorvastatin 20 mg tablet 20 mg PO DAILY 05/05/24 05/05/24 History calcitriol 0.25 mcg capsule 0.25 mcg PO DAILY 05/05/24 05/05/24 History carboxymethylcellulose sodium 0.5 2 drp EACH EYE TID 05/05/24 05/05/24 History % eye drops in a dropperette (Refresh Plus) donepezil 5 mg tablet 5 mg PO HS 05/05/24 05/05/24 History loratadine 10 mg tablet (Claritin) 10 mg PO DAILY 05/05/24 05/05/24 History nitrofurantoin 100 mg PO Q12H 05/05/24 05/05/24 History monohydrate/macrocrystals 100 mg capsule (Macrobid) vitamins A,C,[id number]-emga-wtkcwn 2,148 1 tablet PO ONCE 05/05/24 05/05/24 History mcg-113 mg-45 mg-17.4 mg tablet (PreserVision AREDS) Allergies Allergy/AdvReac Type Severity Reaction Status Date / Time niacin Allergy Unknown RASH Verified 05/05/24 14:41 SWELLING Vital Signs Vital Signs - 24 hr 05/06/24 14:00 05/06/24 20:00 05/06/24 20:57 Temperature 98.6 F 97.9 F Pulse Rate 85 85 Respiratory Rate 18 12 Blood Pressure 149/77 H 130/66 Pulse Oximetry 98 100 Oxygen Delivery Room Air 05/07/24 05:28 05/07/24 08:58 05/07/24 09:07 Temperature 97.5 F L 98.7 F Pulse Rate 82 89 89 Respiratory Rate 12 18 Blood Pressure 148/76 H 124/59 L Pulse Oximetry 99 100 Oxygen Delivery H&P: Results Labs Labs: Short CBC 05/07/24 Range/Units 05:10 WBC 12.4 H (4.5-10.0) K/mm3 Hgb 8.2 L (12.0-15.0) g/dL Hct 26.1 L (37.0-47.0) % Plt Count 266 (150-375) k/mm3 BMP 05/07/24 05:10 Sodium 147 H Potassium 3.8 Chloride 120 H Carbon Dioxide 16 L BUN 36 H Creatinine 1.76 H Glucose 104 Calcium 9.8 Liver Function 05/07/24 Range/Units 05:10 Total Bilirubin 0.3 (0.2-1.3) mg/dL AST 28 (14-36) U/L ALT 12 (6-35) U/L Alkaline Phosphatase 102 (38-126) U/L Albumin 3.1 L (3.5-5.1) g/dL
--- NOTE | 2024-05-07 11:17 | WPDNEURCNPN ---
Assessment and Plan Assessment and plan (1) Right-sided cerebrovascular accident (CVA): Code(s): I63.9 - Cerebral infarction, unspecified Status: Acute Assessment and Plan: the patient appears to have weakness in the left upper limb which is essentially flaccid at this time. I am do not see any significant difference the left versus right leg but she does not cooperate for manual motor testing. No significant facial asymmetry. I will suggest an MRI of the brain. CT scan of brain shows significant superficial and central atrophy and prominent ventricles. A carotid Doppler study , echocardiogram and EEG will also be recommended . She is on atorvastatin 20 mg a day. There is history of atrial fibrillation but she is not on any anticoagulation. I will go ahead and add aspirin and Plavix And increase the dose of atorvastatin to 40 mg a day to keep it in the high intensity range for now. (2) AMS (altered mental status): Qualifiers: Altered mental status type: unspecified Qualified Code(s): R41.82 - Altered mental status, unspecified Code(s): R41.82 - Altered mental status, unspecified Status: Acute (3) Dementia: Code(s): F03.90 - Unspecified dementia, unspecified severity, without behavioral disturbance, psychotic disturbance, mood disturbance, and anxiety Status: Acute (4) Metabolic encephalopathy: Code(s): G93.41 - Metabolic encephalopathy Status: Acute (5) Hypertension: Code(s): I10 - Essential (primary) hypertension Status: Acute (6) Atrial fibrillation: Code(s): I48.91 - Unspecified atrial fibrillation Status: Acute (7) Hyperlipidemia: Code(s): E78.5 - Hyperlipidemia, unspecified Status: Acute (8) Hypothyroidism: Code(s): E03.9 - Hypothyroidism, unspecified Status: Acute (9) Hearing loss: Qualifiers: Hearing loss type: unspecified Laterality: bilateral Qualified Code(s): H91.93 - Unspecified hearing loss, bilateral Code(s): H91.90 - Unspecified hearing loss, unspecified ear Status: Acute (10) Crohn's disease: Code(s): K50.90 - Crohn's disease, unspecified, without complications Status: Acute (11) Chronic kidney disease: Code(s): N18.9 - Chronic kidney disease, unspecified Status: Acute (12) Urinary retention: Code(s): R33.9 - Retention of urine, unspecified Status: Acute (13) Normocytic anemia: Code(s): D64.9 - Anemia, unspecified Status: Acute Plan the patient is being treated with IV fluids and antibiotics in view of the urinary tract infection with which I agree. I would suggest an MRI of the brain, carotid Doppler study and a echocardiogram , EEG And lipid profile From the point of view of cerebrovascular disease concurrent problem. I noted her serum B12 and folic acid level and TSH have been checked and these are within normal range. Consult date: 05/07/24 HPI: Deanna Chanel is a 88 year old female with history of dementia, atrial fibrillation, hypertension Crohn's disease kidney disease degeneration 0 presented to this hospital emergency room EMS from nursing facility in [place]. Patient unable to provide me any history which is obtained from review of her records. This is her 1st admission to this facility she was diagnosed to urinary tract infection and was given nitrofurantoin at previous emergency room. The facility sent here for further. The patient unable to tell me her name but he did respond to her 1st name open eyes and looking. She made brief eye contact but does communicate at all this morning. She is awake at CT scan of the abdomen pelvis has shown a significant hydrouronephrosis with bladder distension and surrounding inflammatory changes. A urinary catheter was placed to decompress over distended bladder. Review of Systems Review of Systems: ROS unobtainable: Yes unobtainable due to mental status PMFSH Past Medical History Medical History (Updated 05/07/24 @ 11:28 by Enzo Richards MD) Right-sided cerebrovascular accident (CVA) Depression Macular degeneration Hypothyroidism Vitamin D deficiency Gout Arthritis Overactive bladder Chronic kidney disease Gastroesophageal reflux disease Crohn's disease Hyperlipidemia Hypertension Atrial fibrillation Dementia Surgical History Surgical History History of knee replacement Family History Family History Other Family history unknown Social History Social History Social History: Surrogate medical decision maker: Dao Chanel, son ([phone]). Code status: Full code. Smoking status: Unknown if ever smoked Alcohol intake: unknown Substance use: unknown Additional living arrangements comments: [facility]. Spiritual care concerns: No Meds Home Medications and Allergies Home Medications ?Medication ?Instructions ?Recorded ?Confirmed ?Type diclofenac sodium 1 % topical gel 2 g topical QID 01/28/21 05/05/24 History (Arthritis Pain (diclofenac)) levothyroxine 125 mcg tablet 125 mcg PO DAILY 01/28/21 05/05/24 History (Synthroid) lisinopril 10 mg tablet 10 mg PO DAILY 01/28/21 05/05/24 History loperamide 2 mg capsule 2 mg PO Q6H PRN loose stool 01/28/21 05/05/24 History (Anti-Diarrheal (loperamide)) melatonin 5 mg capsule 10 mg PO HS 01/28/21 05/05/24 History mesalamine 500 mg capsule,extended 1,000 mg PO BID 01/28/21 05/05/24 History release (Pentasa) metoprolol succinate 25 mg 25 mg PO DAILY 01/28/21 05/05/24 History tablet,extended release 24 hr mirtazapine 15 mg tablet (Remeron) 15 mg PO HS 01/28/21 05/05/24 History solifenacin 5 mg tablet (Vesicare) 5 mg PO HS 01/28/21 05/05/24 History allopurinol 100 mg tablet 200 mg PO DAILY 05/05/24 05/05/24 History atorvastatin 20 mg tablet 20 mg PO DAILY 05/05/24 05/05/24 History calcitriol 0.25 mcg capsule 0.25 mcg PO DAILY 05/05/24 05/05/24 History carboxymethylcellulose sodium 0.5 2 drp EACH EYE TID 05/05/24 05/05/24 History % eye drops in a dropperette (Refresh Plus) donepezil 5 mg tablet 5 mg PO HS 05/05/24 05/05/24 History loratadine 10 mg tablet (Claritin) 10 mg PO DAILY 05/05/24 05/05/24 History nitrofurantoin 100 mg PO Q12H 05/05/24 05/05/24 History monohydrate/macrocrystals 100 mg capsule (Macrobid) vitamins A,C,H-hjvu-vldkvh 2,148 1 tablet PO ONCE 05/05/24 05/05/24 History mcg-113 mg-45 mg-17.4 mg tablet (PreserVision AREDS) Allergies Allergy/AdvReac Type Severity Reaction Status Date / Time niacin Allergy Unknown RASH Verified 05/05/24 14:41 SWELLING Vital Signs Vital Signs - 24 hr 05/06/24 14:00 05/06/24 20:00 05/06/24 20:57 Temperature 98.6 F 97.9 F Pulse Rate 85 85 Respiratory Rate 18 12 Blood Pressure 149/77 H 130/66 Pulse Oximetry 98 100 Oxygen Delivery Room Air 05/07/24 05:28 05/07/24 08:58 05/07/24 09:07 Temperature 97.5 F L 98.7 F Pulse Rate 82 89 89 Respiratory Rate 12 18 Blood Pressure 148/76 H 124/59 L Pulse Oximetry 99 100 Oxygen Delivery Exam Narrative: The patient does not communicate verbally but made brief eye contact and responded to her name does not follow any commands. No apparent facial asymmetry. Extraocular movements intact. Pupils were equal reacting to light. Tongue appears midline. No nuchal rigidity. A loud systolic murmur noted over precordium which seems to radiate to both carotid arteries. She has flaccid left arm but seems to moving her right arm frequently with a mild tremor but no cogwheeling. Does not cooperate for lower limb examination however the tone in the left lower limb did not seem to be spastic or flaccid at this time. No other significant abnormalities. Results Labs 05/07/24 05:10 05/07/24 05:10 Labs: Short CBC 05/07/24 Range/Units 05:10 WBC 12.4 H (4.5-10.0) K/mm3 Hgb 8.2 L (12.0-15.0) g/dL Hct 26.1 L (37.0-47.0) % Plt Count 266 (150-375) k/mm3 BMP 05/07/24 05:10 Sodium 147 H Potassium 3.8 Chloride 120 H Carbon Dioxide 16 L BUN 36 H Creatinine 1.76 H Glucose 104 Calcium 9.8 Liver Function 05/07/24 Range/Units 05:10 Total Bilirubin 0.3 (0.2-1.3) mg/dL AST 28 (14-36) U/L ALT 12 (6-35) U/L Alkaline Phosphatase 102 (38-126) U/L Albumin 3.1 L (3.5-5.1) g/dL Imaging My impression: CT scan of brain which shows significant atrophy at both superficial and central level with prominent ventricles. Radiologist's impression: Similar
[2024-05-07 12:13] LABS: Cholesterol 104 mg/dL (0-200); HDL Direct 36 mg/dL; Triglycerides 63 mg/dL (<150)
[2024-05-07 12:24] LABS: LDL Cholesterol Direct 43 mg/dL
--- NOTE | 2024-05-07 12:44 | PM.IMPN ---
Subjective Date/time seen: 05/07/24 12:44 Review of Systems Review of Systems: All systems reviewed & are unremarkable except as noted in HPI and below Objective Data Vital Signs Vital Signs: Vital Signs - 24 hr 05/06/24 14:00 05/06/24 20:00 05/06/24 20:57 Temperature 98.6 F 97.9 F Pulse Rate 85 85 Respiratory Rate 18 12 Blood Pressure 149/77 H 130/66 Pulse Oximetry 98 100 Oxygen Delivery Room Air 05/07/24 05:28 05/07/24 08:58 05/07/24 09:07 Temperature 97.5 F L 98.7 F Pulse Rate 82 89 89 Respiratory Rate 12 18 Blood Pressure 148/76 H 124/59 L Pulse Oximetry 99 100 Oxygen Delivery Intake/Output Intake/Output: Intake & Output 05/04/24 05/05/24 05/06/24 05/07/24 23:59 23:59 23:59 23:59 Intake Total 2050 0 Output Total 75 246 700 Balance 19741 Meds/Results Medications: Active Medications Generic Name Dose Route Start Last Admin Trade Name Freq PRN Reason Stop Dose Admin Acetaminophen 650 mg 05/05/24 17:38 Acetaminophen 325 Mg Tablet PO Q4H PRN Mild Pain (1-3) or Fever Allopurinol 200 mg 05/06/24 09:00 05/07/24 09:06 Allopurinol 100 Mg Tablet PO Not Given DAILY [facility] Artificial Tears 2 drop 05/06/24 09:00 05/07/24 09:02 Artificial Tears Ophth Soln 15 Ml Bottle EACH EYE 2 drop TID [facility] Administration Aspirin 81 mg 05/08/24 09:00 Aspirin 81 Mg Enteric Tablet PO QAM [facility] Atorvastatin Calcium 40 mg 05/08/24 09:00 Atorvastatin 40 Mg Tablet PO DAILY [facility] Calcitriol 0.25 mcg 05/06/24 09:00 05/07/24 09:06 Calcitriol 0.25 Mcg Capsule PO Not Given DAILY [facility] Clopidogrel Bisulfate 75 mg 05/08/24 09:00 Clopidogrel Bisulfate 75 Mg Tablet PO QAM [facility] Dextrose 12.5 gm 05/05/24 17:38 Dextrose 50% 25 Gm/50 Ml Syringe IV PUSH PRN PRN Hypoglycemia Protocol Diclofenac Sodium 1 applic 05/06/24 09:00 05/07/24 09:07 Diclofenac Sodium 1% 100 Gm Gel (*Bkc) TOPICAL 1 applic QID ED Administration Donepezil HCl 5 mg 05/06/24 21:00 05/06/24 21:31 Donepezil Hcl 5 Mg Tablet PO Not Given HS ED Glucagon 1 mg 05/05/24 17:38 Glucagon For Inj 1 Mg Vial IM PRN PRN Hypoglycemia Protocol Glucose 15 gm 05/05/24 17:38 Glucose Oral Gel 15 Gm Of Glucse In 37.5 Gm Tube PO PRN PRN Hypoglycemia Protocol Heparin Sodium (Porcine) 5,000 units 05/06/24 09:00 05/07/24 09:03 Heparin Sodium 5,000 Units/Ml Vial SUB-Q 5,000 units Q12HR ED Administration Hydralazine HCl 10 mg 05/07/24 07:41 Hydralazine Hcl 20 Mg/Ml Vial IV PUSH Q8H PRN Blood Pressure - High Dextrose 1,000 mls @ 100 mls/hr 05/05/24 17:38 Dextrose 5% 1,000 Ml IVPB PRN PRN Hypoglycemia Protocol Ceftriaxone Sodium 1 gm in 50 mls @ 100 mls/hr 05/06/24 15:00 05/06/24 14:06 Rocephin 1 Gm/Ns 50 Ml IVPB 100 mls/hr Q24H ED Administration Lactated Ringer's 1,000 mls @ 75 mls/hr 05/07/24 07:40 05/07/24 07:55 Lr - Lactated Ringers Iv IV CONT 75 mls/hr .[id number] ED Administration Levothyroxine Sodium 125 mcg 05/06/24 06:30 05/07/24 05:42 Levothyroxine Sodium 125 Mcg Tablet PO Not Given DAILY@0630 ED Loratadine 10 mg 05/06/24 09:00 05/07/24 09:07 Loratadine 10 Mg Tablet PO Not Given DAILY ED Melatonin 10 mg 05/06/24 21:00 05/06/24 21:31 Melatonin 5 Mg Tablet PO Not Given HS ED Mesalamine 1,000 mg 05/06/24 09:00 05/07/24 09:07 Mesalamine 250 Mg Cap Cr PO Not Given Q12HR ED Metoprolol Succinate 25 mg 05/06/24 09:00 05/07/24 09:07 Metoprolol Succinate Ext Rel 25 Mg Tabcr PO Not Given DAILY ED Mirtazapine 15 mg 05/06/24 21:00 05/06/24 21:31 Mirtazapine 15 Mg Tablet PO Not Given HS [facility] Multivitamins/Minerals 1 tablet 05/06/24 12:00 05/07/24 11:50 Opti-Gen Tab PO Not Given DAILY@1200 [facility] Ondansetron HCl 4 mg 05/05/24 17:38 Ondansetron Inj 4 Mg/2 Ml Vial IV PUSH Q4H PRN Nausea Solifenacin 5 mg 05/06/24 21:00 05/06/24 21:32 Solifenacin 5 Mg Tablet PO Not Given HS [facility] Radiology Results: ITS Impressions Abdomen/Pelvis CT 05/05/24 16:46 IMPRESSION: Significant hydroureteronephrosis with bladder distention and surrounding inflammatory change. Head CT 05/06/24 10:38 Impression: No acute intracranial hemorrhage or suspicious mass effect. Examination is unchanged from previous study performed less than 24 hours earlier, when the clinical presentation included altered mental status only. Venous Doppler Study 05/06/24 13:33 IMPRESSION: 1. No deep venous thrombosis to the level of the posterior tibial vein on the right and to the level of the popliteal vein on the left. Renal Ultrasound 05/06/24 14:25 IMPRESSION: Bilateral cortical atrophy and evidence of medical renal disease. Bilateral pelviectasis, greater on the right, both are improved since the prior CT. Wall thickening of the right renal pelvis may reflect infection/inflammation. Chest X-Ray 05/06/24 16:12 IMPRESSION: 3 cm ovoid, right hilar mass, may represent lymphadenopathy, a dilated pulmonary vessel en face, other mass, or artifact. Consider CT of the chest for further evaluation. Mild interstitial edema/senescent change. Chest CT 05/07/24 05:58 Impression: No abnormal mass lesion identified. Small bilateral pleural effusions. Cardiomegaly. Moderate hiatal hernia. Labs Labs: Laboratory Results - last 24 hr 05/07/24 05/07/24 05:07 05:10 WBC 12.4 H RBC 2.65 L Hgb 8.2 L Hct 26.1 L MCV 98.5 MCH 30.9 MCHC 31.4 L RDW 16.7 H Plt Count 266 MPV 10.6 H Immature Gran % (Auto) 0.6 H Neut % (Auto) 85.3 H Lymph % (Auto) 6.6 L [place] % (Auto) 7.2 Eos % (Auto) 0.1 Baso % (Auto) 0.2 Lymph # (Auto) 0.82 L [place] # (Auto) 0.9 H Eos # (Auto) 0.0 Baso # (Auto) 0.0 Abs Immat Gran (auto) 0.08 H Absolute Neuts (auto) 10.5 H Absolute Nucleated RBC 0.000 Nucleated RBC % 0.0 Sodium 147 H Potassium 3.8 Chloride 120 H Carbon Dioxide 16 L Anion Gap 11 BUN 36 H Creatinine 1.76 H Estim Creat Clear Calc 16 Estimated GFR 27 L Glucose 104 Calcium 9.8 Magnesium 2.2 Total Bilirubin 0.3 AST 28 ALT 12 Alkaline Phosphatase 102 Total Protein 6.0 L Albumin 3.1 L Triglycerides 63 Cholesterol 104 LDL Cholesterol Direct 43 HDL Direct 36
[2024-05-07 12:59] VITALS: BMI 26.3
--- NOTE | 2024-05-07 13:01 | P.PNIM_ITS ---
Progress Note: A&P Assessment and Plan (1) Acute on chronic kidney failure: Code(s): N17.9 - Acute kidney failure, unspecified; N18.9 - Chronic kidney disease, unspecified Status: Acute Assessment and Plan: * Creatinine improving from 2.42>1.85>1.76. * LR @ 75 ml/hr. * Monitor labs. (2) AMS (altered mental status): Qualifiers: Altered mental status type: unspecified Qualified Code(s): R41.82 - Altered mental status, unspecified Code(s): R41.82 - Altered mental status, unspecified Status: Acute Assessment and Plan: * Head CT negative x 2. * MRI brain ordered, trying to reach family to complete questionnaire. * Chest X-ray showed: IMPRESSION: 3 cm ovoid, right hilar mass, may represent lymphadenopathy, a dilated pulmonary vessel en face, other mass, or artifact. Consider CT of the chest for further evaluation. Mild interstitial edema/senescent change. * CT chest showed: Findings: There is no evidence of any significant mediastinal, hilar or axillary lymphadenopathy. There is cardiomegaly with left atrial enlargement. Extensive coronary artery calcifications are present. There are extensive atherosclerotic calcifications of the aorta. No pericardial effusion. Small bilateral pleural effusions are present. The lungs are clear. No pulmonary nodules or infiltrates are noted. Images through the upper abdomen reveal moderate hiatal hernia. There is extensive degenerative change of the spine. There is T12 vertebroplasty. Impression: No abnormal mass lesion identified. Small bilateral pleural effusions. Cardiomegaly. Moderate hiatal hernia. * Neurology consulted, appreciate recommendations. Added Carotid doppler, Echocardiogram, EEG, and lipid profile. * Blood cultures no growth to date. * Speech therapy attempted a bedside swallow yesterday and was unable to perform. Patient NPO for now. Accuchecks q 6. LR@75 ml/hr. (3) Hydroureteronephrosis: Code(s): N13.30 - Unspecified hydronephrosis Status: Acute Assessment and Plan: * Phan catheter has been inserted for bladder decompression. * CT Abdomen/Pelvis: IMPRESSION: Significant hydroureteronephrosis with bladder distention and surrounding inflammatory change. * Renal ultrasound: FINDINGS: The right kidney measures 9.3 x 4.5 x 4.5 cm. The left kidney measures 8.9 x 3.5 x 3.4 cm. The kidneys demonstrate increased parenchymal echogenicity, renal sinus lipomatosis, and bilateral cortical thinning. There is mild right and trace left pelviectasis. Suggestion of mucosal thickening in the right renal pelvis. The bladder is decompressed by a Phan catheter. IMPRESSION: Bilateral cortical atrophy and evidence of medical renal disease. Bilateral pelviectasis, greater on the right, both are improved since the prior CT. Wall thickening of the right renal pelvis may reflect infecti on/inflammation. (4) Urinary retention: Code(s): R33.9 - Retention of urine, unspecified Status: Acute Assessment and Plan: * Phan catheter has been inserted for bladder decompression * Phan catheter in place. (5) Urinary tract infection: Code(s): N39.0 - Urinary tract infection, site not specified Status: Acute Assessment and Plan: * Urinalysis was positive for 2+ protein, 2+ blood, 3+ leukocyte esterase, 6 to 10 RBC, and greater than 100 WBC. * Urine culture negative. * Ceftriaxone 1 gram IVPB daily. (6) Metabolic encephalopathy: Code(s): G93.41 - Metabolic encephalopathy Status: Acute Assessment and Plan: * Most likely she has metabolic encephalopathy related to her worsening kidney function in addition to urinary retention and possible UTI as well. Brain CT did not show any acute findings and she does not appear to have any focal deficits on examination. * MRI brain ordered, trying to reach family to complete questionnaire. (7) Normocytic anemia: Code(s): D64.9 - Anemia, unspecified Status: Acute Assessment and Plan: * H&H 7.8/26.0, Iron 27, TIBC 213, % saturation 13, B12 742, Folate >20.0 (8) Atrial fibrillation: Code(s): I48.91 - Unspecified atrial fibrillation Status: Acute Assessment and Plan: * stable (9) Hypertension: Code(s): I10 - Essential (primary) hypertension Status: Acute Assessment and Plan: * Blood pressure ranging from 124/59-140/89. (10) Hypothyroidism: Code(s): E03.9 - Hypothyroidism, unspecified Status: Acute Assessment and Plan: * TSH 0.236, Free T4 1.84, Total T3 0.56. (11) Crohn's disease: Code(s): K50.90 - Crohn's disease, unspecified, without complications Status: Acute Assessment and Plan: * No active Crohn's disease noted on CT today. (12) Dementia: Code(s): F03.90 - Unspecified dementia, unspecified severity, without behavioral disturbance, psychotic disturbance, mood disturbance, and anxiety Status: Acute Plan Subjective Date/time seen: 05/07/24 13:01 Interval history: Patient will answer a few questions yes or no. Patient reported having trouble seeing, patient has macular degeneration. Patient resting comfortably. Will consult Neurology. Unable to reach son. MCC stated that patient is normally A&Ox3 and swallows pills to care coordination. Review of Systems Review of Systems: All systems reviewed & are unremarkable except as noted in HPI and below Exam Const: General: comfortable and no acute distress Other: Ill-appearing elderly female in the semi-Falcon position in bed. Resp: Effort & Inspection: normal respiratory effort Auscultation: diminished lung sounds Cardio: Rhythm: abnormal rhythm irregularly irregular GI: GI Palp: Yes Soft to palpation Auscultation: normal bowel sounds Urinary Catheter: Urinary Catheter: patent and draining Neuro: Other: Garbled speech. Left arm flaccid. Extrem: General: no pedal edema Psych: Other: Garbled speech occasionally. Objective Data Vital Signs Vital Signs: Vital Signs - 24 hr 05/06/24 14:00 05/06/24 20:00 05/06/24 20:57 Temperature 98.6 F 97.9 F Pulse Rate 85 85 Respiratory Rate 18 12 Blood Pressure 149/77 H 130/66 Pulse Oximetry 98 100 Oxygen Delivery Room Air 05/07/24 05:28 05/07/24 08:58 05/07/24 09:07 Temperature 97.5 F L 98.7 F Pulse Rate 82 89 89 Respiratory Rate 12 18 Blood Pressure 148/76 H 124/59 L Pulse Oximetry 99 100 Oxygen Delivery Intake/Output Intake/Output: Intake & Output 05/04/24 05/05/24 05/06/24 05/07/24 23:59 23:59 23:59 23:59 Intake Total 2049 0 Output Total 75 602 700 Balance 1974 1 - Meds/Results Medications: Active Medications Generic Name Dose Route Start Last Admin Trade Name Freq PRN Reason Stop Dose Admin Acetaminophen 650 mg 05/05/24 17:38 Acetaminophen 325 Mg Tablet PO Q4H PRN Mild Pain (1-3) or Fever Allopurinol 200 mg 05/06/24 09:00 05/07/24 09:06 Allopurinol 100 Mg Tablet PO Not Given DAILY [facility] Artificial Tears 2 drop 05/06/24 09:00 05/07/24 09:02 Artificial Tears Ophth Soln 15 Ml Bottle EACH EYE 2 drop TID ED Administration Aspirin 81 mg 05/08/24 09:00 Aspirin 81 Mg Enteric Tablet PO QAM [facility] Atorvastatin Calcium 40 mg 05/08/24 09:00 Atorvastatin 40 Mg Tablet PO DAILY [facility] Calcitriol 0.25 mcg 05/06/24 09:00 05/07/24 09:06 Calcitriol 0.25 Mcg Capsule PO Not Given DAILY [facility] Clopidogrel Bisulfate 75 mg 05/08/24 09:00 Clopidogrel Bisulfate 75 Mg Tablet PO QAM [facility] Dextrose 12.5 gm 05/05/24 17:38 Dextrose 50% 25 Gm/50 Ml Syringe IV PUSH PRN PRN Hypoglycemia Protocol Diclofenac Sodium 1 applic 05/06/24 09:00 05/07/24 09:07 Diclofenac Sodium 1% 100 Gm Gel (*Bkc) TOPICAL 1 applic QID [facility] Administration Donepezil HCl 5 mg 05/06/24 21:00 05/06/24 21:31 Donepezil Hcl 5 Mg Tablet PO Not Given HS [facility] Glucagon 1 mg 05/05/24 17:38 Glucagon For Inj 1 Mg Vial IM PRN PRN Hypoglycemia Protocol Glucose 15 gm 05/05/24 17:38 Glucose Oral Gel 15 Gm Of Glucse In 37.5 Gm Tube PO PRN PRN Hypoglycemia Protocol Heparin Sodium (Porcine) 5,000 units 05/06/24 09:00 05/07/24 09:03 Heparin Sodium 5,000 Units/Ml Vial SUB-Q 5,000 units Q12HR ED Administration Hydralazine HCl 10 mg 05/07/24 07:41 Hydralazine Hcl 20 Mg/Ml Vial IV PUSH Q8H PRN Blood Pressure - High Dextrose 1,000 mls @ 100 mls/hr 05/05/24 17:38 Dextrose 5% 1,000 Ml IVPB PRN PRN Hypoglycemia Protocol Ceftriaxone Sodium 1 gm in 50 mls @ 100 mls/hr 05/06/24 15:00 05/06/24 14:06 Rocephin 1 Gm/Ns 50 Ml IVPB 100 mls/hr Q24H ED Administration Lactated Ringer's 1,000 mls @ 75 mls/hr 05/07/24 07:40 05/07/24 07:55 Lr - Lactated Ringers Iv IV CONT 75 mls/hr .[id number] ED Administration Levothyroxine Sodium 125 mcg 05/06/24 06:30 05/07/24 05:42 Levothyroxine Sodium 125 Mcg Tablet PO Not Given DAILY@0630 [facility] Loratadine 10 mg 05/06/24 09:00 05/07/24 09:07 Loratadine 10 Mg Tablet PO Not Given DAILY [facility] Melatonin 10 mg 05/06/24 21:00 05/06/24 21:31 Melatonin 5 Mg Tablet PO Not Given HS [facility] Mesalamine 1,000 mg 05/06/24 09:00 05/07/24 09:07 Mesalamine 250 Mg Cap Cr PO Not Given Q12HR [facility] Metoprolol Succinate 25 mg 05/06/24 09:00 05/07/24 09:07 Metoprolol Succinate Ext Rel 25 Mg Tabcr PO Not Given DAILY [facility] Mirtazapine 15 mg 05/06/24 21:00 05/06/24 21:31 Mirtazapine 15 Mg Tablet PO Not Given HS [facility] Multivitamins/Minerals 1 tablet 05/06/24 12:00 05/07/24 11:50 Opti-Gen Tab PO Not Given DAILY@1200 [facility] Ondansetron HCl 4 mg 05/05/24 17:38 Ondansetron Inj 4 Mg/2 Ml Vial IV PUSH Q4H PRN Nausea Solifenacin 5 mg 05/06/24 21:00 05/06/24 21:32 Solifenacin 5 Mg Tablet PO Not Given HS [facility] Radiology Results: ITS Impressions Abdomen/Pelvis CT 05/05/24 16:46 IMPRESSION: Significant hydroureteronephrosis with bladder distention and surrounding inflammatory change. Head CT 05/06/24 10:38 Impression: No acute intracranial hemorrhage or suspicious mass effect. Examination is unchanged from previous study performed less than 24 hours earlier, when the clinical presentation included altered mental status only. Venous Doppler Study 05/06/24 13:33 IMPRESSION: 1. No deep venous thrombosis to the level of the posterior tibial vein on the right and to the level of the popliteal vein on the left. Renal Ultrasound 05/06/24 14:25 IMPRESSION: Bilateral cortical atrophy and evidence of medical renal disease. Bilateral pelviectasis, greater on the right, both are improved since the prior CT. Wall thickening of the right renal pelvis may reflect infection/inflammation. Chest X-Ray 05/06/24 16:12 IMPRESSION: 3 cm ovoid, right hilar mass, may represent lymphadenopathy, a dilated pulmonary vessel en face, other mass, or artifact. Consider CT of the chest for further evaluation. Mild interstitial edema/senescent change. Chest CT 05/07/24 05:58 Impression: No abnormal mass lesion identified. Small bilateral pleural effusions. Cardiomegaly. Moderate hiatal hernia. Labs Labs: Laboratory Results - last 24 hr 05/07/24 05/07/24 05:07 05:10 WBC 12.4 H RBC 2.65 L Hgb 8.2 L Hct 26.1 L MCV 98.5 MCH 30.9 MCHC 31.4 L RDW 16.7 H Plt Count 266 MPV 10.6 H Immature Gran % (Auto) 0.6 H Neut % (Auto) 85.3 H Lymph % (Auto) 6.6 L [place] % (Auto) 7.2 Eos % (Auto) 0.1 Baso % (Auto) 0.2 Lymph # (Auto) 0.82 L [place] # (Auto) 0.9 H Eos # (Auto) 0.0 Baso # (Auto) 0.0 Abs Immat Gran (auto) 0.08 H Absolute Neuts (auto) 10.5 H Absolute Nucleated RBC 0.000 Nucleated RBC % 0.0 Sodium 147 H Potassium 3.8 Chloride 120 H Carbon Dioxide 16 L Anion Gap 11 BUN 36 H Creatinine 1.76 H Estim Creat Clear Calc 16 Estimated GFR 27 L Glucose 104 Calcium 9.8 Magnesium 2.2 Total Bilirubin 0.3 AST 28 ALT 12 Alkaline Phosphatase 102 Total Protein 6.0 L Albumin 3.1 L Triglycerides 63 Cholesterol 104 LDL Cholesterol Direct 43 HDL Direct 36 Quality VTE Prophylaxis VTE prophylaxis: mechanical ordered and pharmacologic ordered
--- NOTE | 2024-05-07 13:01 | PM.DS ---
DS: Admitting Diagnosis Discharge Date 05/07/2024 DS: Summary Time Spent with Patient Time attestation: Total time spent providing and/or coordinating discharge services: DS: Data Data Completed and Pending Labs on day of discharge: Labs from last 24 hours 05/07/24 05/07/24 05:10 05:07 WBC 12.4 H RBC 2.65 L Hgb 8.2 L Hct 26.1 L MCV 98.5 MCH 30.9 MCHC 31.4 L RDW 16.7 H Plt Count 266 MPV 10.6 H Immature Gran % (Auto) 0.6 H Neut % (Auto) 85.3 H Lymph % (Auto) 6.6 L [place] % (Auto) 7.2 Eos % (Auto) 0.1 Baso % (Auto) 0.2 Lymph # (Auto) 0.82 L [place] # (Auto) 0.9 H Eos # (Auto) 0.0 Baso # (Auto) 0.0 Abs Immat Gran (auto) 0.08 H Absolute Neuts (auto) 10.5 H Absolute Nucleated RBC 0.000 Nucleated RBC % 0.0 Sodium 147 H Potassium 3.8 Chloride 120 H Carbon Dioxide 16 L Anion Gap 11 BUN 36 H Creatinine 1.76 H Estim Creat Clear Calc 16 Estimated GFR 27 L Glucose 104 Calcium 9.8 Magnesium 2.2 Total Bilirubin 0.3 AST 28 ALT 12 Alkaline Phosphatase 102 Total Protein 6.0 L Albumin 3.1 L Triglycerides 63 Cholesterol 104 LDL Cholesterol Direct 43 HDL Direct 36 Preliminary micro results at discharge 05/05/24 14:58 Blood Culture - Preliminary Blood 05/05/24 15:10 Blood Culture - Preliminary Blood Discharge Plan Discharge Consulting providers: Andrea Fatima; Enzo Richards Patient Language: [place] Discharge Medications: No Action lisinopril 10 mg tablet 10 mg PO DAILY metoprolol succinate 25 mg tablet extended release 24 hr 25 mg PO DAILY melatonin 5 mg capsule 10 mg PO HS solifenacin [Vesicare] 5 mg tablet 5 mg PO HS mirtazapine [Remeron] 15 mg tablet 15 mg PO HS mesalamine [Pentasa] 500 mg capsule, extended release 1,000 mg PO BID levothyroxine [Synthroid] 125 mcg tablet 125 mcg PO DAILY loperamide [Anti-Diarrheal (loperamide)] 2 mg capsule 2 mg PO Q6H PRN (Reason: loose stool) Rx Instructions: after each loose stool diclofenac sodium [Arthritis Pain (diclofenac)] 1 % gel 2 g topical QID Rx Instructions: apply to single elbow, wrist or hand; for hand includes palm/fingers/back of hand nitrofurantoin monohyd/m-cryst [Macrobid] 100 mg capsule 100 mg PO Q12H Patient Comments: x7 days, 05/05- 05/12 Rx Instructions: must administer with a meal/food carboxymethylcellulose sodium [Refresh Plus] 0.5 % dropperette 2 drp EACH EYE TID donepezil 5 mg tablet 5 mg PO HS loratadine [Claritin] 10 mg tablet 10 mg PO DAILY allopurinol 100 mg tablet 200 mg PO DAILY calcitriol 0.25 mcg capsule 0.25 mcg PO DAILY PreserVision AREDS 2,148 mcg-113 mg-45 mg-17.4mg tablet 1 tablet PO ONCE Rx Instructions: administer with a meal atorvastatin 20 mg tablet 20 mg PO DAILY Date of admission: 05/06/24 16:05 Primary Care Provider: AgustinBenny Admitting Provider: Tavo Miranda Attending physician on admission: Tavo Miranda Condition: Stable
[2024-05-07 14:00] VITALS: BP 140/89; PULSE 83; RESP 18; TEMP 37.2; O2SAT 99
[2024-05-07 20:07] VITALS: BP 116/48; PULSE 101; RESP 20; TEMP 37.6; O2SAT 90
[2024-05-07 21:02] LABS: Glucose Point of Care 101 mg/dl (65-105)
[2024-05-08 03:44] LABS: Glucose Point of Care 94 mg/dl (65-105)
[2024-05-08 03:59] VITALS: BP 130/69; PULSE 93; RESP 18; TEMP 36.3; O2SAT 100
[2024-05-08 04:26] LABS: Glucose Point of Care 110 mg/dl (65-105)
[2024-05-08 05:19] LABS: Basophils Percent Auto 0.2 % (0.2-1.2); Eosinophils Percent Auto 0.1 % (0-4.4); Hematocrit 27.4 % (37.0-47.0); Hemoglobin 8.5 g/dL (12.0-15.0); Immature Granulocyte Absolute 0.06 K/mm3 (0.00-0.031); Immature Granulocyte Percent A 0.5 % (0-0.5); Lymphocytes Absolute Auto 1.06 K/mm3 (0.9-3.2); Lymphocytes Percent Auto 8.9 % (18.3-44.2); Mean Corpuscular Hemoglobin 30.5 pg (26-34); Mean Corpuscular Volume 98.2 fl (80-100); Mean Platelet Volume 10.8 fl (7.4-10.4); Monocytes Absolute Auto 0.9 K/mm3 (0.1-0.6); Monocytes Percent Auto 7.7 % (2.6-8.5); Neutrophils Absolute Auto 9.8 K/mm3 (1.3-6.7); Neutrophils Percent Auto 82.6 % (45.5-73.1); Nucleated Red Blood Cells Perc 0.2 % (0.0-0.2); Platelet Count Result 289 k/mm3 (150-375); Red Blood Count 2.79 M/mm3 (4.2-5.4); Red Cell Distribution Width 16.8 % (11.5-14.5); White Blood Count 11.9 K/mm3 (4.5-10.0)
[2024-05-08 05:36] LABS: Alanine Aminotransferase 13 U/L (6-35); Albumin Level 3.1 g/dL (3.5-5.1); Alkaline Phosphatase 105 U/L (38-126); Anion Gap 10 mmol/L (4-12); Aspartate Amino Transferase 25 U/L (14-36); Bilirubin,Total 0.4 mg/dL (0.2-1.3); Blood Urea Nitrogen 40 mg/dL (7-17); Calcium 9.9 mg/dL (8.4-10.2); Carbon Dioxide 17 mmol/L (22-30); Chloride 121 mmol/L (98-107); Estimated CRCL calculation 19 ml/min; Estimated Glomerular Filt Rate 28; Glucose 106 mg/dL (65-110); Magnesium 2.2 mg/dL (1.6-2.3); Potassium 3.7 mmol/L (3.4-5.0); Sodium 148 mmol/L (137-145)
[2024-05-08 07:00] VITALS: PULSE 84; RESP 18; O2SAT 94
--- NOTE | 2024-05-08 07:23 | PM.IMPN ---
Progress Note: A&P Assessment and Plan (1) Acute on chronic kidney failure: Code(s): N17.9 - Acute kidney failure, unspecified; N18.9 - Chronic kidney disease, unspecified Status: Acute Assessment and Plan: Creatinine improving from 2.42>1.85>1.76>1.71. (2) AMS (altered mental status): Qualifiers: Altered mental status type: unspecified Qualified Code(s): R41.82 - Altered mental status, unspecified Code(s): R41.82 - Altered mental status, unspecified Status: Acute Assessment and Plan: Head CT negative x 2. MRI brain ordered, trying to reach family to complete questionnaire. Chest X-ray showed: IMPRESSION: 3 cm ovoid, right hilar mass, may represent lymphadenopathy, a dilated pulmonary vessel en face, other mass, or artifact. Consider CT of the chest for further evaluation. Mild interstitial edema/senescent change. CT chest showed: Findings: There is no evidence of any significant mediastinal, hilar or axillary lymphadenopathy. There is cardiomegaly with left atrial enlargement. Extensive coronary artery calcifications are present. There are extensive atherosclerotic calcifications of the aorta. No pericardial effusion. Small bilateral pleural effusions are present. The lungs are clear. No pulmonary nodules or infiltrates are noted. Images through the upper abdomen reveal moderate hiatal hernia. There is extensive degenerative change of the spine. There is T12 vertebroplasty. Impression: No abnormal mass lesion identified. Small bilateral pleural effusions. Cardiomegaly. Moderate hiatal hernia. Neurology consulted, appreciate recommendations. Added Carotid doppler-negative, Echocardiogram, EEG, and lipid profile. Blood cultures no growth to date. Called to the room this morning. Patient with breathing concerns. Patient was mouth breathing with air hunger breathing. Blood sugar 100. Chest X-ray showed no acute cardiopulmonary disease, cardiomegaly, and hiatal hernia. ABG-pH 7.353, pCO2 29.3, p02 117.3, HC03 15.9, Duoneb given, O2@2LNC, EKG- Afib 93 QTc 429. Lungs diminished. Patient eventually opened eyes and occasional garbled words. Spoke with daughter in law Lindsey at [phone] she would like to make patient comfort measures. Patient changed to comfort measures. hospice consult placed. (3) Hydroureteronephrosis: Code(s): N13.30 - Unspecified hydronephrosis Status: Acute Assessment and Plan: Phan catheter has been inserted for bladder decompression. CT Abdomen/Pelvis: IMPRESSION: Significant hydroureteronephrosis with bladder distention and surrounding inflammatory change. Renal ultrasound: FINDINGS: The right kidney measures 9.3 x 4.5 x 4.5 cm. The left kidney measures 8.9 x 3.5 x 3.4 cm. The kidneys demonstrate increased parenchymal echogenicity, renal sinus lipomatosis, and bilateral cortical thinning. There is mild right and trace left pelviectasis. Suggestion of mucosal thickening in the right renal pelvis. The bladder is decompressed by a Phan catheter. IMPRESSION: Bilateral cortical atrophy and evidence of medical renal disease. Bilateral pelviectasis, greater on the right, both are improved since the prior CT. Wall thickening of the right renal pelvis may reflect infection/inflammation. (4) Urinary retention: Code(s): R33.9 - Retention of urine, unspecified Status: Acute Assessment and Plan: Phan catheter has been inserted for bladder decompression Phan catheter in place. (5) Urinary tract infection: Code(s): N39.0 - Urinary tract infection, site not specified Status: Acute Assessment and Plan: Urinalysis was positive for 2+ protein, 2+ blood, 3+ leukocyte esterase, 6 to 10 RBC, and greater than 100 WBC. Urine culture negative. Ceftriaxone 1 gram IVPB daily. Patient made comfort measures. (6) Metabolic encephalopathy: Code(s): G93.41 - Metabolic encephalopathy Status: Acute Assessment and Plan: Most likely she has metabolic encephalopathy related to her worsening kidney function in addition to urinary retention and possible UTI as well. Brain CT did not show any acute findings and she does not appear to have any focal deficits on examination. MRI brain ordered, trying to reach family to complete questionnaire. (7) Normocytic anemia: Code(s): D64.9 - Anemia, unspecified Status: Acute Assessment and Plan: H&H 7.8/26.0, Iron 27, TIBC 213, % saturation 13, B12 742, Folate >20.0 (8) Atrial fibrillation: Code(s): I48.91 - Unspecified atrial fibrillation Status: Acute Assessment and Plan: stable (9) Hypertension: Code(s): I10 - Essential (primary) hypertension Status: Acute Assessment and Plan: Blood pressure ranging from 124/59-140/89. (10) Hypothyroidism: Code(s): E03.9 - Hypothyroidism, unspecified Status: Acute Assessment and Plan: TSH 0.236, Free T4 1.84, Total T3 0.56. (11) Crohn's disease: Code(s): K50.90 - Crohn's disease, unspecified, without complications Status: Acute Assessment and Plan: No active Crohn's disease noted on CT today. (12) Dementia: Code(s): F03.90 - Unspecified dementia, unspecified severity, without behavioral disturbance, psychotic disturbance, mood disturbance, and anxiety Status: Acute Plan Subjective Date/time seen: 05/08/24 07:23 Interval history: Called to the room this morning. Patient with breathing concerns. Patient was mouth breathing with air hunger breathing. Blood sugar 100. Chest X-ray showed no acute cardiopulmonary disease, cardiomegaly, and hiatal hernia. ABG-pH 7.353, pCO2 29.3, p02 117.3, HC03 15.9, Duoneb given, O2@2LNC, EKG- Afib 93 QTc 429. Lungs diminished. Patient eventually opened eyes and occasional garbled words. Spoke with daughter in law Lindsey at [phone] she would like to make patient comfort measures. Patient changed to comfort measures. Review of Systems Review of Systems: All systems reviewed & are unremarkable except as noted in HPI and below Exam Const: General: no acute distress Resp: Effort & Inspection: normal respiratory effort Auscultation: diminished lung sounds Cardio: Rate: regular rate Rhythm: regular rhythm GI: GI Palp: Yes Soft to palpation Auscultation: normal bowel sounds Neuro: Other: garbled speech Extrem: General: no pedal edema Objective Data Vital Signs Vital Signs: Vital Signs - 24 hr 05/07/24 08:58 05/07/24 09:07 05/07/24 09:07 Temperature 98.7 F Pulse Rate 89 89 Respiratory Rate 18 Blood Pressure 124/59 L Pulse Oximetry 100 100 Oxygen Delivery Room Air 05/07/24 14:00 05/07/24 20:07 05/07/24 21:00 Temperature 99.0 F 99.6 F Pulse Rate 83 101 H Respiratory Rate 18 20 Blood Pressure 140/89 116/48 L Pulse Oximetry 99 90 Oxygen Delivery Room Air 05/08/24 03:59 05/08/24 07:00 Temperature 97.4 F L Pulse Rate 93 84 Respiratory Rate 18 18 Blood Pressure 130/69 Pulse Oximetry 100 94 Oxygen Delivery Room Air Intake/Output Intake/Output: Intake & Output 05/05/24 05/06/24 05/07/24 05/08/24 23:59 23:59 23:59 23:59 Intake Total 2050 50 988.7 0 Output Total 75 675 1150 200 Balance 1974 -625 -161.3 -200 Meds/Results Medications: Active Medications Generic Name Dose Route Start Last Admin Trade Name Freq PRN Reason Stop Dose Admin Acetaminophen 650 mg 05/05/24 17:38 Acetaminophen 325 Mg Tablet PO Q4H PRN Mild Pain (1-3) or Fever Allopurinol 200 mg 05/06/24 09:00 05/07/24 09:06 Allopurinol 100 Mg Tablet PO Not Given DAILY ED Artificial Tears 2 drop 05/06/24 09:00 05/07/24 16:29 Artificial Tears Ophth Soln 15 Ml Bottle EACH EYE 2 drop TID ED Administration Aspirin 81 mg 05/08/24 09:00 Aspirin 81 Mg Enteric Tablet PO QAM [facility] Atorvastatin Calcium 40 mg 05/08/24 09:00 Atorvastatin 40 Mg Tablet PO DAILY [facility] Calcitriol 0.25 mcg 05/06/24 09:00 05/07/24 09:06 Calcitriol 0.25 Mcg Capsule PO Not Given DAILY [facility] Clopidogrel Bisulfate 75 mg 05/08/24 09:00 Clopidogrel Bisulfate 75 Mg Tablet PO QAM [facility] Dextrose 12.5 gm 05/05/24 17:38 Dextrose 50% 25 Gm/50 Ml Syringe IV PUSH PRN PRN Hypoglycemia Protocol Diclofenac Sodium 1 applic 05/06/24 09:00 05/07/24 21:03 Diclofenac Sodium 1% 100 Gm Gel (*Bkc) TOPICAL 1 applic QID ED Administration Donepezil HCl 5 mg 05/06/24 21:00 05/07/24 21:03 Donepezil Hcl 5 Mg Tablet PO Not Given HS ED Glucagon 1 mg 05/05/24 17:38 Glucagon For Inj 1 Mg Vial IM PRN PRN Hypoglycemia Protocol Glucose 15 gm 05/05/24 17:38 Glucose Oral Gel 15 Gm Of Glucse In 37.5 Gm Tube PO PRN PRN Hypoglycemia Protocol Heparin Sodium (Porcine) 5,000 units 05/06/24 09:00 05/07/24 21:03 Heparin Sodium 5,000 Units/Ml Vial SUB-Q 5,000 units Q12HR ED Administration Hydralazine HCl 10 mg 05/07/24 07:41 Hydralazine Hcl 20 Mg/Ml Vial IV PUSH Q8H PRN Blood Pressure - High Dextrose 1,000 mls @ 100 mls/hr 05/05/24 17:38 Dextrose 5% 1,000 Ml IVPB PRN PRN Hypoglycemia Protocol Ceftriaxone Sodium 1 gm in 50 mls @ 100 mls/hr 05/06/24 15:00 05/07/24 16:28 Rocephin 1 Gm/Ns 50 Ml IVPB 100 mls/hr Q24H ED Administration Lactated Ringer's 1,000 mls @ 75 mls/hr 05/07/24 07:40 05/07/24 21:06 Lr - Lactated Ringers Iv IV CONT 75 mls/hr .[id number] ED Administration Levothyroxine Sodium 125 mcg 05/06/24 06:30 05/08/24 05:23 Levothyroxine Sodium 125 Mcg Tablet PO Not Given DAILY@0630 ED Loratadine 10 mg 05/06/24 09:00 05/07/24 09:07 Loratadine 10 Mg Tablet PO Not Given DAILY ED Melatonin 10 mg 05/06/24 21:00 05/07/24 21:03 Melatonin 5 Mg Tablet PO Not Given HS [facility] Mesalamine 1,000 mg 05/06/24 09:00 05/07/24 21:03 Mesalamine 250 Mg Cap Cr PO Not Given Q12HR ED Metoprolol Succinate 25 mg 05/06/24 09:00 05/07/24 09:07 Metoprolol Succinate Ext Rel 25 Mg Tabcr PO Not Given DAILY [facility] Mirtazapine 15 mg 05/06/24 21:00 05/07/24 21:03 Mirtazapine 15 Mg Tablet PO Not Given HS [facility] Multivitamins/Minerals 1 tablet 05/06/24 12:00 05/07/24 11:50 Opti-Gen Tab PO Not Given DAILY@1200 ED Ondansetron HCl 4 mg 05/05/24 17:38 Ondansetron Inj 4 Mg/2 Ml Vial IV PUSH Q4H PRN Nausea Perflutren Lipid Microsphere 0 ml 05/07/24 14:56 Perflutren Lipid Microspheres 1.5 Ml Vial Diluted To 10 Ml Total Volume IV PUSH 05/10/24 14:56 ONCE PRN adequate visualization Protocol Solifenacin 5 mg 05/06/24 21:00 05/07/24 21:03 Solifenacin 5 Mg Tablet PO Not Given HS [facility] Radiology Results: ITS Impressions Abdomen/Pelvis CT 05/05/24 16:46 IMPRESSION: Significant hydroureteronephrosis with bladder distention and surrounding inflammatory change. Head CT 05/06/24 10:38 Impression: No acute intracranial hemorrhage or suspicious mass effect. Examination is unchanged from previous study performed less than 24 hours earlier, when the clinical presentation included altered mental status only. Venous Doppler Study 05/06/24 13:33 IMPRESSION: 1. No deep venous thrombosis to the level of the posterior tibial vein on the right and to the level of the popliteal vein on the left. Renal Ultrasound 05/06/24 14:25 IMPRESSION: Bilateral cortical atrophy and evidence of medical renal disease. Bilateral pelviectasis, greater on the right, both are improved since the prior CT. Wall thickening of the right renal pelvis may reflect infection/inflammation. Chest X-Ray 05/06/24 16:12 IMPRESSION: 3 cm ovoid, right hilar mass, may represent lymphadenopathy, a dilated pulmonary vessel en face, other mass, or artifact. Consider CT of the chest for further evaluation. Mild interstitial edema/senescent change. Chest CT 05/07/24 05:58 Impression: No abnormal mass lesion identified. Small bilateral pleural effusions. Cardiomegaly. Moderate hiatal hernia. Carotid Doppler Study 05/07/24 16:06 IMPRESSION: 1. <50% stenosis in the right internal carotid artery. 2. <50% stenosis in the left internal carotid artery. Labs Labs: Laboratory Results - last 24 hr 05/07/24 05/07/24 05/08/24 05:07 20:06 00:13 WBC RBC Hgb Hct MCV MCH MCHC RDW Plt Count MPV Immature Gran % (Auto) Neut % (Auto) Lymph % (Auto) Gray % (Auto) Eos % (Auto) Baso % (Auto) Lymph # (Auto) Gray # (Auto) Eos # (Auto) Baso # (Auto) Abs Immat Gran (auto) Absolute Neuts (auto) Absolute Nucleated RBC Nucleated RBC % Sodium Potassium Chloride Carbon Dioxide Anion Gap BUN Creatinine Estim Creat Clear Calc Estimated GFR Glucose POC Capillary Glucose 101 94 Calcium Magnesium Total Bilirubin AST ALT Alkaline Phosphatase Total Protein Albumin Triglycerides 63 Cholesterol 104 LDL Cholesterol Direct 43 HDL Direct 36 05/08/24 05/08/24 04:24 04:41 WBC 11.9 H RBC 2.79 L Hgb 8.5 L Hct 27.4 L MCV 98.2 MCH 30.5 MCHC 31.0 L RDW 16.8 H Plt Count 289 MPV 10.8 H Immature Gran % (Auto) 0.5 Neut % (Auto) 82.6 H Lymph % (Auto) 8.9 L Gray % (Auto) 7.7 Eos % (Auto) 0.1 Baso % (Auto) 0.2 Lymph # (Auto) 1.06 Gray # (Auto) 0.9 H Eos # (Auto) 0.0 Baso # (Auto) 0.0 Abs Immat Gran (auto) 0.06 H Absolute Neuts (auto) 9.8 H Absolute Nucleated RBC 0.020 H Nucleated RBC % 0.2 Sodium 148 H Potassium 3.7 Chloride 121 H Carbon Dioxide 17 L Anion Gap 10 BUN 40 H Creatinine 1.71 H Estim Creat Clear Calc 19 Estimated GFR 28 L Glucose 106 POC Capillary Glucose 110 H Calcium 9.9 Magnesium 2.2 Total Bilirubin 0.4 AST 25 ALT 13 Alkaline Phosphatase 105 Total Protein 6.0 L Albumin 3.1 L Triglycerides Cholesterol LDL Cholesterol Direct HDL Direct Quality VTE Prophylaxis VTE prophylaxis: mechanical ordered and pharmacologic ordered
[2024-05-08 07:24] LABS: Glucose Point of Care 100 mg/dl (65-105)
--- NOTE | 2024-05-08 07:28 | ECG_ITS ---
Test Date: 2024-05-08 08:10:15 Measurements Intervals [place] Rate: 93 P: 0 [place]: 0 QRS: -40 QRSD: 97 T: 91 QT: 344 QTc: 429 Interpretive Statements ATRIAL FIBRILLATION LEFT AXIS DEVIATION ANTEROSEPTAL INFARCT, AGE INDETERMINATE BASELINE ARTIFACT- I, II, III, AVR, AVF, V1, V3-V4 ABNORMAL ECG Compared to ECG 05/05/2024 14:28:37 NO SIGNIFICANT CHANGE Electronically Signed On 05-08-2024 08:47:51 CDT by Neo Andrade D.O.
[2024-05-08] MEDS: IPRATROPIUM 0.5 MG/ALBUTEROL SULFATE 2.5 MG AMPUL.NEB 3 ML INHALATION (07:40)
[2024-05-08 07:41] VITALS: PULSE 89; RESP 20
[2024-05-08 07:46] LABS: Alveolar/Arterial O2 Gradient 47.8 mmHg; Base Excess ABG -8.2 mEq/l (+/-2.0); Fractional Inspired Oxygen 28 %; HCO3 ABG 15.9 mEq/l (22.0-26.0); Oxygen Content ABG 19.1 %vol (16.0-22.0); Oxygen Saturation ABG 98.2 % (95.0-100.0); Oxyhemoglobin 97.5 % THb (90.0-100.0); PCO2 ABG 29.3 mmHg (35.0-45.0); PO2 ABG 117.3 mmHg (80.0-100.0); PO2 FiO2 Ratio Arterial Blood 4.19 %; Total Hemoglobin 13.8 g/dL (12.0-18.0); pH ABG 7.353 (7.350-7.450)
[2024-05-08 07:48] LABS: Device NASAL CANNULA; Modified Allen's Test Pass; Site Drawn RIGHT RADIAL
[2024-05-08 07:53] VITALS: PULSE 97; RESP 20
[2024-05-08] MEDS: LORazepam INJ (*CRX) 2 MG/ML VIAL 1 MG IV PUSH ×2 (08:51→15:10)
[2024-05-08] MEDS: ARTIFICIAL TEARS OPHTH SOLN 15 ML BOTTLE 2 DROP EACH EYE (08:52)
--- NOTE | 2024-05-08 09:32 | PCNFU ---
Nutrition Follow-Up Complete: Inadequate oral intake related to altered mental status as evidenced by NPO, mental status Goal: Meet estimated protein energy needs Patient is not meeting goal. No new goal. Pt current nutrition is NPO Last recorded weight is 72.7 kg. Bowel Motility: No BM reported. Labs Reviewed:Na 148, BUN 40, Cr 1.71, GFR 28, Alb 3.1 Meds Noted:Morphine Skin: WNL Additional Notes: Spoke with nursing today, Plans for comfort measures today. No further nutritional interventions needed at this time. Monitoring swallowing ability, diet orders, weights, labs, plan of care every 7 days.
--- NOTE | 2024-05-08 10:17 | WPDNEUROLOGY ---
Neurology EEG Report General Information Date of Study: 05/07/24 TEST EEG DIAGNOSIS Altered mental status. CONDITION OF RECORDING Awake, drowsy and asleep. EEG NUMBER [id number] CLINICAL HISTORY Patient very confused and Was unable to answer any questions. Unable to follow simple commands. Also throughout the tracing, her eyes and mouth were wide open. EEG DESCRIPTION Background rhythm consists of low-voltage 15 to 21 hertz per 2nd beta activity with poor mitchell posterior gradient and multiple movements artifacts and muscle artifacts. Low-voltage 5 to 7 hertz per 2nd theta activity seen admixed with low to medium voltage 3 to 4 hertz per 2nd delta activity with asymmetrically More pronounced over the left hemisphere. photic stimulation not done. Hyperventilation not done. Non paroxysmal, focal and lateralizing. IMPRESSION Abnormal record due to the absence of a normal background rhythm and due to the presence of asymmetrical slow activity more pronounced over the left hemisphere raising the possibility of the focal structural lesion. Clinical correlation recommended.
--- NOTE | 2024-05-08 13:23 | PCSTNOTE ---
ST spoke with nursing (Holly) re the speech therapy bedside swallow order; Pt is still not able to complete testing; RN aware & advised that pt is possibly comfort measures only. Order cancelled.
[2024-05-08 14:00] VITALS: BP 99/44; PULSE 98; RESP 12; TEMP 37.5; O2SAT 98
--- NOTE | 2024-05-16 06:57 | PM.DS ---
DS: Admitting Diagnosis Discharge Date 05/08/24 Admitting Diagnosis Altered mental status DS: Discharge Diagnosis Discharge Diagnosis (1) Acute on chronic kidney failure: Code(s): N17.9 - Acute kidney failure, unspecified; N18.9 - Chronic kidney disease, unspecified Status: Acute (2) AMS (altered mental status): Qualifiers: Altered mental status type: unspecified Qualified Code(s): R41.82 - Altered mental status, unspecified Code(s): R41.82 - Altered mental status, unspecified Status: Acute (3) Hydroureteronephrosis: Code(s): N13.30 - Unspecified hydronephrosis Status: Acute (4) Urinary retention: Code(s): R33.9 - Retention of urine, unspecified Status: Acute (5) Metabolic encephalopathy: Code(s): G93.41 - Metabolic encephalopathy Status: Acute (6) Normocytic anemia: Code(s): D64.9 - Anemia, unspecified Status: Acute (7) Atrial fibrillation: Code(s): I48.91 - Unspecified atrial fibrillation Status: Acute (8) Hypertension: Code(s): I10 - Essential (primary) hypertension Status: Acute (9) Crohn's disease: Code(s): K50.90 - Crohn's disease, unspecified, without complications Status: Acute (10) Dementia: Code(s): F03.90 - Unspecified dementia, unspecified severity, without behavioral disturbance, psychotic disturbance, mood disturbance, and anxiety Status: Acute DS: Summary Hospital Course Hospital Course: In the ED: Vital signs on arrival include a temperature of 90.3?, blood pressure 103/75, pulse 94, respiratory 24, SpO2 97% on room air. Labs are significant for WBC count of 7.4, hemoglobin 7.9, BUN 44, creatinine 2.42, lactic acid 1.1, calcium 10.5. Urinalysis was positive for 2+ protein, 2+ blood, 3+ leukocyte esterase, 6 to 10 RBC, and greater than 100 WBC. No acute findings noted on head CT. CT of the abdomen and pelvis showed significant hydroureteronephrosis with bladder distention and surrounding inflammatory change. Phan catheter was inserted as she was reportedly retaining urine however the amount of urine output upon insertion has not yet been recorded. She received 2 L normal saline bolus and was started on ceftriaxone. Radiology Results: ITS Impressions Abdomen/Pelvis CT 05/05/24 16:46 IMPRESSION: Significant hydroureteronephrosis with bladder distention and surrounding inflammatory change. Head CT 05/06/24 10:38 Impression: No acute intracranial hemorrhage or suspicious mass effect. Examination is unchanged from previous study performed less than 24 hours earlier, when the clinical presentation included altered mental status only. Venous Doppler Study 05/06/24 13:33 IMPRESSION: 1. No deep venous thrombosis to the level of the posterior tibial vein on the right and to the level of the popliteal vein on the left. Renal Ultrasound 05/06/24 14:25 IMPRESSION: Bilateral cortical atrophy and evidence of medical renal disease. Bilateral pelviectasis, greater on the right, both are improved since the prior CT. Wall thickening of the right renal pelvis may reflect infection/inflammation. Chest X-Ray 05/06/24 16:12 IMPRESSION: 3 cm ovoid, right hilar mass, may represent lymphadenopathy, a dilated pulmonary vessel en face, other mass, or artifact. Consider CT of the chest for further evaluation. Mild interstitial edema/senescent change. Chest CT 05/07/24 05:58 Impression: No abnormal mass lesion identified. Small bilateral pleural effusions. Cardiomegaly. Moderate hiatal hernia. Carotid Doppler Study 05/07/24 16:06 IMPRESSION: 1. <50% stenosis in the right internal carotid artery. 2. <50% stenosis in the left internal carotid artery. Blood cultures and urine culture no growth. Called to the room this morning. Patient with breathing concerns. Patient was mouth breathing with air hunger breathing. Blood sugar 100. Chest X-ray showed no acute cardiopulmonary disease, cardiomegaly, and hiatal hernia. ABG-pH 7.353, pCO2 29.3, p02 117.3, HC03 15.9, Duoneb given, O2@2LNC, EKG- Afib 93 QTc 429. Lungs diminished. Patient eventually opened eyes and occasional garbled words. Spoke with daughter in law Lindsey at [phone] she would like to make patient comfort measures. Patient changed to comfort measures. Hospice consult completed and patient placed on hospice. Status at Discharge Functional status at discharge: bed bound Overall status at discharge: patient is not back to baseline Time Spent with Patient Time attestation: Total time spent providing and/or coordinating discharge services: Time spent: Greater than 30 minutes Exam Narrative: Exam Const: General: no acute distress Resp: Effort & Inspectio n: normal respirat ory effort Auscul tation: diminished lung sounds Cardio: Rate: regular rate Rhythm: regular rhythm GI: GI Palp: Yes Soft to palpation Ausc ultation: normal b owel sounds Neuro: Other: garbled s peech Extrem: General: no pedal edema Discharge Plan Discharge Attending physician on discharge: Tavo Miranda Consulting providers: Yoshi Mccarty; Ousmane Fountain; Enzo Richards; Ana Maria España; Neo Andrade; Varun Mendoza; Effie Wetzel; Duy Malik; Kumar Calderon; Sendy,Momo Aceveod; Claude Horn Discharging Clinician: Jessica Robbins Patient Disposition: Hospice - Medical Facility Patient Language: Korean Stand Alone Forms: General Discharge Information Discharge Medications: No Action lisinopril 10 mg tablet 10 mg PO DAILY metoprolol succinate 25 mg tablet extended release 24 hr 25 mg PO DAILY melatonin 5 mg capsule 10 mg PO HS solifenacin [Vesicare] 5 mg tablet 5 mg PO HS mirtazapine [Remeron] 15 mg tablet 15 mg PO HS mesalamine [Pentasa] 500 mg capsule, extended release 1,000 mg PO BID levothyroxine [Synthroid] 125 mcg tablet 125 mcg PO DAILY loperamide [Anti-Diarrheal (loperamide)] 2 mg capsule 2 mg PO Q6H PRN (Reason: loose stool) Rx Instructions: after each loose stool diclofenac sodium [Arthritis Pain (diclofenac)] 1 % gel 2 g topical QID Rx Instructions: apply to single elbow, wrist or hand; for hand includes palm/fingers/back of hand nitrofurantoin monohyd/m-cryst [Macrobid] 100 mg capsule 100 mg PO Q12H Patient Comments: x7 days, 05/05- 05/12 Rx Instructions: must administer with a meal/food carboxymethylcellulose sodium [Refresh Plus] 0.5 % dropperette 2 drp EACH EYE TID donepezil 5 mg tablet 5 mg PO HS loratadine [Claritin] 10 mg tablet 10 mg PO DAILY allopurinol 100 mg tablet 200 mg PO DAILY calcitriol 0.25 mcg capsule 0.25 mcg PO DAILY PreserVision AREDS 2,148 mcg-113 mg-45 mg-17.4mg tablet 1 tablet PO ONCE Rx Instructions: administer with a meal atorvastatin 20 mg tablet 20 mg PO DAILY Date of admission: 05/06/24 16:05 Primary Care Provider: Agustin*Benny Shin Admitting Provider: Tavo Miranda Attending physician on admission: Jessica Robbins Condition: Stable Hospitalist MIPS Heart Failure (Exclusion) Patient has history of Heart Transplant or Left Ventricular Assistive Device?: No IF YES, STOP HERE Heart Failure (Qualifier) Patient has current or prior documentation of LVEF less than or equal to 40%, or mod/servere depressed LVSF?: No IF NO, STOP HERE
== END 2024-05-08 16:39 | disposition hospice, inpatient (51) | DRG 682 ==
LOC: ANHED 15:54 → ANH3MEDSUR 18:24 → ANH2MED 18:55
PROVIDERS: Physician Assistant; Psychiatry & Neurology Neurology; Admitting Provider General Practice; Emergency Provider Physician Assistant; PCP Internal Medicine; Visit Provider Nurse Practitioner Family
DX: N17.9 Acute kidney failure, unspecified (principal); G93.41 Metabolic encephalopathy; I48.20 Chronic atrial fibrillation, unspecified; K50.90 Crohn's disease, unspecified, without complications; N39.0 Urinary tract infection, site not specified; I12.9 Hypertensive chronic kidney disease with stage 1 through stage 4 chronic kidney disease, or unspecified chronic kidney disease; N18.9 Chronic kidney disease, unspecified; E03.9 Hypothyroidism, unspecified; N13.30 Unspecified hydronephrosis; F03.90 Unspecified dementia, unspecified severity, without behavioral disturbance, psychotic disturbance, mood disturbance, and anxiety; E78.5 Hyperlipidemia, unspecified; K21.9 Gastro-esophageal reflux disease without esophagitis; N32.81 Overactive bladder; R29.810 Facial weakness; R33.9 Retention of urine, unspecified; H35.30 Unspecified macular degeneration; F32.A Depression, unspecified; Z96.652 Presence of left artificial knee joint; Z51.5 Encounter for palliative care
CPT/HCPCS: 36415; 36600; 70450; 71045; 71250; 74176; 76775; 80048; 80053; 80061; 81001; 82607; 82728; 82746; 82805; 82948; 83540; 83550; 83605; 83735; 84439; 84443; 84480; 85018; 85025; 85027; 85610; 85730; 87040; 87086; 93005; 93880; 93970; 94640; 95816; 96361; 96365; 96375; 99285; A9270; G0378; J0696; J1644; J2060; J3475; J7030; J7120

== ENCOUNTER 2024-05-08 16:40 | HOS | payer OTHER, MEDICARE, MEDICAID, SELFPAY ==
--- OUTSIDE RECORDS SUMMARY | 2024-05-08 17:37 | XMS_ITS | Patient Health Record ---
Author Organization [facility] Address [address] [facility] [address] [place] [address] Care Team Providers Care Product Development Scientist Name Role Phone VillanuevaRenatoEmanuel Unavailable [phone] REASON FOR REFERRAL No Information PROBLEMS Problem Type ICD Code Onset Dates Problem Status W/U Status Risk SNOMED Code Notes Problem Secondary hyperparathyroid ism, not elsewhere classified (E21.1) Active confirmed Secondary hyperparathyroidism (56760055) Problem Morbid (severe) obesity due to excess calories (E66.01) Active confirmed Morbid obesity (disorder) (492918466) Problem Hyperuricemia without signs of inflammatory arthritis 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) Active confirmed Hyperuricemi a without signs of inflammatory arthritis and tophaceous disease (285538545) Problem Essential (primary) hypertension (I10) Active confirmed Essential hypertension (40179653) Problem Renal osteodystrophy (N25.0) Active confirmed Renal osteodyst rophy (32166819) Problem Chronic kidney disease, stage 3b (N18.32) Active confirmed Chronic kidney disease stage 3B (disorder) (684664790) Encounters Encounter Location Date Provider Diagnosis [facility] [address] [address] 06/24/2023 Emanuel Villanueva Chronic kidney disea se, stage 3b N18.32 ; Essential (primary) hypertension I10 ; Morbid (severe) obesity due to excess calories E66.01 ; Renal osteodystrophy N25.0 ; Secondary hyperparathyroidism, not elsewhere classified E21.1 and Hyperuricemia without signs of inflammatory arthritis and tophaceous disease E79.0 [facility] [address] [address] 08/24/2023 Emanuel Villanueva Chronic kidney disea se, [...]
--- OUTSIDE RECORDS SUMMARY | 2024-05-08 17:37 | XMS_ITS | Clinical Summary ---
Author Organization [facility] Address [address] [place] [id number] Care Team Providers Care Machine Cage Maker Name Role Phone Deepali Brand MD Primary Care Provider [phone] Link Cook MD Unavailable [phone] Allergies Active Allergy Reactions Criticality Noted Date Comments Precious Loya 09/30/2017 Medications levothyroxine (SYNTHROID, LEVOTHROID) 125 mcg tablet Take 125 mcg by mouth weather anchor before breakfast. 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 (Primary Dx); Bilateral nonexudative age-related macular degeneration, unspecified stage; Senile ectropion of left lower eyelid 02/09/2024 Telephone [facility] [address] [place] [address] Ken Prasad MD PhD Scheduling Appointments from [...] on file Legal Sex Female 3:18 AM OVERNIGHT STOCKER Gender Identity Not on file Sexual Orientation [...] Vaccine ( season) 2023, 06/26/2020 Influenza Vaccine (Season Ended) 2024 Procedures Procedure Name Priority Date/Time Associated Diagnosis Comments OCT, RETINA - OU - BOTH EYES Routine 04/03/2024 10:12 AM OVERNIGHT STOCKER Bilateral nonexudative age-related macular degeneration, unspecified stage from Last 3 Months Results * OCT, Retina - OU - Both Eyes (04/03/2024 10:12 AM OVERNIGHT STOCKER) Anatomical Region Laterality Modality Head Optical Coherenc e Tomography Narrative 04/03/2024 10:12 AM OVERNIGHT STOCKER Right Eye Quality was good. Scan locations included subfoveal. Progression has no prior data. Left Eye Quality was good. Scan locations included subfoveal. Progression has no prior data. Notes OD: ERM with lamellar hole, subretinal scarring with GA, no CME OS: diffuse GA, no obvious CME (slightly hazy view) Jerry Monson MD OPHTH TOMOGRAPHY Final Result from Last 3 Months Insurance MEDICARE [facility] MEDICARE [facility] [facility] Advance Directives For more information, please contact: [phone] * Full Code (Latest Code Status on File) Date Activated Date Inactivated Comments 10/01/2017 4:59 PM 10/02/2017 7:21 PM Care Teams Machine Cage Maker Relationship Specialty Start Date End Date Deepali Brand MD [facility] [place] [address] PCP - General 09/30/17 Link Cook MD [facility] [place] [address] Consulting Physician Cardiology 10/02/17
--- OUTSIDE RECORDS SUMMARY | 2024-05-08 17:37 | XMS_ITS | Continuity of Care Document ---
Author Organization [email or web address] [facility] Address [address] [place] [address] Dr [address] [place] [phone] Phone Care Team Providers Care Salesperson [employer] Name Role Phone AkinsueAmilcar Unavailable Unavailable Procedures Procedure Date Office/outpatient Visit, Est Dilated Macular Exam Performed 10 Counseling For Antioxidant Supplements A TF Plastic Sphcyl [place] To +/-4d .12-2d Vision Svcs Frames Purchases [...] Exam Performed 08 Refraction TF Plastic Sphcyl [place] To +/-4d .12-2d Tax - Medical Eye Exam & Treatment Refraction Advance Directives Directive Yes / No Effective Date File Name No Information Encounters Encounter Description Practice Location Reason(s) For Visit Diagnoses Date Provider Providers Copied on Encounter Office/outpat ient Visit, Est [facility], [address] [place] [address] [address], [place], [place], [id number], [place] tel:[phone] [facility] [place] No Information Sep- 0-201 0 Nini Fitzgerald. [address] [facility] [place] , [address], [place], [place], [facility], [place]. tel:[phone] [facility], [address], [place], [place], [id number], [place] tel:[phone] [facility] No Information 2 4-201 0 [facility] . [address] [facility], [address], [place], [place], [id number], [place]. tel:[phone] Referring Provider: Amilcar Pérez, [address] [place], [place] [address]ate [address], [place], [place], [facility]. tel:[phone] [facility], [address] [place] [address] [address], [place], [place], [id number], [place] tel:[phone] [facility] No Information 9-201 0 Nini Fitzgerald. [facility] [address], [address], [place], [address], [place]. tel:[phone] [facility], [address], [place], [place], [id number], [place] tel:[phone] [facility] [place] No Information b-0 5-201 0 Nini Fitzgerald. [facility] [place] , [address], [place], [address], [place]. tel:[phone] [facility], [address], [place], [place], [address], [place] tel:[phone] [facility] No Information Feb-0 4-201 0 Nini Fitzgerald. [address] , [address], [place], [address], [place]. tel:[phone] [facility], [address], [place], [place], [address], [place] tel:[phone] [facility] No Information 0 Nini Fitzgerald. [address] [facility] , [address], [place], [address], [place]. tel:[phone] Referring Provider: Amilcar Pérez, [address] [facility] [address], [place], [address]. tel:[phone] [facility], [address] [place] [address] [address], [place], [place], [id number], [place] tel:[phone] [facility] No Information 0 Nini Fitzgerald. [facility] , [address], [place], [place], [facility], [place]. tel:[phone] [facility], [address], [place], [place], [id number], [place] tel:[phone] [facility] No Information 0 Nini Fitzgerald. [facility] , [address], [place], [address], [place]. tel:[phone] [facility], [address] [place] [address] [address], [place], [place], [id number], [place] tel:[phone] [facility] No Information 0 Nini Fitzgerald. [facility] , [address], [place], [address], [place]. tel:[phone] Referring Provider: Amilcar Pérez, [address], [place], [place], [facility]. tel:[phone] [facility], [address] [place] [address] [address], [place], [place], [address], [place] tel:[phone] [facility] No Information 9 Nini Fitzgerald. [address] [place] [address] , [address], [place], [address], . tel:[phone] [facility], [address] [place] [address] [address], [place], [place], [id number], [place] tel:[phone] [facility] [place] No Information 8 Nini Fitzgerald. [address] [place] [address] , [address], [place], [address], . tel:[phone] [facility], [address] [place] [address] [address], [place], [place], [id number], [place] tel:[phone] SEC [facility] No Information 7 [facility] . [address] [place] [address], [address], [place], [place], [id number], . tel:[phone] Referring Provider: Amilcar Pérez, [address] [place] [address] [address], [place], [place], [facility]. tel:[phone] sulting Provider: Joseph Chavez, [address] [place], [place] [address]ate [facility], [place], [address]. tel:[phone] [facility], [address] [place] [address] [address], [place], [place], [id number], [place] tel:[phone] [facility] No Information 7 Nini Fitzgerald. [address] [place] [address] , [address], [place], [address], . tel:[phone] Family History Family Member Type Diagnosis Age At Onset No Information Payers Payer name Insurance type Covered alliance party ID Authoriza tion(s) [place] [id number] [place] [id number] Social History Type Description Quantity Date Captured [...]
--- OUTSIDE RECORDS SUMMARY | 2024-05-08 17:37 | XMS_ITS ---
Author Organization [facility] Address [address] [place] [address] Care Team Providers Care Certified Addiction Counselor Name Role Phone Rich Emanuel Unavailable [phone] Encounters Encounter Location Date Provider Diagnosis [facility] [address] [facility] [address] [place] [address] 03/04/2023 Emanuel Villanueva Chronic kidney disea se, [...] Notes * ARCELIA NOVOAADOB:1935 (88 yo M)Acc No.[id number]:03/04/2023 Progress Notes Patient: CORBY NOVOA Provider: MD GURDEEP, F.A.C.P, F.A.S.N. :1935 Age:87 Y Sex:Male Date:03/04/2023 Address:[facility] [place] [place] [address] Subjective: * Chief Complaints: * * Medical [...] Treatment: * Billing Information: * Visit Code: 60895 Office Visit, Est Pt., Level 4. * Procedure Codes: * Sign off status: Pending * Provider: MD GURDEEP, F.Jere, F.A.S.N. Date: 03/04/2023
--- OUTSIDE RECORDS SUMMARY | 2024-05-08 17:37 | XMS_ITS | Referral Summary ---
Author Organization 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 Active lisinopril (PRINIVIL,ZESTRI L) 10 [...] 04/03/2024 Assessment & Plan (04/03/2024 10:11 AM [facility]): Referred for AMD michelle Has extensive GA [...] 04/03/2024 Assessment & Plan (04/03/2024 10:11 AM INTERNATIONAL ACCOUNT MANAGER): Associated surface dryness Recommend lubrication with artificial [...] on file Legal Sex Female 3:18 AM INTERNATIONAL ACCOUNT MANAGER Gender Identity Not on file Sexual Orientation [...] - BOTH EYES Routine 04/03/2024 10:12 AM INTERNATIONAL ACCOUNT MANAGER Bilateral nonexudative age-related macular degeneration, unspecified stage from Last 3 Months Results * OCT, Retina - OU - Both Eyes (04/03/2024 10:12 AM INTERNATIONAL ACCOUNT MANAGER) Anatomical Region Laterality Modality [facility] Tomography Narrative 04/03/2024 10:12 AM INTERNATIONAL ACCOUNT MANAGER Right Eye Quality was good. Scan locations included subfoveal. Progression has no prior data. Left Eye Quality was good. Scan locations included subfoveal. Progression has no prior data. Notes OD: ERM with lamellar hole, subretinal scarring with GA, no CME OS: diffuse GA, no obvious CME (slightly hazy view) Jerry Monson MD OPHTH TOMOGRAPHY Final Result from Last 3 Months Insurance MEDICARE [facility] MEDICARE [facility]ILROAD [facility] Advance Directives For more information, please contact: [phone] * Full Code (Latest Code Status on File) Date Activated Date Inactivated Comments 10/01/2017 4:59 PM 10/02/2017 7:21 PM Care Teams Dispatch Officer Relationship Specialty Start Date End Date Deepali Brand MD [address] [place] [address] [place] [address] PCP - General 09/30/17 Link Cook MD [address] [place] [address] [place] [address] Consulting Physician Cardiology 10/02/17
--- OUTSIDE RECORDS SUMMARY | 2024-05-08 17:38 | XMS_ITS ---
Author Organization [facility] Address [address] [place] [address] Care Team Providers Care Data Solutions Architect Name Role Phone Rich Emanuel Unavailable [phone] Encounters Encounter Location Date Provider Diagnosis [facility] [address] [facility] [address] [place] [address] 06/24/2023 Emanuel Villanueva Chronic kidney disea se, [...] Notes * ARCELIA NOVOAADOB:1935 (88 yo M)Acc No.[id number]:06/24/2023 Progress Notes Patient: CORBY NOVOA Provider: MD GURDEEP, F.A.C.P, F.A.S.N. :1935 Age:87 Y Sex:Male Date:06/24/2023 Address:[facility] [place] [place] [address] Subjective: * Chief Complaints: * * Medical [...] Treatment: * Billing Information: * Visit Code: 44007 Office Visit, Est Pt., Level 4. * Procedure Codes: * Sign off status: Pending * Provider: MD GURDEEP, F.Jere, F.A.S.N. Date: 06/24/2023
--- OUTSIDE RECORDS SUMMARY | 2024-05-08 17:38 | XMS_ITS | Data Portability ---
Author Organization [facility] [employer] [facility], Main Office Address [address] [place] [address] Care Team Providers Care Manufacturing Process Technician Name Role Phone MIGDALIA SUMMERS Primary Care Provider MIGDALIA SUMMERS Referring Provider Assessment Encounter Date Assessment Date Assessment LastModified by Organization Details LastModified Time 08/25/2023 08/25/2023 This note is dictated and transcribed by [employer]. Transportation Operations Manager variances may occur. Despite proofreading, typographical errors may occur. Occasional wrong-word or 'qnqmd-b-xatg' substitutions may have occurred due to the inherent limitations of voice recording. Read the chart carefully and recognize, using context, where substitutions have occurred. Not available 08/25/2023 14:23:47 11/24/2023 11/24/2023 This note is dictated and transcribed by [employer]. Transportation Operations Manager variances may occur. Despite proofreading, typographical errors may occur. Occasional wrong-word or 'ictyk-d-osin' substitutions may have occurred due to the inherent limitations of voice recording. Read the chart carefully and recognize, using context, where substitutions have occurred. Not available 11/24/2023 15:09:23 02/23/2024 02/23/2024 This note is dictated and transcribed by [employer]. Transportation Operations Manager variances may occur. Despite proofreading, typographical errors may occur. Occasional wrong-word or 'lyjho-e-jndl' substitutions may have occurred due to the [...] contr ast No observ ation record ed. [email or web address] [facility] [address] [place], [address], 10/29/2022 09:49:25 Result Notes None recorded. Problems Name Problem SNOMED Code Status Onset Date Resolution Date Notes Provider Name and Address Organization Details Recorded Time Fracture of thoracic spine 435373574 Active Not Available [facility] 3 08:09:22 Postprocedura l state finding 967424495 Active Not Available [facility] 3 08:09:22 Chronic back pain 539898901 Active Not Available [facility] 3 08:09:22 Nocturia 649520423 Active Not Available [facility] 3 08:09:22 Dizziness present 006256868 Active Not Available [facility] 3 08:09:22 Urinary incontinence 254196310 Active Not Available [facility] 3 08:09:22 Postoperative pain 643325706 Active Not Available [facility] 3 08:09:22 Sciatica 41800987 Active Not Available [facility] 3 08:09:22 Gastroesophag eal reflux disease 125378924 Active Not Available [facility] 3 08:09:22 Osteoarthriti s of knee 918337856 Active Not Available [facility] 3 08:09:22 Urinary symptoms 701518246 Active Not Available [facility] 3 08:09:22 Malignant tumor of breast 202782526 Active Not Available [facility] 3 08:09:22 Muscle weakness 18362377 Active Not Available [facility] 3 08:09:22 Transient cerebral ischemia 772109566 Active Not Available [facility] 3 08:09:23 Anemia 793338725 Active Not Available [facility] 3 08:09:23 Low back pain 430412195 Active Not Available [facility] 3 08:09:23 Pain in pelvis 37197133 Active Not Available [facility] 3 08:09:23 Knee pain Active Not Available [facility] 3 08:09:23 Dizzy spells 372202013 Active Not Available [facility] 3 08:09:23 Crohn's disease 78117952 Active Not Available [facility] 3 08:09:23 Arthritis 6950540 Active Not Available [facility] 3 08:09:23 Hypertensive disorder 97573811 Active Not Available [facility] 3 08:09:23 Memory impairment 905575621 Active Not Available [facility] 3 08:09:23 Osteoarthriti s 649428214 Active Not Available [facility] 3 08:09:23 Tinea cruris 640290271 Active Not Available [facility] 3 08:09:23 Lymphedema of lower extremity 007864028 Active 2018 Not Available [facility] 3 08:09:23 Hypothyroidis m 55707076 Active Not Available [facility] 3 08:09:23 Renal failure syndrome 08116536 Active Not Available [facility] 3 08:09:24 Disorder of urinary bladder 91176969 Active 2016 Not Available [facility] 3 08:09:24 Chronic atrial fibrillation 014226073 Active Not Available [facility] 3 08:09:24 Viral syndrome 559202086 Active Not Available [facility] 3 08:09:24 Shoulder pain 91931937 Active Not Available [facility] 3 08:09:24 Atrial fibrillation 04489391 Active Not Available [facility] 3 08:09:24 Carpal tunnel syndrome 21448176 Active Not Available [facility] 3 08:09:24 Allergic rhinitis 36091429 Active Not Available [facility] 3 08:09:24 Osteoporosis 10204703 Active Not Available [facility] 3 08:09:24 Urinary tract infectious disease 84781683 Active Not Available [facility] 3 08:09:24 Dystrophia unguium 49319345 Active 2017 Not Available [facility] 3 08:09:24 Chronic renal failure 55044332 Active Not Available [facility] 3 08:09:25 Kidney disease 08332771 Active 2016 Not Available [facility] 3 08:09:25 Chronic diarrhea 238224494 Active 2023 Sintia denny [facility] 4 12:30:10 Overactive urinary bladder 495053743 Active 2023 Sintia denny, [facility] 4 12:30:28 Vitamin D deficiency 71730116 Active 2023 Sintia denny, [facility] 4 12:30:36 Gout 97710002 Active 2023 Sintia denny, [facility] 4 12:30:45 Insomnia 876457799 Active 2023 Sintia denny, [facility] 4 12:30:54 Degenerative disorder of macula 321696279 Active 2023 Sintia denny [facility] 4 12:31:02 History of recurrent urinary tract infection 991888116 Active 2023 Sintia denny, [facility] 4 12:31:31 Moderate cognitive impairment 076972897 Active 2023 Sintia denny, [facility] 4 12:31:40 Constipation 07465702 Active 2023 Sintia denny [facility] 4 12:31:50 Essential hypertension 29016150 Active 2023 Sintia Bhumi denny, [facility] [employer] 12:31:58 Notes:Some problems listed i n Document: #[id number] could not be added to this patient's chart. Please review this document and add these problems to the patient's chart manually as needed. Problem Notes None recorded. Procedures Surgical History Date Name Laterality Status Provider Name and Address Organization Details Recorded Time 02/22/19 25 Nail Debridement completed Laith Charles DPM [address], [place], [address], [employer] 02/23/2024 15:20:36 11/24/19 24 Nail Debridement completed Laith Charles DPM [address] [employer], [address], [place], [address], [employer] 11/24/2023 15:04:47 08/25/19 24 Nail Debridement completed Laith Charles DPM [address] [employer], [address], [place], [address], [employer] 08/25/2023 14:22:12 Masectomy completed Not Available [facility] 0 04/07/2022 08:06:25 abdominal wall hernia procedure completed Not Available [facility] 04/07/2022 08:06:25 Imaging Results Imaging Date Name Status LastModified by Organiz ation Details LastModified Time 10/28/2022 CT, head, w/o contrast completed [address], [place], [address], 10/29/2022 09:49:25 Procedure Notes None recorded. Medical Equipment None Reported. Allergies Allergen ID Allergen Name Allergen Category Reaction Reaction Severity Criticality Documentation Date Start Date Code Code System Note Provider Name and Address Organization Details Recorded Time niacin medicatio n Not available Not available Not available 04/07/2022 7393 RxNorm Not Available [facility] 08:13:21 Medications Name Sig Start Date Stop [...] propionate 50 mcg/actuati on nasal spray,suspe nsion Todd 2 sprays every day by intranasa l [...] [degF] 144 mm[Hg] 68 mm[Hg] Not Available [facility] 3 08:08:46 Date Recorded Body height Oxygen saturation Oxygen saturation in Arterial blood by Pulse oximetry Heart rate Body temperature Systolic blood pressure Diastolic blood pressure Provider Name and Address Organization Details Last Updated DateTime 2 157.48 cm 97 % 97 % 63 /min 97.7 [degF] 138 mm[Hg] 82 mm[Hg] Not Available [facility] 3 08:08:46 Date Recorded Body height Body mass index (BMI) Body weight Heart rate Respiratory rate Body temperature Provider Name and Address Organization Details Last Updated DateTime 4 157.48 cm 30 kg/m2 72503.1 5 g 66 /min 16 /min 98.6 [degF] Nani Shirley MA [facility] [employer] 4 12:36:03 Date Recorded Body height Body mass index (BMI) Body weight Heart rate Respiratory rate Oxygen saturation Oxygen saturation in Arterial blood by Pulse oximetry Systolic blood pressure Diastolic blood pressure Provider Name and Address Organization Details Last Updated DateTime 4 157.48 cm 30 kg/m2 45653.1 5 g 57 /min 14 /min 97 % 97 % 108 mm[Hg] 71 mm[Hg] Tata Zamorano [facility] [employer] [facility] [employer] 4 14:29:55 Date Recorded Body height Body mass index (BMI) Body weight Heart rate Respiratory rate Oxygen saturation Oxygen saturation in Arterial blood by Pulse oximetry Provider Name and Address Organization Details Last Updated DateTime 5 157.48 cm 30 kg/m2 31811.1 5 g 62 /min 14 /min 97 % 97 % Tata [facility] [employer] [facility] 14:57:40 Social History Question Answer Notes LastModified by Organizat ion Details LastModified Time Tobacco Smoking Status Never Smoker Not Available [facility] 04/07/2022 08:06:21 What Is Your Level Of Alcohol Consumption? None [id number] Information not available 04/07/2022 What Is Your Level Of Caffeine Consumption? None [place] Information not available 08/25/2023 In The 14 Days Before Symptom Onset, Have You Had Close Contact With A Laboratory-confirm ed COVID-19 While That Case Was Ill? No [id number] Information not available 04/07/2022 In The 14 Days Before Symptom Onset, Have You Had Close Contact With A Person Who Is Under Investigation For COVID-19 While That Person Was Ill? No [id number] Information not available 04/07/2022 Are You Currently Employed? No [place] Information not available 08/25/2023 Sex: Unknown Functional Status None recorded. Mental Status None recorded. Family History Relationship Description Onset Age of this Age Resolved Age Notes LastModified by Organization Details LastModified Time Father Family history of stroke [id number] Not available 04/07/2022 08:06:26 Father Heart disease [id number] Not available 04/07/2022 08:06:27 Mother Family history of stroke [id number] Not available 04/07/2022 08:06:27 Medical History No medical history recorded. Gynecological HistoryNo gynecological history recorded. Obstetrics History GPAL:G 0 P 0 0 0 0 Past Encounters Encounter ID Performer Location Encounter Start Date Encounter Closed Date Diagnosis/Indication Diagnosis SNOMED-CT Code Diagnosis ICD10 Code Diagnosis Note [id number] [facility] [address] 08/27/2020 00:00:00 08/28/2020 06:01:58 [id number] [facility] [address] 11/27/2020 00:00:00 11/28/2020 06:05:35 [id number] [facility] Edwardsvi llangela [address] [place] [address] [place] [address] 04/06/2021 00:00:00 04/06/2021 18:58:13 [id number] [facility] Pramodvi llangela [address] [facility] [place] [address] 10/05/2021 00:00:00 10/05/2021 20:56:50 [id number] Laith Charles DPM [address] [address] 08/25/2023 12:24:15 08/25/2023 14:57:27 Dystrophia unguium 17398385 L60.3 Nails 1 through 10 were debrided with sharp mechanical debridemen t without incident. Nails were debrided and greater than 50% length and thickness where needed. Unable to cut own toenails 170862509 Z74.1 [id number] Laith Charles DPM [address] [address] 11/24/2023 14:26:04 11/25/2023 11:55:41 Dystrophia unguium 85195946 L60.3 Nails 1 through 10 were debrided with sharp mechanical debridemen t without incident. Nails were debrided and greater than 50% length and thickness where needed. Unable to cut own toenails 086524321 Z74.1 [id number] Laith Charles DPM [address] [address] 02/23/2024 14:53:47 03/05/2024 11:30:25 Dystrophia unguium 49278673 L60.3 Nails 1 through 10 were debrided with sharp mechanical debridemen t without incident. Nails were debrided and greater than 50% length and thickness where needed. Unable to cut own toenails 575736698 Z74.1 Health Concerns Section Related Observation LastModified by Organization Detai ls LastModified Time None Recorded Concern Status LastModified by Organization Details LastModified Time None Recorded Advance Directives Directive None Recorded Payers Encounter Date Sequence Insurance Name Policy Number Policy Oconnell Covered Member ID Oconnell Member ID Guarantor Name 08/25/2023 1 MEDICARE B: [facility] Deanna M Darío [id number] Deanna M Darío 08/25/2023 2 [facility] (MEDICAID HMO) [id number] Deanna M Darío [id number] Deanna M Darío 11/24/2023 1 [facility] B[facility] Deanna M Darío [id number] Deanna M Darío 11/24/2023 2 [facility] (MEDICAID HMO) [id number] 0003 Deanna M Darío [id number] Deanna M Darío 02/23/2024 1 [facility] B[facility] Deanna M Darío [id number] Deanna M Darío 02/23/2024 2 [facility] (MEDICAID HMO) [id number] 0003 Deanna M Darío [id number] Deanna M Darío Notes Date Note Type Note Provider Name and Address Organization Details Recorded Time 08/25/2023 text/html . Patient is a 87-year-old female who presents the office from a half-way facility routine foot care. Patient denies any new pedal complaints. Patient states that she is doing well and her nails are long and she needs have them cut. Patient denies any other complaints. Laith Charles DPM [address] [place] [address], [facility] [address], [place], [address], [facility] 08/25/2023 14:27:26 11/24/2023 text/html . Patient is a 88-year-old female who returns for foot care she states overall she is doing well denies any changes denies any intermittent claudication, wounds, foot pain with walking. Presents from half-way and in wheel chair. Laith Charles DPM [address], [place], [address], [employer] [facility] 11/24/2023 15:09:38 02/23/2024 text/html . Patient is a 88-year-old female she returns the office for routine foot care. patient presents in wheelchair she has difficulty walking. Patient denies any recent injuries. Patient denies any other complaints and would like her nails cut as she is unable to cut them. Laith Charles DPM [address], [facility] [address], [place], [address], [employer] 02/23/2024 15:21:12 OBGyn Episode No OBEpisode recorded.
--- OUTSIDE RECORDS SUMMARY | 2024-05-08 17:38 | XMS_ITS ---
Author Organization [facility] Address [address] [place] [address] Care Team Providers Care Bicycle Mechanic Name Role Phone Rich Emanuel Unavailable [phone] Encounters Encounter Location Date Provider Diagnosis [place] [facility] [address] [facility] [address] [place] [address] 08/24/2023 Emanuel Villanueva Chronic kidney disea se, [...] Notes * ARCELIA NOVOAADOB:1935 (88 yo M)Acc No.[id number]:08/24/2023 Progress Notes Patient: CORBY NOVOA Provider: MD GURDEEP, F.A.C.P, F.A.S.N. :1935 Age:87 Y Sex:Male Date:08/24/2023 Address:[facility] [place] [place] [address] Subjective: * Chief Complaints: * * Medical [...] Treatment: * Billing Information: * Visit Code: 71186 Office Visit, Est Pt., Level 5. * Procedure Codes: * Sign off status: Pending * Provider: MD GURDEEP, F.Jere, F.A.S.N. Date: 08/24/2023
--- OUTSIDE RECORDS SUMMARY | 2024-05-08 17:38 | XMS_ITS | CONTINUITY OF CARE DOCUMENT ---
Author Name brad salinas Address Unknown Organization [facility] Address [address] [facility] [address] [place] [address] Phone [phone] Care Team Providers Care Deburring And Tooling Machine Operator Name Role Phone Joyce DESOUZA, Link Unavailable CAMERON DESOUZA, MIGDALIA Unavailable [phone] CAMERON DESOUZA, MIGDALIA Unavailable [phone] PROBLEMS Condition Status Date Provider Notes AFIB; CHRON, NML TSH,, INR P ER [facility] active Link Cook MD HIATAL HERNIA; active [...] L EF 2008 & 2009 completed - Link Cook MD CROHN'S DISEASE and diverticulosis active [...] In-person encounter Office Visit Linda Villanueva MD [place] - In-person encounter Office Visit Link Cook MD [place] OBESITY;HTN; has 100% right renal 09RENAL FAILURE CHRONIC; NEG US, LABS PER PRIMARY, 100 renal stenos rightValvular heart diseaseAnemia, iron deficiencyFall riskMicroalbuminuria - In-person encounter Office Visit Link Cook MD [place] [facility] Screening - In-person encounter Office Visit Link Cook MD [facility] DVT;NEG USISCHEMIA;ABNL 09 AND NML 12,NML 14, NEVER WANTED CATHLOW HDL;LOW LDL 2009, INTOL TO NIASPANCAROTID ARTERY DISEASE;NEG 11Chest pain-type to be determined - In-person encounter Office Visit Link Cook MD [place] ANEMIA;Valvular heart diseaseAnemia, iron deficiency - In-person encounter Office Visit Link Cook MD [place] RENAL FAILURE CHRONIC; NEG US, LABS PER PRIMARY, 100 renal stenos rightVITAMIN D DEFICIENCY;Screening - In-person encounter Office Visit Link Cook MD [place] - In-person encounter Office Visit Link Cook MD [place] Hyperlipidemia, unspecified - In-person encounter Office Visit Link Cook MD [facility] - In-person encounter Office Visit Link Cook MD [facility] - In-person encounter Office Visit Link Cook MD [place] - In-person encounter Office Visit Link Cook MD [place] DIASTOLIC CHFAORTIC REGURGITATION, MILD;13 WITH NML EFLEFT ATRIAL ENLARGEMENTAORTIC VALVE SCLEROSISTRICUSPID REGURGITATION, MILD, PAP 29 2013Valvular heart diseaseSleep apnea - In-person encounter Office Visit Link Cook MD [place] HIATAL HERNIA;Hyperlipidemia, unspecifiedRENAL FAILURE CHRONIC; NEG US, LABS PER PRIMARY, 100 renal stenos rightCROHN'S DISEASE and diverticulosisANEMIA; - In-person encounter Office Visit Link Cook MD [facility] - In-person encounter Office Visit Link Cook MD [facility] OBESITY;HTN; has 100% right renal 09RENAL FAILURE CHRONIC; NEG US, LABS PER PRIMARY, 100 renal stenos rightHYPOKALEMIA,4.3 2011 LABS PER PRIMARY - In-person encounter Office Visit Link Cook MD [facility] - In-person encounter Office Visit Link Cook MD [place] OBESITY;HTN; has 100% right renal 09Hyperlipidemia, unspecifiedDIASTOLIC CHFANEMIA;MITRAL REGURGITATION, MILD - In-person encounter Office Visit Link Cook MD [place] [facility] - In-person encounter Office Visit Link Cook MD [facility] AFIB; CHRON, NML TSH,, INR PER SLHVRENAL FAILURE CHRONIC; NEG US, LABS PER PRIMARY, 100 renal stenos rightANEMIA;AORTIC REGURGITATION, MILD;13 WITH NML EFVITAMIN D DEFICIENCY;TRICUSPID REGURGITATION, MILD, PAP 29 2013AORTIC ATHEROSCLEROSIS - In-person encounter Office Visit Link Cook MD [place] AFIB; CHRON, NML TSH,, INR PER SLHVHyperlipidemia, unspecifiedRENAL FAILURE CHRONIC; NEG US, LABS PER PRIMARY, 100 renal stenos rightDIASTOLIC CHFISCHEMIA;ABNL 09 AND NML 12,NML 14, NEVER WANTED CATHAORTIC REGURGITATION MILD;NML EF 2009 & 2010AORTIC REGURGITATION, MILD;13 WITH NML EFHYPOTHYROIDISM;ON RX PER PRIMARYDEHYDRATION - In-person encounter Office Visit Link Cook MD [facility] - In-person encounter Office Visit Link Cook MD [facility] - In-person encounter Office Visit Link Cook MD [facility] - In-person encounter Office Visit Link Cook MD [facility] - In-person encounter Office Visit Link Cook MD [facility] - In-person encounter Office Visit Link Cook MD [place] AFIB; CHRON, NML TSH,, INR PER SLHVRENAL FAILURE CHRONIC; NEG US, LABS PER PRIMARY, 100 renal stenos rightDIASTOLIC CHFANEMIA;VITAMIN D DEFICIENCY; - In-person encounter Office Visit Link Cook MD [place] AFIB; CHRON, NML TSH,, INR PER SLHVHIATAL HERNIA;OBESITY;HTN; has 100% right renal 09ISCHEMIA;ABNL 09 AND NML 12,NML 14, NEVER WANTED CATHANEMIA;OSTEOARTHRITISVI TAMIN D DEFICIENCY; - In-person encounter Office Visit Link Cook MD [place] Hyperlipidemia, unspecifiedRENAL FAILURE CHRONIC; NEG US, LABS PER PRIMARY, 100 renal stenos rightDVT;NEG USHYPOKALEMIA,4.3 2010 LABS PER PRIMARYDIASTOLIC CHFLEG PAIN- 04/15 HARJIT DOP NEGISCHEMIA;ABNL 09 AND NML 12,NML 14, NEVER WANTED CATHCROHN'S DISEASE and diverticulosisAORTIC REGURGITATION, MILD;13 WITH NML EFCAROTID ARTERY DISEASE;NEG 11 - In-person encounter Office Visit Link Cook MD [facility] HIATAL HERNIA;Hyperlipidemia, unspecifiedRENAL FAILURE CHRONIC; NEG US, LABS PER PRIMARY, 100 renal stenos rightISCHEMIA;ABNL 09 AND NML 12,NML 14, NEVER WANTED CATHCROHN'S DISEASE and diverticulosisANEMIA; - In-person encounter Office Visit Link Cook MD [facility] AFIB; CHRON, NML TSH,, INR PER SLHVRENAL FAILURE CHRONIC; NEG US, LABS PER PRIMARY, 100 renal stenos rightISCHEMIA;ABNL 09 AND NML 12,NML 14, NEVER WANTED CATH - In-person encounter Office Visit Link Cook MD [facility] AFIB; CHRON, NML TSH,, INR PER SLHVHTN; has 100% right renal 09DVT;NEG USLEG PAIN-3 TIMO DUP NEG LEFT, NO FLOW RIGHTISCHEMIA;ABNL 09 AND NML 12,NML 14, NEVER WANTED CATHRENAL ARTERY STENOSIS;100% RIGHT RENAL 04/15AORTIC REGURGITATION MILD;NML EF 2008 & 2009 - In-person encounter Office Visit Link Cook MD [facility] HYPOKALEMIA,4.3 2011 LABS PER PRIMARYDIASTOLIC CHF - In-person encounter Office Visit Link Cook MD [facility] AFIB; CHRON, NML TSH,, INR PER [...] Ariebel l weight E&M 209 [lb_av] Rose rAiebel l Body Mass Index (Ratio) 38.95 kg/m2 Je Cook MD blood pressure, diastolic 70 mm[Hg] Ki prabhakar Cárdenas blood pressure, systolic 130 mm[Hg] Leydi manzanares Luther oxygen saturation, oximetry 98 % Viviana respiratory rate E&M 16 /min Viviana Cárdenas pulse rate 75 /min Viviana Cárdenas weight E&M 213 [lb_av] [place] height E&M 62 [in_i] Viviana Cárdenas Body Mass Index (Ratio) 41.33 kg/m2 Je Cook MD blood pressure, cuff size regular Ke rri Rhianna blood pressure, diastolic 74 mm[Hg] Hunter rri Rhianna blood pressure, systolic 147 mm[Hg] Sorin Moctezuma oxygen saturation, oximetry 94 % Julee Moctezuma respiratory rate E&M 20 /min Julee doradobelinda pulse rate 119 /min Julee Coleman [facility] [place]note 2] weight E&M 226 [lb_av] Julee Coleman [facility] [place]note 2] height E&M 62 [in_i] Julee Coleman [facility] [place]note 2] Body Mass Index (Ratio) 41.66 kg/m2 Marianne [...] Index (Ratio) 39.87 kg/m2 Casimiro paola Altamirano NAME PLATE STAMPING MACHINE OPERATOR blood pressure, diastolic 74 mm[Hg] Sh erry Evelia NAME PLATE STAMPING MACHINE OPERATOR blood pressure, systolic 128 mm[Hg] She rry [place] NAME PLATE STAMPING MACHINE OPERATOR weight E&M 218 [lb_av] Alida Altamirano NAME PLATE STAMPING MACHINE OPERATOR blood pressure, diastolic 90 mm[Hg] Ke rri Rhianna blood pressure, systolic 130 mm[Hg] Sorin Moctezuma pulse rate 68 /min Julee Virginia lder oxygen saturation, oximetry 97 % Julee Rhianna respiratory rate E&M 18 /min Julee Benavides rashid Body Mass Index (Ratio) 42.61 kg/m2 Kenny carmichael Rhianna weight E&M 233 [lb_av] Julee Castromaryse donovaner Body Mass Index (Ratio) 41.51 kg/m2 Casimiro Whiteheaddall NAME PLATE STAMPING MACHINE OPERATOR weight E&M 227 [lb_av] Alida [place] NAME PLATE STAMPING MACHINE OPERATOR Body Mass Index (Ratio) 40.60 kg/m2 Casimiro ry [place] NAME PLATE STAMPING MACHINE OPERATOR weight E&M 222 [lb_av] Alida [place] NAME PLATE STAMPING MACHINE OPERATOR Body Mass Index (Ratio) 41.15 kg/m2 Casimior ry Evelia NAME PLATE STAMPING MACHINE OPERATOR weight E&M 225 [lb_av] Alida Evelia NAME PLATE STAMPING MACHINE OPERATOR Body Mass Index (Ratio) 40.60 kg/m2 Anea wili [facility] blood pressure, diastolic 60 mm[Hg] An eatris [facility] blood pressure, systolic 114 mm[Hg] Ane atris [facility] pulse rate 72 /min Aneatris [facility] oxygen saturation, oximetry 93 % Aneatris Brown respiratory rate E&M 17 /min Aneatri s [facility] weight E&M 222 [lb_av] Aneatris Brown Body Mass Index (Ratio) 40.97 kg/m2 Anea wili [facility] blood pressure, diastolic 70 mm[Hg] An eatris [facility] blood pressure, systolic 110 mm[Hg] Ane atris Brown pulse rate 74 /min Aneatris Brown oxygen saturation, oximetry 97 % Aneatris Brown respiratory rate E&M 18 /min Aneatri s Brown weight E&M 224 [lb_av] Aneatris Brown Body Mass Index (Ratio) 43.56 kg/m2 Casimiro White[place]all NAME PLATE STAMPING MACHINE OPERATOR weight E&M 238.2 [lb_av] Alida Evelia NAME PLATE STAMPING MACHINE OPERATOR Body Mass Index (Ratio) 44.06 kg/m2 Shea blue Shannan blood pressure, diastolic 81 mm[Hg] Anusha hernandez Shannan blood pressure, systolic 128 mm[Hg] Lela chang Shannan pulse rate 82 /min Balbir Shannan oxygen saturation, oximetry 97 % Balbir Shannan respiratory rate E&M 16 /min Balbir Shannan weight E&M 240 [lb_av] Balbir Chandney blood pressure, diastolic 88 mm[Hg] Ashli [place] NAME PLATE STAMPING MACHINE OPERATOR blood pressure, systolic 136 mm[Hg] Blank [place] NAME PLATE STAMPING MACHINE OPERATOR Body Mass Index (Ratio) 45.19 kg/m2 Casimiro [...] Index (Ratio) 42.22 kg/m2 Casimiro paola Altamirano NAME PLATE STAMPING MACHINE OPERATOR weight E&M 230 [lb_av] Alida Evelia NAME PLATE STAMPING MACHINE OPERATOR weight E&M 236 [lb_av] Link Serotmanpreet Vargas [...] Index (Ratio) 43.14 kg/m2 Lacr etia Pereira NAME PLATE STAMPING MACHINE OPERATOR weight E&M 235 [lb_av] Lacretia Jesus s NAME PLATE STAMPING MACHINE OPERATOR height E&M 62 [in_i] Lacretia Jesus s NAME PLATE STAMPING MACHINE OPERATOR Body Mass Index (Ratio) 43.14 kg/m2 Lacr etia Pereira NAME PLATE STAMPING MACHINE OPERATOR blood pressure, cuff size large La cretia Pereira NAME PLATE STAMPING MACHINE OPERATOR blood pressure, diastolic 62 mm[Hg] La cretia Pereira NAME PLATE STAMPING MACHINE OPERATOR blood pressure, systolic 100 mm[Hg] Lac retia Pereira NAME PLATE STAMPING MACHINE OPERATOR pulse rate 62 /min Lacretia Jesus s NAME PLATE STAMPING MACHINE OPERATOR weight E&M 235 [lb_av] Lacretia Jesus s NAME PLATE STAMPING MACHINE OPERATOR height E&M 62 [in_i] Lacretia Jesus s NAME PLATE STAMPING MACHINE OPERATOR Body Mass Index (Ratio) 43.14 kg/m2 Lacr etia Pereira NAME PLATE STAMPING MACHINE OPERATOR weight E&M 235 [lb_av] Lacretia Jesus s NAME PLATE STAMPING MACHINE OPERATOR height E&M 62 [in_i] Lacretia Jesus s NAME PLATE STAMPING MACHINE OPERATOR pulse rate 60 /min CRYSTAL ANUSHASENIC K NAME PLATE STAMPING MACHINE OPERATOR JNC systolic blood pressure goal 140 m m/[Hg] CRYSTAL JESENICK NAME PLATE STAMPING MACHINE OPERATOR blood pressure, diastolic 70 mm[Hg] CR YSTAL JESENICK NAME PLATE STAMPING MACHINE OPERATOR blood pressure, systolic 122 mm[Hg] CRY STAL JESENICK NAME PLATE STAMPING MACHINE OPERATOR pulse rate 60 /min CRYSTAL ANUSHASENIC K NAME PLATE STAMPING MACHINE OPERATOR respiratory rate E&M 20 /min CRYSTAL ANUSHASENICK NAME PLATE STAMPING MACHINE OPERATOR blood pressure, diastolic 78 mm[Hg] CR YSTAL ANUSHASENICK NAME PLATE STAMPING MACHINE OPERATOR blood pressure, systolic 118 mm[Hg] CRY STAJosé Antonio TAVARESSENICK NAME PLATE STAMPING MACHINE OPERATOR weight E&M 234 [lb_av] CRYSTAL ANUSHASENIC K NAME PLATE STAMPING MACHINE OPERATOR height E&M 62 [in_i] CRYSTAL JESENIC K NAME PLATE STAMPING MACHINE OPERATOR blood pressure, diastolic, left arm 74 mm [Hg] Rainer Rizo RN blood pressure, systolic, left arm 153 mm [Hg] Rainer Rizo RN blood pressure, diastolic, right arm 87 m m[Hg] Rainer Rizo RN blood pressure, systolic, right arm 144 m m[Hg] Rainer Rizo RN blood pressure, diastolic 74 mm[Hg] Ronnie iRzo RN blood pressure, systolic 153 mm[Hg] Rainer [...] Garces 09/14 coagulation managed by Pao Tamez MUSIC RESEARCHER Pao Tamez 09/14 international normalized ratio (INR) 2.2 Viviana Cárdenas Normal 09/14 prothrombin time (patient) 26.0 s Viviana Cárdenas 08/31 coagulation managed by Rainer Rizo [...] iron binding capacity, unsaturated 175 ug/dL [facility] 176-153 9466/0 5/09 iron binding capacity, total 210 ug/dL [facility] 250-450 Low 06/15 lipoprotein, beta, serum, point, quantitative, calculated 91 mg/dL [facility] 0-99 06/15 very low density lipoproteins 20 mg/dL [facility] 5-40 06/15 HDL cholesterol, serum 40 mg/dL [facility] >39 06/15 triglyceride, serum, random 102 mg/dL [facility] 0-149 06/15 cholesterol, serum 151 mg/dL [facility] 127-757 4705/0 5/09 calcium, serum 9.6 mg/dL [facility] 8.7-10.3 06/15 carbon dioxide, venous blood 23 mmol/L [facility] 20-29 06/15 chloride, serum 106 mmol/L [facility] 96-106 06/15 potassium, serum 4.6 mmol/L [facility] 3.5-5.2 06/15 sodium, serum 143 mmol/L [facility] 351-611 7557/0 5/09 urea nitrogen/creatinin e ratio, serum 17 [...] Estab. 06/15 platelet count 228 X10E3/UL [facility] 371-609 0396/0 5/09 red blood cell distribution width 15.2 [...] Garces 03/10 coagulation managed by Pao Tamez MUSIC RESEARCHER Pao Tamez 03/10 international normalized ratio (INR) [...] (low-density lipoprotein/high-d ensity lipoprotein) ratio 2.3 RATIO [facility] - 09/30 lipoprotein, beta, serum, point, quantitative, [...] - 145.0 09/30 creatinine, serum 1.7 mg/[facility].0 High 09/30 carbon dioxide, [...] 33.0 09/30 protein, total, serum 7.0 g/dL [facility] 6[facility]6 - 8.7 09/30 bilirubin, serum, total 0.2 [facility] - 1.2 09/30 urea nitrogen, blood 34.0 mg/dL [facility] 8.0 - 23.0 High 09/30 blood glucose, random 95.0 mg/dL [facility] 74.0 - 99.0 09/30 red blood cell distribution width, size density 58.3 fL [facility] 09/30 immature granulocytes, percentage of total cells, blood 0.2 % [facility] 09/30 nucleated red blood cells as percent of blood leukocytes 0.6 % [facility] 09/30 red blood cell (erythrocyte) count, per high power field 0.0 10*3/UL [facility] 09/30 eosinophils as percent of blood leukocytes 5.7 % [facility] 09/30 neutrophils as percent of blood leukocytes 58.8 % [facility] 09/30 Absolute Neutrophils 2.9 CELLS/UL [facility] 1.5 - 7.8 09/30 basophils as percent of blood leukocytes 0.6 % [facility] - 09/30 Absolute Basophils 0.0 CELLS/UL [facility] [...] Lebrons RN 03/17 coagulation managed by Rainer Darrius ZUÑIGA Rainer Lebrons RN 03/17 international normalized [...] 02/22 triglyceride, target level 150 mg/dL Alida [place] NAME PLATE STAMPING MACHINE OPERATOR 02/22 HDL cholesterol, serum, target level 40 mg/dL Alida Evelia NAME PLATE STAMPING MACHINE OPERATOR 02/22 LDL target level 100 mg/dL Alida [place] NAME PLATE STAMPING MACHINE OPERATOR 02/22 cholesterol, target level 200 mg/dL Alida Evelia NAME PLATE STAMPING MACHINE OPERATOR 02/10 coagulation managed by Rainer Rizo RN [...] 06/17 cholesterol/HDL ratio, serum 2.8 Alida Evelia NAME PLATE STAMPING MACHINE OPERATOR 06/17 triglyceride, serum, fasting 67 mg/dL Alida [place] NAME PLATE STAMPING MACHINE OPERATOR 06/17 HDL cholesterol, serum 51 mg/dL Alida [place] NAME PLATE STAMPING MACHINE OPERATOR 06/17 LDL cholesterol, serum 79 mg/dL Alida Evelia NAME PLATE STAMPING MACHINE OPERATOR 06/17 cholesterol, serum 143 mg/dL Alida Evelia NAME PLATE STAMPING MACHINE OPERATOR 06/17 triglyceride, target level 150 mg/dL Alida [place] NAME PLATE STAMPING MACHINE OPERATOR 06/17 HDL cholesterol, serum, target level 40 mg/dL Alida Evelia NAME PLATE STAMPING MACHINE OPERATOR 06/17 LDL target level 100 mg/dL Alida [place] NAME PLATE STAMPING MACHINE OPERATOR 06/17 cholesterol, target level 200 mg/dL Alida Evelia NAME PLATE STAMPING MACHINE OPERATOR 06/17 coagulation managed by Rainer Rizo RN [...] [place] 02/17 cholesterol/HDL ratio, serum 4.5 Alida [place] NAME PLATE STAMPING MACHINE OPERATOR 02/17 triglyceride, serum, fasting 108 mg/dL Alida [place] NAME PLATE STAMPING MACHINE OPERATOR 02/17 HDL cholesterol, serum 32 mg/dL Alida [place] NAME PLATE STAMPING MACHINE OPERATOR 02/17 LDL cholesterol, serum 89 mg/dL Alida [place] NAME PLATE STAMPING MACHINE OPERATOR 02/17 cholesterol, serum 142 mg/dL Alida [place] NAME PLATE STAMPING MACHINE OPERATOR 02/17 triglyceride, target level 150 mg/dL Alida [place] NAME PLATE STAMPING MACHINE OPERATOR 02/17 HDL cholesterol, serum, target level 40 mg/dL Alida [place] NAME PLATE STAMPING MACHINE OPERATOR 02/17 LDL target level 100 mg/dL Alida Evelia NAME PLATE STAMPING MACHINE OPERATOR 02/17 cholesterol, target level 200 mg/dL Alida [place] NAME PLATE STAMPING MACHINE OPERATOR coagulation managed by Rainer Rizo RN international [...] triglyceride, target level 150 mg/dL Alida Evelia NAME PLATE STAMPING MACHINE OPERATOR 09/18 HDL cholesterol, serum, target level 40 mg/dL Alida [place] NAME PLATE STAMPING MACHINE OPERATOR 09/18 LDL target level 100 mg/dL Alida Evelia NAME PLATE STAMPING MACHINE OPERATOR 09/18 cholesterol, target level 200 mg/dL Alida [place] NAME PLATE STAMPING MACHINE OPERATOR 09/18 triglyceride, serum, fasting 275 mg/dL Alida Evelia NAME PLATE STAMPING MACHINE OPERATOR 09/18 HDL cholesterol, serum 40 mg/dL Alida Evelia NAME PLATE STAMPING MACHINE OPERATOR 09/18 LDL cholesterol, serum 32 mg/dL Alida Evelia NAME PLATE STAMPING MACHINE OPERATOR 09/18 cholesterol, serum 126 mg/dL Alida [place] NAME PLATE STAMPING MACHINE OPERATOR 08/22 coagulation managed by Rainer Rizo RN 08/22 international normalized ratio (INR) 2.9 Rainer Rizo RN Normal 08/22 prothrombin time (patient) 34.8 s Rainer Darrius RN 08/22 international normalized ratio (INR) 2.9 Aneatris Brown Normal 08/22 prothrombin time (patient) 34.8 s Aneatris Brown 07/25 coagulation managed by Ranier Rizo RN 07/25 international normalized ratio (INR) [...] 03/06 triglyceride, target level 150 mg/dL Alida [place] NAME PLATE STAMPING MACHINE OPERATOR 03/06 HDL cholesterol, serum, target level 40 mg/dL Alida Evelia NAME PLATE STAMPING MACHINE OPERATOR 03/06 LDL target level 100 mg/dL Alida Evelia NAME PLATE STAMPING MACHINE OPERATOR 03/06 cholesterol, target level 200 mg/dL Alida Evelia NAME PLATE STAMPING MACHINE OPERATOR 03/06 cholesterol/HDL ratio, serum 4.2 Alida Evelia NAME PLATE STAMPING MACHINE OPERATOR 03/06 triglyceride, serum, fasting 82 mg/dL Alida Evelia NAME PLATE STAMPING MACHINE OPERATOR 03/06 HDL cholesterol, serum 91 mg/dL Alida Evelia NAME PLATE STAMPING MACHINE OPERATOR 03/06 LDL cholesterol, serum 91 mg/dL Alida [place] NAME PLATE STAMPING MACHINE OPERATOR 03/06 cholesterol, serum 141 mg/dL Alida Evelia NAME PLATE STAMPING MACHINE OPERATOR 03/06 coagulation managed by Rainer Rizo RN [...] 04/26 coagulation managed by Rainer Lebrons RN Rainer Lebrons RN 04/26 prothrombin time (patient) 26.7 s aRiner Lebrons RN 04/26 international normalized ratio (INR) [...] Rizo RN 05/03 creatinine, serum 1.78 mg/dL [facility] 05/03 potassium, serum 4.0 mmol/L [facility] 05/03 sodium, serum 138 mmol/L [facility] 05/31 coagulation managed by Rainer Rizo RN 05/31 international normalized ratio (INR) 1.8 Kristofer [place] 05/31 prothrombin time (patient) 18.0 s Kristofer [place] 05/31 TOTAL NON-HDL-C (LDL VLDL) 77 Lacretia Pereira NAME PLATE STAMPING MACHINE OPERATOR 05/31 alanine aminotransferase (SGPT), serum 14 1/L Lacretia Pereira NAME PLATE STAMPING MACHINE OPERATOR 05/31 aspartate aminotransferase (SGOT), serum 18 1/L Lacretia Pereira NAME PLATE STAMPING MACHINE OPERATOR 05/31 cholesterol/HDL ratio, serum 2.9 Lacretia Pereira NAME PLATE STAMPING MACHINE OPERATOR 05/31 triglyceride, serum, fasting 69 mg/dL Lacretia Pereira NAME PLATE STAMPING MACHINE OPERATOR 05/31 HDL cholesterol, serum 41 mg/dL Lacretia Pereira NAME PLATE STAMPING MACHINE OPERATOR 05/31 LDL cholesterol, serum 63 mg/dL Lacretia Pereira NAME PLATE STAMPING MACHINE OPERATOR 05/31 cholesterol, serum 118 mg/dL Lacretia Pereira NAME PLATE STAMPING MACHINE OPERATOR 05/19 coagulation managed by Rainer Rizo RN [...] TOTAL NON-HDL-C (LDL VLDL) 100 Lacretia Randall NAME PLATE STAMPING MACHINE OPERATOR 0 alanine aminotransferase (SGPT), serum 14 1/L Lacretia Randall NAME PLATE STAMPING MACHINE OPERATOR aspartate aminotransferase (SGOT), serum 22 1/L Lacretia Randall NAME PLATE STAMPING MACHINE OPERATOR cholesterol/HDL ratio, serum 3.3 Lacretia Randall NAME PLATE STAMPING MACHINE OPERATOR triglyceride, serum, fasting 89 mg/dL Lacretia Randall NAME PLATE STAMPING MACHINE OPERATOR HDL cholesterol, serum 44 mg/dL Lacretia Randall NAME PLATE STAMPING MACHINE OPERATOR LDL cholesterol, serum 82 mg/dL Lacretia Randall NAME PLATE STAMPING MACHINE OPERATOR cholesterol, serum 145 mg/dL Lacretia Pereira NAME PLATE STAMPING MACHINE OPERATOR triglyceride, target level 150 mg/dL Lacretia Pereira NAME PLATE STAMPING MACHINE OPERATOR HDL cholesterol, serum, target level 40 mg/dL Lacretia Pereira NAME PLATE STAMPING MACHINE OPERATOR LDL target level 100 mg/dL Lacretia Pereira NAME PLATE STAMPING MACHINE OPERATOR cholesterol, target level 200 mg/dL Lacretia Pereira NAME PLATE STAMPING MACHINE OPERATOR 11/03 coagulation managed by Rainer Rizo RN [...] 06/29 estimated glomerular filtration rate 27 mL/min [facility] 06/29 albumin/globulin ratio, serum 1.0 06/29 protein, total, serum 6.3 g/[facility] albumin, serum 3.2 g/dL [facility] 06/29 bilirubin, serum, total 0.42 mg/dL [facility] 06/29 alkaline phosphatase, serum 104 1/L [facility] 06/29 alanine aminotransferase (SGPT), serum 21 1/L 06/29 aspartate aminotransferase (SGOT), serum 15 1/L 06/29 calcium, serum 9.2 mg/dL [facility] 06/29 blood glucose, fasting 86 mg/dL [facility] 06/29 creatinine, serum 1.94 mg/dL [facility] 06/29 urea nitrogen, blood 34.1 mg/dL [facility] 06/29 carbon dioxide, serum, total 28 mmol/L [facility] 06/29 chloride, serum 101 mmol/L 06/29 potassium, serum 4.3 mmol/L 06/29 sodium, serum 136 mmol/L [facility] 06/29 ferritin, serum 162 ng/mL [facility] 06/29 iron saturation percent, serum 28 % [facility] 06/29 iron binding capacity, total 225 ug/dL [facility] 06/29 iron, serum 62 ug/dL [facility] 06/29 platelet count 222 10*3/uL [facility] 06/29 red blood cell distribution width 14.9 % [facility] 06/29 mean corpuscular hemoglobin concentration, RBC 32.9 g/dL [facility] 06/29 mean corpuscular hemoglobin, RBC 29.7 pg [facility] 06/29 mean corpuscular volume, RBC 90.2 fL [...] 07/24 international normalized ratio (INR) 2.8 Rainer iRzo RN 07/24 prothrombin time (patient) 27.6 s [...] RN prothrombin time (patient) 25.2 s Rainer Lebrons RN 10/15 coagulation managed by Rainer Rizo [...] [place] 07/16 [facility]throm[facility] ([facility]) [facility] coagulation managed by Rainer Rizo RN 07/02 international normalized ratio (INR) 2.8 [facility]thrombin time (patient) 28.0 [facility] coagulation managed by Rainer Rizo RN 06/25 international normalized ratio (INR) 3.5 [facility] prothrombin time (patient) 34.6 s [facility] 06/13 international normalized ratio (INR) 3.9 Sudha [...] 05/06 prothrombin time (patient) 13.7 s Rainer Rizo RN 04/18 coagulation managed by Rainer Rizo RN 04/18 international normalized ratio (INR) 3.4 Rainer Rizo RN 04/18 prothrombin time (patient) 33.6 s Rainer Lebrons YOGESH 04/10 coagulation managed by Rainer Rizo RN 04/10 international normalized ratio ([facility]) [facility] time (patient) 39.2 s Kristofer Manaco 04/01 coagulation managed by Rainer Darrius Rizo RN 04/01 international normalized ratio (INR) 1.3 Rainer Rizo RN 04/01 prothrombin time (patient) 13.4 s Rainer Rizo RN alanine aminotransferase (SGPT), serum 24 1/L [facility] aspartate aminotransferase (SGOT), serum 16 1/L [facility] blood glucose, fasting 95 mg/dL [facility] creatinine, serum 1.50 mg/dL [facility] urea nitrogen, blood 24 mg/dL [facility] potassium, serum 3.9 mmol/L [facility] sodium, serum 137 mmol/L [facility] alanine aminotransferase (SGPT), serum 24 1/L [facility] aspartate aminotransferase (SGOT), serum 16 1/L [facility] blood glucose, fasting 95 mg/dL [facility] creatinine, serum 1.50 mg/dL [facility] urea nitrogen, blood 24 mg/dL [facility] potassium, serum 3.9 mmol/L [facility] sodium, serum 137 mmol/L [facility] triglyceride, serum, fasting 86 mg/dL [facility] HDL cholesterol, serum 43 mg/dL [facility] LDL cholesterol, serum 67 mg/dL [facility] cholesterol, serum 127 mg/dL [facility] HISTORY OF MEDICATION USE Medication Status Instructions [...] a day. - Rose Garces Imported from [facility] (14-Jun-19 at 06:32:50 PM) TRAMADOL (ULTRAM) 50 MG TABLET completed Take 1 tablet (50 mg total) by mouth every 8 (eight) hours as needed for pain. - Rose Garces Imported from [facility] (14-Jun-19 at 06:32:50 PM) SOLIFENACIN (VESICARE) 5 MG TABLET completed Take 5 mg by mouth daily. - Rose Garces Imported from [facility] (14-Jun-19 at 06:32:50 PM) RANITIDINE (ZANTAC) 300 MG TABLET completed Take 1 tablet (300 mg total) by mouth daily - Rose Garces Imported from [facility] (14-Jun-19 at 06:32:50 PM) ranitidine (ZANTAC) 150 mg capsule completed Take 150 mg by mouth 2 (two) times a day. - Rose Garces Imported from [facility] (14-Jun-19 at 06:32:50 PM) METOPROLOL XL (TOPROL-XL) 25 MG 24 HR TABLET completed Take 25 mg by mouth 2 (two) times a day. - Rose Garces Imported from [facility] (14-Jun-19 at 06:32:50 PM) MESALAMINE (PENTASA) 500 MG CR CAPSULE completed Take two capsules by mouth twice daily - Rose Garces Imported from [facility] (14-Jun-19 at 06:32:50 PM) mesalamine (PENTASA) 500 mg CR capsule completed Take two capsules by mouth twice daily - Rose Garces Imported from [facility] (14-Jun-19 at 06:32:50 PM) mesalamine (PENTASA) 500 mg CR capsule completed Take 1,000 mg by mouth 2 (two) times a day. - Rose Garces Imported from [facility] (14-Jun-19 at 06:32:50 PM) LISINOPRIL (PRINIVIL,ZESTRIL ) 10 MG TABLET completed Take 10 mg by mouth daily. - Rose Garces Imported from [facility] (14-Jun-19 at 06:32:50 PM) LEVOTHYROXINE (SYNTHROID, LEVOTHROID) 125 MCG TABLET completed Take 125 mcg by mouth [facility] breakfast. - Rose Garces Imported from [facility] (14-Jun-19 at 06:32:50 PM) HYDROcodone-aceta minophen (NORCO) 10-325 mg per tablet active Take 1 tablet by mouth daily as needed for pain. Patient takes half a tablet at night Rose Garces Imported from [facility] (14-Jun-19 at 06:32:50 PM) glucosamine-chond roitin 500-400 mg tablet active Take 1 tablet by mouth 2 (two) times a day. Rose Dez Imported from [facility] (14-Jun-19 at 06:32:50 PM) gabapentin (NEURONTIN) 100 mg capsule completed Take 1 capsule (100 mg total) by mouth 3 (three) times a day. - Rose Garces Imported from [facility] (14-Jun-19 at 06:32:50 PM) ezetimibe (ZETIA) 10 mg tablet active Take 10 mg by mouth daily. Rose Dez Imported from [facility] (14-Jun-19 at 06:32:50 PM) ergocalciferol (VITAMIN D) 50,000 unit capsule active Take 50,000 Units by mouth once a week. tuesday Rose Dez Imported from [facility] (14-Jun-19 at 06:32:50 PM) docusate sodium (DOK) 100 mg capsule active Take 100 mg by mouth daily. Rose Dez Imported from [facility] (14-Jun-19 at 06:32:50 PM) cyanocobalamin (Vitamin B-12) 1,000 mcg tablet active Take 1,000 mcg by mouth daily. Rose Garces Imported from [facility]: [facility] (14-Jun-19 at 06:32:50 PM) cranberry fruit concentrate (AZO CRANBERRY ORAL) active Take 1 tablet by mouth 2 (two) times a day. Rose Garces Imported from [facility]: [facility] (14-Jun-19 at 06:32:50 PM) calcium carbonate (CALCIUM 600 ORAL) active Take 2 tablets by mouth daily. Rose Garces Imported from [facility] (14-Jun-19 at 06:32:50 PM) acetaminophen 500 mg capsule active Take 500 mg by mouth 3 (three) times a day. Rose Garces Imported from [facility] (14-Jun-19 at 06:32:50 PM) COUMADIN 5 MG [...] a day Julee Rhianna VITAMIN D (ERGOCALCIFEROL) 62549 UNIT ORAL CAPSULE completed take one pill [...] completed 1 1/2 tab daily - Pao Tamez COUMADIN 2.5 MG ORAL TABLET completed one tab on Uzb-Olswf-Uad- Sat ONLY - Rainer Rizo RN HYDROCODONE-ACETA MINOPHEN 10-325 MG ORAL TABLET completed take one pill a day - Rose Garces VESICARE 5 MG ORAL TABLET completed 1 tab daily - Julee Moct[place]uma COUMADIN 2 MG ORAL TABLET completed one tab Sat and Sun Only - Rainer Rizo RN COUMADIN 2 MG ORAL TABLET completed 1/2 tab M-W-F - Rainer Rizo RN COUMADIN 2.5 MG ORAL TABLET completed DAILY 2 tabs on Mon only - Rainer Rizo RN TRAMADOL HCL TABLET completed TAKE 50MG ONCE DAILY - Neo Sutherland METOPROLOL SUCCINATE ER 25 MG ORAL [...] COUMADIN 4 MG ORAL TABLET completed daily -Fsx-Bjn-Vmbh- Tue-Tue - Rainer Rizo RN VOLTAREN GEL [...] ham number of grandchildren Link Cook MD [facility] physical exercise, f requency, days per week no [facility] alcohol use, average drinks per day none [facility] alcohol use no [facility] caffeine use, averag e drinks per day no [facility] drug use no [facility] passive cigarette sm juan exposure no [facility] smoking status Never smoker [facility] social [facility] E&M Marital Statu s: L [...] Julee Rhianna drug use no Julee [place] donovaner passive cigarette sm juan exposure no Julee [...] E&M revi ewed - no changes required Lnik Cook MD alcohol use no Julee Hoskinsgrace lder smoking status Never smoker Alida Tindal l NAME PLATE STAMPING MACHINE OPERATOR physical exercise, f requency, days per week no Alida [place] NAME PLATE STAMPING MACHINE OPERATOR alcohol use, average drinks per day none Alida [place] NAME PLATE STAMPING MACHINE OPERATOR alcohol use no Alida [place] NAME PLATE STAMPING MACHINE OPERATOR caffeine use, averag e drinks per day no Alida Evelia NAME PLATE STAMPING MACHINE OPERATOR drug use no Alida [place] NAME PLATE STAMPING MACHINE OPERATOR passive cigarette sm juan exposure no Alida [place] NAME PLATE STAMPING MACHINE OPERATOR smoking status Never smoker Alida Tindal l NAME PLATE STAMPING MACHINE OPERATOR physical exercise, f requency, days per week no Alida [place] NAME PLATE STAMPING MACHINE OPERATOR alcohol use, average drinks per day none Alida Evelia NAME PLATE STAMPING MACHINE OPERATOR caffeine use, averag e drinks per day no Alida [place] NAME PLATE STAMPING MACHINE OPERATOR drug use no Alida [place] NAME PLATE STAMPING MACHINE OPERATOR passive cigarette sm juna exposure no Alida [place] NAME PLATE STAMPING MACHINE OPERATOR smoking status Never smoker Alida Tindal l NAME PLATE STAMPING MACHINE OPERATOR social history reviewed E&M revi ewed - [...] sm juan exposure no Link Cook MD social history reviewed E&M reviewed Link Cook MD smoking status never smoker Link Cook MD social history reviewed E&M reviewed Rainer Rizo RN social history reviewed E&M reviewed Lacretia Pereira NAME PLATE STAMPING MACHINE OPERATOR social history reviewed E&M reviewed Lacretia Pereira NAME PLATE STAMPING MACHINE OPERATOR social history reviewed E&M reviewed Lacretia Pereira NAME PLATE STAMPING MACHINE OPERATOR social history reviewed E&M reviewed CRYSTAL JESENICK NAME PLATE STAMPING MACHINE OPERATOR smoking status never CRYSTAL JESEN ICK NAME PLATE STAMPING MACHINE OPERATOR social history reviewed E&M reviewed CRYSTAL JESENICK NAME PLATE STAMPING MACHINE OPERATOR social history reviewed E&M reviewed Rainer Rizo [...] per day none [employer] smoking status Non-smoker [facility] MENTAL STATUS Date Observation Value Provider assessment [...] Policy type / Coverage type [employer]oy red republican [employer] [facility] Medicaid 3 [id number] [employer] MEDICARE Medicare [id number] ADVANCE DIRECTIVES Name Date DISCUSSED - NO [...] tablet) ..... Take 125 mcg by mouth [facility] breakfast. Link Cook MD Cardiology follow [...] Link Cook MD Cardiology-seen with MD and NAME PLATE STAMPING MACHINE OPERATOR :monitor safety while on coumadin. [facility] do [facility] Cardiology-seen with MD and NAME PLATE STAMPING MACHINE OPERATOR :lifestyle modification [facility] Cardiology-seen with MD and NAME PLATE STAMPING MACHINE OPERATOR :cont present regimen H er updated medication list for this problem includes: Ezetimibe (zetia) 10 Mg Tablet (Ezetimibe (zetia) 10 mg tablet) ..... Take 10 mg by mouth daily. Zetia 10 Mg Oral Tablet (Ezetimibe) ..... One tab. daily Pravachol 40 Mg Oral Tablet (Pravastatin sodium) ..... One tablet daily Fang Sewaconchita [facility] Cardiology-seen with MD and NAME PLATE STAMPING MACHINE OPERATOR :controlled. renal US has been ordered by her residential door installer [facility] Cardiology-seen with MD and NAME PLATE STAMPING MACHINE OPERATOR :Has trace edema. Will repeat echo to [...] Take one tab twice daily Fang Saldivar [facility] Cardiology-seen with MD and NAME PLATE STAMPING MACHINE OPERATOR :chronic. Will have OP tele given recent [...] Take one tab twice daily Fang Yariel [facility] Cardiology Follow up :ne nuc 17, neg [...] Cardiologystress pen ding: norma riley nuc Link Cook MD Cardiologystress pending:since 2 010 Link Cook [...] tab. daily Metoprolol Succinate Er 25 Mg [id number] (Metoprolol succinate) ..... Take one tab twice daily Alida Mattanickolsa TEIXEIRA Cardiology-BP/Lipid: Lipids at goal. Repeat lipids [...] tab. daily Metoprolol Succinate Er 25 Mg [id number] (Metoprolol succinate) ..... Take one tab twice daily Link Cook MD Cardiology Follow u p;echo peinging:better at home H er updated medication list for this problem includes: Lisinopril 5 Mg Tabs (Lisinopril) ..... One tab. daily Metoprolol Succinate Er 25 Mg [id number] (Metoprolol succinate) ..... Take one tab twice [...] tab m-w-f Metoprolol Succinate Er 25 Mg [id number] (Metoprolol succinate) ..... Take one tab twice [...] tab. daily Metoprolol Succinate Er 25 Mg [id number]-uwe (Metoprolol succinate) ..... Take one tab twice daily Orders: H olter Monitor 24 Hr (CPT-16550) Link Cook MD FOLLOW UP: O rders: H olter Monitor 24 Hr (CPT-56496) Link Cook MD FOLLOW UP: T he following medications were removed from the medication list: Coumadin 5 Mg Tabs (Warfarin sodium) ..... 1/2 tab mon through th 1 tab fri, sat and sun Lasix 20 Mg Tabs (Furosemide) ..... One a day Her updated medication list for this problem includes: Coumadin 2.5 Mg Tabs (Warfarin sodium) ..... Daily Metoprolol Succinate Er 25 Mg [id number]-jsi (Metoprolol succinate) ..... Take one tab twice daily Orders: H olter Monitor 24 Hr (CPT-75983) Link Cook MD FOLLOW UP: T he following medications were removed from the medication list: Lasix 20 Mg Tabs (Furosemide) ..... One a day Her updated medication list for this problem includes: Lisinopril 5 Mg Tabs (Lisinopril) ..... One tab. daily Metoprolol Succinate Er 25 Mg [id number]-lew (Metoprolol succinate) ..... Take one tab twice [...] O rders: H olter Monitor 24 Hr (CPT-01791) Link Cook MD Cholesterol manageme nt: H [...] sat and sun Orders: C omplete Echo (CPT-73301) H olter Monitor 24 Hr (CPT-21666) e Prescribe - Check this box if eRx is used (CPT-G8553) Link Cook MD : H er updated medication list for this problem includes: Zestril 5 Mg Tab (Lisinopril) ..... Take 1 tablet by mouth once a day Orders: C omplete Echo (CPT-70656) H olter Monitor 24 Hr (CPT-59233) e Prescribe - Check this box if [...] tue and tue Orders: C omplete Echo (CPT-52607) H olter Monitor 24 Hr (CPT-30836) e Prescribe - Check this box if eRx is used (CPT-G8553) Link Cook MD : O rders: C omplete Echo (CPT-54570) H olter Monitor 24 Hr (CPT-75292) e Prescribe - Check this box if eRx is used (CPT-G8553) Link Cook MD : H er updated medication list for this problem includes: Zestril 5 Mg Tab (Lisinopril) ..... Take 1 tablet by mouth once a day Orders: C omplete Echo (CPT-02623) H olter Monitor 24 Hr (CPT-89317) e Prescribe - Check this box if eRx is used (CPT-G8553) Link Cook MD : H er updated medication list for this problem includes: Zestril 5 Mg Tab (Lisinopril) ..... Take 1 tablet by mouth once a day Orders: C omplete Echo (CPT-47250) H olter Monitor 24 Hr (CPT-46377) Link Cook MD Link Cook MD Link Serotmanpreet DESOUZA routine Link Serota routine Link Serota routine Link Serota routine Link Serota routine Link Serota routine Link Serota routine Link Serota routine Link Serota routine Link Serota routine Link Serota routine Link Serota routine: O rders: C omplete Echo (CPT-01686) e Prescribe - Check this box if eRx is used (CPT-G8553) Link Cook MD routine: O rders: C omplete Echo (CPT-46183) e Prescribe - Check this box if eRx is used (CPT-G8553) Link Cook MD routine Link Cook MD routine Link Cook MD routine: O rders: C omplete Echo (CPT-53509) e Prescribe - Check this box if eRx is used (CPT-G8553) H olter Monitor 24 Hr (CPT-47280) Link Cook MD routine: O rders: C omplete Echo (CPT-61821) e Prescribe - Check this box if eRx is used (CPT-G8553) H olter Monitor 24 Hr (CPT-90642) Link Cook MD routine Link Cook MD [...] follow up in 6 months. Malu Pereira NAME PLATE STAMPING MACHINE OPERATOR HTN Mgmt: H er updated medication list [...] pt f/u in 6 months. EDI DIEZ NAME PLATE STAMPING MACHINE OPERATOR Cont. Care Clinic: H er updated medication [...] reversible inferoapical wall defect consistent with ischemia. [facility] (04/10/2008) Orders: H olter Monitor 24 Hr (CPT-61259) X -Ray, Chest, PA & Lateral (CPT-96044) Link Cook MD palpitations : O rders: H olter Monitor 24 Hr (CPT-82015) X -Ray, Chest, PA & Lateral (CPT-94364) e Prescribe - Check this box if eRx is used (CPT-G8553) Link Cook MD palpitations : O rders: X -Ray, Chest, PA & Lateral (CPT-52173) e Prescribe - Check this box if [...] reversible inferoapical wall defect consistent with ischemia. [facility] (04/10/2008) Orders: E KG (CPT-49762) H olter Monitor 24 Hr (CPT-91041) X -Ray, Chest, PA & Lateral (CPT-29220) e Prescribe - Check this box if [...] (05/15/2009) Orders: H olter Monitor 24 Hr (CPT-77144) X -Ray, Chest, PA & Lateral (CPT-17790) e Prescribe - Check this box if [...] daily Orders: H olter Monitor 24 Hr (CPT-81471) X -Ray, Chest, PA & Lateral (CPT-74515) e Prescribe - Check this box if [...] day Orders: S tress Test - Adenosine (47582) Link Cook MD changed to pradaxa: O rders: H olter Monitor 24 Hr (CPT-28841) S tress Test - Adenosine (43935) C arotid Duplex Bilateral (CPT-39946) The following medications were removed from the medication list: Indapamide 2.5 Mg Tabs (Indapamide) ..... One tab. daily Her updated medication list for this problem includes: Bystolic 10 Mg Tabs (Nebivolol hcl) ..... One tab. daily Zestril 5 Mg Tab (Lisinopril) ..... Take 1 tablet by mouth once a day Link Cook MD changed to pradaxa: O rders: H olter Monitor 24 Hr (CPT-14117) E KG (CPT-03036) C omplete Echo (CPT-18766) e Prescribe - Check this box if eRx is used (CPT-G8553) S tress Test - Adenosine (58548) C arotid Duplex Bilateral (CPT-99842) Link Cook MD changed to pradaxa: O rders: H olter Monitor 24 Hr (CPT-03502) E KG (CPT-61526) C omplete Echo (CPT-50610) e Prescribe - Check this box if eRx is used (CPT-G8553) S tress Test - Adenosine (79830) C arotid Duplex Bilateral (CPT-78634) Link Cook MD changed to pradaxa: O rders: H olter Monitor 24 Hr (CPT-90266) E KG (CPT-44388) C omplete Echo (CPT-66934) e Prescribe - Check this box if eRx is used (CPT-G8553) S tress Test - Adenosine (25982) C arotid Duplex Bilateral (CPT-22965) Link Cook MD changed to pradaxa: T he following medications were removed from the medication list: Indapamide 2.5 Mg Tabs (Indapamide) ..... One tab. daily Her updated medication list for this problem includes: Bystolic 10 Mg Tabs (Nebivolol hcl) ..... One tab. daily Zestril 5 Mg Tab (Lisinopril) ..... Take 1 tablet by mouth once a day Orders: H olter Monitor 24 Hr (CPT-16064) E KG (CPT-85956) C omplete Echo (CPT-36708) e Prescribe - Check this box if eRx is used (CPT-G8553) S tress Test - Adenosine (18716) C arotid Duplex Bilateral (CPT-86970) Link Cook MD changed to pradaxa: T he following medications were removed from the medication list: Coumadin 5 Mg Tabs (Warfarin sodium) ..... One tab daily on tuesday- tuesday Orders: H olter Monitor 24 Hr (CPT-16698) E KG (CPT-82227) C omplete Echo (CPT-80574) e Prescribe - Check this box if eRx is used (CPT-G8553) S tress Test - Adenosine (61508) C arotid Duplex Bilateral (CPT-95029) Link Cook MD changed to pradaxa: T he following medications were removed from the medication list: Indapamide 2.5 Mg Tabs (Indapamide) ..... One tab. daily Coumadin 5 Mg Tabs (Warfarin sodium) ..... One tab daily on tuesday- tuesday Her updated medication list for this problem includes: Bystolic 10 Mg Tabs (Nebivolol hcl) ..... One tab. daily Orders: H olter Monitor 24 Hr (CPT-04885) E KG (CPT-87434) C omplete Echo (CPT-24691) e Prescribe - Check this box if eRx is used (CPT-G8553) S tress Test - Adenosine (71277) C arotid Duplex Bilateral (CPT-62310) Link Cook MD changed to pradaxa: O rders: H olter Monitor 24 Hr (CPT-42840) E KG (CPT-55054) C omplete Echo (CPT-54830) e Prescribe - Check this box if eRx is used (CPT-G8553) S tress Test - Adenosine (30366) C arotid Duplex Bilateral (CPT-81284) Link Cook MD changed to pradaxa Link [...] surg: O rders: C arotid Duplex Bilateral (CPT-54392) Link Cook MD afib and cad, clear [...] reversible inferoapical wall defect consistent with ischemia. [facility] (04/10/2008) Orders: C omplete Echo (CPT-08062) Link Cook MD afib and cad, clear [...] Minimal MR. (1+) Mild AR. Minimal TR. [facility] (04/10/2008) N uclear Stress Findings: 1. Adenosine mediated myocardial perfusion study 2 . Normal left ventricular systolic function with a calculated ejection fraction of 67%. 3 . Myocardial scintigraphy demonstrates shows a small partially reversible inferoapical wall defect consistent with ischemia. [facility] (04/10/2008) Link Cook MD WILL DO CATH [...] for endoscopy: O rders: C omplete Echo (CPT-00922) S tress Test - Adenosine (58194) R enal Artery Duplex (CPT-38441) K idney Ultrasound (CPT-00424) V enous Doppler Bilateral LE (02203) B TYPE NATRIURETIC PEPTIDE (BNP) (18224) H olter Monitor 24 Hr (CPT-73628) Link Cook MD Follow-up for cleara nce for endoscopy: O rders: C omplete Echo (CPT-09230) S tress Test - Adenosine (85376) R enal Artery Duplex (CPT-00624) K idney Ultrasound (CPT-53265) V enous Doppler Bilateral LE (89590) B TYPE NATRIURETIC PEPTIDE (BNP) (06071) H olter Monitor 24 Hr (CPT-60438) Link Cook MD Follow-up for cleara nce for endoscopy: H er updated medication list for this problem includes: Lipitor 20 Mg Tabs (Atorvastatin calcium) ..... One tab. daily Orders: C omplete Echo (CPT-74085) S tress Test - Adenosine (48084) R enal Artery Duplex (CPT-23423) K idney Ultrasound (CPT-33967) V enous Doppler Bilateral LE (51775) B TYPE NATRIURETIC PEPTIDE (BNP) (04105) H olter Monitor 24 Hr (CPT-48702) BP today: 187/97 Prior BP: / () Link Cook MD Follow-up for cleara nce for endoscopy: O rders: C omplete Echo (CPT-76681) S tress Test - Adenosine (31765) R enal Artery Duplex (CPT-75222) K idney Ultrasound (CPT-97641) V enous Doppler Bilateral LE (01152) B TYPE NATRIURETIC PEPTIDE (BNP) (50263) H olter Monitor 24 Hr (CPT-35208) Link Cook MD Follow-up for cleara nce for endoscopy: H er updated medication list for this problem includes: Prevacid 30 Mg Cpdr (Lansoprazole) ..... One tab. daily Orders: C omplete Echo (CPT-59448) S tress Test - Adenosine (51951) R enal Artery Duplex (CPT-52635) K idney Ultrasound (CPT-36302) V enous Doppler Bilateral LE (68966) B TYPE NATRIURETIC PEPTIDE (BNP) (53773) Holter Monitor 24 Hr (CPT-52856) BP today: 187/97 Prior BP: / () [...] instead of asa Orders: C omplete Echo (CPT-35074) S tress Test - Adenosine (42599) R enal Artery Duplex (CPT-27370) K idney Ultrasound (CPT-22680) V enous Doppler Bilateral LE (07887) B TYPE NATRIURETIC PEPTIDE (BNP) (42339) H olter Monitor 24 Hr (CPT-74240) BP today: 187/97 Prior BP: / () [...] Stress Test - Adenos ine Complete Echo 57716 Brief Protime HISTORY OF PROCEDURES Procedure Date [...] d Protrad Cook MD complete d SNOMED-CT: [id number] Current Medications Documented Link Cook MD completed [...] eted JING Cook MD complete d SNOMED-CT: [id number] Current Medications Documented Link Cook MD completed SNOMED-CT: 372129605392361 Current Medications Documented Link Cook MD completed Jerrod Cook MD complete d Protime Link Serota complete d Protime Link Serota complete d INR Strip Link Serota complete d INR Strip Link Serota complete d Protrad Maza [place] complete d Protime Link [place] complete d INR Strip Link Ser[place] complete d Protime iLnk Serota complete d INR Strip Link Ser[place] complete d Protime Link [place] complete d Protime Link [place] complete d Protime Link [place] complete d Protime Link [place] complete d Lipid Strip Alida Altamirano NAME PLATE STAMPING MACHINE OPERATOR comple дмитрий Gabrielle, 23 or 47 Link Serota co mpleted INR Strip Link [place] complete d Jerrod Maza [place] complete d Aldenime Link Serota complete d Protime Link Ser[place] complete d Jerrod Maza Serotmanpreet DESOUZA complete d Jerrod Maza Serotmanpreet DESOUZA complete d Jerrod Maza Serotmanpreet DESOUZA complete d JING Maza [place] complete d SNOMED-CT: 236543023243371 Current Medications Documented Link Serota completed Protime Link Ser[place] complete d Protime Link [place] complete d Protime Link [place] complete d INR Strip Link [place] complete d Protrad M[place] complete d Lipid Strip Alida Altamirano NAME PLATE STAMPING MACHINE OPERATOR comple дмитрий Jerrod Maza [place] complete d [...]
--- NOTE | 2024-05-08 17:53 | P.HP_ITS ---
H&P: HPI History of Present Illness Date/Time: 05/08/24 17:53 Chief Complaint: Uncontrolled dyspnea Review of Systems Review of Systems: ROS unobtainable: Yes unobtainable due to medical condition [facility] Past Medical History Medical History Right-sided cerebrovascular accident (CVA) Depression Macular degeneration Hypothyroidism Vitamin D deficiency Gout Arthritis Overactive bladder Chronic kidney disease Gastroesophageal reflux disease Crohn's disease Hyperlipidemia Hypertension Atrial fibrillation Dementia Surgical History Surgical History History of knee replacement Family History Family History Other Family history unknown Social History Social History (Updated 05/08/24 @ 17:54 by Escobar Olivas MD) Social History: Surrogate medical decision maker: Dao Chanel, son ([phone]). Code status: DNR. Smoking status: Unknown if ever smoked Alcohol intake: unknown Substance use: unknown Additional living arrangements comments: [facility]. Spiritual care concerns: No Meds Home Medications and Allergies Home Medications ?Medication ?Instructions ?Recorded ?Confirmed ?Type diclofenac sodium 1 % topical gel 2 g topical QID 01/28/21 05/05/24 History (Arthritis Pain (diclofenac)) levothyroxine 125 mcg tablet 125 mcg PO DAILY 01/28/21 05/05/24 History (Synthroid) lisinopril 10 mg tablet 10 mg PO DAILY 01/28/21 05/05/24 History loperamide 2 mg capsule 2 mg PO Q6H PRN loose stool 01/28/21 05/05/24 History (Anti-Diarrheal (loperamide)) melatonin 5 mg capsule 10 mg PO HS 01/28/21 05/05/24 History mesalamine 500 mg capsule,extended 1,000 mg PO BID 01/28/21 05/05/24 History release (Pentasa) metoprolol succinate 25 mg 25 mg PO DAILY 01/28/21 05/05/24 History tablet,extended release 24 hr mirtazapine 15 mg tablet (Remeron) 15 mg PO HS 01/28/21 05/05/24 History solifenacin 5 mg tablet (Vesicare) 5 mg PO HS 01/28/21 05/05/24 History allopurinol 100 mg tablet 200 mg PO DAILY 05/05/24 05/05/24 History atorvastatin 20 mg tablet 20 mg PO DAILY 05/05/24 05/05/24 History calcitriol 0.25 mcg capsule 0.25 mcg PO DAILY 05/05/24 05/05/24 History carboxymethylcellulose sodium 0.5 2 drp EACH EYE TID 05/05/24 05/05/24 History % eye drops in a dropperette (Refresh Plus) donepezil 5 mg tablet 5 mg PO HS 05/05/24 05/05/24 History loratadine 10 mg tablet (Claritin) 10 mg PO DAILY 05/05/24 05/05/24 History nitrofurantoin 100 mg PO Q12H 05/05/24 05/05/24 History monohydrate/macrocrystals 100 mg capsule (Macrobid) vitamins A,C,W-drli-amrxtg 2,148 1 tablet PO ONCE 05/05/24 05/05/24 History mcg-113 mg-45 mg-17.4 mg tablet (PreserVision AREDS) Allergies Allergy/AdvReac Type Severity Reaction Status Date / Time niacin Allergy Unknown RASH Verified 05/05/24 14:41 SWELLING Exam Narrative: HEENT: Pharyngeal mucosa pink and intact NECK: No JVD CHEST: Clear to auscultation. Normal effort. HEART: NL S1/S2, irregularly irregular, 3/6 precordial murmur heard best at apex with radiation to axilla. ABDOMEN: BS hypoactive, soft, nontender EXTREMITIES: No edema. NEUROLOGIC: CN intact and symmetric to inspection. MUSCULOSKELETAL: no gross deformity to visual inspection. PSYCH: Sleeping. Unresponsive to verbal or tactile stimuli. Assessment and Plan Assessment and plan (1) Hospice care: Code(s): Z51.5 - Encounter for palliative care Status: Acute Assessment and Plan: * Meet inpatient hospice criteria due to requiring continuous IV hydromorphone for control of dyspnea * PRN palliative regimen ordered (2) Metabolic encephalopathy: Code(s): G93.41 - Metabolic encephalopathy Status: Acute (3) Dementia: Code(s): F03.90 - Unspecified dementia, unspecified severity, without behavioral disturbance, psychotic disturbance, mood disturbance, and anxiety Status: Acute (4) TAYLOR (acute kidney injury): Code(s): N17.9 - Acute kidney failure, unspecified Status: Acute
[2024-05-08 18:17] VITALS: RESP 22
[2024-05-08] MEDS: HYDROmorphone HCL/PF (*CRX) 50 MG in SODIUM CHLORIDE 0.9% IV 95 ML IV CONT (18:17)
[2024-05-09 14:34] VITALS: BP 62/34; PULSE 76; RESP 12; TEMP 36.6; O2SAT 93
--- NOTE | 2024-05-09 16:27 | P.PNIM_ITS ---
Progress Note: A&P Assessment and Plan (1) Hospice care: Code(s): Z51.5 - Encounter for palliative care Status: Acute Assessment and Plan: * Meet inpatient hospice criteria due to requiring continuous IV hydromorphone for control of dyspnea * PRN palliative regimen ordered * 05/09/2024 hypotensive and appears imminent, too unstable or transfer (2) Metabolic encephalopathy: Code(s): G93.41 - Metabolic encephalopathy Status: Acute (3) Dementia: Code(s): F03.90 - Unspecified dementia, unspecified severity, without behavioral disturbance, psychotic disturbance, mood disturbance, and anxiety Status: Acute (4) TAYLOR (acute kidney injury): Code(s): N17.9 - Acute kidney failure, unspecified Status: Acute Subjective Date/time seen: 05/09/24 16:27 Interval history: Remains comfortable on current regimen. Review of Systems Review of Systems: ROS unobtainable: Yes unobtainable due to medical condition Exam Narrative: HEENT: Pharyngeal mucosa pink and intact NECK: No JVD CHEST: Clear to auscultation. Normal effort. HEART: NL S1/S2, irregularly irregular, 3/6 precordial murmur heard best at apex with radiation to axilla. ABDOMEN: BS hypoactive, soft, nontender EXTREMITIES: No edema. NEUROLOGIC: CN intact and symmetric to inspection. MUSCULOSKELETAL: no gross deformity to visual inspection. PSYCH: Sleeping. Unresponsive to verbal or tactile stimuli. Objective Data Vital Signs Vital Signs: Vital Signs - 24 hr 05/08/24 18:17 05/08/24 20:07 05/09/24 07:59 Temperature Pulse Rate Respiratory Rate 22 H Blood Pressure Pulse Oximetry Oxygen Delivery Nasal Cannula Nasal Cannula Oxygen Flow Rate 2 2 05/09/24 14:34 Temperature 97.9 F Pulse Rate 76 Respiratory Rate 12 Blood Pressure 62/34 L Pulse Oximetry 93 Oxygen Delivery Oxygen Flow Rate Meds/Results Medications: Active Medications Generic Name Dose Route Start Last Admin Trade Name Freq PRN Reason Stop Dose Admin Artificial Tears 0 drop 05/08/24 17:49 Artificial Tears Ophth Soln 15 Ml Bottle EACH EYE TID PRN Dry Eye(s) Bisacodyl 10 mg 05/08/24 17:49 Bisacodyl 10 Mg Suppository RECTAL QAM PRN Constipation Diazepam 5 mg 05/08/24 17:47 Diazepam Inj (*Crx) 10 Mg/2 Ml Syringe IV PUSH Q4H PRN Restlessness Glycopyrrolate 0.1 mg 05/08/24 17:48 Glycopyrrolate Inj (*Sp) 0.2 Mg/Ml Vial IV PUSH Q4H PRN Secretions Hydromorphone HCl 0.5 mg 05/08/24 17:44 Hydromorphone Hcl Inj (*Crx) 1 Mg/Ml Syr IV PUSH Q2H PRN Pain/Dyspnea Hydromorphone HCl 50 mg/ 100 mls @ 0.5 mls/hr 05/08/24 17:45 05/08/24 18:17 Sodium Chloride IV CONT 0.25 mg/hr .Q24H ED 0.5 mls/hr Administration 0.25 MG/HR Prochlorperazine Edisylate 10 mg 05/08/24 17:48 Prochlorperazine Edisylate 10 Mg/2 Ml Vial IV PUSH Q6H PRN Nausea And Vomiting
[2024-05-09] MEDS: HYDROmorphone HCL/PF (*CRX) 50 MG in SODIUM CHLORIDE 0.9% IV 95 ML IV CONT (18:56)
[2024-05-09 20:00] VITALS: O2SAT 93
--- NOTE | 2024-05-10 01:49 | PC.NURSE ---
Went into to patient's room, patient had . Notified Charge Nurse.
--- NOTE | 2024-05-10 02:03 | PC.NURSE ---
Family declined to pick a home and wished to release to the hedis specialist. Rinku (hedis specialist) stated he would reach out to the family. Rinku called back and stated that they decided to donate body to [facility] and that [facility] would be reaching out to us tomorrow.
--- NOTE | 2024-05-10 10:43 | P.DN_ITS ---
Discharge Summary Date and Time Date of : 05/10/24 Time of : 00:45 Provider Pronounced By: 2 RNs Name of First RN That Pronounced: Effie Pereira RN Name of Second RN That Pronounced: Kasia Lopez RN Probable Cause of Probable Cause of : encephalopathy Summary Hospital Course: Admitted to inpatient hospice service for symptom management. Medications were titrated to comfort. Mrs. Chanel peacefully. Additional Data Confirmation of as documented by pronouncing clinician: Pupillary Reflex, Palpable Pulses, Response to Stimuli, Heart Tones and Breath Sounds Name of Provider Notified: Escobar Olivas Time Provider Notified: 01:05 Family Requests Autopsy: No Director Of Rehabilitation And Wellness Notified: Yes Date [facility] Notified of : 05/10/24 Time [facility] Notified of : 01:20
--- NOTE | 2024-05-11 14:39 | PC.NURSE ---
Patient was picked up by [facility] on 05/11/2024 at approximately 0930.
== END 2024-05-10 01:30 | disposition expired | DRG 951 ==
PROVIDERS: Admitting Provider Internal Medicine; PCP Internal Medicine; Visit Provider Internal Medicine
DX: Z51.5 Encounter for palliative care (principal); G93.41 Metabolic encephalopathy; N17.9 Acute kidney failure, unspecified; K50.90 Crohn's disease, unspecified, without complications; R06.00 Dyspnea, unspecified; F03.90 Unspecified dementia, unspecified severity, without behavioral disturbance, psychotic disturbance, mood disturbance, and anxiety; H35.30 Unspecified macular degeneration; E03.9 Hypothyroidism, unspecified; N32.81 Overactive bladder; I12.9 Hypertensive chronic kidney disease with stage 1 through stage 4 chronic kidney disease, or unspecified chronic kidney disease; N18.9 Chronic kidney disease, unspecified; K21.9 Gastro-esophageal reflux disease without esophagitis; I48.91 Unspecified atrial fibrillation; E78.5 Hyperlipidemia, unspecified; M19.90 Unspecified osteoarthritis, unspecified site; Z86.73 Personal history of transient ischemic attack (TIA), and cerebral infarction without residual deficits; Z96.659 Presence of unspecified artificial knee joint; Z66 Do not resuscitate
CPT/HCPCS: A9270; J1171